=== PATIENT | female | born 1970 | race Two or more races ===

== ENCOUNTER 2021-05-25 12:27 | Outpatient (REF) | payer MEDICAID, SELFPAY ==
--- NOTE | ~2021-05-25 | MM_ITS ---
EXAMINATION: MM SCREENING DIGITAL BREAST TOMOSYNTHESIS, BILATERAL CLINICAL INFORMATION: Screening. Asymptomatic. The lifetime risk of breast cancer based on the Tyrer-Cuzick Model is 4%. COMPARISON: Mammography: 08/26/2018, 08/07/2017, 05/01/2016 (baseline). TECHNIQUE: Digital breast tomosynthesis is performed in both the craniocaudal and mediolateral oblique views along with computer-aided detection (CAD). Synthesized 2D images are generated from the tomosynthesis. FINDINGS: The breasts are almost entirely fatty (ACR BI-RADS breast composition Category a). There are no significant masses, abnormal calcifications, or other abnormalities. Background stromal and fibroglandular densities are stable. There is no developing density. The axilla and skin contours are unremarkable. MM/MM tomosynthesis screening BI IMPRESSION: No mammographic evidence of malignancy. ASSESSMENT: BI-RADS 1: Negative RECOMMENDATION: Routine annual mammography screening. This patient's information was entered into a reminder system with a target due date for their next mammogram.
== END 2021-05-25 12:28 | disposition home or self-care (01) ==
LOC: HO.MAMMO 12:27
PROVIDERS: PCP Internal Medicine; Visit Provider Internal Medicine
DX: Z12.31 Encounter for screening mammogram for malignant neoplasm of breast (principal)
CPT/HCPCS: 77063; 77067

== ENCOUNTER 2021-07-03 10:30 | Outpatient (REF) | payer MEDICAID, SELFPAY ==
--- NOTE | ~2021-07-03 | CT_ITS ---
CT HEAD WITHOUT CONTRAST CLINICAL INFORMATION: Benign intracranial hypertension. COMPARISON: None available. TECHNIQUE: Contiguous axial imaging was performed from the skull base to vertex without intravenous administration of contrast. This CT examination was performed using dose optimization techniques as appropriate, variously including the following: *Automated exposure control *Adjustment of mA and/or kV according to patient size (this includes techniques or standardized protocols for targeted exams where dose is matched to indication/reason for exam; i.e. extremities or head) *Use of iterative reconstruction technique FINDINGS: Empty sella. There is no intracranial hemorrhage, hydrocephalus, extra-axial surface collection, midline shift, or other herniation pattern. Gauthier to white matter differentiation is diffusely maintained without evidence of an evolved acute territorial infarct. The basilar cisterns are preserved. No significant soft tissue abnormality. No acute osseous abnormality. The paranasal sinuses and the mastoid air cells are well aerated. CT/CT head/brain wo con IMPRESSION: No acute intracranial abnormality. Empty sella.
== END 2021-07-03 10:31 | disposition home or self-care (01) ==
LOC: HO.CT 10:30
PROVIDERS: PCP Internal Medicine; Visit Provider Ophthalmology
DX: G93.2 Benign intracranial hypertension (principal)
CPT/HCPCS: 70450

== ENCOUNTER 2021-07-21 15:08 | Outpatient (REF) | payer MEDICAID, SELFPAY ==
--- NOTE | ~2021-07-21 | MR_ITS ---
MR BRAIN WITHOUT AND WITH IV CONTRAST CLINICAL INFORMATION: Papilledema. COMPARISON: Head CT 07/03/2021. TECHNIQUE: Multiplanar, multisequence MRI of the brain was obtained before and after the intravenous administration of 8.5 mL of Gadavist. FINDINGS: There is no pathologic intracranial enhancement. No parenchymal signal abnormality. There is no hydrocephalus, extra-axial surface collection, or herniation. The major flow voids at the skull base are preserved. There is no acute infarct on diffusion-weighted imaging. There is no intracranial hemorrhage on the gradient recalled echo acquisition. Partially empty sella. The cerebellar tonsils are normally positioned. The cerebellum and brainstem are normal. The craniocervical junction is normal. Osseous marrow signal intensity is homogenous. The visualized soft tissues are unremarkable. MR/MR head/brain wo/w con IMPRESSION: There is a partially empty sella which can be correlated for clinical signs of pseudotumor cerebri. Otherwise unremarkable MRI of the brain. No enhancing lesions.
[2021-07-21 15:21] LABS: Blood Urea Nitrogen 16 mg/dL (9-16); Estimated Glomerular Filt Rate > 60
== END 2021-07-21 15:09 | disposition home or self-care (01) ==
LOC: HO.MRI 15:08
PROVIDERS: Visit Provider Psychiatry & Neurology Neurology
DX: Z01.812 Encounter for preprocedural laboratory examination (principal); H47.10 Unspecified papilledema
CPT/HCPCS: 36415; 70553; 82565; 84520; A9585

== ENCOUNTER 2021-09-22 09:21 | Day surgery (SDC) | payer MEDICAID, SELFPAY ==
--- NOTE | ~2021-09-22 | FL_ITS ---
EXAMINATION: XR LUMBAR PUNCTURE CLINICAL INFORMATION: Papilledema. COMPARISON: None. TECHNIQUE: Following explaining fluoroscopy-guided lumbar puncture procedure, benefits and risk, a written consent was obtained. Patient was placed prone on fluoroscopy table and low back area was cleaned and draped in the usual sterile manner. 1% lidocaine was administered overlying the L4-L5 disc level. 6 inch 20-gauge needle was then advanced from the skin intrathecally at the L4-L5 disc level. After observing CSF return following removal of stylet, patient was quickly placed in left lateral decubitus view and opening CSF pressure was obtained. CSF fluid was then collected in 4 test tubes. Stylet was reintroduced and needle withdrawn. Complete hemostasis achieved at puncture site. Simple Band-Aid applied postprocedure. Patient tolerated procedure extremely well. FINDINGS: On fluoroscopy-guided lumbar puncture the opening CSF pressure is elevated measuring 33 cm of water. Approximately 11.5 cc of clear CSF fluid was collected in 4 test tubes. FLUOROSCOPY TIME: 0.9 minutes. DOSE AREA PRODUCT: 12.476 uGy-m2 (microgray-meter squared). FL/FL guided lumbar puncture LP IMPRESSION: Successful fluoroscopy-guided lumbar puncture performed at the L4-L5 disc level.
[2021-09-22 10:04] LABS: MANUAL DIFF FLAG NO
[2021-09-22 10:06] LABS: Basophils Percent Auto 0.4 % (0-2); Eosinophils Absolute Auto 0.1 X10*3/uL (0.0-0.4); Eosinophils Percent Auto 1.1 % (0-4); Hematocrit 42.4 % (37.0-47.0); Hemoglobin 13.6 g/dl (12.0-16.0); Imm Gran Abs Auto 0.04 X10*3/uL (0.00-0.03); Imm Gran Pct Auto 0.4 % (0.0-0.4); Lymphocytes Absolute Auto 3.5 X10*3/uL (1.2-4.9); Lymphocytes Percent Auto 31.7 % (20-40); Mean Corpuscular HGB Conc 32.1 g/dl (31.0-35.0); Mean Corpuscular Hemoglobin 27.8 pg (27.0-33.0); Mean Corpuscular Volume 86.5 fL (80.0-98.0); Mean Platelet Volume 12.3 fL (9.4-12.3); Monocytes Absolute Auto 0.6 X10*3/uL (0.1-1.2); Monocytes Percent Auto 5.3 % (2-11); Neutrophils Absolute Auto 6.7 x10*3/uL (2.0-8.3); Neutrophils Percent Auto 61.1 % (45-73); Platelet Count 267 X10*3/uL (160-400); Red Cell Distribution Width 14.2 % (11.0-16.0); White Blood Count 10.9 X10*3/uL (4.8-10.8)
[2021-09-22 10:10] VITALS: BP 152/76; PULSE 90; RESP 18; TEMP 36.7; O2SAT 96; BMI 34.5
[2021-09-22 10:12] LABS: Prothrombin Time 11.9 SEC (10.0-13.1)
[2021-09-22 10:15] LABS: Partial Thromboplastin Time 39.3 SEC (24.1-38.0)
[2021-09-22 12:19] VITALS: BP 136/75; PULSE 80; RESP 16; TEMP 36.5; O2SAT 96
[2021-09-22 12:47] LABS: CSF Appearance Hazy; CSF Tube # 1
[2021-09-22 12:49] VITALS: BP 114/60; PULSE 77; RESP 16; O2SAT 98
[2021-09-22 13:19] VITALS: BP 131/78; PULSE 76; RESP 16; O2SAT 98
[2021-09-22 13:26] LABS: Appearance CSF CLEAR; CSF Monos 20 %; CSF Tube # 4; CSF Volume 2.5 ML; Color CSF COLORLESS; Lymphocytes CSF 60 %; Neutrophils CSF 20 %; Red Blood Cell CSF 52 MM*3; White Blood Cell CSF 5 MM*3
[2021-09-22 13:35] LABS: Glucose CSF 67 mg/dL; Total Protein CSF 43.6 mg/dL (15-45)
[2021-09-22 14:09] VITALS: BP 141/82; PULSE 73; RESP 16; O2SAT 99
[2021-09-22 14:57] VITALS: BP 139/86; PULSE 79; RESP 16; TEMP 36.9; O2SAT 99
== END 2021-09-22 14:58 | disposition home or self-care (01) ==
PROVIDERS: Psychiatry & Neurology Neurology; Radiology Diagnostic Radiology; Visit Provider Radiology Diagnostic Radiology
PROC: 009U3ZZ Drainage of Spinal Canal, Percutaneous Approach (ICD-10-PCS; CPT 62270; principal; 2021-09-22 11:00)
DX: H47.10 Unspecified papilledema (principal); G43.909 Migraine, unspecified, not intractable, without status migrainosus; I10 Essential (primary) hypertension; E78.5 Hyperlipidemia, unspecified; E66.9 Obesity, unspecified; Z79.899 Other long term (current) drug therapy
CPT/HCPCS: 36415; 62328; 82945; 84157; 85025; 85610; 85730; 87015; 87070; 87205; 89051

== ENCOUNTER 2022-05-31 12:27 | Outpatient (REF) | payer MEDICAID, SELFPAY ==
--- NOTE | ~2022-05-31 | MM_ITS ---
EXAMINATION: MM SCREENING DIGITAL BREAST TOMOSYNTHESIS, BILATERAL CLINICAL INFORMATION: Screening. Asymptomatic. The lifetime risk of breast cancer based on the Tyrer-Cuzick Model is 4%. COMPARISON: Mammography: 05/25/2021, 08/26/2018, 08/07/2017 TECHNIQUE: Digital breast tomosynthesis is performed in both the craniocaudal and mediolateral oblique views along with computer-aided detection (CAD). Synthesized 2D images are generated from the tomosynthesis. FINDINGS: There are scattered areas of fibroglandular density (ACR BI-RADS breast composition Category b). Breast tissue composition borders on predominantly fatty. Background stromal markings are unremarkable. There are no significant masses, abnormal calcifications, or other abnormalities. Parenchymal pattern is similar to prior studies. There is no developing density or architectural abnormality. There is a small dermal lesion again seen overlying the outer left breast. The axilla are unremarkable. No significant changes. MM/MM tomosynthesis screening BI IMPRESSION: No mammographic evidence of malignancy. ASSESSMENT: BI-RADS 2: Benign RECOMMENDATION: Routine annual mammography screening. This patient's information was entered into a reminder system with a target due date for their next mammogram.
== END 2022-05-31 12:28 | disposition home or self-care (01) ==
LOC: HO.MAMMO 12:27
PROVIDERS: Visit Provider Internal Medicine
DX: Z12.31 Encounter for screening mammogram for malignant neoplasm of breast (principal)
CPT/HCPCS: 77063; 77067

== ENCOUNTER 2023-06-03 12:57 | Outpatient (REF) | payer MEDICAID, SELFPAY | END 2023-06-03 12:58 | disposition home or self-care (01) | LOC: HO.MAMMO 12:57 | PROVIDERS: PCP Student in an Organized Health Care Education/Training Program; Visit Provider Student in an Organized Health Care Education/Training Program | DX: Z12.31 Encounter for screening mammogram for malignant neoplasm of breast (principal) | CPT/HCPCS: 77063; 77067 ==

== ENCOUNTER → 2023-06-03 13:15 | Outpatient (BNV) | payer MEDICAID, SELFPAY | PROVIDERS: PCP Student in an Organized Health Care Education/Training Program; Visit Provider Radiology Diagnostic Radiology | DX: Z12.31 Encounter for screening mammogram for malignant neoplasm of breast (principal) | CPT/HCPCS: 77063; 77067 ==

== ENCOUNTER 2023-11-15 08:46 | Outpatient (REF) | payer MEDICAID, SELFPAY ==
[2023-11-15 11:20] LABS: Hematocrit 45.3 % (37.0-47.0); Hemoglobin 14.6 g/dl (12.0-16.0); Mean Corpuscular HGB Conc 32.2 g/dl (31.0-35.0); Mean Corpuscular Hemoglobin 28.1 pg (27.0-33.0); Mean Corpuscular Volume 87.3 fL (80.0-98.0); Mean Platelet Volume 13.4 fL (9.4-12.3); Platelet Count 238 X10*3/uL (160-400); Red Blood Count 5.19 X10*6/uL (4.20-5.50); Red Cell Distribution Width 14.3 % (11.0-16.0); White Blood Count 9.6 X10*3/uL (4.8-10.8)
[2023-11-15 11:30] LABS: Estimated Average Glucose 108 mg/dL; Hemoglobin A1c % 5.4 % (<6.0)
[2023-11-15 11:40] LABS: Alanine Aminotransferase 36 U/L (0-31); Albumin Level 4.2 g/dL (3.5-5.0); Alkaline Phosphatase 100 U/L (39-117); Anion Gap 14 (12-20); Aspartate Amino Transferase 31 U/L (5-31); Bilirubin Total 0.4 mg/dL (0.0-1.0); Blood Urea Nitrogen 12 mg/dL (9-16); Calcium 9.9 mg/dL (8.4-10.2); Carbon Dioxide 24 mmol/L (22-29); Chloride 106 mmol/L (96-108); Estimated Glomerular Filt Rate > 60; Glucose Random 97 mg/dL (60-115); Potassium 4.1 mmol/L (3.3-5.1); Sodium 140 mmol/L (135-145); Total Protein 8.5 g/dL (6.5-8.0)
[2023-11-15 11:50] LABS: Syphilis Screen Nonreactive (Nonreactive)
[2023-11-15 11:54] LABS: HBS Num1 0.35 mIU/mL (0-7.99); HBc Num1 0.19 S/CO (0.00-0.79); Hepatitis B Core Antibody Nonreactive (Nonreactive); ~HepC Num1 0.12 S/CO (0.00-0.79); ~Hepatitis B Surface Antibody NONREACTIVE (Nonreactive); ~Hepatitis C Antibody Nonreactive (Nonreactive)
[2023-11-15 11:59] LABS: TSH reflex Free T4 0.59 uIU/mL (0.32-4.0); Vitamin D 25-OH Total 36.4 ng/mL (>30)
[2023-11-15 12:07] LABS: Creatinine Urine 130.67 mg/dL; Microalbum/Creatinine Ratio Ur 14.5 ug/mg cr (<30)
[2023-11-15 13:17] LABS: CT PCR NOT DETECTED (Not Detect.); NG PCR NOT DETECTED (Not Detect.)
== END 2023-11-15 08:47 | disposition home or self-care (01) ==
LOC: HO.HHCL 08:46
PROVIDERS: Visit Provider Student in an Organized Health Care Education/Training Program
DX: Z00.00 Encounter for general adult medical examination without abnormal findings (principal)
CPT/HCPCS: 36415; 80053; 82043; 82306; 82570; 83036; 84443; 85027; 86704; 86706; 86780; 86803; 87491; 87591

== ENCOUNTER 2023-11-22 11:55 | Outpatient (REF) | payer MEDICAID, SELFPAY ==
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
== END 2023-11-22 11:56 | disposition home or self-care (01) ==
LOC: HO.HHCX 11:55
PROVIDERS: Visit Provider Emergency Medicine
DX: S97.121A Crushing injury of right lesser toe(s), initial encounter (principal)
CPT/HCPCS: 73660

== ENCOUNTER 2023-11-26 12:50 | Outpatient (AMB) | payer MEDICAID, SELFPAY ==
--- NOTE | 2023-11-26 12:51 | A.OFFVIS_ITS ---
Vital Signs 11/26/23 13:01 Height 5 ft 2 in Weight 196 lb BMI 35.8 BP 132/65 Blood Pressure Location Rt brachial Position Sitting Pulse 99 Intake Visit Reasons: Infected sebaceous cyst back Intake Note: Patient referred by pcp Dr. Jay for infected cyst on back. Present for 1yr but recently began oozing. Taking Doxycycline X7d. Patient c/o: 2nd concern cyst on Rt chest for 9m. Ear Nose Throat Physician Required: Yes Ear Nose Throat Physician Name: Iris Jones IDRIS Accompanied by: Spouse Tavo Allergies No Known Allergies Allergy (Verified 11/26/23 12:58) Medication List - Last Reconciled 11/26/23 by Robe Gilbert MD acetazolamide 250 mg PO DAILY amlodipine 10 mg PO DAILY chlorthalidone 1 tab PO DAILY cholecalciferol (vitamin D3) 125 mcg PO QAM hydrocodone-acetaminophen 5-325 mg 1 tab PO Q4-6H PRN lidocaine 5% patches topical losartan 25 mg PO DAILY rosuvastatin 20 mg PO QAM topiramate 25 mg PO DAILY HPI Comments Details: Patient presents accompanied by a family member. She has had a 2 week history of infected sebaceous cyst of the mid back. Because of progression of symptoms, she presents here for further evaluation. She was seen by her medical doctor who has prescribed antibiotics for her. She has never had this before. Chart was reviewed and patient evaluated [facility] Medical History Hypertension Social History (Updated 11/26/23 @ 13:09 by IDRIS Phillips) Alcohol intake: never Patient Tobacco Use Status: Never used Tobacco Physical Exam Vital Signs: Last Vital Signs Pulse 99 11/26/23 13:01 BP 132/65 11/26/23 13:01 BMI result Body Mass Index 35.8 Back/Spine/Pelvis Other: Roughly 4 x 3 cm mid back infected sebaceous cyst/abscess. Office Procedures I&D Drain Details: Risks, benefits alternatives of I&D of mid back infected sebaceous cyst/abscess were reviewed the patient and included but not limited to bleeding, recurrence, numbness, pain, scarring the patient wished to proceed. All questions answered. After appropriate positioning, patient underwent 1% lidocaine and Betadine prep and uneventfully transverse incision made over the infected sebaceous cyst/abscess. Copious amounts of purulent material retrieved. Wound was irrigated, secured hemostasis, packed, and dressing applied. Patient tolerated procedure well. 34864-Jbaqzrze of Skin Abscess, complex All charges added?: Procedure code (CPT) selection complete Assessment & Plan Assessment & Plan (1) Abscess: Code(s): L02.91 - Cutaneous abscess, unspecified Category: Surgical Plan: Patient was continue antibiotics prescribed by her medical doctor, she will be given a script for analgesics, local wound care, VNA services per Valentin from the office and patient will see me in a week's time or p.r.n.. Orders: Orders AMB Incision & Drainage Today L02.91 - Cutaneous abscess, unspecified Medications: New hydrocodone-acetaminophen 5-325 mg Partial Fill upon patient request. 1 tab PO Q4-6H PRN 30 tabs 0RF pain Coding Level of Care Code New Pt Level 5 (03124) Diagnoses Abscess L02.91 CPT Codes I&D Drain - Drain 2: 45591-Rkpyssyi of Skin Abscess, complex ([id number])
[2023-11-26 13:01] VITALS: BP 132/65; PULSE 99; BMI 35.8
== END 2023-11-26 13:31 | disposition home or self-care (01) ==
PROVIDERS: PCP Student in an Organized Health Care Education/Training Program; Visit Provider Surgery
DX: L02.91 Cutaneous abscess, unspecified (principal)
CPT/HCPCS: 10060; 99204

== ENCOUNTER → 2023-11-26 12:50 | Outpatient (BNVA) | payer MEDICAID, SELFPAY | PROVIDERS: PCP Student in an Organized Health Care Education/Training Program; Visit Provider Surgery | DX: L02.91 Cutaneous abscess, unspecified (principal) | CPT/HCPCS: 10060; 99202 ==

== ENCOUNTER → 2023-11-27 14:55 | Outpatient (BNVA) | payer MEDICAID, SELFPAY | PROVIDERS: PCP Student in an Organized Health Care Education/Training Program; Visit Provider Surgery ==

== ENCOUNTER → 2023-11-28 14:41 | Outpatient (BNVA) | payer MEDICAID, SELFPAY | PROVIDERS: PCP Student in an Organized Health Care Education/Training Program; Visit Provider Surgery | DX: Z48.01 Encounter for change or removal of surgical wound dressing (principal) | CPT/HCPCS: 99211 ==

== ENCOUNTER 2023-12-10 10:30 | Outpatient (AMB) | payer MEDICAID, SELFPAY ==
--- NOTE | 2023-12-10 10:33 | A.OFFVIS_ITS ---
Intake Visit Reasons: s/p I&D Infected sebaceous cyst back Intake Note: Patient here s/p abscess on back. Finished doxycycline course. Patient c/o: site healing well. Denies oozing, pain, itch. Truss Assembler Required: Yes Accompanied by: Self / Same As Patient Allergies No Known Allergies Allergy (Verified 12/10/23 10:36) HPI Comments Details: Patient was status post I&D of mid back infected sebaceous cyst. She is doing quite well. She has no discomfort anymore. There was no drainage. [facility] Medical History Hypertension Social History (Updated 11/26/23 @ 13:09 by IDRIS Phillips) Alcohol intake: never Patient Tobacco Use Status: Never used Tobacco Physical Exam Back/Spine/Pelvis Other: Back wound is completely healed. Sebaceous cyst is still present. This measures roughly 3 x 2 cm. Assessment & Plan Assessment & Plan (1) Status post incision and drainage: Code(s): Z98.890 - Other specified postprocedural states Category: Medical Plan Current plan and have the patient continue healing and arranged for elective excision in the office on a day which is convenient for her. She understands. All questions answered. Arrangements made for this. Coding Level of Care Code Global (89244) Diagnoses Status post incision and drainage Z98.890
== END 2023-12-10 11:01 | disposition home or self-care (01) ==
PROVIDERS: PCP Student in an Organized Health Care Education/Training Program; Visit Provider Surgery
DX: Z98.890 Other specified postprocedural states (principal)
CPT/HCPCS: 99024

== ENCOUNTER → 2023-12-10 10:30 | Outpatient (BNVA) | payer MEDICAID, SELFPAY | PROVIDERS: PCP Student in an Organized Health Care Education/Training Program; Visit Provider Surgery | DX: L72.3 Sebaceous cyst (principal); Z48.817 Encounter for surgical aftercare following surgery on the skin and subcutaneous tissue; Z98.890 Other specified postprocedural states | CPT/HCPCS: 99212 ==

== ENCOUNTER 2023-12-25 07:29 | Outpatient (AMB) | payer MEDICAID, SELFPAY ==
--- NOTE | 2023-12-25 07:40 | MHC.OFFVIS ---
Vital Signs 12/25/23 07:41 Height 5 ft 2 in Weight 198 lb BMI 36.2 BP 168/73 H Blood Pressure Location Rt brachial Position Sitting Pulse 92 Intake Visit Reasons: Excision I&D Infected sebaceous cyst back Intake Note: Patient here for cyst excision on back. Postal Supervisor Required: Yes Postal Supervisor Name: Iris STEINBERG Accompanied by: Spouse Allergies No Known Allergies Allergy (Verified 12/25/23 07:40) Medication List - Last Reconciled 12/25/23 by Robe Gilbert MD acetazolamide 250 mg PO DAILY amlodipine 10 mg PO DAILY chlorthalidone 1 tab PO DAILY cholecalciferol (vitamin D3) 125 mcg PO QAM lidocaine 5% patches topical losartan 25 mg PO DAILY rosuvastatin 20 mg PO QAM topiramate 25 mg PO DAILY HPI Comments Details: Patient presents for elective excision of a prior infected sebaceous cyst of the mid back. Risks, benefits, alternatives of procedure reviewed with the patient included but not limited to bleeding, infection, recurrence, numbness, pain, scarring, wound dehiscence, seroma formation and the patient wished to proceed. All questions answered. Consent signed [facility] Medical History Hypertension Social History (Updated 11/26/23 @ 13:09 by IDRIS Phillips) Alcohol intake: never Patient Tobacco Use Status: Never used Tobacco Physical Exam Vital Signs: Last Vital Signs Pulse 92 12/25/23 07:41 BP 168/73 H 12/25/23 07:41 BMI result Body Mass Index 36.2 Office Procedures Excision Details: After after appropriate positioning, patient underwent 1% lidocaine and Betadine prep, and a transverse by elliptical incision made around the mass in question which measured roughly 4 x 3 cm consistent with a sebaceous cyst. Specimen was excised and sent to pathology. Wound was irrigated, secured hemostasis, and closed using running subcuticular 3-0 Vicryl suture followed by Steri-Strips and sterile dressings. Patient tolerated procedure well. 49588-lbvqy/arms/legs 3.1-4cm Procedure code (CPT) selection complete Office Meds lidocaine 1 %-epinephrine 1:100,000 injection solution Performing Provider: Robe Gilbert MD [place] [facility] [place] [facility] Administered by: Robe Gilbert MD on 12/25/23 08:14 Dose Route Admin Location Dispensed Lot Number Expiration Date NDC Combat Rifle Crewmember 20 mL Infiltration 20 mL Assessment & Plan Assessment & Plan (1) Sebaceous cyst: Code(s): L72.3 - Sebaceous cyst Category: Surgical Plan: Patient was been given local instructions along with her family member, including ice periodically today tomorrow, may shower in 2 days removing only outside dressing, may shower in 2 days, and script for analgesics. All questions answered. Orders: Orders AMB Excision Today L72.3 - Sebaceous cyst Medications: New lidocaine-epinephrine 1 %-1:100,000 20 mL Infiltration ONCE 30 mL 0RF L72.3 - Sebaceous cyst Coding Level of Care Code Est Pt Level 5 (16396) Diagnoses Sebaceous cyst L72.3 CPT Codes Trunk/Arms/Legs - CPT: 96679-qpirw/arms/legs 3.1-4cm ([id number])
[2023-12-25 07:41] VITALS: BP 168/73; PULSE 92; BMI 36.2
== END 2023-12-25 08:21 | disposition home or self-care (01) ==
PROVIDERS: PCP Student in an Organized Health Care Education/Training Program; Visit Provider Surgery
DX: L72.0 Epidermal cyst (principal)
CPT/HCPCS: 11404

== ENCOUNTER 2023-12-25 07:29 | Outpatient (REF) | payer MEDICAID, SELFPAY | END 2023-12-25 07:30 | disposition home or self-care (01) | LOC: HO.LNP 07:29 | PROVIDERS: PCP Student in an Organized Health Care Education/Training Program; Visit Provider Surgery | DX: L72.0 Epidermal cyst (principal) | CPT/HCPCS: 11404; 88304 ==

== ENCOUNTER 2024-01-01 08:53 | Outpatient (AMB) | payer MEDICAID, SELFPAY ==
--- NOTE | 2024-01-01 08:54 | A.OFFVIS_ITS ---
Intake Visit Reasons: S/p cyst exc~ back Intake Note: Patient here s/p cyst excision on mid back on . Reports lesion healing well. Patient c/o: irritation with ban-daid adhesive. ~ Patient advised band-aid no longer needed. Lead Material Handler Required: No Accompanied by: Friend Allergies No Known Allergies Allergy (Verified 01/01/24 08:59) HPI Comments Details: Patient presents with a family member/friend for follow-up. She has no wound issues or complaints. Pathology is benign. [facility] Medical History Hypertension Social History (Updated 11/26/23 @ 13:09 by IDRIS Phillips) Alcohol intake: never Patient Tobacco Use Status: Never used Tobacco Physical Exam Back/Spine/Pelvis Other: Incision clean dry and intact healing well Assessment & Plan Assessment & Plan (1) Postop check: Code(s): Z09 - Encounter for follow-up examination after completed treatment for conditions other than malignant neoplasm Category: Surgical Plan Patient has been given local instructions including avoiding strenuous activities next few weeks time and will otherwise follow-up p.r.n.. All questions answered. Coding Level of Care Code Global (57364) Diagnoses Postop check Z09
== END 2024-01-01 09:08 | disposition home or self-care (01) ==
PROVIDERS: PCP Student in an Organized Health Care Education/Training Program; Visit Provider Surgery
DX: Z09 Encounter for follow-up examination after completed treatment for conditions other than malignant neoplasm (principal)
CPT/HCPCS: 99024

== ENCOUNTER → 2024-01-01 08:53 | Outpatient (BNVA) | payer MEDICAID, SELFPAY | PROVIDERS: PCP Student in an Organized Health Care Education/Training Program; Visit Provider Surgery | DX: Z09 Encounter for follow-up examination after completed treatment for conditions other than malignant neoplasm (principal); Z87.2 Personal history of diseases of the skin and subcutaneous tissue; Z98.890 Other specified postprocedural states | CPT/HCPCS: 99212 ==

== ENCOUNTER 2024-01-09 12:38 | Outpatient (AMB) | payer MEDICAID, SELFPAY ==
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
[2024-01-09 12:52] VITALS: BMI 36.2
== END 2024-01-09 13:17 | disposition home or self-care (01) ==
PROVIDERS: PCP Student in an Organized Health Care Education/Training Program; Visit Provider Physician Assistant
DX: M79.671 Pain in right foot (principal)
CPT/HCPCS: 99202

== ENCOUNTER → 2024-01-09 12:38 | Outpatient (BNVA) | payer MEDICAID, SELFPAY | PROVIDERS: PCP Student in an Organized Health Care Education/Training Program; Visit Provider Physician Assistant | DX: M79.671 Pain in right foot (principal); S99.921A Unspecified injury of right foot, initial encounter; X58.XXXA Exposure to other specified factors, initial encounter; Y93.9 Activity, unspecified; Y92.9 Unspecified place or not applicable; Y99.9 Unspecified external cause status | CPT/HCPCS: 99212 ==

== ENCOUNTER 2024-02-07 08:49 | Outpatient (REF) | payer MEDICAID, SELFPAY ==
[2024-02-07 11:32] LABS: Alanine Aminotransferase 20 U/L (0-31); Albumin Level 3.9 g/dL (3.5-5.0); Alkaline Phosphatase 95 U/L (39-117); Anion Gap 13 (12-20); Aspartate Amino Transferase 28 U/L (5-31); Bilirubin Total 0.3 mg/dL (0.0-1.0); Blood Urea Nitrogen 17 mg/dL (9-16); Calcium 9.4 mg/dL (8.4-10.2); Carbon Dioxide 25 mmol/L (22-29); Chloride 107 mmol/L (96-108); Cholesterol 228 mg/dL (<200); Estimated Glomerular Filt Rate > 60; Glucose Random 99 mg/dL (60-115); HDL Cholesterol 35 mg/dL (>40); LDL Cholesterol Calculated 162 mg/dL (<100); Potassium 3.8 mmol/L (3.3-5.1); Sodium 141 mmol/L (135-145); Total Protein 7.7 g/dL (6.5-8.0); Triglycerides 156 mg/dL (<150)
[2024-02-07 12:49] LABS: HBS Num1 0.57 mIU/mL (0-7.99); HBsAGNum1 0.29 S/CO (0.00-0.99); Hepatitis B Surface Antigen Negative (Negative); ~Hepatitis B Surface Antibody NONREACTIVE (Nonreactive)
[2024-02-07 13:22] LABS: HBc Num1 0.24 S/CO (0.00-0.79); HIV AB/AG Nonreactive (Nonreactive); HIV Num 1 0.06 S/CO (0.00-0.99); Hepatitis B Core Antibody Nonreactive (Nonreactive)
== END 2024-02-07 08:50 | disposition home or self-care (01) ==
LOC: HO.HHCL 08:49
PROVIDERS: Visit Provider Student in an Organized Health Care Education/Training Program
DX: Z00.00 Encounter for general adult medical examination without abnormal findings (principal); E78.5 Hyperlipidemia, unspecified
CPT/HCPCS: 36415; 80053; 80061; 86704; 86706; 87340; 87389

== ENCOUNTER 2024-02-25 15:08 | Outpatient (AMB) | payer MEDICAID, SELFPAY ==
[2024-02-25 15:12] VITALS: BP 148/78; PULSE 78; O2SAT 96; BMI 36.0
--- NOTE | 2024-02-25 15:12 | MHC.OFFVIS ---
Vital Signs 02/25/24 15:12 Height 5 ft 2 in Weight 197 lb 1.492 oz BMI 36.0 BP 148/78 H Blood Pressure Location Lt brachial Position Sitting Pulse 78 Pulse Source Pulse Oximeter Pulse Oximetry (%) 96 Oxygen Delivery Method Room Air Intake Visit Reasons: pre colonoscopy Intake Note: Jaylyn presents in office today for a scheduled colo scrn. Routine/Initial CC; Relevant GI Sx as reported per pt? Pt denies any specific GI sx. Pt was referred by PCP per age specification. ? Recent hx of relevant surgeries? No prior colo. Pt only had minor procedures in the last year (skin abscess) Pt mother recently from colon cancer complications. Artificial Breeding Technician Required: Yes Artificial Breeding Technician Services: Artificial Breeding Technician Present Artificial Breeding Technician Name: [id number] Juan A Information Interpreted: non-clinical & clinical Accompanied by: Self / Same As Patient Allergies No Known Allergies Allergy (Verified 02/25/24 15:13) Medication List - Last Reconciled 02/25/24 by FARRAH Agarwal acetazolamide 250 mg PO DAILY amlodipine 10 mg PO DAILY chlorthalidone 1 tab PO DAILY cholecalciferol (vitamin D3) 125 mcg PO QAM lidocaine 5% patches topical losartan 50 mg PO DAILY rosuvastatin 20 mg PO QAM topiramate 25 mg PO DAILY HPI HPI pre colonoscopy: Details: 53 year old? female hypertension, hypercholesteremia is here today for pre colonoscopy screening.? Patient was sent to us by her PCP.? This is her first colonoscopy screening.? Patient denies any gastrointestinal symptoms in the past or at present.? Patient's mother passed shortly after diagnosed with colorectal cancer Patient's dad diagnosed with prostate cancer and maternal aunt was diagnosed with esophageal cancer and breast cancer.? Denies any history of difficulty with sedation or anesthesia in the past.? Negative for history of sleep apnea.? Denies any history of cardiac, renal, pulmonary, or hepatic disease.?? No history of infectious? diseases like hepatitis A, B, C, HIV or tuberculosis.? Patient is not on any anticoagulation [facility] Medical History (Updated 02/25/24 @ 15:56 by FARRAH Agarwal) Family history of colorectal cancer Hypertension Surgical History (Reviewed 02/25/24 @ 15:12 by Ricky Moreno [facility]) History of back surgery Social History (Reviewed 02/25/24 @ 15:12 by Ricky Moreno [facility]) Alcohol intake: never Patient Tobacco Use Status: Never used Tobacco Current occupational status: unemployed Review of Systems Const Denies weight gain and Denies weight loss ENT Reports no additional complaints, Denies dysphagia and Denies odynophagia Card Reports no additional complaints Resp Reports no additional complaints GI Denies abdominal pain, Denies belching, Denies melena, Denies bloating, Denies change in bowel habits, Denies dysphagia, Denies excessive flatus, Denies dyspepsia, Denies heartburn, Denies diarrhea, Denies loose stools, Denies nausea, Denies odynophagia and Denies vomiting Musc Reports no additional complaints Neuro Reports no additional complaints Psych Reports no additional complaints Endo Reports no additional complaints Physical Exam Vital Signs: Last Vital Signs Pulse 78 02/25/24 15:12 BP 148/78 H 02/25/24 15:12 Pulse Ox 96 02/25/24 15:12 Oxygen Delivery Method Room Air 02/25/24 15:12 BMI result Body Mass Index 36.0 Const General: healthy appearing and no acute distress Nutritional Appearance: obese Orientation/consciousness: patient oriented x3 Resp Effort & Inspection: normal respiratory effort, able to speak in complete sentences, no tracheal deviation and symmetric chest movement Auscultation: clear to auscultation bilaterally Cardio Rate: regular rate GI Inspection: Yes normal to inspection, No distended and Yes obesity Palpation (GI): Soft to palpation, not firm, nontender and No hepatosplenomegaly present Auscultation: normal bowel sounds General: Yes no CVA tenderness Back/Spine/Pelvis Back: no CVA tenderness Skin General skin exam: elasticity normal, turgor normal and dry skin Neuro General: patient oriented x3 Psych Appearance: grossly normal Mental Status: mental status grossly normal Assessment & Plan Assessment & Plan (1) Family history of colorectal cancer: Code(s): Z80.0 - Family history of malignant neoplasm of digestive organs Category: Medical (2) Screen for colon cancer: Code(s): Z12.11 - Encounter for screening for malignant neoplasm of colon Plan Patient denies any GI, cardiac or respiratory symptoms.? Denies any issues with anesthesia in the past.? Denies any history of sleep apnea.? No history infectious diseases in the past or present.? Not on any anticoagulation therapy.? Family history of CRC. Patient denies melena, hematochezia, unintentional weight loss or ribbon like stools.? Discussed at length the pre-procedure,? prep, diet & medications as well as what to expect prior, during and after the procedure.?? Stressed the importance of good bowel prep.? Recommended the use of Vaseline or Calmoseptine OTC & baby wipes with bowel movements to promote comfort.? ?Patient verbalizes understanding and agrees to plan of care.? She was given the opportunity to ask questions and all questions answered.? We will see her after the procedure.? Medications: New bisacodyl (Dulcolax (bisacodyl)) take 4 tabs at noon the day before your colonoscopy 20 mg (4 x 5 mg) PO ONCE 4 tabs 0RF 1 day Z12.11 - Encounter for screening for malignant neoplasm of colon polyethylene glycol 3350 (Miralax) As directed by gastroenterology department at [facility] 238 grams PO ONCE 238 grams 0RF Z12.11 - Encounter for screening for malignant neoplasm of colon Coding Level of Care Code New Pt Level 3 (54449) Diagnoses Family history of colorectal cancer Z80.0 Screen for colon cancer Z12.11 Time Spent (min) 40 Comment 30 minutes spent with patient and additional 10 minutes spent reviewing her records
== END 2024-02-25 16:09 | disposition home or self-care (01) ==
PROVIDERS: PCP Student in an Organized Health Care Education/Training Program; Visit Provider Nurse Practitioner Family
DX: Z80.0 Family history of malignant neoplasm of digestive organs (principal); Z12.11 Encounter for screening for malignant neoplasm of colon
CPT/HCPCS: 99203

== ENCOUNTER → 2024-02-25 15:08 | Outpatient (BNVA) | payer MEDICAID, SELFPAY | PROVIDERS: PCP Student in an Organized Health Care Education/Training Program; Visit Provider Nurse Practitioner Family | DX: Z01.818 Encounter for other preprocedural examination (principal); Z80.0 Family history of malignant neoplasm of digestive organs | CPT/HCPCS: 99212 ==

== ENCOUNTER 2024-03-27 13:41 | Outpatient (REF) | payer MEDICAID, SELFPAY ==
[2024-03-27 17:06] LABS: Alanine Aminotransferase 48 U/L (0-31); Albumin Level 3.9 g/dL (3.5-5.0); Alkaline Phosphatase 87 U/L (39-117); Anion Gap 9 (12-20); Aspartate Amino Transferase 42 U/L (5-31); Bilirubin Total 0.5 mg/dL (0.0-1.0); Blood Urea Nitrogen 14 mg/dL (9-16); Calcium 8.4 mg/dL (8.4-10.2); Carbon Dioxide 26 mmol/L (22-29); Chloride 109 mmol/L (96-108); Cholesterol 153 mg/dL (<200); Estimated Glomerular Filt Rate > 60; Glucose Random 91 mg/dL (60-115); HDL Cholesterol 34 mg/dL (>40); LDL Cholesterol Calculated 92 mg/dL (<100); Potassium 4.3 mmol/L (3.3-5.1); Sodium 140 mmol/L (135-145); Total Protein 7.6 g/dL (6.5-8.0); Triglycerides 135 mg/dL (<150)
[2024-03-28 04:24] LABS: HBsAGNum1 0.33 S/CO (0.00-0.99); Hepatitis B Surface Antigen Negative (Negative)
== END 2024-03-27 13:42 | disposition home or self-care (01) ==
LOC: HO.HHCL 13:41
PROVIDERS: Visit Provider Student in an Organized Health Care Education/Training Program
DX: Z00.00 Encounter for general adult medical examination without abnormal findings (principal); E78.5 Hyperlipidemia, unspecified
CPT/HCPCS: 36415; 80053; 80061; 87340

== ENCOUNTER 2024-05-26 10:52 | Outpatient (REF) | payer MEDICAID, SELFPAY ==
--- NOTE | ~2024-05-26 | XR_ITS ---
EXAMINATION: XR HIP, RIGHT CLINICAL INFORMATION: acute right hip pain COMPARISON: None available. TECHNIQUE: Two views of the right hip. FINDINGS: Syndesmophyte formation in the superior right acetabulum. No acute cortical disruption or malalignment. There is preservation of the joint space. No lytic or blastic lesions. Osteophyte formation in the symphysis pubis. XR/XR hip RT min 2V IMPRESSION: Osteoarthrosis, mild without acute fracture or dislocation right hip. Electronically signed by: Silvano Escobar MD 05/26/2024 11:52 AM [facility]HELLE
--- OUTSIDE RECORDS SUMMARY | 2024-05-26 13:26 | XMS_ITS | Encounter Summary ---
Demographics Address [address] [place] [address] Work Phone Home Phone Mobile Phone Preferred Language es Marital Status Unknown Buddhism Affiliation Unknown Race Other Race Ethnic Group or Author Organization [employer] Address [address] 7[address] [place] [address] Care Team Providers Care Film Spooler Name Role Phone Gila Way MD Primary Care Pro vider Reason for Visit * Reason Onset Date Comments May recall 05/15/2024 Encounter Details Date Type Department Care Team ([facility] st Contact Info) Description 05/15/2024 Telephone [facility] [address] [place], [place] [phone] Gila Way MD [address] [place], [place] [phone] May recall Social History Tobacco Use Types Packs/Day Years Used Date Smoking Tobacco: Never Smokeless Tobacco: Never Alcohol Use Standard Drinks/Week Comments Never 0 (1 standard drink = 0.6 oz pur e alcohol) Depression Answer Date Recorded Patient Health Questionnaire-9 Score 8 10/02/2023 Patient Health Questionnaire-9 Score 8 10/02/2023 Last PHQ-9: Questionnaire Data Not on file 0 10/02/2023 Housing Stability Answer Date Recorded What is your housing situation today? I have nathaniel byrne 09/24/[address] you li ve. Do you have problems with any of the following? None of the above 09/24/2023 Food Insecurity Answer Date Recorded Within the past 12 months, y ou worried that your food would run out before you got money to buy more: Never True 10/02/2023 Within the past 12 months,th e food you bought just didn't last and you didn't have enough money to get more: Never True 12/2023 Transportation Answer Date Recorded In the past 12 months, has l ack of transportation kept you from medical appts, meetings, work or from getting things needed for daily living? No 09/24/2023 Utilities Answer Date Recorded In the past 12 months, has t he electric, gas, oil or water company threatened to shut off services in your home? No 09/24/2023 Depression Answer Date Recorded Patient Health Questionnaire-2 Score 4 10/02/2023 Internet Access Answer Date Recorded Internet Access Q1 Yes 11/22/2023 Internet Access Q2 Not on file 11/22/2023 Comments No Sex and Gender Information Value Date Recorded Sex Assigned at Female 01/22/2022 10:31 AM EDT Legal Sex Female 10:31 AM EDT Gender Identity Female 01/22/2022 10:31 AM EDT Sexual Orientation Straight 01/22/2022 10 :31 AM EDT documented as of this encounter Miscellaneous Notes * Telephone Encounter - Kam Thibodeaux - 05/15/2024 2:32 PM EST Tc from pt returning call , business writer advised pt it was in regards a recall appointment as business writer scheduled pt 07/27/2024 pt agreed. * Telephone Encounter - Myra Tanner MA - 05/15/2024 1:35 PM EST Telephone call to patient to schedule a recall appointment. No answer, Left voicemail to return call to clinic.. Recall letter sent. Visit type: Follow up Appointment notes: HTN weight Month due: May With: Jay Please schedule appointment above if patient returns call documented in this encounter Plan of Treatment Upcoming Encounters Date Type Department Care Team (Late st Contact Info) Description 06/30/2024 1:00 PM EDT Procedure Visit [facility] [address] [place] [address] Adela Doll CNM [address] [place] [address] 07/27/2024 1:00 PM EDT Office Visit [facility] [address] [place] [address] MD [address] [place] [address] documented as of this encounter Visit Diagnoses Not on filedocumented in this encounter Additional Health Concerns Assessment Noted Time PHQ-9 Depression Total Score: 8 10/02/19 24 2:02 PM EDT documented as of this encounter Care Teams Film Spooler Relationship Specialty Start Date End Date Gila Way MD [address] [place], [place] [phone] PCP - General Internal Medicine 12/05/22 documented as of this encounter
--- OUTSIDE RECORDS SUMMARY | 2024-05-26 13:26 | XMS_ITS | Encounter Summary ---
Author Organization [employer] Address [address] [place] [address] Care Team Providers Care Irrigation Pump Installer Name Role Phone Dylan Kimbrough MD Primary Care Provider Delfina NewP Primary Care Provider [phone] Maxwell Saleh Primary Care Provider Unavail able Gila Way MD Primary Care Pro vider Encounter Details Date Type Department Care Team (Latest Contact Info) Description 05/20/2018 Abstract [facility] CONVERSIONS Dental, Provider, DDS Social History Tobacco Use Types Packs/Day Years Used Date Smoking Tobacco: Never Assessed Comments Unknown Sex and Gender Information Value Date Recorded Sex Assigned at Female 01/22/2022 10:31 AM EDT Legal Sex Female 10:31 AM EDT Gender Identity Female 01/22/2022 10:31 AM EDT Sexual Orientation Straight 01/22/2022 10 :31 AM EDT documented as of this encounter Plan of Treatment Upcoming Encounters Date Type Department Care Team (Late st Contact Info) Description 06/30/2024 1:00 PM EDT Procedure Visit [facility] [address] [place] [address] [phone] Adela Doll CNM [address] [place], [place] [phone] 07/27/2024 1:00 PM EDT Office Visit [facility] [address] [place] [phone] MD [address] [place], [place] [phone] documented as of this encounter Visit Diagnoses Not on filedocumented in this encounter Care Teams Irrigation Pump Installer Relationship Specialty Start Date End Date Dylan Kimbrough MD PCP - General Family Medicine 04/08/20 02/18/22 Delfina Aguayo FNP PCP - General Family Medicine 02/19/22 09/27/22 Maxwell Saleh AGNP PCP - General Family Medicine 09/28/22 12/04/[address] MD [address] [place] [phone] PCP - General Internal Medicine 12/05/22 documented as of this encounter
--- OUTSIDE RECORDS SUMMARY | 2024-05-26 13:26 | XMS_ITS | Encounter Summary ---
Demographics Address [address] [place] [address] Work Phone Home Phone Mobile Phone Preferred Language es Marital Status Unknown Gnosticism Affiliation Unknown Race Other Race Ethnic Group or Author Organization [employer] Address [address] [facility] [address] 7t [place] [address] Care Team Providers Care Flap Maker Name Role Phone Gila Way MD Primary Care Pro vider Reason for Visit * Reason Comments right hip pain Encounter Details Date Type Department Care Team ([facility] st Contact Info) Description 05/26/2024 10:20 AM EST Office Visit [facility] [address] [place] [address] [phone] Laura Kelly MD [address] [place] [address] Posterior pain of right hip (Primary Dx); Elevated blood pressure reading with diagnosis of hypertension Social History Tobacco Use Types Packs/Day Years [...] your housing situation today? I have nathaniel chavez 09/24/[address] you li [...] AM EDT documented as of this encounter Last Filed Vital Signs Vital Sign Reading Time Taken Comments Blood Pressure 180/100 05/26/2024 10:38 AM EST Pulse 82 05/26/2024 10:22 AM EST Temperature 37.2 ??C (98.9 ??F) 05/26/2024 10:[address] Respiratory Rate 20 05/26/2024 10:22 AM EST Oxygen Saturation 91% 05/26/2024 10:22 AM EST Inhaled Oxygen Concentration - - Weight 88.7 kg (195 lb 9.6 oz) 05/26/2024 10:22 AM EST Height - - Body Mass Index 35.78 01/24/2024 2:19 PM EDT documented in this encounter Progress Notes * Daniela Woo - 05/26/2024 10:20 AM EST Subjective Patient ID: Jaylyn Beltran is a 54 y.o. female with past medical history of Obesity, hypertension, HLD, and Migraine/Idiopathic intracranial hypertension who presents to walk in clinic for righthip pain. Pt reports she has had right hip pain the past 3-4 days. She notes the first day she woke up with slight pain and the pain worsened over the next couple days. Pt reports walking made it worse. She reports she works in [employer] in [place]. Denies any falls or trauma. Pt points to right posteriorhip/buttock area. She notes pain radiates down her leg. BP elevated in clinic. Pt reports BP is usually controled at home. She suspects elevation due to pain. Did take her medication this morning. Review of Systems Objective Visit Vitals BP (!) 180/100 Pulse 82 Temp 98.9 ??F (37.2 ??C) (Temporal) Resp 20 Body mass index is 35.78 kg/m??. Physical Exam Constitutional: Appearance: Normal appearance. Cardiovascular: Rate and Rhythm: Normal rate. Pulmonary: Effort: Pulmonary effort is normal. Musculoskeletal: Right hip: Tenderness (with muscle spasm on posterior hip/buttock radiating into ight groin and down right leg) present. Neurological: General: No focal deficit present. Mental Status: She is alert. Psychiatric: Behavior: Behavior normal. Problem List Items Addressed This Visit Posterior pain of right hip - Primary Right hip pain with muscle spasm on posterior hip/buttock radiating into right groin and down rightleg. Pain exacerbated by walking. Suspect piriformis muscle strain. -Ordered right hip XR -Recommend ibuprofen and muscle relaxer prn. Physical therapy referral offered. -Acupuncture clinicoffered. -Lifting precaution sand stretching reviewed. Addendum IMPRESSION: Osteoarthrosis, mild without acute fracture or dislocation right hip. Relevant Medications lidocaine (Lidoderm) 5 % patch cyclobenzaprine (Flexeril) 10 MG tablet ibuprofen 800 MG tablet Other Relevant Orders XR Hip 2 or 3 Views Right (Completed) Elevated blood pressure reading with diagnosis of hypertension BP improved with duration of visit. Reported she takes two medications unsure what they are. Notes her BP have been stable at home and she suspects her BP is elevated due to pain. -encouraged monitoring and returning if pressures remain elevated. -No evidence of acute disease process. Suspect piriformis muscle strain. Symptoms mild. -Will treat with NSAID and ordered XR. -ER precautions discussed. -Seek medical attention for worsening symptoms. I, Daniela Woo, am serving as a scribe to document services personally performed by Dr. Biggs, based on the patient's response to questions by provider and providers statements to me. documented in this encounter Miscellaneous Notes * Assessment & Plan Note - Daniela Woo - 05/26/2024 10:45 AM ESTAssociated Problem(s): Elevated blood pressure reading with diagnosis of hypertension BP improved with duration of visit. Reported she takes two medications unsure what they are. Notes her BP have been stable at home and she suspects her BP is elevated due to pain. -encouraged monitoring and returning if pressures remain elevated. * Assessment & Plan Note - Daniela Woo - 05/26/2024 10:40 AM ESTAssociated Problem(s): Posterior pain of right hip Right hip pain with muscle spasm on posterior hip/buttock radiating into right groin and down rightleg. Pain exacerbated by walking. Suspect piriformis muscle strain. -Ordered right hip XR -Recommend ibuprofen and muscle relaxer prn. Physical therapy referral offered. -Acupuncture clinicoffered. -Lifting precaution sand stretching reviewed. Addendum IMPRESSION: Osteoarthrosis, mild without acute fracture or dislocation right hip. documented in this encounter Plan of Treatment Upcoming Encounters Date Type Department Care Team (Late st Contact Info) Description 06/30/2024 1:00 PM EDT Procedure Visit [facility] [address] [place] [phone] Adela Doll CNM [address] [place] [phone] 07/27/2024 1:00 PM EDT Office Visit [facility] [address] [place] [phone] MD [address] [place] [address] documented as of this encounter Procedures Procedure Name Priority Date/Time Associated Diagnosis Comments XR HIP 2 OR 3 VIEWS RIGHT Routine 05/26/2024 10:53 AM EST Posterior pain of right hip documented in this encounter Results * XR Hip 2 or 3 Views Right (05/26/2024 10:53 AM EST) Anatomical Region Laterality Modality Lower Extremities, Hip Right Radiograp hic Imaging 05/26/2024 10:5 3 AM EST Narrative 05/26/2024 11:55 AM EST ?[facility] ?[address] ?[place] [address] ?XRay Report ? Signed ? Patient: Jaylyn Hou ?MR#: [id number] ?? [id number] ? : 1970 ?Acct:[id number] ? Age/Sex: 54 / F ?ADM Date: 05/26/24 ? Loc: HO.HHCX ? Attending Dr: Laura Kelly MD ? Ordering Physician: Laura Kelly MD ?? Date of Service: 05/26/24 ?? Procedure(s): XR hip RT min 2V ?? Accession Number(s): [id number] ? cc: Laura Kelly MD ? EXAMINATION: ?? XR HIP, RIGHT ? CLINICAL INFORMATION: ?? acute right hip pain ? COMPARISON: ?? None available. ? TECHNIQUE: ?? Two views of the right hip. ? FINDINGS: ?? Syndesmophyte formation in the superior right acetabulum. No acute ?? cortical disruption or malalignment. There is preservation of the joint ?? space. ?? No lytic or blastic lesions. ?? Osteophyte formation in the symphysis pubis. ? XR/XR hip RT min 2V ?? IMPRESSION: ?? Osteoarthrosis, mild without acute fracture or dislocation right hip. ? Electronically signed by: ??Silvano Escobar MD ??05/26/2024 11:52 AM ?? EST RP ? Dictated By: ?Silvano Collins MD ? Signed By: ?<Electronically signed by Silvano Senior MD in OV> ? 05/26/24 1152 ? DD/ 1053 ? TD/TT: 05/26/24 1104 ? Shell Press Operator: ? Procedure Note Donotclaudiater, Image - 05/26/2024 [facility] [address] [place] [address] XRay Report Signed Patient: Jaylyn HouMR#: [id number] : 1970Acct:[id number] Age/Sex: 54 / FADM Date: 05/26/24 Loc: HO.HHCX Attending Dr: Laura Kelly MD Ordering Physician: Laura Kelly MD Date of Service: 05/26/24 Procedure(s): XR hip RT min 2V Accession Number(s): [id number] cc: Laura Kelly MD EXAMINATION: XR HIP, RIGHT CLINICAL INFORMATION: acute right hip pain COMPARISON: None available. TECHNIQUE: Two views of the right hip. FINDINGS: Syndesmophyte formation in the superior right acetabulum. No acute cortical disruption or malalignment. There is preservation of the joint space. No lytic or blastic lesions. Osteophyte formation in the symphysis pubis. XR/XR hip RT min 2V IMPRESSION: Osteoarthrosis, mild without acute fracture or dislocation right hip. Electronically signed by: Silvano Escobar MD 05/26/2024 11:52 AM EST Dictated By: Silvano Collins MD Signed By: <Electronically signed by Silvano Senior MDin OV> 05/26/24 1152 DD/ 1053 TD/TT: 05/26/24 1104 Shell Press Operator: Laura Kelly MD IMG XR PROCEDURES Final Re sult documented in this encounter Visit Diagnoses Diagnosis Posterior pain of right hip- Primary Elevated blood pressure reading with diagnosis of hypertension documented in this encounter Additional Health Concerns Assessment Noted Time PHQ-9 Depression Total Score: 8 10/02/19 24 2:02 PM EDT documented as of this encounter Care Teams Flap Maker Relationship Specialty Start Date End Date Gila Way MD [address] [place] [phone] PCP - General Internal Medicine 12/05/22 documented as of this encounter
--- OUTSIDE RECORDS SUMMARY | 2024-05-26 13:26 | XMS_ITS | Encounter Summary ---
Author Organization [employer] Address [address] [facility] [address] [place] [address] Care Team Providers Care Group Manager Name Role Phone Gila Way MD Primary Care Pro vider Reason for Referral * Consultation (Routine) - Closed Specialty Diagnoses / Procedures Referred By Contkyaw t Referred To Contact Physical Therapy Diagnoses Chronic low back pain without sciatica, unspecified back pain laterality Mya Kendrick MD [address] [place] [address] Phone: tel: fax: [facility] [place] [address] [facility] [address] Phone: tel: fax: Referral ID Status Reason Start Date Expiration Date V isits Requested Visits Authorized [id number] Closed Specialty Services Required 03/04/2024 03/04/2025 20 20 Encounter Details Date Type Department Care Team (Late st Contact Info) Description 03/03/2024 Orders Only [facility] [address] [place] [address] [phone] Mya Kendrick MD [address] [place], [place] [phone] Chronic low back pain without sciatica, unspecified back pain laterality (Primary Dx) Social History Tobacco Use Types Packs/Day Years [...] Description 06/30/2024 1:00 PM EDT Procedure Visit [facility] [address] [place] [phone] Adela Doll CNM [address] [place] [address] 07/27/2024 1:00 PM EDT Office Visit [facility] [address] [place] [address] MD [address] [place] [address] Scheduled Referrals Name Type Priority Associated Diagnoses Orde r Schedule Referral to Physical Therapy Outpatient Referral Routine Chronic low back pain without sciatica, unspecified back pain laterality Expected: 03/03/2024 (Approximate), Expires: 03/03/2025 documented as of this encounter Visit Diagnoses Diagnosis Chronic low back pain without sciatica, unspecified back pain laterality- Primary documented in this encounter Additional Health Concerns Assessment Noted Time PHQ-9 Depression Total Score: 8 10/02/19 24 2:02 PM EDT documented as of this encounter Care Teams Group Manager Relationship Specialty Start Date End Date Gila Way MD [address] [place] [address] PCP - General Internal Medicine 12/05/22 documented as of this encounter
--- OUTSIDE RECORDS SUMMARY | 2024-05-26 13:26 | XMS_ITS | Clinical Summary ---
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 30 each 02/28/2024 Active Active Problems No known active problems Encounters Date Type Department Care Team Description 02/28/2024 6:46 AM EST - 02/28/2024 8:59 AM EST Emergency [facility] Emergency [address] [place] [address] Dougie Dillard MD Acute right-sided thoracic back pain (Primary Dx) Discharge Disposition: Home or Self Care from Last 3 Months Medical History Medical History Date Comments Hypertension Social History Tobacco Use Types Packs/Day Years Used Date Smoking Tobacco: Never Smokeless Tobacco: Never Tobacco Cessation:Counseling Given: Not Answered Comments Unknown Sex and Gender Information Value Date Recorded Sex Assigned at Not on file Legal Sex Female 3:32 PM EST Gender Identity Not on file Sexual Orientation Not on file Obstetrics History Last Filed Vital Signs Vital Sign Reading Time Taken Comments Blood Pressure 150/66 02/28/2024 6:53 AM EST Pulse 84 02/28/2024 6:53 AM EST Temperature 36.5 ??C (97.7 ??F) 02/28/2024 3:45 AM ES T Respiratory Rate 20 02/28/2024 6:53 AM EST Oxygen Saturation 100% 02/28/2024 6:53 AM EST Inhaled Oxygen Concentration - - Weight 84.8 kg (187 lb) 02/27/2024 9:50 PM EST Height 157.5 cm (5' 2 ) 02/27/2024 9:50 PM EST Body Mass Index 34.2 02/27/2024 9:50 PM EST Plan of Treatment Health Maintenance Due Date Last Done Comments Breast Cancer Screening 1969 Hepatitis B Vaccines (1 of 3 - 19+ 3-dose series) 1988 Pneumococcal Vaccine: 50+ Years (1 of 2 - PCV) 1988 Pneumococcal Vaccine: Pediatrics (0 to 5 Years) and At-Risk Patients (6 to 64 Years) (1 of 2 - PCV) 1988 Cervical Cancer Screening: Pap Smear 1990 Colorectal Cancer Screening: Colonoscopy 02/21/2022 Social Influencers of Health Screening 02/21/2022 COVID-19 Vaccine (2023- season) 2023 03/27/2021, 08/30/2020 Depression Screening 10/01/2024 10/02/2023 Hypertension/CHF/CAD Annual BMP Blood Test 02/26/2025 02/27/2024, 02/07/2024 DTaP,Tdap,and Td Vaccines (2 - Td or Tdap) 04/30/2026 04/30/2016 Cholesterol Screening (Lipid Panel) 02/06/2029 02/07/2024 Zoster Vaccines Completed 06/28/2023, 05/01/2023 Hepatitis C Screening Completed 11/15/2023 Influenza Vaccine Completed 01/24/2024, , 12/17/2018, Additional history exists HIV Screening Completed 02/07/2024 HIB Vaccines Aged Out No longer eligi ble based on patient's age to complete this topic HPV Vaccines Aged Out No longer eligi ble based on patient's age to complete this topic Hepatitis A Vaccines Aged Out No long er eligible based on patient's age to complete this topic IPV Vaccines Aged Out No longer eligi ble based on patient's age to complete this topic MMR Vaccines Aged Out No longer eligi ble based on patient's age to complete this topic Meningococcal ACWY Vaccine Aged Out N o longer eligible based on patient's age to complete this topic Meningococcal B Vacine Aged Out No lo nger eligible based on patient's age to complete this topic RSV Immunization Patients Under 20 months Aged Out No longer eligible based on patient's age to complete this topic Varicella Vaccines Aged Out No longer eligible based on patient's age to complete this topic Procedures Procedure Name Priority Date/Time Associated Diagnosis Comments TROPONIN I HIGH SENSITIVITY STAT 02/28/2024 3:48 AM EST XR CHEST 2 VIEWS STAT 02/28/2024 12:4 7 AM EST ECG ANNOTATED 02/28/2024 CBC WITH AUTO DIFFERENTIAL STAT 02/27/2024 10:03 PM EST MAGNESIUM STAT 02/27/2024 10:03 PM EST LIPASE STAT 02/27/2024 10:03 PM EST COMPREHENSIVE METABOLIC PANEL STAT 02/27/2024 10:03 PM EST CBC AND DIFFERENTIAL STAT 02/27/2024 10:03 PM EST TROPONIN I HIGH SENSITIVITY STAT 02/27/2024 10:03 PM EST ECG 12-LEAD STAT 02/27/2024 9:40 PM EST from Last 3 Months Results * Troponin I high sensitivity (02/28/2024 3:48 AM EST) Only the most recent of2 resultswithin the time period is included. High Sensitivity Troponin I 4 <=54 ng/L LAB CHEMISTRY METHOD 02/28/2024 4:25 AM EST [facility] Blood Venous blood specimen / Unknown Venipuncture / Unknown 02/28/2024 3:48 AM EST 02/28/2024 3:58 AM EST Narrative [facility] - 02/28/2024 4:25 AM EST High levels of biotin in samples may falsely decrease hsTroponin values. ??Use caution when interpreting hsTroponin results in patients taking biotin who exhibit renal impairment (eGFR <60) or in patients taking more than 20 mg/day of biotin. us Dougie Dillard MD LAB BLOOD ORDERABLES Final [facility]u lt [facility] [address] [place] [address], [place] [phone] * XR Chest 2 Views (02/28/2024 12:47 AM EST) Anatomical Region Laterality Modality Body Radiographic Olga ging 02/28/2024 8:12 AM EST Impressions 02/28/2024 8:13 AM EST Hypoventilatory exam. ??Patchy bibasilar opacities favored to represent atelectasis. -------- FINAL REPORT -------- Dictated By: Roger Mcghee Dictated Date: 02/28/2024 08:12 ET Assigned Physician: Roger Mcghee Reviewed and Electronically Signed By: Roger Mcghee Signed Date: 02/28/2024 08:13 ET Workstation ID: [id number] Transcribed By: Self Edit Transcribed Date: 02/28/2024 08:12 ET Narrative 02/28/2024 8:13 AM EST PA and lateral views of the chest dated 02/28/2024. HISTORY: chest pain. COMPARISON: 02/27/2019. FINDINGS: Hypoventilatory inspiratory effort. ??Patchy left greater than right basilar opacities favored to represent atelectasis. ??No pleural effusion, pulmonary edema, or pneumothorax. ??Cardiomediastinal contours are normal. Procedure Note Roger Mcghee MD - 02/28/2024 PA and lateral views of the chest dated 02/28/2024. HISTORY: chest pain. COMPARISON: 02/27/2019. FINDINGS: Hypoventilatory inspiratory effort. Patchy left greater than rightbasilar opacities favored to represent atelectasis. No pleural effusion,pulmonary edema, or pneumothorax. Cardiomediastinal contours arenormal. IMPRESSION: Hypoventilatory exam. Patchy bibasilar opacities favored to representatelectasis. -------- FINAL REPORT -------- Dictated By: Roger Mcghee Dictated Date: 02/28/2024 08:12 ET Assigned Physician: Roger Mcghee Reviewed and Electronically Signed By: Roger Mcghee Signed Date: 02/28/2024 08:13 ET Workstation ID: [id number] Transcribed By: Self Edit Transcribed Date: 02/28/2024 08:12 ET us Dougie Dillard MD IMG XR PROCEDURES Final Result * ECG-Annotated (02/28/2024) us Provider Onbase ECG ORDERABLES Final Result * (ABNORMAL) CBC auto differential (02/27/2024 10:03 PM EST) WBC 12.1(H) 4.8 - 10.8 K/mcL LAB HEMETOLOGY METHOD 02/27/2024 10:16 PM [facility] RBC 5.00(H) 3.80 - 4.80 M/mcL LAB HEMETOLOGY METHOD 02/27/2024 10:16 PM [facility] Hemoglobin 14.2 11.5 - 16.0 g/dL LAB HEMETOLOGY METHOD 02/27/2024 10:16 PM [facility] Hematocrit 45.3 35.0 - 47.0 % LAB HEMETOLOGY METHOD 02/27/2024 10:16 PM [facility] MCV 90.2 79.0 - 98.0 FL LAB HEMETOLOGY METHOD 02/27/2024 10:16 PM [facility] MCH 28.3 27.0 - 32.0 pcg LAB HEMETOLOGY METHOD 02/27/2024 10:16 PM [facility] MCHC 31.3(L) 32.0 - 37.0 g/dL LAB HEMETOLOGY METHOD 02/27/2024 10:16 PM [facility] RDW 14.8 11.0 - 15.0 % LAB HEMETOLOGY METHOD 02/27/2024 10:16 PM [facility] Platelets 233 130 - 400 K/mcL LAB HEMETOLOGY METHOD 02/27/2024 10:16 PM [facility] MPV 12.8(H) 7.0 - 11.0 FL LAB HEMETOLOGY METHOD 02/27/2024 10:16 PM [facility] NRBC 0.0 <1.0 % LAB HEMETOLOGY METHOD 02/27/2024 10:16 PM [facility] NRBC Absolute 0.00 <0.10 K/mcL LAB HEMETOLOGY METHOD 02/27/2024 10:16 PM [facility] Neutrophils Relative 59.2 % LAB HEMETOLOGY METHOD 02/27/2024 10:16 PM [facility] Lymphocytes Relative 31.2 % LAB HEMETOLOGY METHOD 02/27/2024 10:16 PM [facility] Monocytes Relative 7.6 % LAB HEMETOLOGY METHOD 02/27/2024 10:16 PM [facility] Eosinophils Relative 1.2 % LAB HEMETOLOGY METHOD 02/27/2024 10:16 PM [facility] Basophils Relative 0.5 % LAB HEMETOLOGY METHOD 02/27/2024 10:16 PM [facility] Immature Granulocytes Relative 0.3 % LAB HEMETOLOGY METHOD 02/27/2024 10:16 PM [facility] Neutrophils Absolute 7.15(H) 1.50 - 7.00 K/mcL LAB HEMETOLOGY METHOD 02/27/2024 10:16 PM [facility] Lymphocytes Absolute 3.78 1.00 - 5.00 K/mcL LAB HEMETOLOGY METHOD 02/27/2024 10:16 PM [facility] Monocytes Absolute 0.92 0.20 - 1.00 K/mcL LAB HEMETOLOGY METHOD 02/27/2024 10:16 PM EST [facility] Eosinophils Absolute 0.15 0.00 - 0.50 K/[facility] LAB HEMETOLOGY METHOD 02/27/2024 10:16 PM EST [facility] Basophils Absolute 0.06 0.00 - 0.20 K/[facility] LAB HEMETOLOGY METHOD 02/27/2024 10:16 PM EST [facility] Immature Granulocytes Absolute 0.04(H) 0.00 - 0.03 K/[facility] LAB HEMETOLOGY METHOD 02/27/2024 10:16 PM EST [facility] Blood Venous blood specimen / Unknown Venipuncture / Unknown 02/27/2024 10:03 PM EST 02/27/2024 10:12 PM EST us Dougie Dillard MD LAB BLOOD ORDERABLES Final Resu lt Performing Organization Address City/[facility]/ZIP Co de Phone Number [facility] [address] [place] [address], [place] [phone] * Magnesium (02/27/2024 10:03 PM EST) Magnesium 2.0 1.9 - 2.6 mg/dL LAB CHEMISTRY METHOD 02/27/2024 10:37 PM EST [facility] Blood Venous blood specimen / Unknown Venipuncture / Unknown 02/27/2024 10:03 PM EST 02/27/2024 10:12 PM EST Dougie Dillard MD LAB BLOOD ORDERABLES Final Resu lt [facility] [address] [place] [address], [place] [phone] * Lipase (02/27/2024 10:03 PM EST) Lipase 26 13 - 75 unit/L LAB CHEMISTRY METHOD 02/27/2024 10:37 PM [facility] Blood Venous blood specimen / Unknown Venipuncture / Unknown 02/27/2024 10:03 PM EST 02/27/2024 10:12 PM EST us Dougie Dillard MD LAB BLOOD ORDERABLES Final Resu lt [facility] [address] [place] [address], * Comprehensive metabolic panel (02/27/2024 10:03 PM EST) Sodium 141 133 - 145 mmol/L LAB CHEMISTRY METHOD 02/27/2024 10:37 PM [facility] Potassium 4.3 3.5 - 5.5 mmol/L LAB CHEMISTRY METHOD 02/27/2024 10:37 PM [facility] Chloride 110 96 - 110 mmol/L LAB CHEMISTRY METHOD 02/27/2024 10:37 PM [facility] CO2 26 21 - 32 mmol/L LAB CHEMISTRY METHOD 02/27/2024 10:37 PM [facility] Anion Gap 5 3 - 11 LAB CHEMISTRY METHOD 02/27/2024 10:37 PM [facility] Glucose 87 70 - 100 mg/dL LAB CHEMISTRY METHOD 02/27/2024 10:37 PM [facility] BUN 20 5 - 25 mg/dL LAB CHEMISTRY METHOD 02/27/2024 10:37 PM [facility] Creatinine 0.87 0.50 - 1.10 mg/dL LAB CHEMISTRY METHOD 02/27/2024 10:37 PM [facility] eGFR 79 >=60 mL/min/1. 73m2 LAB CHEMISTRY METHOD 02/27/2024 10:37 PM [facility] Comment:Calculation based on the??Chronic Kidney Disease Epidemiology Collaboration (CKD-EPI) equation refit??without adjustment for race. BUN/Creatinine Ratio 23.0 LAB CHEMISTRY METHOD 02/27/2024 10:37 PM [facility] Calcium 9.1 8.5 - 10.5 mg/dL LAB CHEMISTRY METHOD 02/27/2024 10:37 PM [facility] AST (SGOT) 20 10 - 42 unit/L LAB CHEMISTRY METHOD 02/27/2024 10:37 PM [facility] ALT (SGPT) 29 10 - 60 unit/L LAB CHEMISTRY METHOD 02/27/2024 10:37 PM [facility] Alkaline Phosphatase 109 42 - 121 unit/L LAB CHEMISTRY METHOD 02/27/2024 10:37 PM [facility] Total Protein 7.7 6.0 - 8.0 g/dL LAB CHEMISTRY METHOD 02/27/2024 10:37 PM [facility] Albumin 3.6 3.2 - 5.0 g/dL LAB CHEMISTRY METHOD 02/27/2024 10:37 PM [facility] Total Bilirubin 0.3 0.0 - 1.4 mg/dL LAB CHEMISTRY METHOD 02/27/2024 10:37 PM [facility] Blood Venous blood specimen / Unknown Venipuncture / Unknown 02/27/2024 10:03 PM EST 02/27/2024 10:12 PM EST us Dougie Dillard MD LAB BLOOD ORDERABLES Final Resu lt [facility] [address] [place] [address], * ECG 12 lead (02/27/2024 9:40 PM EST) Ventricular Rate ECG 92 BPM GEMUSE Atrial Rate 92 BPM GEMUSE P-R Interval 154 ms GEMUSE QRS Duration 70 ms GEMUSE Q-T Interval 334 ms GEMUSE QTc 413 ms GEMUSE P Wave [place] 58 degrees GEMUSE R [place] 45 degrees GEMUSE T [place] 50 degrees GEMUSE ECG Interpretation Normal sinus rhythm Normal ECG When compared with ECG of 27-FEB-2019 18:19, No significant change was found Confirmed by HAYLEE FLORES ([id number]) on 02/28/2024 4:38:48 PM GEMUSE 02/27/2024 9:40 PM EST 02/28/2024 4:38 PM EST us Dougie Dillard MD ECG ORDERABLES Final Result GEMUSE from Last 3 Months Insurance MEDICAID - [place] Care Teams Cooker Helper Relationship Specialty Start Date End Date Physician, No Pcp PCP - General 02/28/24
--- OUTSIDE RECORDS SUMMARY | 2024-05-26 13:26 | XMS_ITS | Clinical Summary ---
Demographics Address [address] [place] [address] Work Phone Home Phone Mobile Phone Preferred Language es Marital Status Unknown Zoroastrianism Affiliation Unknown Race Other Race Ethnic Group or Author Organization [employer] Address [address] [facility] [address] [place] [address] Care Team Providers Care Accounting Representative Name Role Phone Gila Way MD Primary Care Pro vider Allergies No known active allergies Medications * This document contains information received from the source organization and may not represent a complete record from that organization. cholecalciferol (D3-5) 5,000 Units tabletIndications :Vitamin D deficiency Take 1 tablet (5,000 Units) by mouth in the morning. 30 tablet 2 Active amLODIPine (Norvasc) 10 MG tabletIndications :Primary hypertension Take 1 tablet by mouth every day 90 tablet Active Additional Information Patient not taking.Reported on 01/24/2024 acetaZOLAMIDE (Diamox) 250 MG tablet Take 250 mg by mouth Once per day. Active Blood Pressure kit 1 Device Once per day. 1 kit Active rosuvastatin (Crestor) 20 MG tabletIndications :Hyperlipidemia, unspecified hyperlipidemia type Take 1 tablet (20 mg) by mouth Once per day. 90 tablet Active losartan (Cozaar) 100 MG tablet Take 1 tablet (100 mg) by mouth Once per day. 90 tablet 024 2024 Active lidocaine (Lidoderm) 5 % patchIndications: Posterior pain of right hip Apply 1 patch topically Once per day. Remove & discard patch within 12 hours or as directed by . 30 patch 2 025 Active cyclobenzaprine (Flexeril) 10 MG tabletIndications :Posterior pain of right hip One tab po q12 hours prn pain of muscles, do not drive with medicaion 30 tablet 025 Active ibuprofen 800 MG tabletIndications :Posterior pain of right hip Take 1 tablet (800 mg) by mouth every 8 (eight) hours if needed for moderate pain or fever. 30 tablet 025 2024 Active lidocaine (Lidoderm) 5 % patch Apply 1 patch topically Once per day. Remove & discard patch within 12 hours or as directed by MD. 30 patch 2 024 2024 Discontinued(R eorder (will not trigger notification to Pharmacy)) Active Problems Problem Noted Date Diagnosed Date Posterior pain of right hip 05/26/2024 Assessment & Plan (05/26/2024 12:59 PM EST): Right hip pain with muscle spasm on posterior hip/buttock radiating into right groin and down right leg. Pain exacerbated by walking. Suspect piriformis muscle strain. -Ordered right hip XR -Recommend ibuprofen and muscle relaxer prn. Physical therapy referral offered. -Acupuncture clinic offered. -Lifting precaution sand stretching reviewed. Addendum IMPRESSION: Osteoarthrosis, mild without acute fracture or dislocation right hip. Elevated blood pressure read ing with diagnosis of hypertension 05/26/2024 Assessment & Plan (05/26/2024 10:45 AM EST): BP improved with duration of visit. Reported she takes two medications unsure what they are. Notes her BP have been stable at home and she suspects her BP is elevated due to pain. -encouraged monitoring and returning if pressures remain elevated. Obesity 10/02/2023 Health care maintenance 10/02/2023 HLD (hyperlipidemia) 10/02/2023 Headache 10/02/2023 Grief 10/02/2023 Assessment & Plan (10/07/2023 9:34 AM EDT): During IBH Consult Jaylyn presenting with depressed mood, loss of interests/pleasure , changes in sleep difficulty staying asleep , change in appetite or weight reduce appetite, fatigue/loss of energy negative emotions associated with the passing of her mom; for a period of 0-6 mo, for all symptoms in the context of . Jaylyn's mom four months ago. Patient reports she took care of her mom over the last two years. Pt has a positive support at home and also in the community. Her strong jehovah's witness belief is helping Jaylyn to deal with emotions associated with grief. During intervention, clinician provided supportive counseling through active listening and validation of emotions. Reviewed and assessed for risk, current stressors and triggers using open-ended questions. We discussed importance of taking time to listen and pay attention to overwhelming emotions. Pt's main goal is to slowly and gradually return to regular daily routine and mormon activities. PLAN: (check all that apply) Further services needed, but declined Behavioral Health Integration Plan Internal Follow up with [facility] Patient Self Plan Patient to utilize skills provided in intervention , Patient to reach out to [facility] team as needed, and Patient to reach out to [facility] as needed. Pt declined OP referral for external agency. She would like to follow-up with clinician during next medical appointment. 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 Encounters Date Type Department Care Team Description 05/26/2024 10:20 AM EST Office Visit [facility] [address] [place] [phone] Laura Kelly MD Posterior pain of right hip (Primary Dx); Elevated blood pressure reading with diagnosis of hypertension 05/15/2024 Telephone [facility] [address] [place] [phone] MD July recall 2024 Telephone [facility] [address] [place] [phone] Becky Cardona MA June recall 03/27/2024 1:30 PM EST Clinical Support [address] [phone] Cherelle Senior RN Essential hypertension 03/27/2024 Travel 03/04/2024 Telephone [facility] [address] [facility] [address] Mya Kendrick MD 03/03/2024 Orders Only [facility] [address] [place] [address] Mya Kendrick MD Chronic low back pain without sciatica, unspecified back pain laterality (Primary Dx) 02/27/2024 Telephone [facility] [address] [facility] [address] [facility] [place] [address] Cherelle Senior RN Medication changes; Results from Last 3 Months Immunizations Name Administration Dates Next Due Influenza Injectable Quadriv alant Preservative Free IIV4 MDCK 05/01/2023 Influenza injectable quadriv alent IIV4 with preservative 12/27/2017,12/24/2016 Influenza injectable quadrivalent preservative f ree 12/17/2018,04/30/2016 Influenza, seasonal, injectable, preservative fr ee 01/24/2024 Tdap 04/30/2016 Zoster, Recombinant 06/28/2023,05/01/2023 Family History Medical History Relation Name Comments Prostate cancer Father Breast cancer Father's Sister Thyroid cancer Father's Sister bladder cancer Mother metastasis to lung/colon colon ca dxed 72 y of age Mother Relation Name Status Comments Father Father's Sister Mother Social History Tobacco Use Types Packs/Day Years [...] Orientation Straight 01/22/2022 10 :31 AM EDT Last Filed Vital Signs Vital Sign Reading [...] 9.6 oz) 05/26/2024 10:22 AM EST Height 157.5 cm (5' 2 ) 01/24/2024 2:19 PM EDT Body Mass Index 35.78 01/24/2024 2:19 PM EDT Plan of Treatment Upcoming Encounters Date Type Department Care Team (Late st Contact Info) Description 06/30/2024 1:00 PM EDT Procedure Visit [facility] [address] [place] [address] [phone] Adela Doll CNM [address] [place] [address] 07/27/2024 1:00 PM EDT Office Visit [facility] [address] [place] [phone] MD [address] [place] [phone] Health Maintenance Due Date Last Done Comments CT Colonography 1969 Colonoscopy 1969 Colorectal Cancer Screening 1969 FIT DNA/Cologuard 1969 FIT 1970 FOBT 1969 Sigmoidoscopy 1969 Alcohol/Substance Use Screening 1981 Hepatitis A Vaccines (1 of 2 - Risk 2-dose series) 1988 Hepatitis B Vaccines (1 of 3 - 19+ 3-dose series) 1988 Pneumococcal Vaccine: 50+ Years (1 of 1 - PCV) 2019 COVID-19 Vaccine (3 - 2023- season) 2023 03/27/2021, 08/30/2020 Mammogram 06/02/2024 06/03/2023, 05/2021, 08/27/2018, Additional history exists Depression Screening 10/01/2024 10/02/2023, 10/02/19 24 SDOH Screening 10/01/2024 10/02/2023 Diabetes: Hemoglobin A1C 11/14/2024 024, 06/19/2021, 09/14/2020 Tobacco Screening 05/26/2025 05/26/2024 DTaP/Tdap/Td Vaccines (2 - Td or Tdap) 04/30/2026 04/30/2016 Cervical Cancer Screening 10/09/2026 HPV/Cotest 10/09/2026 10/09/2021, 07/25/2016 Pap Smear 10/09/2026 10/09/2021 Lipid Panel 03/27/2029 03/27/2024, 01/23, 10/10/2021, Additional history exists RSV Patients and Patients Aged 60 years or older (1 - 1-dose 75+ series) 2044 Zoster Vaccines Completed 06/28/2023, 05/01/2023 Hepatitis C [...] patient's age to complete this topic Meningococcal Vaccine Aged Out No milagros nena eligible based on patient's age to complete this topic RSV under 20 months Aged Out No longe r eligible based on patient's age to complete this topic Rotavirus Vaccines Aged Out No longer eligible based on patient's age to complete this topic Procedures Procedure Name Priority Date/Time Associated Diagnosis Comments XR HIP 2 OR 3 VIEWS RIGHT Routine 05/26/2024 10:53 AM EST Posterior pain of right hip COMPREHENSIVE METABOLIC PANEL Routine 03/27/2024 1:45 PM EST Hyperlipidemia, unspecified hyperlipidemia type HEPATITIS B SURFACE ANTIGEN, EIA Routine 03/27/2024 1:45 PM EST Health care maintenance LIPID PANEL, STANDARD Routine 03/27/2024 1:45 PM EST Hyperlipidemia, unspecified hyperlipidemia type HIV 1/2 ANTIGEN/ANTIBODY, FOURTH GENERATION W/RFL Routine 02/07/2024 8:50 AM EST Annual physical exam HEPATITIS C AB W/REFL TO HCV RNA, QN, PCR Routine 11/15/2023 8:49 AM EDT Annual physical exam HEMOGLOBIN A1C Routine 11/15/2023 8:49 AM EDT Annual physical exam BI MAMMOGRAM SCREENING TOMOSYNTHESIS BILATERAL Routine 06/03/2023 1:25 PM EDT HPV MRNA E6/E7 Routine 10/09/2021 2:38 PM EDT THINPREP PAP Routine 10/09/2021 2:38 PM EDT from Last 3 Months or Most Recently Relevant to Health Maintenance Results * XR Hip 2 or 3 Views Right (05/26/2024 10:53 AM EST) Anatomical Region Laterality Modality Lower Extremities, Hip Right Radiograp hic Imaging 05/26/2024 10:5 3 AM EST Narrative 05/26/2024 11:55 AM EST ?[facility] ?[address] ?[place] [address] ?XRay Report ? Signed ? Patient: Jaylyn Hou ?MR#: [id number] ?? [id number] ? : 1970 ?Acct:[id number] ? Age/Sex: 54 / F ?ADM Date: 05/26/24 ? Loc: HO.HHCX ? Attending Dr: Laura Kelly MD ? Ordering Physician: Laura Kelly MD ?? Date of Service: 05/26/24 ?? Procedure(s): XR hip RT min 2V ?? Accession Number(s): [id number] ? cc: Laura Klely MD ? EXAMINATION: ?? XR HIP, RIGHT [...] DD/ 1053 ? TD/TT: 05/26/24 1104 ? Manager Automotive: ? Procedure Note Shahriar Murguia - 05/26/2024 [facility] [address] [place] [address] XRay Report Signed Patient: Lopes BelrtanYvette#: [id number] : 1970Acct:[id number] Age/Sex: 54 / FADM Date: 05/26/24 Loc: HO.HHCX Attending Dr: Laura Kelly MD Ordering Physician: Laura Kelly MD Date of Service: 05/26/24 Procedure(s): XR hip RT min 2V Accession Number(s): [id number] cc: Laura Kelly MD EXAMINATION: XR HIP, [...] Silvano Escobar MD 05/26/2024 11:52 AM EST RP Dictated By: Silvano Collins MD Signed By: <Electronically signed by Silvano Senior MDin OV> 05/26/24 1152 DD/ 1053 TD/TT: 05/26/24 1104 Manager Automotive: us Laura Kelly MD IMG XR PROCEDURES Final Re sult * Hepatitis B surface antigen, EIA (03/27/2024 1:45 PM EST) Hepatitis B Surface Ag Negative Negative [facility] Blood Venous blood specimen / Unknown 03/27/2024 1:45 PM EST 03/27/2024 4:08 PM EST us Gila Montoya MD LAB BLOOD ORDERAB LES Final Result [facility] [address] [place] [address] [phone] * (ABNORMAL) Lipid Panel, Standard (03/27/2024 1:45 PM EST) Triglycerides 135 <150 mg/dL [facility] Comment:Desirable Triglyceri de: less than 150 mg/dLBorderline High Triglyceride 150-199 mg/dLHigh Triglyceride: 200-499 mg/dLVery High Triglyceride: greater than or equal to 5OO mg/dL Cholesterol 153 <200 mg/dL [facility] Comment:Desirable Cholestero l: less than 200 mg/dLBorderline High Cholesterol: 200-239 mg/dLHigh Cholesterol: greater than 239 mg/dL LDL Cholesterol Calculated 92 <100 mg/dL [facility] Comment:Desirable LDL: less than 100 mg/dLNear Optimal/Above Optimal LDL: 110- 129 mg/dLBorderline High LDL: 130-159 mg/dLHigh LDL: 160-189 mg/dLVery High LDL: greater than or equal to 190 mg/dL HDL Cholesterol 34(L) >40 mg/dL [facility] Comment:Desirable HDL: grea ter than 40 mg/dL Note: This HDL assay may give artificially low results in patients with liver disease. Blood Venous blood specimen / Unknown 03/27/2024 1:45 PM EST 03/27/2024 4:08 PM EST Gila Montoya MD LAB BLOOD ORDERAB LES Final Result [facility] [address] [place], [place] [phone] * (ABNORMAL) Comprehensive Metabolic Panel (03/27/2024 1:45 PM EST) Sodium 140 135 - 145 mmol/L [facility] Potassium 4.3 3.3 - 5.1 mmol/L [facility] Chloride 109(H) 96 - 108 mmol/L [facility] Carbon Dioxide 26 22 - 29 mmol/L [facility] Anion Gap 9(L) 12 - 20 [facility] Urea Nitrogen (BUN) 14 9 - 16 mg/dL [facility] Creatinine, Serum 0.81 0.5 - 1.4 mg/dL [facility] Estimated Glomerular Filt Rate >60 [facility] Comment:Chronic Kidney Disea se: Estimated GFR < 60 mL/min/1.24m1Ihacrq Kidney Disease: Estimated GFR < 15 mL/min/1.73m2 Glucose 91 60 - 115 mg/dL [facility] Calcium 8.4 8.4 - 10.2 mg/dL [facility] Bilirubin, Total 0.5 0.0 - 1.0 mg/dL [facility] Aspartate Amino Transferase 42(H) 5 - 31 U/L [facility] Alanine Aminotransferase 48(H) 0 - 31 U/L [facility] Total Protein 7.6 6.5 - 8.0 g/dL [facility] Albumin Level 3.9 3.5 - 5.0 g/dL [facility] Alkaline Phosphatase 87 39 - 117 U/L [facility] Blood Venous blood specimen / Unknown 03/27/2024 1:45 PM EST 03/27/2024 4:08 PM EST us Gila Montoya MD LAB BLOOD ORDERAB LES Final Result [facility] [address] [place] [phone] * HIV-1/2 Antigen and Antibodies, Fourth Generation, with Reflexes (02/07/2024 8:50 AM EST) HIV AB/AG Nonreactive Nonreactive [facility] Comment:HIV-1 p24 Ag and/or HIV-1/HIV-2 Ab not detected.A test result that is nonreactive does not exclude thepossibility of exposure to or infection with HIV-1 and/orHIV-2. Nonreactive results in this assay for individualswith prior exposure to HIV-1 and/or HIV-2 may be due toantigen and antibody levels that are below the limit ofdetection of this assay.The [employer] HIV Ag/Ab Combo assay result andsupplemental assay results should be interpreted inconjunction with the patient's clinical presentation,history and other laboratory results. If the results areinconsistent with clinical evidence, additional testing issuggested to confirm the result. Blood Venous blood specimen / Unknown 02/07/2024 8:50 AM EST 02/07/2024 11:03 AM EST us Gila Montoya MD LAB BLOOD ORDERAB LES Final Result Performing Organization Address City/[facility]/ZIP Co de Phone Number [facility] [address] [place] [phone] * Hepatitis C Antibody with Reflex to HCV, RNA, Quantitative, Real-Time PCR (11/15/2023 8:49 AM EDT) Hepatitis C Antibody Nonreactive Nonreactive [facility] Comment:Antibodies to HCV no t detected; does not exclude early acuteHCV infection. Blood Venous blood specimen / Unknown 11/15/2023 8:49 AM EDT 11/15/2023 11:05 AM EDT us Gila Montoya MD LAB BLOOD ORDERAB LES Final Result Performing Organization Address [facility]/[place] Co de Phone Number [facility] [address] [place] [phone] * Hemoglobin A1c (11/15/2023 8:49 AM EDT) Hemoglobin A1c 5.4 <6.0 % [facility] Comment:Hemoglobin A1C Refer ence Range Adults: 4.8 - 6.0 % Non diabetic: < 6.0 % Goal: < 7.0 %Additional Action Suggested: > 8.0 %Note: Hemoglobin A1c results are invalid for patients with abnormal amounts of HbF. Blood transfusions may impact the HbA1c concentration in the patient sample. Estimated Average Glucose 108 mg/dL [facility] Comment:eAG = Estimated ave rage glucose which is %A1C expressed asaverage glucose, using the formula of the [id number] Glucose study (ADAG), Diabetes Care, Vol.31,#8,Oct. 2007 Blood Venous blood specimen / Unknown 11/15/2023 8:49 AM EDT 11/15/2023 11:05 AM EDT us Gila Montoya MD LAB BLOOD ORDERAB LES Final Result [facility] [address] [facility] [place] [address] [phone] * BI Mammogram Screening Tomosynthesis Bilateral (06/03/2023 1:25 PM EDT) Anatomical Region Laterality Modality Breast Bilateral Mammography 06/03/2023 1:25 PM EDT Narrative 06/28/2023 8:45 AM EDT ? [facility] ? [address] ?[place] [address] ? Mammography Report ? Signed ? Patient: Jaylyn Hou ?MR#: [id number] ?? [id number] ? : 1970 ?Acct:[id number] ? Age/Sex: 53 / F ?ADM Date: 06/03/23 ? Loc: HO.MAMMO ? Attending Dr: Gila Montoya MD ? Ordering Physician: Gila Way MD ?Re ?? sults: 1Negative ? Date of Service: 06/03/23 ?Follow Up: 1 Year From Orig ?? inal Mammogram ? Procedure(s): MM tomosynthesis screening BI ?? Accession Number(s): [id number] ? cc: Gila Way MD ? EXAMINATION: ?? MM SCREENING DIGITAL BREAST TOMOSYNTHESIS, BILATERAL ? CLINICAL INFORMATION: ? Screening. Asymptomatic. ? COMPARISON: ?? Mammography: This study is compared with prior exams dating back to ?? 2019. ? TECHNIQUE: ?? Digital breast tomosynthesis is performed in both the craniocaudal and ?? mediolateral oblique views along with computer-aided detection (CAD). ?? Synthesized 2D images are generated from the tomosynthesis. ? FINDINGS: ?? The breasts are almost entirely fatty (ACR BI-RADS breast composition ?? Category a). ? There are no significant masses, abnormal calcifications, or other ?? abnormalities. ? MM/MM tomosynthesis screening BI ?? IMPRESSION: ?? No mammographic evidence of malignancy. ? ASSESSMENT: ? BI-RADS BI-RADS 1 - Negative ? RECOMMENDATION: ?? Routine annual mammography screening. ? 1 year F/U ? This examination should not preclude the clinical evaluation of a ?? suspicious palpable abnormality. ? This patient's information was entered into a reminder system with a ?? target due date for their next mammogram. ? Dictated By: ?Wilma Moreira MD ? Signed By: ?<Electronically signed by Wilma Moreira MD in OV> ? 06/28/23 0842 ? DD/ 1325 ? TD/TT: ? Manager Automotive: ? Procedure Note Lalitater, Image - 06/28/2023 [facility] [address] [place] [address] [place] [address] Mammography Report Signed Patient: Jaylyn Hou#: [id number] : 1970Acct:[id number] Age/Sex: 53 / FADM Date: 06/03/23 Loc: HO.MAMMO Attending Dr: Gila Montoya MD Ordering Physician: Gila Way sults: 1Negative Date of Service: 06/03/23Follow Up: 1 Year From Orig ina Mammogram Procedure(s): MM tomosynthesis screening BI Accession Number(s): [id number] cc: Gila Way MD EXAMINATION: MM SCREENING DIGITAL BREAST TOMOSYNTHESIS, BILATERAL CLINICAL INFORMATION: Screening. Asymptomatic. COMPARISON: Mammography: This study is compared with prior exams dating back to 2019. TECHNIQUE: Digital breast tomosynthesis is performed in both the craniocaudal and mediolateral oblique views along with computer-aided detection (CAD). Synthesized 2D images are generated from the tomosynthesis. FINDINGS: The breasts are almost entirely fatty (ACR BI-RADS breast composition Category a). There are no significant masses, abnormal calcifications, or other abnormalities. MM/MM tomosynthesis screening BI IMPRESSION: No mammographic evidence of malignancy. ASSESSMENT: BI-RADS BI-RADS 1 - Negative RECOMMENDATION: Routine annual mammography screening. 1 year F/U This examination should not preclude the clinical evaluation of a suspicious palpable abnormality. This patient's information was entered into a reminder system with a target due date for their next mammogram. Dictated By: Wilma Moreira MD Signed By: <Electronically signed by Wilma Moreira MD in OV> 06/28/23 0842 DD/ 1325 TD/TT: Manager Automotive: Gila Montoya MD IMG BI PROCEDURES Final Result * THINPREP PAP (10/09/2021 2:38 PM EDT) Clinical Information: None given [facility] COMMENT SEE COMMENT [facility] Comment: EXPLANATORY NOTE: ? The Pap is a screening test for cervical cancer. It is ?? not a diagnostic test and is subject to false negative ?? and false positive results. It is most reliable when a ?? satisfactory sample, regularly obtained, is submitted ?? with relevant clinical findings and history, and when ?? the Pap result is evaluated along with historic and ?? current clinical information. ?? Digital Designer : SEE COMMENT [facility] Comment: DCR, CT(ASCP) CT screening location: [address] ??[id number] Interpretation/R esult: Negative for intraepithelial lesion or malignancy. [facility] LMP: NONE [facility]IVEN [facility] Prev. BX: NONE [facility]IVEN [facility] Prev. PAP: NONE GIVEN [facility] SOURCE: None given [facility] Statement Of Adequacy: SEE COMMENT [facility] Comment: Satisfactory for evaluation. Endocervical/transformation zone component present. Age and/or menstrual status not provided 10/09/2021 2:38 PM EDT Dylan Kimbrough MD LAB PATHOLOGY ORDERABLES Fin al Result Performing Organization Address [facility] de Phone Number [facility] [address] * HPV mRNA E6/E7 (10/09/2021 2:38 PM EDT) HPV nRNA E6/E7 Not Detected Not Detected [facility] Comment: Methodology: Lacrosse Coach-Mediated Amplification This assay detects E6/E7 viral messenger RNA (mRNA) from 14 high-risk HPV types (16,18,31,33,35,39,45,51,52,56,58,59,66,68). ? Cervical sources are required for HPV testing. If a vaginal source from a patient who has had a total hysterectomy with removal of cervix was ?? submitted, please contact the testing laboratory for alternative testing options. ?? For additional information, please refer to [email or web address] [email or web address]/faq/GSM707o6 (This link if provided for information/ educational purposes only.) 10/09/2021 2:38 PM EDT Dylan Kimbrough MD LAB BLOOD ORDERABLES Final R esult Performing Organization Address [facility] de Phone Number [facility] [address] from Last 3 Months or Most Recently Relevant to Health Maintenance Insurance [facility] [facility] Care Teams Accounting Representative Relationship Specialty Start Date End Date Gila Way MD [address] [place] [phone] PCP - General Internal Medicine 12/05/22
--- OUTSIDE RECORDS SUMMARY | 2024-05-26 13:26 | XMS_ITS | Encounter Summary ---
Demographics Address [address] [facility] [address] [place] [address] Work Phone Home Phone Mobile Phone Preferred Language es Marital Status Unknown Restoration Affiliation Unknown Race Other Race Ethnic Group or Author Organization [employer] Address [address] [facility] 7t [place] [address] Care Team Providers Care Cultural Anthropology Professor Name Role Phone Gila Way MD Primary Care Pro vider Reason for Visit * Reason Onset Date Comments Emily recall 2024 Encounter Details Date Type Department Care Team ([facility] st Contact Info) Description 2024 Telephone [facility] [address] [place], [place] [phone] Becky Cardona MA June recall Social History Tobacco Use Types Packs/Day [...] encounter Miscellaneous Notes * Telephone Encounter - Becky Cardona MA - 2024 10:30 AM EST T/c to pt to book her for an annual pelvic exam 15min no answer lvm. documented in this encounter Plan of Treatment Upcoming Encounters Date Type Department Care Team (Late st Contact Info) Description 06/30/2024 1:00 PM EDT Procedure Visit [facility] MEDICINE [address] [place] [phone] Adela Doll CNM [address] [place] [phone] 07/27/2024 1:00 PM EDT Office Visit [facility] MEDICINE [address] [place] [phone] MD [address] [place] [phone] documented as of this encounter Visit Diagnoses Not on filedocumented in this encounter Additional Health Concerns Assessment Noted Time PHQ-9 Depression Total Score: 8 10/02/19 24 2:02 PM EDT documented as of this encounter Care Teams Cultural Anthropology Professor Relationship Specialty Start Date End Date Gila Way MD [address] [place] [phone] PCP - General Internal Medicine 12/05/22 documented as of this encounter
== END 2024-05-26 10:53 | disposition home or self-care (01) ==
LOC: HO.HHCX 10:52
PROVIDERS: Visit Provider Family Medicine
DX: M25.551 Pain in right hip (principal)
CPT/HCPCS: 73502

== ENCOUNTER → 2024-05-26 10:53 | Outpatient (BNV) | payer MEDICAID, SELFPAY | PROVIDERS: Visit Provider Radiology Diagnostic Radiology | DX: M25.551 Pain in right hip (principal) | CPT/HCPCS: 73502 ==

== ENCOUNTER 2024-06-08 12:49 | Outpatient (REF) | payer MEDICAID, SELFPAY ==
--- OUTSIDE RECORDS SUMMARY | 2024-06-08 14:53 | XMS_ITS | Clinical Summary ---
Author Organization [facility] Address [address] [place] [phone] Phone Care Team Providers Care Medical And Scientific Illustrator Name Role Phone Physician, No Pcp Primary Care Provider Unavaila ble Allergies No known active allergies Medications methocarbamoL (ROBAXIN) 750 mg tablet Take 1 tablet (750 mg total) by mouth 4 (four) times a day for 30 doses. 30 each 02/28/2024 Active Active Problems No known active problems Medical History Medical History Date Comments Hypertension [...] Influencers of Health Screening 02/21/2022 COVID-19 Vaccine ( - season) 2023 03/27/2021, 08/30/2020 Depression Screening 10/01/2024 [...] Procedure Name Priority Date/Time Associated Diagnosis Comments COMPREHENSIVE METABOLIC PANEL STAT 02/27/2024 10:03 PM EST from Last 3 Months or Most Recently Relevant to Health Maintenance Results * Comprehensive metabolic panel (02/27/2024 10:03 PM EST) Sodium 141 133 - 145 mmol/L LAB CHEMISTRY METHOD 02/27/2024 10:37 PM [facility] Potassium 4.3 3.5 - 5.5 mmol/L LAB CHEMISTRY METHOD 02/27/2024 10:37 PM [facility] Chloride 110 96 - 110 mmol/L LAB CHEMISTRY METHOD 02/27/2024 10:37 PM [facility] CO2 26 21 - 32 mmol/L LAB CHEMISTRY METHOD 02/27/2024 10:37 PM [facility] Anion Gap 5 3 - 11 LAB CHEMISTRY METHOD 02/27/2024 10:37 PM [facility] Glucose 87 70 - 100 mg/dL LAB CHEMISTRY METHOD 02/27/2024 10:37 PM [facility] BUN 20 5 - 25 mg/dL LAB CHEMISTRY METHOD 02/27/2024 10:37 PM [facility] Creatinine 0.87 0.50 - 1.10 mg/dL LAB CHEMISTRY METHOD 02/27/2024 10:37 PM [facility] eGFR 79 >=60 mL/min/1. 73m2 LAB CHEMISTRY METHOD 02/27/2024 10:37 PM [facility] Comment:Calculation based on the??Chronic Kidney Disease Epidemiology Collaboration (CKD-EPI) equation refit??without adjustment for race. BUN/Creatinine Ratio 23.0 LAB CHEMISTRY METHOD 02/27/2024 10:37 PM [facility] Calcium 9.1 8.5 - 10.5 mg/dL LAB CHEMISTRY METHOD 02/27/2024 10:37 PM [facility] AST (SGOT) 20 10 - 42 unit/L LAB CHEMISTRY METHOD 02/27/2024 10:37 PM [facility] ALT (SGPT) 29 10 - 60 unit/L LAB CHEMISTRY METHOD 02/27/2024 10:37 PM EST [facility] Alkaline Phosphatase 109 42 - 121 unit/L LAB CHEMISTRY METHOD 02/27/2024 10:37 PM EST [facility] Total Protein 7.7 6.0 - 8.0 g/dL LAB CHEMISTRY METHOD 02/27/2024 10:37 PM EST [facility] Albumin 3.6 3.2 - 5.0 g/dL LAB CHEMISTRY METHOD 02/27/2024 10:37 PM [facility] Total Bilirubin 0.3 0.0 - 1.4 mg/dL LAB CHEMISTRY METHOD 02/27/2024 10:37 PM [facility] Blood Venous blood specimen / Unknown Venipuncture / Unknown 02/27/2024 10:03 PM EST 02/27/2024 10:12 PM EST Dougie Dillard MD LAB BLOOD ORDERABLES Final Resu lt [facility] [address] [place] [address], from Last 3 Months or Most Recently Relevant to Health Maintenance Insurance MEDICAID - [place] Care Teams Medical And Scientific Illustrator Relationship Specialty Start Date End Date Physician, No Pcp PCP - General 02/28/24
--- OUTSIDE RECORDS SUMMARY | 2024-06-08 14:53 | XMS_ITS | Encounter Summary ---
Author Organization [employer] Address [address] [facility] 7t [place] [address] Care Team Providers Care Orthopedic Nurse Practitioner Name Role Phone Gila Way MD Primary Care Pro vider Reason for Referral * Consultation (Routine) - Closed Specialty Diagnoses / Procedures Referred By Contkyaw t Referred To Contact Physical Therapy Diagnoses Chronic low back pain without sciatica, unspecified back pain laterality Mya Kendrick MD [address] [place] [phone] Phone: tel: fax: AT [facility] [place] [address] [facility] [address] Phone: tel: fax: Referral ID Status Reason Start Date Expiration Date V isits Requested Visits Authorized [id number] Closed Specialty Services Required 03/04/2024 03/04/2025 20 20 Encounter Details Date Type Department Care Team (Late st Contact Info) Description 03/03/2024 Orders Only [facility] MEDICINE [address] [place] [address] [phone] Mya Kendrick MD [address] [place], [place] [phone] Chronic low back pain without sciatica, unspecified [...] Description 06/30/2024 1:00 PM EDT Procedure Visit [facility] [address] [place] [phone] Adela Doll CNM [address] [place] [address] 07/27/2024 1:00 PM EDT Office Visit [facility] MEDICINE [address] [place] [phone] MD [address] [place] [address] Scheduled Referrals Name Type Priority Associated Diagnoses [...] documented as of this encounter Care Teams Orthopedic Nurse Practitioner Relationship Specialty Start Date End Date Gila Way MD [address] [place] [address] PCP - General Internal Medicine 12/05/22 documented as of this encounter
--- OUTSIDE RECORDS SUMMARY | 2024-06-08 14:53 | XMS_ITS | Encounter Summary ---
Author Organization [employer] Address [address] [facility] 7t [place] [address] Care Team Providers Care Swaging Machine Operator Name Role Phone Dylan Kimbrough MD Primary Care Provider Delfina NewP Primary Care Provider [phone] Maxwell Saleh Primary Care Provider Unavail able Gila Way MD Primary Care Pro vider Encounter Details Date Type Department Care Team (Latest Contact Info) Description 05/20/2018 Abstract [facility] CONVERSIONS Dental, Provider, DDS Social History [...] Description 06/30/2024 1:00 PM EDT Procedure Visit [facility] MEDICINE [address] [place] [address] [phone] Adela Doll CNM [address] [place], [place] [phone] 07/27/2024 1:00 PM EDT Office Visit [facility] MEDICINE [address] [place] [phone] MD [address] [place], [place] [phone] documented as of this encounter Visit Diagnoses Not on filedocumented in this encounter Care Teams Swaging Machine Operator Relationship Specialty Start Date End Date Dylan Kimbrough MD PCP - General Family Medicine 04/08/20 02/18/22 Delfina Aguayo FNP PCP - General Family Medicine 02/19/22 09/27/22 Maxwell Saleh AGNP PCP - General Family Medicine 09/28/22 12/04/[address] MD [address] [place] [phone] PCP - General Internal Medicine 12/05/22 documented as of this encounter
--- OUTSIDE RECORDS SUMMARY | 2024-06-08 14:53 | XMS_ITS | Encounter Summary ---
Demographics Address [address] [facility] [address] [place] [address] Work Phone Home Phone Mobile Phone Preferred Language es Marital Status Unknown Yazidi Affiliation Unknown Race Other Race Ethnic Group or Author Organization [employer] Address [address] [facility] 7t [place] [address] Care Team Providers Care Insurance Adviser Name Role Phone Gila Way MD Primary Care Pro vider Reason for Visit * Reason Onset Date Comments Emily recall 2024 Encounter Details Date Type Department Care Team ([facility] st Contact Info) Description 2024 Telephone [facility] MEDICINE [address] [place], [place] [phone] Becky Cardona [place] June recall Social History [...] Description 06/30/2024 1:00 PM EDT Procedure Visit [facility] MEDICINE [address] [place] [phone] Adela Doll CNM [address] [place] [phone] 07/27/2024 1:00 PM EDT Office Visit [facility] MEDICINE [address] [place] [phone] MD [address] [place] [phone] documented as of this encounter Visit Diagnoses Not on filedocumented in this encounter Additional Health Concerns Assessment Noted Time PHQ-9 Depression Total Score: 8 10/02/19 24 2:02 PM EDT documented as of this encounter Care Teams Insurance Adviser Relationship Specialty Start Date End Date Gila Way MD [address] [place] [phone] PCP - General Internal Medicine 12/05/22 documented as of this encounter
--- OUTSIDE RECORDS SUMMARY | 2024-06-08 14:53 | XMS_ITS | Encounter Summary ---
Demographics Address [address] [facility] [address] [place] [address] Work Phone Home Phone Mobile Phone Preferred Language es Marital Status Unknown Sikh Affiliation Unknown Race Other Race Ethnic Group or Author Organization [employer] Address [address] [facility] 7t [place] [address] Care Team Providers Care Communications Manager Name Role Phone Gila Wya MD Primary Care Pro vider Encounter Details Date Type Department Care Team ([facility] st Contact Info) Description 06/05/2024 Population Health Risk Score [facility] (C[facility]) Department [address] [facility] [address] [place] [address] Provider, Population Health Generic Social History Tobacco Use Types Packs/Day Years [...] Description 06/30/2024 1:00 PM EDT Procedure Visit [facility] MEDICINE [address] [place] [phone] Adela Doll CNM [address] [place] [phone] 07/27/2024 1:00 PM EDT Office Visit [facility] MEDICINE [address] [place] [phone] MD [address] [place] [address] [phone] documented as of this encounter Visit Diagnoses Not on filedocumented in this encounter Additional Health Concerns Assessment Noted Time PHQ-9 Depression Total Score: 8 10/02/19 24 2:02 PM EDT documented as of this encounter Care Teams Communications Manager Relationship Specialty Start Date End Date Gila Way MD [address] [place] [phone] PCP - General Internal Medicine 12/05/22 documented as of this encounter
--- OUTSIDE RECORDS SUMMARY | 2024-06-08 14:53 | XMS_ITS | Encounter Summary ---
Demographics Address [address] [facility] [address] [place] [address] Work Phone Home Phone Mobile Phone Preferred Language es Marital Status Unknown Adventist Affiliation Unknown Race Other Race Ethnic Group or Author Organization [employer] Address [address] [facility] [address] 7[address] [place] [address] Care Team Providers Care Paleontology Teacher Name Role Phone Gila Way MD Primary Care Pro vider Encounter Details Date Type Department Care Team (Late st Contact Info) Description 05/26/2024 Telephone [facility] [address] [place], [place] [phone] Laura Kelly MD [address] [place], [place] [phone] Social History Tobacco Use Types Packs/Day Years [...] encounter Miscellaneous Notes * Telephone Encounter - Clarice Betancourt RN - 05/26/2024 1:39 PM EST TC placed to pt and the message below was discussed, pt had further questions at this time ----- Message ----- From: Laura Kelly MD Sent: 05/26/2024 12:59 PM EST To: [facility] Team Nurses Please let Jaylyn know x ray of the hip showed mild arthritis but not likely causing the pain, likely muscle. Xray reassuring. Continue plan. documented in this encounter Plan of Treatment Upcoming Encounters Date Type Department Care Team (Late st Contact Info) Description 06/30/2024 1:00 PM EDT Procedure Visit [facility] MEDICINE [address] [place] [phone] Adela Doll CNM [address] [place] [address] 07/27/2024 1:00 PM EDT Office Visit [facility] MEDICINE [address] [place] [phone] MD [address] [place] [address] documented as of this encounter Visit Diagnoses Not on filedocumented in this encounter Additional Health Concerns Assessment Noted Time PHQ-9 Depression Total Score: 8 10/02/19 24 2:02 PM EDT documented as of this encounter Care Teams Paleontology Teacher Relationship Specialty Start Date End Date Gila Way MD [address] [place] [address] PCP - General Internal Medicine 12/05/22 documented as of this encounter
--- OUTSIDE RECORDS SUMMARY | 2024-06-08 14:53 | XMS_ITS | Encounter Summary ---
Demographics Address [address] [facility] [address] [place] [address] Work Phone Home Phone Mobile Phone Preferred Language es Marital Status Unknown Congregational Affiliation Unknown Race Other Race Ethnic Group or Author Organization [employer] Address [address] [facility] [address] [place] [address] Care Team Providers Care Spa Consultant Name Role Phone Gila Way MD Primary Care Pro vider Encounter Details Date Type Department Care Team (Late st Contact Info) Description 05/26/2024 Telephone [facility] [address] [place], [place] [phone] Laura Kelly MD [address] [place], [place] [phone] Social History Tobacco Use Types Packs/Day Years [...] Encounter - Clarice Betancourt RN - 05/26/2024 2:03 PM EST TC placed to pt and the message below was discussed, pt verbalized understanding had no further questions at this time ----- Message ----- From: Laura Kelly MD Sent: 05/26/2024 12:59 PM EST To: [facility] Team Nurses Please let Jaylyn know x ray of the hip showed mild arthritis but not likely causing the pain, likely muscle. Xray reassuring. Continue plan. documented in this encounter Plan of Treatment Upcoming Encounters Date Type Department Care Team (Late st Contact Info) Description 06/30/2024 1:00 PM EDT Procedure Visit [facility] MEDICINE [address] [place] [phone] Adela Doll CNM [address] [place] [address] 07/27/2024 1:00 PM EDT Office Visit [facility] MEDICINE [address] [place] [phone] MD [address] [place] [address] documented as of this encounter Visit Diagnoses Not on filedocumented in this encounter Additional Health Concerns Assessment Noted Time PHQ-9 Depression Total Score: 8 10/02/19 24 2:02 PM EDT documented as of this encounter Care Teams Spa Consultant Relationship Specialty Start Date End Date Gila Way MD [address] [place] [address] PCP - General Internal Medicine 12/05/22 documented as of this encounter
--- OUTSIDE RECORDS SUMMARY | 2024-06-08 14:53 | XMS_ITS | Clinical Summary ---
Demographics Address [address] [facility] [address] [place] [address] Work Phone Home Phone Mobile Phone Preferred Language es Marital Status Unknown Nondenominational Affiliation Unknown Race Other Race Ethnic Group or Author Organization [employer] Address [address] [facility] [address] [place] [address] Care Team Providers Care Bond Clerk Name Role Phone Gila Way MD Primary [...] and also in the community. Her strong anabaptism belief is helping Jaylyn to deal with [...] gradually return to regular daily routine and anabaptism activities. PLAN: (check all that apply) Further services needed, but declined Behavioral Health Integration Plan Internal Follow up with [facility] Patient Self Plan Patient to utilize skills provided in intervention , Patient to reach out to [facility] team as needed, and Patient to reach out to [facility] as needed. Pt declined OP referral for [...] Encounters Date Type Department Care Team Description 06/05/2024 Population Health Risk Score [facility] () Department [address] [place] [phone] Provider, Population Health Generic 05/26/2024 10:20 AM EST Office Visit [facility] [address] [place] [phone] Laura Kelly MD Posterior pain of right hip (Primary Dx); Elevated blood pressure reading with diagnosis of hypertension 05/26/2024 Telephone [facility] [address] [place] [phone] Laura Kelly MD 05/26/2024 Telephone [facility] [address] [place] [phone] Laura Kelly MD 05/15/2024 Telephone [facility] [address] [facility] [place] [address] MD July recall 2024 Telephone [facility] [address] [facility] [place] [address] Becky Cardona MA June recall 03/27/2024 1:30 PM EST Clinical Support [facility] [address] [facility] [place] [address] Cherelle Senior RN Essential hypertension 03/27/2024 Travel from Last 3 Months Immunizations Name Administration [...] Description 06/30/2024 1:00 PM EDT Procedure Visit [facility] [address] [place] [address] Adela Doll CNM [address] [place] [address] 07/27/2024 1:00 PM EDT Office Visit [facility] [address] [place] [address] MD [address] [place] [phone] Health Maintenance Due Date Last Done Comments [...] AM EST Narrative 05/26/2024 11:55 AM EST ?[facility] ?[address] ?[place], [place] [address] ?XRay Report ? Signed ? Patient: Jaylyn Hou ?MR#: [id number] ?? [id number] ? : 1970 ?Acct:[id number] ? Age/Sex: 54 / F ?ADM Date: 05/26/24 ? Loc: HO.HHCX ? Attending Dr: Laura Kelly MD ? Ordering Physician: Lauar Kelly MD ?? Date of Service: 05/26/24 ?? Procedure(s): XR hip RT min 2V ?? Accession Number(s): [id number] ? cc: Laura Kelly MD ? EXAMINATION: [...] DD/ 1053 ? TD/TT: 05/26/24 1104 ? Gear Room Keeper: ? Procedure Note Shahriar Murguia - 05/26/2024 [facility] [address] [place] [address] XRay Report Signed Patient: Frederic Houkatie#: [id number] : 1970Acct:[id number] Age/Sex: 54 / FADM Date: 05/26/24 Loc: HO.HHCX Attending Dr: Laura Kelly MD Ordering Physician: Laura Kelly MD Date of Service: 05/26/24 Procedure(s): XR hip RT min 2V Accession Number(s): [id number] cc: Laura Kelly MD EXAMINATION: XR HIP, [...] 05/26/24 1152 DD/ 1053 TD/TT: 05/26/24 1104 Gear Room Keeper: us Luara Kelly MD IMG XR PROCEDURES Final Re sult * Hepatitis B surface antigen, EIA (03/27/2024 1:45 PM EST) Hepatitis B Surface Ag Negative Negative [facility] Blood Venous blood specimen / Unknown 03/27/2024 1:45 PM EST 03/27/2024 4:08 PM EST us Gila Montoya MD LAB BLOOD ORDERAB LES Final Result [facility] [address] [place] [phone] * (ABNORMAL) Lipid Panel, Standard (03/27/2024 1:45 PM EST) Triglycerides 135 <150 mg/dL [facility] Comment:Desirable Triglyceri de: less than 150 mg/dLBorderline High Triglyceride 150-199 mg/dLHigh Triglyceride: 200-499 mg/dLVery High Triglyceride: greater than or equal to 5OO mg/dL Cholesterol 153 <200 mg/dL [facility] Comment:Desirable Cholestero l: less than 200 mg/dLBorderline High Cholesterol: 200-239 mg/dLHigh Cholesterol: greater than 239 mg/dL LDL Cholesterol Calculated 92 <100 mg/dL [facility] Comment:Desirable LDL: less than 100 mg/dLNear Optimal/Above Optimal LDL: 110- 129 mg/dLBorderline High LDL: 130-159 mg/dLHigh LDL: 160-189 mg/dLVery High LDL: greater than or equal to 190 mg/dL HDL Cholesterol 34(L) >40 mg/dL [facility] Comment:Desirable HDL: great er than 40 mg/dL Note: This HDL assay may give artificially low results in patients with liver disease. Blood Venous blood specimen / Unknown 03/27/2024 1:45 PM EST 03/27/2024 4:08 PM EST us Gila Montoya MD LAB BLOOD ORDERAB LES Final Result [facility] [address] [place] [phone] * (ABNORMAL) Comprehensive Metabolic Panel (03/27/2024 1:45 PM EST) Sodium 140 135 - 145 mmol/L [facility] Potassium 4.3 3.3 - 5.1 mmol/L [facility] Chloride 109(H) 96 - 108 mmol/L [facility] Carbon Dioxide 26 22 - 29 mmol/L [facility] Anion Gap 9(L) 12 - 20 [facility] Urea Nitrogen (BUN) 14 9 - 16 mg/dL [facility] Creatinine, Serum 0.81 0.5 - 1.4 mg/dL [facility] Estimated Glomerular Filt Rate >60 [facility] Comment:Chronic Kidney Disea se: Estimated GFR < 60 mL/min/1.37p5Epaxnb Kidney Disease: Estimated GFR < 15 mL/min/1.73m2 Glucose 91 60 - 115 mg/dL [facility] Calcium 8.4 8.4 - 10.2 mg/dL [facility] Bilirubin, Total 0.5 0.0 - 1.0 mg/dL [facility] Aspartate Amino Transferase 42(H) 5 - 31 U/L [facility] Alanine Aminotransferase 48(H) 0 - 31 U/L [facility] Total Protein 7.6 6.5 - 8.0 g/dL [facility] Albumin Level 3.9 3.5 - 5.0 g/dL [facility] Alkaline Phosphatase 87 39 - 117 U/L [facility] Blood Venous blood specimen / Unknown 03/27/2024 1:45 PM EST 03/27/2024 4:08 PM EST us Gila Montoya MD LAB BLOOD ORDERAB LES Final Result [facility] [address] [place] [phone] * HIV-1/2 Antigen and Antibodies, Fourth Generation, with Reflexes (02/07/2024 8:50 AM EST) HIV AB/AG Nonreactive Nonreactive [facility] Comment:HIV-1 p24 Ag and/or HIV-1/HIV-2 Ab not detected.A test result that is nonreactive does not exclude thepossibility of exposure to or infection with HIV-1 and/orHIV-2. Nonreactive results in this assay for individualswith prior exposure to HIV-1 and/or HIV-2 may be due toantigen and antibody levels that are below the limit ofdetection of this assay.The PanlniFetch It HIV Ag/Ab Combo assay result andsupplemental assay results should be interpreted inconjunction with the patient's clinical presentation,history and other laboratory results. If the results areinconsistent with clinical evidence, additional testing issuggested to confirm the result. Blood Venous blood specimen / Unknown 02/07/2024 8:50 AM EST 02/07/2024 11:03 AM EST us Gila Montoya MD LAB BLOOD ORDERAB LES Final Result [facility] [address] [place] [phone] * Hepatitis C Antibody with Reflex to HCV, RNA, Quantitative, Real-Time PCR (11/15/2023 8:49 AM EDT) Hepatitis C Antibody Nonreactive Nonreactive [facility] Comment:Antibodies to HCV no t detected; does not exclude early acuteHCV infection. Blood Venous blood specimen / Unknown 11/15/2023 8:49 AM EDT 11/15/2023 11:05 AM EDT us Gila Montoya MD LAB BLOOD ORDERAB LES Final Result [facility] [address] [place] [phone] * Hemoglobin A1c (11/15/2023 8:49 AM EDT) Hemoglobin A1c 5.4 <6.0 % [facility] Comment:Hemoglobin A1C Refer ence Range Adults: 4.8 - 6.0 % Non diabetic: < 6.0 % Goal: < 7.0 %Additional Action Suggested: > 8.0 %Note: Hemoglobin A1c results are invalid for patients with abnormal amounts of HbF. Blood transfusions may impact the HbA1c concentration in the patient sample. Estimated Average Glucose 108 mg/dL [facility] Comment:eAG = Estimated ave rage glucose which is %A1C expressed asaverage glucose, using the formula of the L9D-CqlbtjsNhocuka Glucose study (ADAG), Diabetes Care, Vol.31,#8,Oct. 2007 Blood Venous blood specimen / Unknown 11/15/2023 8:49 AM EDT 11/15/2023 11:05 AM EDT us Gila Montoya MD LAB BLOOD ORDERAB LES Final Result Performing Organization Address [facility]/State/ZIP Co de Phone Number [facility] [address] [place] [address] [phone] * BI Mammogram Screening Tomosynthesis Bilateral (06/03/2023 1:25 PM EDT) Anatomical Region Laterality Modality Breast Bilateral Mammography 06/03/2023 1:25 PM EDT Narrative 06/28/2023 8:45 AM EDT ? [facility] ? [address] ?[place] [address] ? Mammography Report ? Signed ? Patient: Jaylyn Hou ?MR#: [id number] ?? [id number] ? : 1970 ?Acct:[id number] ? Age/Sex: 53 / F ?ADM Date: 06/03/23 ? Loc: HO.MAMMO ? Attending Dr: Gila Montoya MD ? Ordering Physician: Gila Way MD ?Re ?? sults: 1Negative ? Date of Service: 06/03/23 ?Follow Up: 1 Year From Orig ?? inal Mammogram ? Procedure(s): MM tomosynthesis screening BI ?? Accession Number(s): [id number] ? cc: Gila Way MD ? EXAMINATION: [...] 0842 ? DD/ 1325 ? TD/TT: ? Gear Room Keeper: ? Procedure Note Blade, Image - 06/28/2023 [facility] [address] [place] [address] [place] [address] Mammography Report Signed Patient: Jaylyn Hou#: [id number] : 1970Acct:[id number] Age/Sex: 53 / FADM Date: 06/03/23 Loc: HO.[place] Attending Dr: Gila Montoya MD Ordering Physician: Gila Way sults: 1Negative Date of Service: 06/03/23Follow Up: 1 Year From Orig ina Mammogram Procedure(s): MM tomosynthesis screening BI Accession Number(s): [id number] cc: Gila Way MD EXAMINATION: MM SCREENING [...] in OV> 06/28/23 0842 DD/ 1325 TD/TT: Gear Room Keeper: Gila Montoya MD IMG BI PROCEDURES Final Result * THINPREP PAP (10/09/2021 2:38 PM EDT) Clinical Information: None given [facility] COMMENT SEE COMMENT FOUNDAT[facility] ON [...] historic and ?? current clinical information. ?? Airport Location Manager : SEE COMMENT [facility] Comment: DCR, CT(ASCP) CT screening location: [address] ??[address] Interpretation/R esult: Negative for intraepithelial lesion or malignancy. [facility] LMP: NONE GIVEN [facility] Prev. BX: NONE [facility]IVEN [facility] Prev. PAP: NONE GIVEN [facility] ON LAB [facility] SOURCE: None given [facility] Statement Of Adequacy: SEE COMMENT [facility] Comment: Satisfactory for evaluation. Endocervical/transformation zone component present. Age and/or menstrual status not provided 10/09/2021 2:38 PM EDT us Dylan Kimbrough MD LAB PATHOLOGY ORDERABLES Fin al Result Performing Organization Address [facility] de Phone Number [facility] [address] * HPV mRNA E6/E7 (10/09/2021 2:38 PM EDT) HPV nRNA E6/E7 Not Detected Not Detected [facility] Comment: Methodology: Stationary Engineer Refrigeration-Mediated Amplification This assay detects E6/E7 viral messenger RNA (mRNA) from 14 high-risk HPV types (16,18,31,33,35,39,45,51,52,56,58,59,66,68). ? Cervical sources are required for HPV testing. If a vaginal source from a patient who has had a total hysterectomy with removal of cervix was ?? submitted, please contact the testing laboratory for alternative testing options. ?? For additional information, please refer to http://education.[employer]/faq/LYS767c6 (This link if provided for information/ educational purposes only.) 10/09/2021 2:38 PM EDT Dylan Kimbrough MD LAB BLOOD ORDERABLES Final R esult Performing Organization Address [facility] Co de Phone Number [facility] [address] from Last 3 Months or Most Recently Relevant to Health Maintenance Insurance [facility] Care Teams Bond Clerk Relationship Specialty Start Date End Date Gila Way MD [address] [place] [phone] PCP - General Internal Medicine 12/05/22
--- OUTSIDE RECORDS SUMMARY | 2024-06-08 14:53 | XMS_ITS | Encounter Summary ---
Demographics Address [address] [facility] [address] [place] [address] Work Phone Home Phone Mobile Phone Preferred Language es Marital Status Unknown Pentecostal Affiliation Unknown Race Other Race Ethnic Group or Author Organization [employer] Address [address] [facility] [address] [place] [address] Care Team Providers Care Leader Assembler Name Role Phone Gila Way MD Primary Care Pro vider Reason for Visit * Reason Onset Date Comments May recall 05/15/2024 Encounter Details Date Type Department Care Team ([facility] st Contact Info) Description 05/15/2024 Telephone [facility] [address] [place], [place] [phone] Gila Way MD [address] [place], [place] [phone] May recall Social History Tobacco Use Types [...] EST Tc from pt returning call , press writer advised pt it was in regards a recall appointment as press writer scheduled pt 07/27/2024 pt agreed. * [...] Description 06/30/2024 1:00 PM EDT Procedure Visit [facility] [address] [place] [address] Adela Doll CNM [address] [place] [address] 07/27/2024 1:00 PM EDT Office Visit [facility] [address] [place] [address] MD [address] [place] [address] documented as of this encounter Visit Diagnoses Not on filedocumented in this encounter Additional Health Concerns Assessment Noted Time PHQ-9 Depression Total Score: 8 10/02/19 24 2:02 PM EDT documented as of this encounter Care Teams Leader Assembler Relationship Specialty Start Date End Date Gila Way MD [address] [place], [place] [phone] PCP - General Internal Medicine 12/05/22 documented as of this encounter
--- OUTSIDE RECORDS SUMMARY | 2024-06-08 14:53 | XMS_ITS | Encounter Summary ---
Demographics Address [address] [facility] [address] [place] [address] Work Phone Home Phone Mobile Phone Preferred Language es Marital Status Unknown Anabaptism Affiliation Unknown Race Other Race Ethnic Group or Author Organization [employer] Address [address] [facility] 7t [place] [address] Care Team Providers Care Address Change Clerk Name Role Phone Gila Way MD Primary Care Pro vider Reason for Visit * Reason Comments right hip pain Encounter Details Date Type Department Care Team ([facility] st Contact Info) Description 05/26/2024 10:20 AM EST Office Visit [facility] [address] [place] [address] [phone] Laura Kelly MD [address] [place] [address] Posterior pain of right hip (Primary Dx); [...] it worse. She reports she works in [email or web address] in [place]. Denies any falls or trauma. Pt points [...] Description 06/30/2024 1:00 PM EDT Procedure Visit [facility] [address] [place] [phone] Adela Doll CNM [address] [place] [phone] 07/27/2024 1:00 PM EDT Office Visit [facility] [address] [place] [phone] MD [address] [place] [address] documented as of this encounter Procedures Procedure [...] AM EST Narrative 05/26/2024 11:55 AM EST ?[facility] ?[address] ?[place] [address] ?XRay Report ? Signed ? Patient: Jaylyn Hou ?MR#: [id number] ?? [id number] ? : 1970 ?Acct:[id number] ? Age/Sex: 54 / F ?ADM Date: 05/26/24 ? Loc: HO.HHCX ? Attending Dr: Laura Kelly MD ? Ordering Physician: Laura Kelly MD ?? Date of Service: 05/26/24 ?? Procedure(s): XR hip RT min 2V ?? Accession Number(s): [id number] ? cc: Laura Kelly MD ? EXAMINATION: [...] DD/ 1053 ? TD/TT: 05/26/24 1104 ? Bankruptcy Legal Assistant: ? Procedure Note Donotclaudiater, Image - 05/26/2024 [facility] [address] [place] [address] XRay Report Signed Patient: Jaylyn HouMR#: [id number] : 1970Acct:[id number] Age/Sex: 54 / FADM Date: 05/26/24 Loc: HO.HHCX Attending Dr: Laura Kelly MD Ordering Physician: Laura Kelly MD Date of Service: 05/26/24 Procedure(s): XR hip RT min 2V Accession Number(s): [id number] cc: Laura Kelly MD EXAMINATION: XR HIP, [...] 05/26/24 1152 DD/ 1053 TD/TT: 05/26/24 1104 Bankruptcy Legal Assistant: Laura Kelly MD IMG XR PROCEDURES Final Re sult documented in this encounter Visit Diagnoses Diagnosis Posterior pain of right hip- Primary Elevated blood pressure reading with diagnosis of hypertension documented in this encounter Additional Health Concerns Assessment Noted Time PHQ-9 Depression Total Score: 8 10/02/19 24 2:02 PM EDT documented as of this encounter Care Teams Address Change Clerk Relationship Specialty Start Date End Date Gila Way MD [address] [place] [phone] PCP - General Internal Medicine 12/05/22 documented as of this encounter
== END 2024-06-08 12:50 | disposition home or self-care (01) ==
LOC: HO.MAMMO 12:49
PROVIDERS: PCP Student in an Organized Health Care Education/Training Program; Visit Provider Student in an Organized Health Care Education/Training Program
DX: Z12.31 Encounter for screening mammogram for malignant neoplasm of breast (principal)
CPT/HCPCS: 77063; 77067

== ENCOUNTER → 2024-06-08 13:15 | Outpatient (BNV) | payer MEDICAID, SELFPAY | PROVIDERS: PCP Student in an Organized Health Care Education/Training Program; Visit Provider Internal Medicine | DX: Z12.31 Encounter for screening mammogram for malignant neoplasm of breast (principal) | CPT/HCPCS: 77063; 77067 ==

== ENCOUNTER 2024-06-30 16:22 | Outpatient (REF) | payer MEDICAID, SELFPAY ==
--- OUTSIDE RECORDS SUMMARY | 2024-06-30 19:02 | XMS_ITS | Clinical Summary ---
Demographics Address [address] [facility] [address] [place] [address] Work Phone Home Phone Mobile Phone Preferred Language es Marital Status Unknown Samaritan Affiliation Unknown Race Other Race Ethnic Group or Author Organization [employer] Address [address] [facility] [address] [place] [address] Care Team Providers Care Business Development Professional Name Role Phone Gila Way MD Primary Care Pro vider Allergies No known active allergies Medications * This document contains information received from the source organization and may not represent a complete record from that organization. cholecalciferol (D3-5) 5,000 Units tabletIndications: Vitamin D deficiency Take 1 tablet (5,000 Units) by mouth in the morning. 30 tablet 2 04/26/19 24 Active amLODIPine (Norvasc) 10 MG tabletIndications: Primary hypertension Take 1 tablet by mouth every day 90 tablet 04/29/19 24 Active Additional Information Patient not taking.Reported on 01/24/2024 acetaZOLAMIDE (Diamox) 250 MG tablet Take 250 mg by mouth Once per day. 08/08/19 24 Active Blood Pressure kit 1 Device Once per day. 1 kit 01/24/20 24 Active rosuvastatin (Crestor) 20 MG tabletIndications: Hyperlipidemia, unspecified hyperlipidemia type Take 1 tablet (20 mg) by mouth Once per day. 90 tablet 02/24/20 24 Active losartan (Cozaar) 100 MG tablet Take 1 tablet (100 mg) by mouth Once per day. 90 tablet 02/24/20 24 025 Active lidocaine (Lidoderm) 5 % patchIndications:P osterior pain of right hip Apply 1 patch topically Once per day. Remove & discard patch within 12 hours or as directed by . 30 patch 2 05/27/19 25 Active cyclobenzaprine (Flexeril) 10 MG tabletIndications: Posterior pain of right hip One tab po q12 hours prn pain of muscles, do not drive with medicaion 30 tablet 05/27/19 25 Active ibuprofen 800 MG tabletIndications: Posterior pain of right hip Take 1 tablet (800 mg) by mouth every 8 (eight) hours if needed for moderate pain or fever. 30 tablet 05/27/19 25 025 Active Problems Problem Noted Date Diagnosed Date [...] and also in the community. Her strong faith belief is helping Jaylyn to deal with [...] gradually return to regular daily routine and mosque activities. PLAN: (check all that apply) Further services needed, but declined Behavioral Health Integration Plan Internal Follow up with [facility] Patient Self Plan Patient to utilize skills provided in intervention , Patient to reach out to [facility] team as needed, and Patient to reach out to [facility] as needed. Pt declined OP referral for [...] Encounters Date Type Department Care Team Description 06/30/2024 1:00 PM EDT Procedure Visit [facility] [address] [place] [phone] Adela Doll CNM Menopausal and postmenopausal disorder (Primary Dx); Vulvar itching; Dermatitis 06/30/2024 Travel 06/08/[address] [facility] [address] [place] [phone] MD 06/05/2024 Population Health Risk Score [facility] Department [address] [phone] Provider, Population Health Generic 05/26/2024 10:20 AM EST Office Visit [facility] [address] [place] [address] Laura Kelly MD Posterior pain of right hip (Primary Dx); Elevated blood pressure reading with diagnosis of hypertension 05/26/[address] [facility] [address] [place] [address] Laura Kelly MD 05/26/[address] [facility] [address] [place] [address] Laura Kelly MD 05/15/[address] [facility] [address] [place] [address] MD July recall [address] [facility] [address] [place] [address] Becky Cardona MA June recall from Last 3 Months Immunizations Name Administration [...] Sign Reading Time Taken Comments Blood Pressure 160/81 06/30/2024 1:35 PM EDT Pulse 93 06/30/2024 1:06 PM EDT Temperature 36.4 ??C (97.6 ??F) 06/30/2024 1:06 PM ED T Respiratory Rate 16 06/30/2024 1:06 PM EDT Oxygen Saturation 98% 06/30/2024 1:06 PM EDT Inhaled Oxygen Concentration - - Weight 86.2 kg (190 lb) 06/30/2024 1:06 PM EDT Height 157.5 cm (5' 2 ) 06/30/2024 1:06 PM EDT Body Mass Index 34.75 06/30/2024 1:06 PM EDT Plan of Treatment Upcoming Encounters Date Type Department Care Team (Late st Contact Info) Description 07/27/2024 1:00 PM EDT Office Visit [facility] [address] [place] [phone] MD [address] [place], [place] [phone] Health Maintenance Due Date Last Done Comments CT Colonography 1969 Colonoscopy 1969 Colorectal Cancer Screening 1969 FIT DNA/Cologuard 1969 FIT 1969 FOBT 1969 Sigmoidoscopy 1969 Alcohol/Substance Use Screening 1981 Hepatitis B Vaccines (1 of 3 - 19+ 3-dose series) 1988 Pneumococcal Vaccine: 50+ Years (1 of 1 - PCV) 2019 COVID-19 Vaccine (3 - 2023- season) 2023 03/27/2021, 08/30/2020 Depression Screening 10/01/2024 10/02/2023, 10/02/19 24 SDOH Screening 10/01/2024 10/02/2023 Diabetes: Hemoglobin A1C 11/14/2024 024, 06/19/2021, 09/14/2020 Mammogram 06/08/2025 06/08/2024, 05/23, 05/25/2021, Additional history exists Tobacco Screening 06/30/2025 06/30/2024 DTaP/Tdap/Td Vaccines (2 - Td or Tdap) [...] Procedure Name Priority Date/Time Associated Diagnosis Comments BI MAMMOGRAM SCREENING TOMOSYNTHESIS BILATERAL Routine 06/08/2024 1:50 PM EDT XR HIP 2 OR 3 VIEWS RIGHT Routine 05/26/2024 10:53 AM EST Posterior pain of right hip LIPID PANEL, STANDARD Routine 03/27/2024 1:45 PM EST Hyperlipidemia, unspecified hyperlipidemia type HIV 1/2 ANTIGEN/ANTIBODY, FOURTH GENERATION W/RFL Routine 02/07/2024 8:50 AM EST Annual physical exam HEPATITIS C AB W/REFL TO HCV RNA, QN, PCR Routine 11/15/2023 8:49 AM EDT Annual physical exam HEMOGLOBIN A1C Routine 11/15/2023 8:49 AM EDT Annual physical exam HPV MRNA E6/E7 Routine 10/09/2021 2:38 PM EDT THINPREP PAP Routine 10/09/2021 2:38 PM EDT from Last 3 Months or Most Recently Relevant to Health Maintenance Results * BI Mammogram Screening Tomosynthesis Bilateral (06/08/2024 1:50 PM EDT) Anatomical Region Laterality Modality Breast Bilateral Mammography 06/08/2024 1:50 PM EDT Narrative 06/14/2024 8:03 PM EDT ? [facility] ? [address] ?[place] [address] ?[phone] ? Mammography Report ? Signed ? Patient: Lopes Beltran,Jaylyn ?MR#: [id number] ?? [id number] ? : 1970 ?Acct:[id number] ? Age/Sex: 54 / F ?ADM Date: 03/17/25 ? Loc: HO.MAMMO ? Attending Dr: Gila Montoya MD ? Ordering Physician: Gila Way MD ?Re ?? sults: 1Negative ? Date of Service: 06/08/24 ?Follow Up: 1 Year From Orig ?? inal Mammogram ? Procedure(s): MM tomosynthesis screening BI ?? Accession Number(s): [id number] ? cc: Gila Way MD ? EXAMINATION: ?? MM SCREENING DIGITAL BREAST TOMOSYNTHESIS, BILATERAL ? CLINICAL INFORMATION: ? Screening. Asymptomatic. ? COMPARISON: ?? Mammography: Comparison is made with available priors ? TECHNIQUE: ?? Digital breast mammography with tomosynthesis is performed in both the ?? craniocaudal and mediolateral oblique views along with computer-aided ?? detection (CAD). ? FINDINGS: ?? There are scattered areas of fibroglandular density (ACR BI-RADS breast ?? composition Category b). ? There are no significant masses, abnormal [...] due date for their next mammogram. ? Electronically signed by: ??Laura Cornell DO ??06/14/2024 08:00 PM EDT ?? RP ? Dictated By: ?Laura Cornell DO ? Signed By: ?<Electronically signed by Laura Cornell, DO in OV> ? 06/14/24 2000 ? DD/ 1350 ? TD/TT: 06/08/24 1400 ? Culinary Arts Teacher: ? Procedure Note Donhiltonritumichelleter, Image - 06/14/2024 [place] [facility] [address] [place] [address] Mammography Report Signed Patient: Jaylyn HouMR#: [id number] : 1970Acct:[id number] Age/Sex: 54 / FADM Date: 06/08/24 Loc: HO.MAMMO Attending Dr: Gila Montoya MD Ordering Physician: Gila Way sults: 1Negative Date of Service: 06/08/24Follow Up: 1 Year From Orig inal Mammogram Procedure(s): MM tomosynthesis screening BI Accession Number(s): [id number] cc: Gila Way MD EXAMINATION: MM SCREENING DIGITAL BREAST TOMOSYNTHESIS, BILATERAL CLINICAL INFORMATION: Screening. Asymptomatic. COMPARISON: Mammography: Comparison is made with available priors TECHNIQUE: Digital breast mammography with tomosynthesis is performed in both the craniocaudal and mediolateral oblique views along with computer-aided detection (CAD). FINDINGS: There are scattered areas of fibroglandular density (ACR BI-RADS breast composition Category b). There are no significant masses, abnormal calcifications, [...] target due date for their next mammogram. Electronically signed by: Laura Cornell DO 06/14/2024 08:00 PM EDT RP Dictated By: Laura Cornell DO Signed By: <Electronically signed by Laura Cornell DO in OV> 06/14/241999 DD/ 1350 TD/TT: 06/08/24 1400 Culinary Arts Teacher: Gila Montoya MD IMG BI PROCEDURES Edited Result - Final * XR Hip 2 or 3 Views Right (05/26/2024 10:53 AM EST) Anatomical Region Laterality Modality Lower Extremities, Hip Right Radiograp hic Imaging 05/26/2024 10:5 3 AM EST Narrative 05/26/2024 11:55 AM EST ?[facility] ?[address] ?[place] [address] ?XRay Report ? Signed ? Patient: Jaylyn Hou ?MR#: [id number] ?? [id number] ? : 1970 ?Acct:[id number] ? Age/Sex: 54 / F ?ADM Date: 05/26/24 ? Loc: HO.HHCX ? Attending Dr: Laura Kelly MD ? Ordering Physician: Laura Kelly MD ?? Date of Service: 05/26/24 ?? Procedure(s): XR hip RT min 2V ?? Accession Number(s): [id number] ? cc: Laura Kelly MD ? EXAMINATION: [...] DD/ 1053 ? TD/TT: 05/26/24 1104 ? Culinary Arts Teacher: ? Procedure Note Donotuseinterpreter, Image - 05/26/[address] [address] XRay Report Signed Patient: Jaylyn HouMR#: [id number] : 1970Acct:[id number] Age/Sex: 54 / FADM Date: 05/26/24 Loc: HO.HHCX Attending Dr: Laura Kelly MD Ordering Physician: Laura Kelly MD Date of Service: 05/26/24 Procedure(s): XR hip RT min 2V Accession Number(s): [id number] cc: Laura Kelly MD EXAMINATION: XR HIP, [...] 05/26/24 1152 DD/ 1053 TD/TT: 05/26/24 1104 Culinary Arts Teacher: Laura Kelly MD IMG XR PROCEDURES Final Re sult * (ABNORMAL) Lipid Panel, Standard (03/27/2024 1:45 PM EST) Triglycerides 135 <150 mg/dL [facility] Comment:Desirable Triglyceri de: less than 150 mg/dLBorderline High Triglyceride 150-199 mg/dLHigh Triglyceride: 200-499 mg/dLVery High Triglyceride: greater than or equal to 5OO mg/dL Cholesterol 153 <200 mg/dL [facility] Comment:Desirable Cholestero l: less than 200 mg/dLBorderline High Cholesterol: 200-239 mg/dLHigh Cholesterol: greater than 239 mg/dL LDL Cholesterol Calculated 92 <100 mg/dL [facility] Comment:Desirable LDL: less than 100 mg/dLNear Optimal/Above Optimal LDL: 110- 129 mg/dLBorderline High LDL: 130-159 mg/dLHigh LDL: 160-189 mg/dLVery High LDL: greater than or equal to 190 mg/dL HDL Cholesterol 34(L) >40 mg/dL [facility] Comment:Desirable HDL: great er than 40 mg/dL Note: This HDL assay may give artificially low results in patients with liver disease. Blood Venous blood specimen / Unknown 03/27/2024 1:45 PM EST 03/27/2024 4:08 PM EST us Gila Montoya MD LAB BLOOD ORDERAB LES Final Result [facility] [address] [place] [phone] * HIV-1/2 Antigen and Antibodies, Fourth Generation, with Reflexes (02/07/2024 8:50 AM EST) HIV AB/AG Nonreactive Nonreactive [facility] Comment:HIV-1 p24 Ag and/or HIV-1/HIV-2 Ab not detected.A test result that is nonreactive does not exclude thepossibility of exposure to or infection with HIV-1 and/orHIV-2. Nonreactive results in this assay for individualswith prior exposure to HIV-1 and/or HIV-2 may be due toantigen and antibody levels that are below the limit ofdetection of this assay.The [place] HIV Ag/Ab Combo assay result andsupplemental assay results should be interpreted inconjunction with the patient's clinical presentation,history and other laboratory results. If the results areinconsistent with clinical evidence, additional testing issuggested to confirm the result. Blood Venous blood specimen / Unknown 02/07/2024 8:50 AM EST 02/07/2024 11:03 AM EST us Gila Montoya MD LAB BLOOD ORDERAB LES Final Result Performing Organization Address [facility] Co de Phone Number [facility] [address] [place] [phone] * Hepatitis C Antibody with Reflex to HCV, RNA, Quantitative, Real-Time PCR (11/15/2023 8:49 AM EDT) Hepatitis C Antibody Nonreactive Nonreactive [facility] Comment:Antibodies to HCV no t detected; does not exclude early acuteHCV infection. Blood Venous blood specimen / Unknown 11/15/2023 8:49 AM EDT 11/15/2023 11:05 AM EDT us Gila Montoya MD LAB BLOOD ORDERAB LES Final Result Performing Organization Address [facility] Co de Phone Number [facility] [address] [place] [phone] * Hemoglobin A1c (11/15/2023 8:49 AM EDT) Hemoglobin A1c 5.4 <6.0 % [facility] Comment:Hemoglobin A1C Refer ence Range Adults: 4.8 - 6.0 % Non diabetic: < 6.0 % Goal: < 7.0 %Additional Action Suggested: > 8.0 %Note: Hemoglobin A1c results are invalid for patients with abnormal amounts of HbF. Blood transfusions may impact the HbA1c concentration in the patient sample. Estimated Average Glucose 108 mg/dL [facility] Comment:eAG = Estimated ave rage glucose which is %A1C expressed asaverage glucose, using the formula of the F7S-FoytgknHektbso Glucose study (ADAG), Diabetes Care, Vol.31,#8,Oct. 2007 Blood Venous blood specimen / Unknown 11/15/2023 8:49 AM EDT 11/15/2023 11:05 AM EDT us Gila Montoya MD LAB BLOOD ORDERAB LES Final Result Performing Organization Address [facility]/ZIP Co de Phone Number [facility] [address] [place] [phone] * THINPREP PAP (10/09/2021 2:38 PM EDT) Clinical Information: None given [facility] COMMENT SEE COMMENT [facility] [...] historic and ?? current clinical information. ?? Studio Sales Associate : SEE COMMENT [facility] Comment: DCR, CT(ASCP) CT screening location: [address] ??[address] Interpretation/R esult: Negative for intraepithelial lesion or malignancy. [facility] LMP: NONE GIVEN [facility] Prev. BX: NONE GIVEN [facility] Prev. PAP: NONE GIVEN [facility] SOURCE: None given [facility] Statement Of Adequacy: SEE COMMENT [facility] Comment: Satisfactory for evaluation. Endocervical/transformation zone component present. Age and/or menstrual status not provided 10/09/2021 2:38 PM EDT us Dylan Kimbrough MD LAB PATHOLOGY ORDERABLES Fin al Result [facility] [address] * HPV mRNA E6/E7 (10/09/2021 2:38 PM EDT) HPV nRNA E6/E7 Not Detected Not Detected [facility] Comment: Methodology: Therapeutic Consultant-Mediated Amplification This assay detects E6/E7 viral messenger RNA (mRNA) from 14 high-risk HPV types (16,18,31,33,35,39,45,51,52,56,58,59,66,68). ? Cervical sources are required for HPV testing. If a vaginal source from a patient who has had a total hysterectomy with removal of cervix was ?? submitted, please contact the testing laboratory for alternative testing options. ?? For additional information, please refer to http://education.UpRace/faq/IZX532o9 (This link if provided for information/ educational purposes only.) 10/09/2021 2:38 PM EDT us Dylan Kimbrough MD LAB BLOOD ORDERABLES Final R esult [facility] [address] from Last 3 Months or Most Recently Relevant to Health Maintenance Insurance [id number] Care Teams Business Development Professional Relationship Specialty Start Date End Date Gila Way MD [address] [place] [phone] PCP - General Internal Medicine 12/05/22
--- OUTSIDE RECORDS SUMMARY | 2024-06-30 19:02 | XMS_ITS | Encounter Summary ---
Demographics Address [address] [facility] [address] [place] [address] Work Phone Home Phone Mobile Phone Preferred Language es Marital Status Unknown Yarsani Affiliation Unknown Race Other Race Ethnic Group or Author Organization [employer] Address [address] [facility] [address] [place] [address] Care Team Providers Care Leaf Tier Name Role Phone Dylan Kimbrough MD Primary Care Provider Delfina New Primary Care Provider [phone] Maxwell Saleh Primary Care Provider Unavail able Gila Way MD Primary Care Pro vider Encounter Details Date Type Department Care Team (Latest Contact Info) Description 05/20/2018 Abstract [facility] CONVERSIONS Dental, Provider, DDS Social History Tobacco [...] Description 07/27/2024 1:00 PM EDT Office Visit [facility] [address] [place] [address] MD [address] [place], [place] [phone] documented as of this encounter Visit Diagnoses Not on filedocumented in this encounter Care Teams Leaf Tier Relationship Specialty Start Date End Date Dylan Kimbrough MD PCP - General Family Medicine 04/08/20 02/18/22 Delfina Aguayo FNP PCP - General Family Medicine 02/19/22 09/27/22 Maxwell Saleh AGNP PCP - General Family Medicine 09/28/22 12/04/[address] MD [address] [place] [phone] PCP - General Internal Medicine 12/05/22 documented as of this encounter
--- OUTSIDE RECORDS SUMMARY | 2024-06-30 19:02 | XMS_ITS | Encounter Summary ---
Author Organization [employer] Address [address] [facility] 7t [place] [address] Care Team Providers Care Clam Grader Name Role Phone Gila Way MD Primary Care Pro vider Reason for Referral * Consultation (Routine) - Authorized Specialty Diagnoses / Procedures Referred By Contac t Referred To Contact Family Medicine Diagnoses Dermatitis Adela Doll CNM [address] [place] [address] Phone: tel: fax: Referral ID Status Reason Start Date Expiration Date Visits Requested Visits Authorized [id number] Authorized Specialty Services Required 06/30/2024 06/30/2025 1 1 * Imaging (Routine) - Authorized Specialty Diagnoses / Procedures [facility] Referred To Contact Radiology Diagnoses Menopausal and postmenopausal disorder Procedures BD DEXA Axial Aedla Doll CNM [address] [place] [address] Phone: tel: fax: [facility] [address] [place] [address] Phone: tel: fax: Referral ID Status Reason Start Date Expiration Date V isits Requested Visits Authorized [id number] Authorized 06/30/2024 06/30/2025 1 1 Reason for Visit * Reason Comments Gynecologic Exam Encounter Details Date Type Department Care Team (Latest Contact Info) Description 06/30/2024 1:00 PM EDT Procedure Visit [facility] MEDICINE [address] [place], [place] [phone] Adela Doll CNM [address] [place] [address] Menopausal and postmenopausal disorder (Primary Dx); Vulvar itching; Dermatitis Social History Tobacco Use Types Packs/Day Years [...] Mass Index 34.75 06/30/2024 1:06 PM EDT documented in this encounter Progress Notes * Adela Doll, RAE - 06/30/2024 1:00 PM EDT Subjective Patient ID: Jaylyn Beltran is a 54 y.o. female who presents for HIDE TRIMMER visit Last visit with nm 2023. Pap NIL/HPV neg 07/2016 and 09/2021. AUB with neg Endometrial biopsy 2018. No bleeding since then. Diagnosed with premature ovarian failure at 34. No personal fracture, no parental hip fracture. Fpc AMAB partner, no safety concerns. Not sexually active, it sounds like in part due to chronic pain from arthritis. Mammogram BIRADS 1, cat a 05/2024. BMD ordered last visit, no results in chart. She doesn't think she had this done. Notes itchy rash on inner thighs, unresponsive to Lotrimin x 4 weeks. No other genital symptoms. BP very high today, taking medication as directed. Denies chest pain, SOB, arm pain, headache or visual changes. Review of Systems Eyes: Negative for visual disturbance. Respiratory: Negative for shortness of breath. Cardiovascular: Negative for chest pain. Genitourinary: Negative for dyspareunia, dysuria, frequency, genital sores, hematuria, menstrual problem, pelvic pain, urgency, vaginal bleeding, vaginal discharge and vaginal pain. No abnormal pap, no abnormal bleeding, no breast pain, no breast mass, no nipple discharge Skin: Positive for rash. Neurological: Negative for headaches. Objective BP (!) 176/105 (BP Location: Left arm, Patient Position: Sitting, BP Cuff Size: Large adult long) Pulse 93 Temp 97.6 ??F (36.4 ??C) (Temporal) Resp 16 Ht 5' 2 (1.575 m) Wt 190 lb (86.2 kg) SpO2 98% BMI 34.75 kg/m?? Physical Exam Constitutional: Appearance: Normal appearance. Chest: Breasts: Right: Normal. No swelling, bleeding, inverted nipple, mass, nipple discharge, skin change or tenderness. Left: Normal. No swelling, bleeding, inverted nipple, mass, nipple discharge, skin change or tenderness. Abdominal: General: A surgical scar is present. Genitourinary: General: Normal vulva. Labia: Right: No rash, tenderness, lesion or injury. Left: No rash, tenderness, lesion or injury. Vagina: Normal. No signs of injury and foreign body. No vaginal discharge, erythema, tenderness, bleeding or lesions. Cervix: No cervical motion tenderness, discharge, friability, lesion, erythema, cervical bleeding or eversion. Uterus: Normal. Not enlarged and not tender. Adnexa: Right adnexa normal and left adnexa normal. Right: No mass, tenderness or fullness. Left: No mass, tenderness or fullness. Comments: Ovaries non palpable bilaterally. Good tone with Kegels, no prolapse with Valsalva. Faint erythema and some hyperpigmentation on bilateral inner thighs. Atrophic changes vaginally. Lymphadenopathy: Upper Body: Right upper body: No supraclavicular or axillary adenopathy. Left upper body: No supraclavicular or axillary adenopathy. Neurological: Mental Status: She is alert. Psychiatric: Mood and Affect: Mood normal. Behavior: Behavior normal. Assessment/Plan Diagnoses and all orders for this visit: Menopausal and postmenopausal disorder - BD DEXA Axial; Future BMD re-ordered due to premature menopause/POI. Repeat BP 160/81. Check BP daily, bring logs to PCP appt. Seek care urgently if chest pain, SOB, severe headache or vision changes. Pap/HPV 09/2026. Vulvar itching - Bacterial Vaginosis Panel Will send bacterial vaginosis swab and contact with results. If negative, consider trial of vaginalestrogen for atrophy. Dermatitis - Referral to [facility] Derm Skin Adult; Future Treated for what seemed like tinea cruris with Lotrimin with no improvement. Will send to derm clinic. documented in this encounter Plan of Treatment Upcoming Encounters Date Type Department Care Team (Late st Contact Info) Description 07/27/2024 1:00 PM EDT Office Visit [facility] MEDICINE [address] [place] [phone] MD [address] [place] [phone] Scheduled Orders Name Type Priority Associated Diagnoses Orde r Schedule BD DEXA Axial Imaging Routine Menopausal and postmenopausal disorder Expected: 06/30/2024, Expires: 06/30/2025 Bacterial Vaginosis Panel Microbiology Routine Vulvar itching Ordered: 06/30/2024 Scheduled Referrals Name Type Priority Associated Diagnoses Orde r Schedule Referral to [facility] Derm Skin Adult Outpatient Referral Routine Dermatitis Expected: 06/30/2024 (Approximate), Expires: 06/30/2025 documented as of this encounter Visit Diagnoses Diagnosis Menopausal and postmenopausal disorder- Primary Unspecified menopausal and postmenopausal disorder Vulvar itching Dermatitis Contact dermatitis and other eczema, due to unspecified cause documented in this encounter Additional Health Concerns Assessment Noted Time PHQ-9 Depression Total Score: 8 10/02/19 24 2:02 PM EDT documented as of this encounter Care Teams Clam Grader Relationship Specialty Start Date End Date Gila Way MD [address] [place] [phone] PCP - General Internal Medicine 12/05/22 documented as of this encounter
--- OUTSIDE RECORDS SUMMARY | 2024-06-30 19:02 | XMS_ITS | Encounter Summary ---
Demographics Address [address] [facility] [address] [place] [address] Work Phone Home Phone Mobile Phone Preferred Language es Marital Status Unknown Pentecostal Affiliation Unknown Race Other Race Ethnic Group or Author Organization [employer] Address [address] [facility] 7t [place] [address] Care Team Providers Care Luggage Repairer Name Role Phone Gila Way MD Primary Care Pro vider Encounter Details Date Type Department Care Team (Latest Contact Info) Description 06/30/2024 Travel Social History Tobacco Use Types Packs/Day Years [...] Description 07/27/2024 1:00 PM EDT Office Visit [facility] MEDICINE [address] [place] [phone] MD [address] [place] [address] documented as of this encounter Visit Diagnoses Not on filedocumented in this encounter Additional Health Concerns Assessment Noted Time PHQ-9 Depression Total Score: 8 10/02/19 24 2:02 PM EDT documented as of this encounter Care Teams Luggage Repairer Relationship Specialty Start Date End Date Gila Way MD [address] [place] [phone] PCP - General Internal Medicine 12/05/22 documented as of this encounter
--- OUTSIDE RECORDS SUMMARY | 2024-06-30 19:02 | XMS_ITS | Clinical Summary ---
Author Organization [facility] Address [address] [place] [phone] Phone Care Team Providers Care Pediatric Licensed Practical Nurse Name Role Phone Physician, No Pcp Primary [...] age to complete this topic Meningococcal B Vaccine Aged Out No l onger eligible based on patient's age to complete [...] Comprehensive metabolic panel (02/27/2024 10:03 PM EST) [facility] Signature Sodium 141 133 - 145 mmol/L LAB CHEMISTRY METHOD 02/27/2024 10:37 PM [facility] Potassium 4.3 3.5 - 5.5 mmol/L LAB CHEMISTRY METHOD 02/27/2024 10:37 PM [facility] Chloride 110 96 - 110 mmol/L LAB CHEMISTRY METHOD 02/27/2024 10:37 PM [facility] CO2 26 21 - 32 mmol/L LAB CHEMISTRY METHOD 02/27/2024 10:37 PM [facility] Anion Gap 5 3 - 11 LAB CHEMISTRY METHOD 02/27/2024 10:37 PM [facility] Glucose 87 70 - 100 mg/dL LAB CHEMISTRY METHOD 02/27/2024 10:37 PM [facility] BUN 20 5 - 25 mg/dL LAB CHEMISTRY METHOD 02/27/2024 10:37 PM [facility] Creatinine 0.87 0.50 - 1.10 mg/dL LAB CHEMISTRY METHOD 02/27/2024 10:37 PM [facility] eGFR 79 >=60 mL/min/1. 73m2 LAB CHEMISTRY METHOD 02/27/2024 10:37 PM [facility] Comment:Calculation based on the??Chronic Kidney Disease Epidemiology Collaboration (CKD-EPI) equation refit??without adjustment for race. BUN/Creatinine Ratio 23.0 LAB CHEMISTRY METHOD 02/27/2024 10:37 PM [facility] Calcium 9.1 8.5 - 10.5 mg/dL LAB CHEMISTRY METHOD 02/27/2024 10:37 PM [facility] AST (SGOT) 20 10 - 42 unit/L LAB CHEMISTRY METHOD 02/27/2024 10:37 PM [facility] ALT (SGPT) 29 10 - 60 unit/L LAB CHEMISTRY METHOD 02/27/2024 10:[address] [facility] Alkaline Phosphatase 109 42 - 121 unit/L LAB CHEMISTRY METHOD 02/27/2024 10:[address] [facility] Total Protein 7.7 6.0 - 8.0 g/dL LAB CHEMISTRY METHOD 02/27/2024 10:[address] [facility] Albumin 3.6 3.2 - 5.0 g/dL LAB CHEMISTRY METHOD 02/27/2024 10:37 PM [facility] Total Bilirubin 0.3 0.0 - 1.4 mg/dL LAB CHEMISTRY METHOD 02/27/2024 10:37 PM [facility] Blood Venous blood specimen / Unknown Venipuncture / Unknown 02/27/2024 10:03 PM EST 02/27/2024 10:12 PM EST Dougie Dlilard MD LAB BLOOD ORDERABLES Final Resu lt [facility] [address] [place] [address], from Last 3 Months or Most Recently Relevant to Health Maintenance Insurance MEDICAID - [place] Care Teams Pediatric Licensed Practical Nurse Relationship Specialty Start Date End Date Physician, No Pcp PCP - General 02/28/24
--- OUTSIDE RECORDS SUMMARY | 2024-06-30 19:02 | XMS_ITS | Encounter Summary ---
Author Organization [employer] Address [address] [facility] 7t [place] [address] Care Team Providers Care Brake Tester Name Role Phone Gila Way MD Primary Care Pro vider Reason for Referral * Consultation (Routine) - Closed Specialty Diagnoses / Procedures Referred By Contkyaw t Referred To Contact Physical Therapy Diagnoses Chronic low back pain without sciatica, unspecified back pain laterality Mya Kendrick MD [address] [place] [address] Phone: tel: fax: [facility] - [place] [address] [facility] [address] Phone: tel: fax: Referral ID Status Reason Start Date Expiration Date V isits Requested Visits Authorized [id number] Closed Specialty Services Required 03/04/2024 03/04/2025 20 20 Encounter Details Date Type Department Care Team (Late st Contact Info) Description 03/03/2024 Orders Only [facility] [address] [place] [address] [phone] Mya Kendrick MD [address] [place], [place] [phone] Chronic low back pain without sciatica, unspecified [...] Description 07/27/2024 1:00 PM EDT Office Visit [facility] [address] [place] [phone] MD [address] [place] [address] Scheduled Referrals Name Type Priority Associated Diagnoses [...] documented as of this encounter Care Teams Brake Tester Relationship Specialty Start Date End Date Gila Way MD [address] [place] [address] PCP - General Internal Medicine 12/05/22 documented as of this encounter
[2024-07-01 08:48] LABS: Bacterial Vaginosis PCR NEGATIVE (Negative); Candida Group PCR NOT DETECTED (Not Detect); Candida glab krusei PCR NOT DETECTED (Not Detect); Trichomonas vaginalis PCR NOT DETECTED (Not Detect)
== END 2024-06-30 16:23 | disposition home or self-care (01) ==
LOC: HO.HHCLNP 16:22
PROVIDERS: Visit Provider Advanced Practice Midwife
DX: L29.2 Pruritus vulvae (principal)
CPT/HCPCS: 81515

== ENCOUNTER 2024-07-27 13:53 | Outpatient (REF) | payer MEDICAID, SELFPAY ==
--- NOTE | ~2024-07-27 | XR_ITS ---
EXAMINATION: XR LUMBOSACRAL SPINE CLINICAL INFORMATION: chronic lumbar back pain COMPARISON: None available. TECHNIQUE: Three views of the lumbosacral spine. FINDINGS: Facet joint hypertrophy at L4-5 and L5-S1. Endplate sclerosis and marginal osteophyte formation at L5-S1 and L3-4 and to a lesser extent L1-2 level. No acute cortical disruption. No gross malalignment. 6 mm calcification overlapping the right kidney shadow. Degenerative changes in the symphysis pubis. XR/XR lumbar spine 2-3V IMPRESSION: Multilevel thoracolumbar spondylosis. Probable nephrolithiasis, right kidney. Electronically signed by: Silvano Escobar MD 07/27/2024 02:38 PM EDT
--- OUTSIDE RECORDS SUMMARY | 2024-07-27 15:26 | XMS_ITS | Encounter Summary ---
Demographics Address [address] [facility] [address] [place] [address] Work Phone Home Phone Mobile Phone Preferred Language es Marital Status Unknown Shinto Affiliation Unknown Race Other Race Ethnic Group or Author Organization [employer] Address [address] [facility] 7 [place] [address] Care Team Providers Care Merchant Mill Utility Worker Name Role Phone Gila Way MD Primary Care Pro vider Reason for Visit * Reason Onset Date Comments notes 07/27/2024 Encounter Details Date Type Department Care Team (Late st Contact Info) Description 07/27/2024 Telephone [facility] MEDICINE [address] [place], [place] [phone] Gila Way MD [address] [place], [place] [phone] notes Social History Tobacco Use Types Packs/Day Years Used Date Smoking Tobacco: Never Smokeless Tobacco: Never Alcohol Use Standard Drinks/Week Comments Never 0 (1 standard drink = 0.6 oz pur e alcohol) Depression Answer Date Recorded Patient Health Questionnaire-9 Score 5 07/27/2024 Patient Health Questionnaire-9 Score 5 07/27/2024 Last PHQ-9: Questionnaire Data Not on file 0 07/27/2024 Housing Stability Answer Date Recorded What is [...] Answer Date Recorded Patient Health Questionnaire-2 Score 2 07/27/2024 Internet Access Answer Date Recorded Internet Access [...] encounter Miscellaneous Notes * Telephone Encounter - Myra Tanner MA - 07/27/2024 2:16 PM EDT Fax-Set O Type Operator requested notes from [facility] Neurology. Waiting on fax back. documented in this encounter Plan of Treatment Upcoming Encounters Date Type Department Care Team (Late st Contact Info) Description 08/11/2024 1:00 PM EDT Clinical Support [facility] DIABETES/NUTRITION [address] [place] [phone] Bhavya Saldana, ISMAEL [address] [place] [address] 10/26/2024 2:00 PM EDT Office Visit [facility] MEDICINE [address] [place] [phone] MD [address] [place], [place] [phone] documented as of this encounter Visit Diagnoses Not on filedocumented in this encounter Additional Health Concerns Assessment Noted Time PHQ-9 Depression Total Score: 5 07/28/19 25 1:09 PM EDT documented as of this encounter Care Teams Merchant Mill Utility Worker Relationship Specialty Start Date End Date Gila Way MD [address] [place] [phone] PCP - General Internal Medicine 12/05/22 documented as of this encounter
--- OUTSIDE RECORDS SUMMARY | 2024-07-27 15:26 | XMS_ITS | Encounter Summary ---
Demographics Address [address] [facility] [address] [place] [address] Work Phone Home Phone Mobile Phone Preferred Language es Marital Status Unknown Alevism Affiliation Unknown Race Other Race Ethnic Group or Author Organization [employer] Address [address] [facility] 7t [place] [address] Care Team Providers Care Dry Kiln Loader Name Role Phone Gila Way MD Primary Care Pro vider Encounter Details Date Type Department Care Team (Latest Contact Info) Description 07/27/2024 1:00 PM EDT Office Visit [facility] MEDICINE [address] [place], [place] [phone] Gila Way MD [address] [place] [address] Health care maintenance (Primary Dx); Dietary counseling; Exercise counseling; Hyperlipidemia, unspecified hyperlipidemia type; Posterior pain of right hip; Vitamin D deficiency; ANGELICA on CPAP Social History Tobacco Use Types Packs/Day Years Used Date Smoking Tobacco: Never Smokeless Tobacco: Never Tobacco Cessation:Counseling Given: Not Answered Alcohol Use Standard Drinks/Week Comments Never 0 [...] Sign Reading Time Taken Comments Blood Pressure 150/90 07/27/2024 12:56 PM EDT Pulse 82 07/27/2024 12:56 PM EDT Temperature 36.3 ??C (97.4 ??F) 07/27/2024 1 2:56 PM EDT Respiratory Rate 20 07/27/2024 12:5 6 PM EDT Oxygen Saturation 98% 07/27/2024 12: 56 PM EDT Inhaled Oxygen Concentration - - Weight 84.7 kg (186 lb 12.8 oz) 025 12:56 PM EDT Height 157.5 cm (5' 2 ) 07/27/2024 12:5 6 PM EDT Body Mass Index 34.17 07/27/2024 12:56 PM EDT documented in this encounter Progress Notes * Gila Montoya MD - 07/27/2024 1:00 PM EDT Subjective Patient ID: Jaylyn Beltran is a 54 y.o. female who presents for f up apt. HPI 54 y o F w PMX of Obesity,HTN,HLD,Migraine/Idiopathic intracranial hypertension .ANGELICA using CPAP Comes for f up apt No new complaints ,states feeling better ,w no current LEVI ,states not taking acetazolamide for last1 month ,pt is unsure if needs to continue to take it ,states at last apt neurologist told no need for f up and is not getting any more refills from them. States to be complaint with losartan 100 mg w no SE.States home BP always in 100/80s ,denies seeingelevate BP at home, not took this am BP med. -lost 15 pounds in last year w diet ,f w shipping and receiving material handler Denies CP,SOB,LEVI,no leg swelling -------- Assessment and Plan: Health care maintenance -Annual exam done 09/2023 -pap smear 09/2021 Neg/HPV Neg- to repeat in 5 y -MM 05/2024 : BIRADS 1 -colonoscopy: never -GI referred -seen in 02/2024 planned for colonoscopy but never go call for aptfor it-- gave today information to pt to call to GI for checking plan for colonoscopy -Vaccines s/p Flu vaccine 04/2023, Covid 19 x2- refuse COVID 19 booster, Tdap 2016, Shingrix vaccinex2. Flu vaccine 01/2024, hep B not immune -refuse vaccine Obesity BMI 34<---35<---36.10 -lost 15 pounds in last year w diet -Advised pt to improve diet and exercise,discussed healthy life style -f w shipping and receiving material handler-- lost apt --- Pt to reschedule apt today -GLP 1 -Denies fx hx of thyroid -confirmed today but states not interested for now to start GLP1 -want to hold on this for now ,will f up again at next apt HLD -03/2024 trig 135, total ch 153, LDL 92, HDL 34 ,AST 42,ALT 48 -controlled -continue crestor 20 mg daily -will repeat chem at annual exam in 2 mo to monitor Lfts HTN BP elevated today-states did not take BP med this am,No neuro nor Cvs symptoms 150/90 in [place] and hard to hear RA but 130/90 ? -valve assembler 06/2023 per pt to f in 1 y --advised to f up w valve assembler -CT Chest w/o contrast - 02/27/19 Mild cardiomegaly otherwise unremarkable CT scan of the chest. -EKG 09/2023 for baseline NSR , noted Q wave in lead III but not in other contiguous leads, HR 87x',Qtc 409 11/15/2023 microalb neg Stopped amlodipine for most likely causing LE edema -continue losartan 100 mg daily -per pt all normal BP readings at home, not took BP med today,advised to be compliant w meds and tobring home BP readings at next apt from two arms and to bring her BP machine to compare , noted today different BP readings bw arms but was hard to hear in RA so will reval in both arms at next apt manually ANGELICA -reports using CPAP consistently Migraine/Idiopathic intracranial hypertension -f w neurologist for LEVI -mow controlled -used to be on acetazolamide 250 mg daily --- -received info there are no records of this pt seen neurologist at [facility]-pt to try to bring records And pt will clarify w her neurologist about prescription,states not taking med for 1 month Chronic lower back pain Reports having chronic lower back pain on and off,denies alarming neuro symptoms associated ,reports hx of back trauma ,denies hx of back fractures. -right hip XR 05/2024 Osteophyte formation in the symphysis pubis. Osteoarthrosis, mild without acute fracture or dislocation right hip. -trial PT ---completed w some improvement Seems muscular from exam -takes naproxen OTC prn takes at least twice a week -advised to avoids NSAIDS as possible that can worsen her HTN -try tylenol prn and Lidoderm patches px -referred for lumbar XR in the past not done-gave printed order again today - will consider for PM vs spine ortho referral at next apt if symptoms persisit ,states completed PT w partial improvement before Review of Systems Constitutional: Negative. Respiratory: Negative. Cardiovascular: Negative. Gastrointestinal: Negative. Objective BP (!) 150/90 (BP Location: Left arm, Patient Position: Sitting, BP Cuff Size: Adult) Pulse 82 Temp 97.4 ??F (36.3 ??C) (Temporal) Resp 20 Ht 5' 2 (1.575 m) Wt 186 lb 12.8 oz (84.7 kg) SpO2 98% BMI 34.17 kg/m?? 150/90 in [place] and hard to hear RA but 130/90 ? Physical Exam Constitutional: General: She is not in acute distress. Appearance: Normal appearance. She is obese. Neurological: Mental Status: She is alert. Assessment/Plan Problem List Items Addressed This Visit Health care maintenance - Primary HLD (hyperlipidemia) Relevant Medications rosuvastatin (Crestor) 20 MG tablet Posterior pain of right hip Relevant Medications lidocaine (Lidoderm) 5 % patch ANGELICA on CPAP Other Visit Diagnoses Dietary counseling Exercise counseling Vitamin D deficiency Relevant Medications cholecalciferol (D3-5) 5,000 Units tablet documented in this encounter Plan of Treatment Upcoming Encounters Date Type Department Care Team (Late st Contact Info) Description 08/11/2024 1:00 PM EDT Clinical Support [facility] DIABETES/NUTRITION [address] [place] [address] [place] [address] 10/26/2024 2:00 PM EDT Office Visit [facility] MEDICINE [address] [place] [address] MD [address] [place] [address] documented as of this encounter Visit Diagnoses Diagnosis Health care maintenance- Primary Dietary counseling Dietary surveillance and counseling Exercise counseling Hyperlipidemia, unspecified hyperlipidemia type Posterior pain of right hip Vitamin D deficiency ANGELICA on CPAP documented in this encounter Additional Health Concerns Assessment Noted Time PHQ-9 Depression Total Score: 5 07/28/19 25 1:09 PM EDT documented as of this encounter Care Teams Dry Kiln Loader Relationship Specialty Start Date End Date Gila Way MD [address] [place], [place] [phone] PCP - General Internal Medicine 12/05/22 documented as of this encounter
--- OUTSIDE RECORDS SUMMARY | 2024-07-27 15:26 | XMS_ITS | Encounter Summary ---
Demographics Address [address] [facility] [address] [place] [address] Work Phone Home Phone Mobile Phone Preferred Language es Marital Status Unknown Anglican Affiliation Unknown Race Other Race Ethnic Group or Author Organization [employer] Address [address] [facility] 7 [place] [address] Care Team Providers Care Internet Retailer Name Role Phone Gila Way MD Primary Care Pro vider Reason for Visit * Reason Onset Date Comments Chart Prep 07/23/2024 Encounter Details Date Type Department Care Team ([facility] st Contact Info) Description 07/23/2024 Telephone [facility] MEDICINE [address] [place], [place] [phone] Gila Way MD [address] [place], [place] [phone] Chart Prep Social History Tobacco Use Types Packs/Day Years [...] encounter Miscellaneous Notes * Telephone Encounter - Ela Gagr MA - 07/23/2024 12:46 PM EDT Chart Prep Labs: done Images: not applicable Vaccines due: Covid Due, Hep B Due, and PCV20 Due Referrals: Dermatology Pending appointment on n/a Screenings: Colonoscopy Overdue care gaps: Sbirt and Disability documented in this encounter Plan of Treatment Upcoming Encounters Date Type Department Care Team (Late st Contact Info) Description 08/11/2024 1:00 PM EDT Clinical Support [facility] DIABETES/NUTRITION [address] [place] [phone] [place] [address] 10/26/2024 2:00 PM EDT Office Visit [facility] MEDICINE [address] [place] [phone] MD [address] [place] [address] documented as of this encounter Visit Diagnoses Not on filedocumented in this encounter Additional Health Concerns Assessment Noted Time PHQ-9 Depression Total Score: 8 10/02/19 24 2:02 PM EDT documented as of this encounter Care Teams Internet Retailer Relationship Specialty Start Date End Date Gila Way MD [address] [place] [phone] PCP - General Internal Medicine 12/05/22 documented as of this encounter
--- OUTSIDE RECORDS SUMMARY | 2024-07-27 15:26 | XMS_ITS | Encounter Summary ---
Demographics Address [address] [place] [address] Work Phone Home Phone Mobile Phone Preferred Language es Marital Status Unknown Mosque Affiliation Unknown Race Other Race Ethnic Group or Author Organization [employer] Address [address] [place] [address] Care Team Providers Care Field Secretary Name Role Phone Gila Way MD Primary Care Pro vider Encounter Details Date Type Department Care Team (Latest Contact Info) Description 07/27/2024 Travel Social History Tobacco Use Types Packs/Day [...] Description 08/11/2024 1:00 PM EDT Clinical Support [facility] DIABETES/NUTRITION [address] [place] [address] [place] [address] 10/26/2024 2:00 PM EDT Office Visit [facility] MEDICINE [address] [place] [address] MD [address] [place] [address] documented as of this encounter Visit Diagnoses Not on filedocumented in this encounter Additional Health Concerns Assessment Noted Time PHQ-9 Depression Total Score: 5 07/28/19 25 1:09 PM EDT documented as of this encounter Care Teams Field Secretary Relationship Specialty Start Date End Date Gila Way MD [address] [place] [address] PCP - General Internal Medicine 12/05/22 documented as of this encounter
--- OUTSIDE RECORDS SUMMARY | 2024-07-27 15:26 | XMS_ITS | Encounter Summary ---
Author Organization [employer] Address [address] [facility] [place] [address] Care Team Providers Care [employer] Name Role Phone Dylan Kimbrough MD Primary Care Provider Delfina NewP Primary Care Provider [phone] Maxwell Saleh Primary Care Provider Unavail able Gila Way MD Primary Care Pro vider Encounter Details Date Type Department Care Team (Latest Contact Info) Description 05/20/2018 Abstract [facility] CONVERSIONS Dental, Provider, DDS Social History [...] Description 08/11/2024 1:00 PM EDT Clinical Support [facility] DIABETES/NUTRITION [address] [place] [phone] [place], [place] [phone] 10/26/2024 2:00 PM EDT Office Visit [facility] MEDICINE [address] [place] [phone] MD [address] [place], [place] [phone] documented as of this encounter Visit Diagnoses Not on filedocumented in this encounter Care Teams [employer] Relationship Specialty Start Date End Date Dylan Kimbrough MD PCP - General Family Medicine 04/08/20 02/18/22 Delfina Aguayo FNP PCP - General Family Medicine 02/19/22 09/27/22 Maxwell Saleh AGNP PCP - General Family Medicine 09/28/22 12/04/[address] MD [address] [place] [id number] PCP - General Internal Medicine 12/05/22 documented as of this encounter
--- OUTSIDE RECORDS SUMMARY | 2024-07-27 15:26 | XMS_ITS | Clinical Summary ---
Author Organization [facility] Address [address] [place] [phone] Phone Care Team Providers Care Construction Management Instructor Name Role Phone Physician, No Pcp Primary [...] Comprehensive metabolic panel (02/27/2024 10:03 PM EST) [facility] Signature Sodium 141 133 - 145 mmol/L LAB CHEMISTRY METHOD 02/27/2024 10:37 PM [facility] Potassium 4.3 3.5 - 5.5 mmol/L LAB CHEMISTRY METHOD 02/27/2024 10:37 PM [facility] Chloride 110 96 - 110 mmol/L LAB CHEMISTRY METHOD 02/27/2024 10:37 PM [facility] CO2 26 21 - 32 mmol/L LAB CHEMISTRY METHOD 02/27/2024 10:37 PM [facility] Anion Gap 5 3 - 11 LAB CHEMISTRY METHOD 02/27/2024 10:37 PM [facility] Glucose 87 70 - 100 mg/dL LAB CHEMISTRY METHOD 02/27/2024 10:37 PM [facility] BUN 20 5 - 25 mg/dL LAB CHEMISTRY METHOD 02/27/2024 10:37 PM [facility] Creatinine 0.87 0.50 - 1.10 mg/dL LAB CHEMISTRY METHOD 02/27/2024 10:37 PM [facility] eGFR 79 >=60 mL/min/1. 73m2 LAB CHEMISTRY METHOD 02/27/2024 10:37 PM [facility] Comment:Calculation based on the??Chronic Kidney Disease Epidemiology Collaboration (CKD-EPI) equation refit??without adjustment for race. BUN/Creatinine Ratio 23.0 LAB CHEMISTRY METHOD 02/27/2024 10:37 PM [facility] Calcium 9.1 8.5 - 10.5 mg/dL LAB CHEMISTRY METHOD 02/27/2024 10:37 PM [facility] AST (SGOT) 20 10 - 42 unit/L LAB CHEMISTRY METHOD 02/27/2024 10:37 PM [facility] ALT (SGPT) 29 10 - 60 unit/L LAB CHEMISTRY METHOD 02/27/2024 10:37 PM EST [facility] Alkaline Phosphatase 109 42 - 121 unit/L LAB CHEMISTRY METHOD 02/27/2024 10:37 PM EST [facility] Total Protein 7.7 6.0 - 8.0 g/dL LAB CHEMISTRY METHOD 02/27/2024 10:37 PM EST [facility] Albumin 3.6 3.2 - 5.0 g/dL LAB CHEMISTRY METHOD 02/27/2024 10:37 PM [facility] Total Bilirubin 0.3 0.0 - 1.4 mg/dL LAB CHEMISTRY METHOD 02/27/2024 10:37 PM [facility] Blood Venous blood specimen / Unknown Venipuncture / Unknown 02/27/2024 10:03 PM EST 02/27/2024 10:12 PM EST Dougie Dillard MD LAB BLOOD ORDERABLES Final Resu lt [facility] [address] [place] [address], from Last 3 Months or Most Recently Relevant to Health Maintenance Insurance MEDICAID - [place] Care Teams Construction Management Instructor Relationship Specialty Start Date End Date Physician, No Pcp PCP - General 02/28/24
--- OUTSIDE RECORDS SUMMARY | 2024-07-27 15:26 | XMS_ITS | Clinical Summary ---
Demographics Address [address] [facility] [address] [place] [address] Work Phone Home Phone Mobile Phone Preferred Language es Marital Status Unknown Mormon Affiliation Unknown Race Other Race Ethnic Group or Author Organization [employer] Address [address] [facility] 7t [place] [address] Care Team Providers Care Credit Collections Specialist Name Role Phone Gila Way MD Primary Care Pro vider Allergies Active Allergy Reactions Criticality Noted Date Comments Amlodipine Other 07/27/2024 Lower extremity edema Medications * This document contains information received from the source organization and may not represent a complete record from that organization. acetaZOLAMIDE (Diamox) 250 MG tablet Take 250 mg by mouth Once per day. 08/08/19 24 Active Blood Pressure kit 1 Device Once per day. 1 kit 01/24/20 24 Active rosuvastatin (Crestor) 20 MG tabletIndications :Hyperlipidemia, unspecified hyperlipidemia type Take 1 tablet (20 mg) by mouth Once per day. 90 tablet 07/28/19 25 Active lidocaine (Lidoderm) 5 % patchIndications: Posterior pain of right hip Apply 1 patch topically Once per day. Remove & discard patch within 12 hours or as directed by . 30 patch 2 07/28/19 25 Active cholecalciferol (D3-5) 5,000 Units tabletIndications :Vitamin D deficiency Take 1 tablet (5,000 Units) by mouth Once per day. 30 tablet 2 07/28/19 25 Active losartan (Cozaar) 100 MG tablet Take 1 tablet (100 mg) by mouth Once per day. 90 tablet 07/28/19 25 2025 Active cholecalciferol (D3-5) 5,000 Units tabletIndications :Vitamin D deficiency Take 1 tablet (5,000 Units) by mouth in the morning. 30 tablet 2 04/26/19 24 2024 Discontinued(R eorder (will not trigger notification to Pharmacy)) amLODIPine (Norvasc) 10 MG tabletIndications :Primary hypertension Take 1 tablet by mouth every day 90 tablet 04/29/19 24 2024 Discontinued(O ther) rosuvastatin (Crestor) 20 MG tabletIndications :Hyperlipidemia, unspecified hyperlipidemia type Take 1 tablet (20 mg) by mouth Once per day. 90 tablet 02/24/20 24 2024 Discontinued(R eorder (will not trigger notification to Pharmacy)) losartan (Cozaar) 100 MG tablet Take 1 tablet (100 mg) by mouth Once per day. 90 tablet 02/24/20 24 2024 Discontinued(R eorder (will not trigger notification to Pharmacy)) lidocaine (Lidoderm) 5 % patchIndications: Posterior pain of right hip Apply 1 patch topically Once per day. Remove & discard patch within 12 hours or as directed by MD. 30 patch 2 05/27/19 25 2024 Discontinued(R eorder (will not trigger notification to Pharmacy)) cyclobenzaprine (Flexeril) 10 MG tabletIndications :Posterior pain of right hip One tab po q12 hours prn pain of muscles, do not drive with medicaion 30 tablet 05/27/192024 Discontinued(O ther) Active Problems Problem Noted Date Diagnosed Date Depression, unspecified 07/27/2024 ANGELICA on CPAP 07/27/2024 Posterior pain of right hip 05/26/2024 Assessment [...] without acute fracture or dislocation right hip. Obesity 10/02/2023 Health care maintenance 10/02/2023 HLD [...] and also in the community. Her strong anglican belief is helping Jaylyn to deal with [...] gradually return to regular daily routine and nondenominational activities. PLAN: (check all that apply) Further services needed, but declined Behavioral Health Integration Plan Internal Follow up with [facility] Patient Self Plan Patient to utilize skills provided in intervention , Patient to reach out to [facility] team as needed, and Patient to reach out to [facility] as needed. 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 Date Type Department Care Team Description 07/27/2024 1:00 PM EDT Office Visit [facility] [address] [place] [address] MD Health care maintenance (Primary Dx); Dietary counseling; Exercise counseling; Hyperlipidemia, unspecified hyperlipidemia type; Posterior pain of right hip; Vitamin D deficiency; ANGELICA on CPAP 07/27/2024 Telephone [facility] [address] [place] [phone] MD notes 07/27/2024 Travel 07/23/[address] MD Chart Prep 07/21/[address] MD Appointment Confirmation 07/01/[address] [address] Cherelle Senior, RN Results 06/30/2024 1:00 PM EDT Procedure Visit [address] [address] Adela Doll CNM Menopausal and postmenopausal disorder (Primary Dx); Vulvar itching; Dermatitis 06/30/2024 Travel 06/08/2024 Orders Only [address] MD 06/05/2024 Population Health Risk Score Community [facility] () Department [address] [place] [phone] Provider, Population Health Generic 05/26/2024 10:20 AM EST Office Visit [facility] [address] [place] [phone] Laura Kelly MD Posterior pain of right hip (Primary Dx); Elevated blood pressure reading with diagnosis of hypertension 05/26/2024 Telephone [facility] [address] [place] [address] Laura Kelly MD 05/26/2024 Telephone [facility] [address] [place] [address] Laura Kelly MD 05/15/[address] MD May recall [address] [place] [address] Becky Cardona [place] June recall from Last 3 Months Immunizations [...] Mass Index 34.17 07/27/2024 12:56 PM EDT Plan of Treatment Upcoming Encounters Date Type Department Care Team (Late st Contact Info) Description 08/11/2024 1:00 PM EDT Clinical Support [facility] [address] [place] [phone] Bhavya Saldana, ISMAEL [address] [place] [address] 10/26/2024 2:00 PM EDT Office Visit [facility] [address] [place] [address] MD [address] [place], [place] [phone] Health Maintenance Due Date Last Done Comments CT Colonography 1969 Colonoscopy 1969 Colorectal Cancer Screening 1969 FIT DNA/Cologuard 1969 FIT 1969 FOBT 1969 Sigmoidoscopy 1969 Hepatitis B Vaccines (1 of 3 - 19+ 3-dose series) 1988 Pneumococcal Vaccine: 50+ Years (1 of 1 - PCV) 2019 COVID-19 Vaccine (3 - 2023- season) 2023 03/27/2021, 08/30/2020 SDOH Screening 10/01/2024 10/02/2023 Diabetes: Hemoglobin A1C 11/14/2024 024, 06/19/2021, 09/14/2020 Mammogram 06/08/2025 06/08/2024, 05/23, 05/25/2021, Additional history exists Alcohol/Substance Use Screening 07/27/2025 07/27/2024 Depression Screening 07/27/2025 07/27/2024, 07/28/19 Tobacco Screening 07/27/2025 07/27/2024 DTaP/Tdap/Td Vaccines (2 - Td or Tdap) [...] Name Priority Date/Time Associated Diagnosis Comments XR LUMBAR SPINE 2-3 VIEWS Routine 07/27/2024 1:54 PM EDT Chronic low back pain without sciatica, unspecified back pain laterality BACTERIAL VAGINOSIS PANEL Routine 06/30/2024 1:23 PM EDT Vulvar itching BI MAMMOGRAM SCREENING TOMOSYNTHESIS BILATERAL Routine 06/08/2024 [...] Relevant to Health Maintenance Results * XR Lumbar Spine 2-3 Views (07/27/2024 1:54 PM EDT) Anatomical Region Laterality Modality Spine, L-spine Radiographic Olga ging 07/27/2024 1:54 PM EDT Narrative 07/27/2024 2:41 PM EDT ?[facility] [facility] ?[address] ?[place] [address] ?XRay Report ? Signed ? Patient: Lopes Beltran,Jaylyn ?MR#: [id number] ?? [id number] ? : 1970 ?Acct:[id number] ? Age/Sex: 54 / F ?ADM Date: 07/27/24 ? Loc: HO.HHCX ? Attending Dr: Gila Montoya MD ? Ordering Physician: Gila Way MD ?? Date of Service: 07/27/24 ?? Procedure(s): XR lumbar spine 2-3V ?? Accession Number(s): [id number] ? cc: Gila Way MD ? EXAMINATION: ?? XR LUMBOSACRAL SPINE ? CLINICAL INFORMATION: ?? chronic lumbar back pain ? COMPARISON: ?? None available. ? TECHNIQUE: ?? Three views of the lumbosacral spine. ? FINDINGS: ?? Facet joint hypertrophy at L4-5 and L5-S1. ?? Endplate sclerosis and marginal osteophyte formation at L5-S1 and L3-4 ?? and to a lesser extent L1-2 level. ?? No acute cortical disruption. No gross malalignment. ?? 6 mm calcification overlapping the right kidney shadow. ?? Degenerative changes in the symphysis pubis. ? XR/XR lumbar spine 2-3V ?? IMPRESSION: ?? Multilevel thoracolumbar spondylosis. ?? Probable nephrolithiasis, right kidney. ? Electronically signed by: ??Silvano Escobar MD ??07/27/2024 02:38 PM ?? EDT ? Dictated By: ?Silvano Collins MD ? Signed By: ?<Electronically signed by Silvano Senior MD in OV> ? 07/27/24 1438 ? DD/ 1354 ? TD/TT: 07/27/24 1400 ? Livestock Slaughterer: ? Procedure Note Shahriar Murguia - 07/27/[address] [address] XRay Report Signed Patient: Jaylyn HouMR#: [id number] : 1970Acct:[id number] Age/Sex: 54 / FADM Date: 07/27/24 Loc: HO.HHCX Attending Dr: Gila Montoya MD Ordering Physician: Gila Way MD Date of Service: 07/27/24 Procedure(s): XR lumbar spine 2-3V Accession Number(s): [id number] cc: Gila Way MD EXAMINATION: XR LUMBOSACRAL SPINE CLINICAL INFORMATION: chronic lumbar back pain COMPARISON: None available. TECHNIQUE: Three views of the lumbosacral spine. FINDINGS: Facet joint hypertrophy at L4-5 and L5-S1. Endplate sclerosis and marginal osteophyte formation at L5-S1 and L3-4 and to a lesser extent L1-2 level. No acute cortical disruption. No gross malalignment. 6 mm calcification overlapping the right kidney shadow. Degenerative changes in the symphysis pubis. XR/XR lumbar spine 2-3V IMPRESSION: Multilevel thoracolumbar spondylosis. Probable nephrolithiasis, right kidney. Electronically signed by: Silvano Escobar MD 07/27/2024 02:38 PM EDT Dictated By: Silvano Collins MD Signed By: <Electronically signed by Silvano Senior MDin OV> 07/27/24 1438 DD/ 1354 TD/TT: 07/27/24 1400 Livestock Slaughterer: us Gila Montoya MD IMG XR PROCEDURES Final Result * Bacterial Vaginosis Panel (06/30/2024 1:23 PM EDT) TRICHOMONAS VAGINALIS DETECTION BY PCR NOT DETECTED Not Detect [facility] BACTERIAL VAGINOSIS DETECTION BY PCR NEGATIVE Negative [facility] Comment:The BV organism targ ets of the Xpert Xpress MVP test can becommensal in women; Xpert Xpress MVP positive results forbacterial vaginosis should be considered in conjunction withother clinical and patient information to determine thedisease status. Organisms that are not detected by the XpertXpress MVP test have also been reported to be associatedwith BV and aerobic vaginitis.The Xpert Xpress MVP test performance has not been evaluatedin patients under the age of 14. NELL GROUP DETECTION BY PCR NOT DETECTED Not Detect [facility] Nell glab krusei PCR NOT DETECTED Not Detect [facility] Swab Vaginal structure / Unknown 06/30/2024 1:23 PM EDT 06/30/2024 4:23 PM EDT Adela Doll CNM LAB MICROBIOLOGY - GENERA L ORDERABLES Final Result [facility] [address] [place] [phone] * BI Mammogram Screening Tomosynthesis Bilateral (06/08/2024 1:50 PM EDT) Anatomical Region Laterality Modality Breast Bilateral Mammography 06/08/2024 1:50 PM EDT Narrative 06/14/2024 8:03 PM EDT ? [facility] [place] ? [address] ?[place] [address] ?[phone] ? Mammography Report ? Signed ? Patient: Jaylyn Hou ?MR#: [id number] ?? [id number] ? : 1970 ?Acct:[id number] ? Age/Sex: 54 / F ?ADM Date: 06/08/25 ? Loc: HO.MAMMO ? Attending Dr: Gila Montoya MD ? Ordering Physician: Gila Way MD ?Re ?? sults: 1Negative ? Date of Service: 06/08/25 ?Follow Up: 1 Year From Orig ?? inal Mammogram ? Procedure(s): MM tomosynthesis screening BI ?? Accession Number(s): [id number] ? cc: Gila Way MD ? EXAMINATION: [...] ??Laura Cornell DO ??06/14/2024 08:00 PM EDT ? Dictated By: ?Kraig,Laura DO ? Signed By: ?<Electronically signed by Laura Cornell, DO in OV> ? 06/14/24 2000 ? DD/ 1350 ? TD/TT: 06/08/24 1400 ? Livestock Slaughterer: ? Procedure Note Shahriar Murguia - 06/14/2024 [place] [facility] [address] [place], [place] [address] Mammography Report Signed Patient: Milagros HouLynsey#: [id number] : 1970Acct:[id number] Age/Sex: 54 / FADM Date: 06/08/24 Loc: HO.MAMMO Attending Dr: Gila Montoya MD Ordering Physician: Gila Way sults: 1Negative Date of Service: 06/08/24Follow Up: 1 Year From Orig ina Mammogram Procedure(s): MM tomosynthesis screening BI Accession Number(s): [id number] cc: Gila Way MD EXAMINATION: MM SCREENING [...] Laura Cornell DO 06/14/2024 08:00 PM EDT Dictated By: Laura Cornell DO Signed By: <Electronically signed by Laura Cornell DO in OV> 06/14/241999 DD/ 1350 TD/TT: 06/08/24 1400 Livestock Slaughterer: us Gila Montoya MD IMG BI PROCEDURES Edited Result - Final * XR Hip 2 or 3 Views Right (05/26/2024 10:53 AM EST) Anatomical Region Laterality Modality Lower Extremities, Hip Right Radiograp hic Imaging 05/26/2024 10:5 3 AM EST Narrative 05/26/2024 11:55 AM EST ?[facility] [facility] ?[address] ?[place] [address] ?XRay Report ? Signed ? Patient: Lopes Beltran,Jaylyn ?MR#: [id number] ?? [id number] ? : 1970 ?Acct:[id number] ? Age/Sex: 54 / F ?ADM Date: 05/26/24 ? Loc: HO.HHCX ? Attending Dr: Laura Kelly MD ? Ordering Physician: Laura Kelly MD ?? Date of Service: 05/26/24 ?? Procedure(s): XR hip RT min 2V ?? Accession Number(s): [id number] ? cc: Laura Kelly MD ? EXAMINATION: [...] DD/ 1053 ? TD/TT: 05/26/24 1104 ? Livestock Slaughterer: ? Procedure Note Blade, Image - 05/26/[address] [address] XRay Report Signed Patient: Jaylyn Hou#: [id number] : 1970Acct:[id number] Age/Sex: 54 / FADM Date: 05/26/24 Loc: HO.HHCX Attending Dr: Laura Kelly MD Ordering Physician: Laura Kelly MD Date of Service: 05/26/24 Procedure(s): XR hip RT min 2V Accession Number(s): [id number] cc: Laura Kelly MD EXAMINATION: XR HIP, [...] 05/26/24 1152 DD/ 1053 TD/TT: 05/26/24 1104 Livestock Slaughterer: us Laura Kelly MD IMG XR PROCEDURES Final Re sult * (ABNORMAL) Lipid Panel, Standard (03/27/2024 1:45 PM EST) Triglycerides 135 <150 mg/dL [facility] Comment:Desirable Triglyceri de: less than 150 mg/dLBorderline High Triglyceride 150-199 mg/dLHigh Triglyceride: 200-499 mg/dLVery High Triglyceride: greater than or equal to 5OO mg/dL Cholesterol 153 <200 mg/dL [facility] Comment:Desirable Cholestero l: less than 200 mg/dLBorderline High Cholesterol: 200-239 mg/dLHigh Cholesterol: greater than 239 mg/dL LDL Cholesterol Calculated 92 <100 mg/dL [facility] Comment:Desirable LDL: less than 100 mg/dLNear Optimal/Above Optimal LDL: 110- 129 mg/dLBorderline High LDL: 130-159 mg/dLHigh LDL: 160-189 mg/dLVery High LDL: greater than or equal to 190 mg/dL HDL Cholesterol 34(L) >40 mg/dL [facility] Comment:Desirable HDL: great er than 40 mg/dL Note: This HDL assay may give artificially low results in patients with liver disease. Blood Venous blood specimen / Unknown 03/27/2024 1:45 PM EST 03/27/2024 4:08 PM EST us Gila Montoya MD LAB BLOOD ORDERAB LES Final Result Performing Organization Address City/[facility] [place]/ZIP Co de Phone Number [facility] [address] [place] [phone] * HIV-1/2 Antigen and Antibodies, Fourth Generation, with Reflexes (02/07/2024 8:50 AM EST) Pathologist [facility] HIV AB/AG Nonreactive Nonreactive [facility] Comment:HIV-1 p24 Ag and/or HIV-1/HIV-2 Ab not detected.A test result that is nonreactive does not exclude thepossibility of exposure to or infection with HIV-1 and/orHIV-2. Nonreactive results in this assay for individualswith prior exposure to HIV-1 and/or HIV-2 may be due toantigen and antibody levels that are below the limit ofdetection of this assay.The [email or web address] HIV Ag/Ab Combo assay result andsupplemental assay results should be interpreted inconjunction with the patient's clinical presentation,history and other laboratory results. If the results areinconsistent with clinical evidence, additional testing issuggested to confirm the result. Blood Venous blood specimen / Unknown 02/07/2024 8:50 AM EST 02/07/2024 11:03 AM EST us Gila Montoya MD LAB BLOOD ORDERAB LES Final Result Performing Organization Address City/[facility] [place]/ZIP Co de Phone Number [facility] [address] [place] [phone] * Hepatitis C Antibody with Reflex to HCV, RNA, Quantitative, Real-Time PCR (11/15/2023 8:49 AM EDT) [facility] Hepatitis C Antibody Nonreactive Nonreactive [facility] Comment:Antibodies to HCV no t detected; does not exclude early acuteHCV infection. Blood Venous blood specimen / Unknown 11/15/2023 8:49 AM EDT 11/15/2023 11:05 AM EDT Gila Montoya MD LAB BLOOD ORDERAB LES Final Result Performing Organization Address [facility] [place]/ZIP Co de Phone Number [facility] [address] [place] [phone] [phone] * Hemoglobin A1c (11/15/2023 8:49 AM EDT) [facility] Hemoglobin A1c 5.4 <6.0 % [facility] Comment:Hemoglobin A1C Refer ence Range Adults: 4.8 - 6.0 % Non diabetic: < 6.0 % Goal: < 7.0 %Additional Action Suggested: > 8.0 %Note: Hemoglobin A1c results are invalid for patients with abnormal amounts of HbF. Blood transfusions may impact the HbA1c concentration in the patient sample. Estimated Average Glucose 108 mg/dL [facility] Comment:eAG = Estimated ave rage glucose which is %A1C expressed asaverage glucose, using the formula of the V0E-NrplmjrQsweepi Glucose study (ADAG), Diabetes Care, Vol.31,#8,Oct. 2007 Blood Venous blood specimen / Unknown 11/15/2023 8:49 AM EDT 11/15/2023 11:05 AM EDT Gila Montoya MD LAB BLOOD ORDERAB LES Final Result Performing Organization Address [facility] [place]/ZIP Co de Phone Number [facility] [address] [place] [phone] * THINPREP PAP (10/09/2021 2:38 PM EDT) [facility] Clinical Information: None given [facility] [...] historic and ?? current clinical information. ?? Sharepoint Analyst : SEE COMMENT [facility] Comment: DCR, CT(ASCP) CT screening location: [address] ??[phone] Interpretation/R esult: Negative for intraepithelial lesion or malignancy. [facility] LMP: NONE GIVEN [facility] Prev. BX: NONE GIVEN [facility] Prev. PAP: NONE GIVEN [facility] SOURCE: None given [facility] Statement Of Adequacy: SEE COMMENT [facility] Comment: Satisfactory for evaluation. Endocervical/transformation zone component present. Age and/or menstrual status not provided 10/09/2021 2:38 PM EDT Dylan Kimbrough MD LAB PATHOLOGY ORDERABLES Fin al Result [facility] [address] * HPV mRNA E6/E7 (10/09/2021 2:38 PM EDT) HPV nRNA E6/E7 Not Detected Not Detected [facility] Comment: Methodology: Golf Course Assistant-Mediated Amplification This assay detects E6/E7 viral messenger RNA (mRNA) from 14 high-risk HPV types (16,18,31,33,35,39,45,51,52,56,58,59,66,68). ? Cervical sources are required for HPV testing. If a vaginal source from a patient who has had a total hysterectomy with removal of cervix was ?? submitted, please contact the testing laboratory for alternative testing options. ?? For additional information, please refer to http://education.[employer]/faq/DLX381s3 (This link if provided for information/ educational purposes only.) 10/09/2021 2:38 PM EDT Dylan Kimbrough MD LAB BLOOD ORDERABLES Final R esult [facility] [address] from Last 3 Months or Most Recently Relevant to Health Maintenance Insurance [employer] CAREPLUS Care Teams Credit Collections Specialist Relationship Specialty Start Date End Date Gila Way MD [address] [place] [phone] PCP - General Internal Medicine 12/05/22
--- OUTSIDE RECORDS SUMMARY | 2024-07-27 15:26 | XMS_ITS | Encounter Summary ---
Author Organization [employer] Address [address] [facility] 7t [place] [address] Care Team Providers Care Flatwork Supervisor Name Role Phone Gila Way MD Primary Care Pro vider Reason for Referral * Consultation (Routine) - Closed Specialty Diagnoses / Procedures Referred By Contkyaw t Referred To Contact Physical Therapy Diagnoses Chronic low back pain without sciatica, unspecified back pain laterality Mya Kendrick MD [address] [place] [phone] Phone: tel: fax: AT [facility] - [place] [address] [facility] [address] Phone: tel: fax: Referral ID Status Reason Start Date Expiration Date V isits Requested Visits Authorized [id number] Closed Specialty Services Required 03/04/2024 03/04/2025 20 20 Encounter Details Date Type Department Care Team (Late st Contact Info) Description 03/03/[address] [facility] [address] [place] [phone] Mya Kendrick MD [address] [place], [place] [phone] Chronic low back pain without sciatica, unspecified [...] Description 08/11/2024 1:00 PM EDT Clinical Support [facility] [address] [place] [phone] [place] [address] 10/26/2024 2:00 PM EDT Office Visit [facility] [address] [place] [phone] MD [address] [place] [address] Scheduled Referrals Name Type Priority Associated Diagnoses [...] documented as of this encounter Care Teams Flatwork Supervisor Relationship Specialty Start Date End Date Gila Way MD [address] [place] [address] PCP - General Internal Medicine 12/05/22 documented as of this encounter
== END 2024-07-27 13:54 | disposition home or self-care (01) ==
LOC: HO.HHCX 13:53
PROVIDERS: Visit Provider Student in an Organized Health Care Education/Training Program
DX: M54.50 Low back pain, unspecified (principal); G89.29 Other chronic pain
CPT/HCPCS: 72100

== ENCOUNTER → 2024-07-27 13:54 | Outpatient (BNV) | payer MEDICAID, SELFPAY | PROVIDERS: Visit Provider Radiology Diagnostic Radiology | DX: M47.815 Spondylosis without myelopathy or radiculopathy, thoracolumbar region (principal) | CPT/HCPCS: 72100 ==

== ENCOUNTER 2024-08-13 11:15 | Outpatient (AMB) | payer MEDICAID, SELFPAY ==
--- NOTE | 2024-08-13 11:19 | A.OFFVIS_ITS ---
Vital Signs 08/13/24 11:24 Height 5 ft 2 in Weight 188 lb 2 oz BMI 34.4 BP 165/82 H Blood Pressure Location Lt brachial Position Sitting Pulse 82 Pulse Source Pulse Oximeter Pulse Oximetry (%) 97 Oxygen Delivery Method Room Air Intake Visit Reasons: Chronic low back pain Intake Note: Pain today 5/10 Regeneration Operator Required: Yes Regeneration Operator Language: [employer] Supervisor Services: Regeneration Operator Offered & Declined Regeneration Operator Name: - Tavo Accompanied by: Spouse Allergies No Known Allergies Allergy (Verified 08/13/24 11:23) HPI HPI Chronic low back pain: Location: HPI Comments Details: The patient is a 54-year-old female presenting with chronic lower back pain secondary to degenerative changes and thoracolumbar spondylosis, initiated approximately 5-6 years ago after a fall down the stairs. She has multilevel degenerative disease, confirmed by recent imaging, affecting her lumbar spine. Given the chronicity of her condition, she has a significant history of attempts at conservative management, including physical therapy, which she found unhelpful and discontinued about 4 months ago. She has been utilizing lidocaine patches and cyclobenzaprine with limited relief. Denies previous spine surgery or injections. Her pain remains localized to the lower back without radiating symptoms, though she reports associated right-sided knee and hip arthritis, as well as prior diagnoses of piriformis syndrome. Moreover, a 6 mm right kidney stone has been identified, which may contribute to her symptomatology. The patient's past medical history includes pre-diabetes, obesity, and obstructive sleep apnea, for which she adheres to CPAP therapy. Despite these issues, she remains engaged in her occupation, which involves substantial physical activity, exacerbating her pain condition. Steps toward weight management are also being taken to aid in her overall health and potential pain relief. - Onset and Timing: Pain began approximately five to six years ago post-fall. - Quality and Character: Persistent, stabbing, throbbing, pinching, cramping, tight, aching pain primarily in the right mid and ower back. Pain is worse during mid day, rated 10/10 without medication/patches. - Primary Location: Right mid to lower back. - Areas of Radiation: No radiation of pain to the legs. - Aggravating Factors: Physical activity, such as cleaning tasks, vacuuming, bending, extending backwards, standing upright. - Alleviating Factors: Lidocaine patches and cyclobenzaprine provide some relief . - Interference with Function: Pain affects her ability to perform physically demanding work tasks. - Affect: The patient's mood and psychological wellbeing are likely impacted by chronic pain, though not explicitly discussed. - Analgesia: Utilizes lidocaine patches and cyclobenzaprine with limited relief. Desires better pain control. - Adverse Effects: Not discussed explicitly. - Activities of Daily Living: Pain interferes with physically demanding work tasks such as cleaning. - Aberrant Drug Related Behaviors: None reported. Oswestry Low Back Disability Score=29 [facility] Medical History (Updated 08/17/24 @ 22:36 by MARLI Chaudhari) Chronic low back pain Family history of colorectal cancer Hypertension Surgical History (Updated 08/17/24 @ 22:23 by MARLI Chaudhari) Sebaceous cyst History of back surgery Social History Alcohol intake: never Patient Tobacco Use Status: Never used Tobacco Current occupational status: unemployed Review of Systems Const Details: - Musculoskeletal: Reports chronic lower back pain, worse on the right; right- sided knee and hip arthritis. Denies radiation of pain to legs. - Metabolic: Reports being pre-diabetic. - Sleep: Using CPAP therapy for sleep apnea. - Genitourinary: Aware of right kidney stone. - General: Reports obesity and undertakes weight management with a farm supervisor. All systems reviewed & are unremarkable except as noted in HPI and below Physical Exam Vital Signs: Last Vital Signs Pulse 82 08/13/24 11:24 BP 165/82 H 08/13/24 11:24 Pulse Ox 97 08/13/24 11:24 Oxygen Delivery Method Room Air 08/13/24 11:24 BMI result Body Mass Index 34.4 General: Appears afebrile. Alert and oriented. Mood and affect appropriate. Follows and participates in conversation appropriately. Respiratory effort is unlabored. No cough. Able to transition from sit to stand unassisted. Ambulates with bilaterally normal heel strike and toe off. General: Yes CVA tenderness (right) Back/Spine/Pelvis Other: Patient is able to walk and stand on heels and tip toes with no difficulties demonstrating good motor tone. No limping. Can flex forward to 70-75 degrees and extend to 5-10 degrees before experiencing lumbar pain, reports worse pain with lumbar extension and axial rotation, right>left. Demonstrates 5/5 strength of quadriceps bilaterally as well as flexion/dorsiflexion of bilateral feet against resistance. 2+ pedal pulses bilaterally. Straight leg rise with dorsiflexion negative bilaterally. +2 patellar and achilles reflexes bilaterally. Facet loading test positive bilaterally. Prakash sign, Don?s and Stinchfield tests are negative bilaterally. No groin pain with I/E hip rotations. Valsalva maneuver negative. Back: CVA tenderness (right) and back tenderness (mid right back) Cervical Spine: cervical ROM normal, cervical muscular tenderness and No Cervical spine tenderness Thoracic/Lumbar Spine: thoracic and lumbar spine normal to inspection, No Thoracic/lumbar spine scar(s), Lasegue's sign negative, straight leg raise negative bilaterally, pain with thoraco-lumbar ROM, paraspinal muscle tenderness on the right greater than left, thoraco-lumbar ROM limited, No thoracic spinal tenderness and No lumbar spinal tenderness Sacroiliac joints: on the right tender to palpation and on the left nontender Extrem General: Yes capillary refill normal, Yes no clubbing, cyanosis or edema and Yes no calf tenderness Results Reviewed Results Reviewed: XR LUMBOSACRAL SPINE 07/27/24 CLINICAL INFORMATION: chronic lumbar back pain COMPARISON: None available. TECHNIQUE: Three views of the lumbosacral spine. FINDINGS: Facet joint hypertrophy at L4-5 and L5-S1. Endplate sclerosis and marginal osteophyte formation at L5-S1 and L3-4 and to a lesser extent L1-2 level. No acute cortical disruption. No gross malalignment. 6 mm calcification overlapping the right kidney shadow. Degenerative changes in the symphysis pubis. IMPRESSION: Multilevel thoracolumbar spondylosis. Probable nephrolithiasis, right kidney. XR HIP, RIGHT 05/26/24 CLINICAL INFORMATION: acute right hip pain COMPARISON: None available. TECHNIQUE: Two views of the right hip. FINDINGS: Syndesmophyte formation in the superior right acetabulum. No acute cortical disruption or malalignment. There is preservation of the joint space. No lytic or blastic lesions. Osteophyte formation in the symphysis pubis. IMPRESSION: Osteoarthrosis, mild without acute fracture or dislocation right hip. Assessment & Plan Assessment & Plan (1) Lumbar spondylosis: Code(s): M47.816 - Spondylosis without myelopathy or radiculopathy, lumbar region Category: Medical (2) Chronic low back pain: Code(s): M54.50 - Low back pain, unspecified; G89.29 - Other chronic pain Category: Medical (3) Thoracic spondylosis: Code(s): M47.814 - Spondylosis without myelopathy or radiculopathy, thoracic region Category: Medical Plan Discussed interventional treatments for axial low back pain, including therapeutic injections, neuromodulation and ablation procedures. Patient may also experience renal colic, given right kidney stone on recent spine xray. Coordination with the patient's renal ultrasound on September 03 will further assess the contributing role of her right kidney stone in her symptomatology. To address axial low back pain, we will proceed with Diagnostic Right L1-L2-L3-L4 MBB with local and fluoroscopy. Expectations, risks and benefits were reviewed. Patient is aware she will be contacted to schedule this procedure. We are considering lumbar medial branch blocks as a diagnostic intervention for potential RFA or Sprint PNS procedures for a longer term pain management. All questions and concerns have been answered and patient agreed with the plan. Follow up after injections and sooner as needed. Patient was informed and verbally consented to the use of an ambient scribe for clinic note documentation during this visit. Medications: New camphor-methyl salicyl-menthol 3.1 %-10 %-6 % (large) (Salonpas) may leave on for up to 12 hrs 1 patch topical DAILY 30 days 6 ea 0RF pain G89.29 - Other chronic pain, M47.816 - Spondylosis without myelopathy or radiculopathy, lumbar region, M54.50 - Low back pain, unspecified Coding Level of Care Code New Pt Level 4 (14101) Diagnoses Lumbar spondylosis M47.816 Chronic low back pain M54.50; G89.29 Thoracic spondylosis M47.814
[2024-08-13 11:24] VITALS: BP 165/82; PULSE 82; O2SAT 97; BMI 34.4
--- OUTSIDE RECORDS SUMMARY | 2024-08-13 11:54 | XMS_ITS | Clinical Summary ---
Author Organization [facility] Address [address] [place] [phone] Phone Care Team Providers Care Billing Control Clerk Name Role Phone Physician, No Pcp Primary [...] Comprehensive metabolic panel (02/27/2024 10:03 PM EST) [facility] Signature Sodium 141 133 - 145 mmol/L LAB CHEMISTRY METHOD 02/27/2024 10:[address] [facility] Potassium 4.3 3.5 - 5.5 mmol/L LAB CHEMISTRY METHOD 02/27/2024 10:[address] [facility] Chloride 110 96 - 110 mmol/L LAB CHEMISTRY METHOD 02/27/2024 10:[address] [facility] CO2 26 21 - 32 mmol/L LAB CHEMISTRY METHOD 02/27/2024 10:[address] [facility] Anion Gap 5 3 - 11 LAB CHEMISTRY METHOD 02/27/2024 10:[address] [facility] Glucose 87 70 - 100 mg/dL LAB CHEMISTRY METHOD 02/27/2024 10:[address] [facility] BUN 20 5 - 25 mg/dL LAB CHEMISTRY METHOD 02/27/2024 10:[address] [facility] Creatinine 0.87 0.50 - 1.10 mg/dL LAB CHEMISTRY METHOD 02/27/2024 10:[address] [facility] eGFR 79 >=60 mL/min/1. 73m2 LAB CHEMISTRY METHOD 02/27/2024 10:[address] [facility] Comment:Calculation based on the??Chronic Kidney Disease Epidemiology Collaboration (CKD-EPI) equation refit??without adjustment for race. BUN/Creatinine Ratio 23.0 LAB CHEMISTRY METHOD 02/27/2024 10:[address] [facility] Calcium 9.1 8.5 - 10.5 mg/dL LAB CHEMISTRY METHOD 02/27/2024 10:[address] [facility] AST (SGOT) 20 10 - 42 unit/L LAB CHEMISTRY METHOD 02/27/2024 10:[address] [facility] ALT (SGPT) 29 10 - 60 unit/L LAB CHEMISTRY METHOD 02/27/2024 10:37 PM EST [facility] Alkaline Phosphatase 109 42 - 121 unit/L LAB CHEMISTRY METHOD 02/27/2024 10:37 PM EST [facility] Total Protein 7.7 6.0 - 8.0 g/dL LAB CHEMISTRY METHOD 02/27/2024 10:37 PM EST [facility] Albumin 3.6 3.2 - 5.0 g/dL LAB CHEMISTRY METHOD 02/27/2024 10:[address] [facility] Total Bilirubin 0.3 0.0 - 1.4 mg/dL LAB CHEMISTRY METHOD 02/27/2024 10:[address] [facility] Blood Venous blood specimen / Unknown Venipuncture / Unknown 02/27/2024 10:03 PM EST 02/27/2024 10:12 PM EST Dougie Dillard MD LAB BLOOD ORDERABLES Final Resu lt [facility] [address] [place] [address], from Last 3 Months or Most Recently Relevant to Health Maintenance Insurance MEDICAID - [place] Care Teams Billing Control Clerk Relationship Specialty Start Date End Date Physician, No Pcp PCP - General 02/28/24
--- OUTSIDE RECORDS SUMMARY | 2024-08-13 11:54 | XMS_ITS | Encounter Summary ---
Demographics Address [address] [facility] [address] [place] [address] Mobile Phone Home Phone Preferred Language es Marital Status Unknown Restorationist Affiliation Unknown Race Other Race Ethnic Group Unknown Author Organization [employer] Address [address] [facility] 7t [place] [address] Care Team Providers Care Set Up Inspector Name Role Phone Gila Way MD Primary Care Pro vider Encounter Details Date Type Department Care Team (Latest Contact Info) Description 08/11/2024 Travel Social History Tobacco Use Types Packs/Day [...] Care Team (Late st Contact Info) Description 09/11/2024 11:00 AM EDT Clinical Support [facility] DIABETES/NUTRITION [address] [place] [phone] [place] [address] 10/26/2024 2:00 PM EDT Office Visit [facility] MEDICINE [address] [place] [phone] MD [address] [place] [phone] documented as of this encounter Visit Diagnoses Not on filedocumented in this encounter Additional Health Concerns Assessment Noted Time PHQ-9 Depression Total Score: 5 07/28/19 25 1:09 PM EDT documented as of this encounter Care Teams Set Up Inspector Relationship Specialty Start Date End Date Gila Way MD [address] [place] [address] [phone] PCP - General Internal Medicine 12/05/22 documented as of this encounter
--- OUTSIDE RECORDS SUMMARY | 2024-08-13 11:54 | XMS_ITS | Encounter Summary ---
Demographics Address [address] [facility] [address] [place] [address] Mobile Phone Home Phone Preferred Language es Marital Status Unknown Caodaism Affiliation Unknown Race Other Race Ethnic Group Unknown Author Organization [employer] Address [address] [facility] [address] [place] [address] Care Team Providers Care Light Industrial Supervisor Name Role Phone Gila Way MD Primary Care Pro vider Encounter Details Date Type Department Care Team (Latest Contact Info) Description 08/11/2024 1:00 PM EDT Clinical Support [facility] DIABETES/NUTRITION [address] [place], [place] [phone] Bhavya Sal[address] [place], [place] [phone] Class 2 obesity due to excess calories without serious comorbidity with body mass index (BMI) of 36.0 to 36.9 in adult (Primary Dx); Hypertension, unspecified type; Hyperlipidemia, unspecified hyperlipidemia type Social History Tobacco Use Types Packs/Day Years [...] is your housing situation today? I have nathanielnelda byrne 09/24/[address] you [...] Sign Reading Time Taken Comments Blood Pressure - - Pulse - - Temperature - - Respiratory Rate - - Oxygen Saturation - - Inhaled Oxygen Concentration - - Weight 86.2 kg (190 lb) 08/11/2024 2:06 PM EDT Height 157.5 cm (5' 2 ) 08/11/2024 2:06 PM EDT Body Mass Index 34.75 08/11/2024 2:06 PM EDT documented in this encounter Progress Notes * Bhavya Saldana RD - 08/11/2024 1:00 PM EDT In Person Visit Medical Diagnosis: E66.09, Z68.36 Class 2 obesity due to excess calories without serious comorbidity with body mass index (BMI) of 36.0 to 36.9 in adult E78.5 Hyperlipidemia, unspecified hyperlipidemia type I10 Hypertension, unspecified type Anthropometrics: Ht:5' 2 (1.575 m), Wt:190 lb (86.2 kg), BMI: Body mass index is 34.75 kg/m??. Assessment: Patient (Pt) accepted nutrition education assessment appointment with ISMAEL. RD took Pt's weight. Weight revealed an increase since last time Pt's weight was taken on 07/27/2024. [employer] circular distributor, Crist[place] [phone] took 24 hour recall/ typical daily intake from Pt. Intake revealed Pt has been eating breakfast, lunch- light, and dinner. Pt has made many positive changes. RD suggested some tweaks. These tweaks are: Use sugar free maple syrup from [employer] instead of real maple syrup Use extra virgin olive oil instead of avocado oil for salads Eat fruit during the day and not at night as a snack- during the day as a snack Drink no juices; drink sugar free beverages, use sugar free drink mixes like Crystal Light Pt is meeting her: protein intake, vegetables, fruit, healthy fats, and fiber. A follow up appointment is scheduled in the third week of August 2024. Food Allergies: NKFA Exercise: not at all Suggested: walk the family dog at least 2x's daily Food Intolerance: None mentioned Food Preferences: Oatmeal, farina, corn meal hot, breads, crackers noodles/ pasta, rice, apples, pears, pineapple, watermelon, cherries, cranberries, blueberries, carrots, tomatoes, lettuces, peppers, onions, garlic, peas, ham, Velveta cheese, milk, evaporated milk, regular hot chocolate, Wolof foods- rice and pepper chicken, loaded pizza, spaghetti, mayonnaise, margarine, water, apple juice, using the air fryer Food Dislikes: beans Frequency of Eating Out/ Restaurant: 1-2 x weekly Who Cooks?: Patient How much caffeine?: denies use How much sugary beverages?: Juice, 1- 2 cups day Hot chocolate, regular: 1-2 cups a day Diet History: Breakfast: Water: 1-2+ cup Eg Sometimes also: Whole grain pancake: one 4 round (Made with almond flour, nato seeds, granola) Real maple syrup: 2 tablespoons Snack: None Water: 1 cups Lunch: Fresh salad: 2 cups Avocado oil: 1 tablespoon Water: 1+ cups Snack: None Water: 1 cup Dinner: Mix root vegetables: 1 cup Chicken, breast: 8 oz. Fresh salad: 2 cups Avocado oil: 1 tablespoon Snack: Fruit: 1 cup Or Pineapple juice: 1/2 cup Nutrition Diagnosis: NI-1.5 Excessive energy intake related to food and knowledge deficit as evidence by 24 hour recall/typical daily intake and BMI >35. NC-3.3 Obesity related to excessive energy intake with limited physical activity as evidence by BMI>35. Nutrition Intervention: Pt agreed to have/ eat extra olive oil, fruits during the day and not as a night snack, no granola,swap-out real maple syrup with ChocZero maple syrup- sugar free. All in all, Pt is doing well- nic few tweaks. Goals: Eat two carbohydrates for breakfast, lunch and dinner Eat one carbohydrate for mid morning and mid afternoon snacks Eat a fresh salad > one cup at both lunch and dinner Eat protein and fats as advised in meal plan Drink water as beverage of choice-> 6-8 glasses and/ or Crystal Light/ Sugar free Exercise at least 30 minutes per day Use extra virgin olive oil(EVOO) after cooking on foods-> don't cook with EVOO Monitoring and Evaluation: Indicator Criteria Adherence frequency of eating, portion controls, carbohydrate exchanges, protein intake Weight Loss BMI, exercise routine and frequency Glucose control A1C, blood sugars Lipid control Lipid panel Provider: Bhavya Saldana RD, LDN documented in this encounter Plan of Treatment Upcoming Encounters Date Type Department Care Team (Late st Contact Info) Description 09/11/2024 11:00 AM EDT Clinical Support [facility] DIABETES/NUTRITION [address] [place] [phone] [place] [phone] 10/26/2024 2:00 PM EDT Office Visit [facility] MEDICINE [address] [place] [phone] MD [address] [place] [phone] documented as of this encounter Visit Diagnoses Diagnosis Class 2 obesity due to excess calories without serious comorbidity with body mass index (BMI) of 36.0 to 36.9 in adult- Primary Hypertension, unspecified type Hyperlipidemia, unspecified hyperlipidemia type documented in this encounter Additional Health Concerns Assessment Noted Time PHQ-9 Depression Total Score: 5 07/28/19 25 1:09 PM EDT documented as of this encounter Care Teams Light Industrial Supervisor Relationship Specialty Start Date End Date Gila Way MD [address] [place] [phone] PCP - General Internal Medicine 12/05/22 documented as of this encounter
--- OUTSIDE RECORDS SUMMARY | 2024-08-13 11:54 | XMS_ITS | Encounter Summary ---
Author Organization [employer] Address [address] [facility] [address] [place] [address] Care Team Providers Care Oil Refiner Name Role Phone Dylan Kimbrough MD Primary Care Provider Delfina NewP Primary Care Provider [phone] Maxwell Saleh Primary Care Provider Unavail able Gila Way MD Primary Care Pro vider Encounter Details Date Type Department Care Team (Latest Contact Info) Description 05/20/2018 Abstract [facility] CONVERSIONS Dental, Provider, DDS Social History Tobacco [...] Upcoming Encounters Date Type Department Care Team ( st Contact Info) Description 09/11/2024 11:00 AM EDT Clinical Support [facility] DIABETES/NUTRITION [address] [place] [phone] Bhavya Saldana, ISMAEL [address] [place] [address] 10/26/2024 2:00 PM EDT Office Visit [facility] MEDICINE [address] [place] [address] MD [address] [place] [address] documented as of this encounter Visit Diagnoses Not on filedocumented in this encounter Care Teams Oil Refiner Relationship Specialty Start Date End Date Dylan Kimbrough MD PCP - General Family Medicine 04/08/20 02/18/22 Delfina Aguayo FNP PCP - General Family Medicine 02/19/22 09/27/22 Maxwell Saleh AGNP PCP - General Family Medicine 09/28/22 12/04/[address] MD [address] [place] [phone] PCP - General Internal Medicine 12/05/22 documented as of this encounter
--- OUTSIDE RECORDS SUMMARY | 2024-08-13 11:54 | XMS_ITS | Encounter Summary ---
Author Organization [employer] Address [address] [facility] [address], [place] [address] Care Team Providers Care Carpenter Assistant Name Role Phone Gila Way MD Primary Care Pro vider Reason for Referral * Consultation (Routine) - Closed Specialty Diagnoses / Procedures Referred By Cassia blanco Referred To Contact Physical Therapy Diagnoses Chronic low back pain without sciatica, unspecified back pain laterality Mya Kendrick MD [address] [place] [address] Phone: tel: fax: AT [facility] [place] [address] [facility] [address] Phone: tel: fax: Referral ID Status Reason Start Date Expiration Date V isits Requested Visits Authorized [id number] Closed Specialty Services Required 03/04/2024 03/04/2025 20 20 Encounter Details Date Type Department Care Team (Late st Contact Info) Description 03/03/2024 Orders Only [facility] [address] [place], [place] [phone] Mya Kendrick MD [address] [place], [place] [phone] Chronic low back pain without sciatica, unspecified [...] Description 09/11/2024 11:00 AM EDT Clinical Support [facility] DIABETES/NUTRITION [address] [place] [phone] [place] [address] 10/26/2024 2:00 PM EDT Office Visit [facility] [address] [place] [phone] MD [address] [place] [address] Scheduled Referrals Name Type Priority Associated Diagnoses [...] documented as of this encounter Care Teams Carpenter Assistant Relationship Specialty Start Date End Date Gila Way MD [address] [place] [phone] PCP - General Internal Medicine 12/05/22 documented as of this encounter
--- OUTSIDE RECORDS SUMMARY | 2024-08-13 11:54 | XMS_ITS | Clinical Summary ---
Demographics Address [address] [place] [address] Mobile Phone Home Phone Preferred Language es Marital Status Unknown Holiness Affiliation Unknown Race Other Race Ethnic Group Unknown Author Organization [employer] Address [address] [facility] [address] [place] [address] Care Team Providers Care Regulator Tester Name Role Phone Gila Way MD [...] as directed by MD. 30 patch 2 07/28/19 25 Active cholecalciferol [...] drive with medicaion 30 tablet 05/27/19 25 2024 Discontinued(O ther) Active Problems Problem Noted Date Diagnosed Date Depression, unspecified 07/27/2024 Assessment & Plan (07/28/2024 10:51 AM EDT): During IBH Consult Jaylyn presenting with depressed mood, hopelessness, irritable mood, loss of interests/pleasure , sense of isolation/loneliness , changes in sleep difficulty falling asleep, fatigue/loss of energy, difficulty concentrating, indecisiveness; for a period of 6-12 mo, for most or all symptoms in the context of . Jaylyn's mom about a year ago. Patient reports she took care of her mom over the last two years. Pt has a positive support at home and also in the community. Her strong mu-ism belief is helping Jaylyn to deal with emotions associated with grief. Explored her life purpose and how to find cynthia in activities she used to enjoy in the past. ANGELICA on CPAP 07/27/2024 Posterior pain of [...] and also in the community. Her strong mu-ism belief is helping Jaylyn to deal with [...] gradually return to regular daily routine and anabaptist activities. PLAN: (check all that apply) Further services needed, but declined Behavioral Health Integration Plan Internal Follow up with [facility] Patient Self Plan Patient to utilize skills provided in intervention , [facility], and Patient to reach out to [facility] as needed. Pt declined OP referral [...] organization. Date Type Department Care Team Description 08/11/2024 1:00 PM EDT Clinical Support [facility] [address] [place] [address] Class 2 obesity due to excess calories without serious comorbidity with body mass index (BMI) of 36.0 to 36.9 in adult (Primary Dx); Hypertension, unspecified type; Hyperlipidemia, unspecified hyperlipidemia type 08/11/2024 Travel 07/27/2024 1:00 PM EDT Office Visit [facility] [address] [place] [phone] MD Health care maintenance (Primary Dx); Dietary counseling; Exercise counseling; Hyperlipidemia, unspecified hyperlipidemia type; Posterior pain of right hip; Vitamin D deficiency; ANGELICA on CPAP; Nephrolithiasis; Chronic low back pain without sciatica, unspecified back pain laterality 07/27/2024 Telephone [facility] [address] [place] [address] MD notes 07/27/2024 Travel 07/23/2024 Telephone [facility] [address] [place] [address] MD Chart Prep 07/21/2024 Telephone [facility] [address] [place] [address] MD Appointment Confirmation 07/01/2024 Telephone [facility] [address] [place] [address] Cherelle Senior, RN Results 06/30/2024 1:00 PM EDT Procedure Visit [facility] [address] [place] [address] Adela Doll CNM Menopausal and postmenopausal disorder (Primary Dx); Vulvar itching; Dermatitis 06/30/2024 Travel 06/08/2024 Orders Only [facility] [address] [place] [address] MD 06/05/2024 Population Health Risk Score Community Care [facility] ([facility] Department [address] [place] [address] [phone] Provider, Population Health Generic 05/26/2024 10:20 AM EST Office Visit [facility] [address] [place] [address] Laura Kelly MD Posterior pain of right hip (Primary Dx); Elevated blood pressure reading with diagnosis of hypertension 05/26/2024 Telephone [facility] [address] [place] [address] Laura Kelly MD 05/26/2024 Telephone [facility] [address] [place] [phone] Laura Kelly MD from Last 3 Months Immunizations Immunization Administration Dates Next Due Influenza Injectable Quadriv [...] EDT Temperature 36.3 ??C (97.4 ??F) 07/27/2024 12:56 PM E DT Respiratory Rate 20 07/27/2024 12:56 PM EDT Oxygen Saturation 98% 07/27/2024 12:56 PM EDT Inhaled Oxygen Concentration - - Weight 86.2 kg (190 lb) 08/11/2024 2:06 PM EDT Height 157.5 cm (5' 2 ) 08/11/2024 2:06 PM EDT Body Mass Index 34.75 08/11/2024 2:06 PM EDT Plan of Treatment Upcoming Encounters Date Type Department Care Team (Late st Contact Info) Description 09/11/2024 11:00 AM EDT Clinical Support [facility] [address] [place], [place] [phone] Bhavya Saldana RD [address] [place], [place] [phone] 10/26/2024 2:00 PM EDT Office Visit [facility] [address] [place], [place] [phone] Gila Way MD [address] [place], [place] [phone] Health Maintenance Due Date Last Done Comments CT Colonography 1969 Colonoscopy 1969 Colorectal Cancer Screening 1969 FIT DNA/Cologuard 1969 FIT 1969 FOBT 1969 Sigmoidoscopy 1969 Hepatitis B Vaccines (1 of 3 - 19+ 3-dose series) 1988 Pneumococcal Vaccine: 50+ Years (1 of 1 - PCV) 2019 COVID-19 Vaccine ( - 2023- season) 2023 03/27/2021, 08/30/2020 SDOH Screening 10/01/2024 10/02/2023 Diabetes: Hemoglobin A1C 11/14/2024 024, 06/19/2021, 09/14/2020 Mammogram 06/08/2025 06/08/2024, 0303/2023, 05/25/2021, Additional history exists Alcohol/Substance Use Screening 07/27/2025 07/27/2024 Depression Screening 07/27/2025 07/27/2024, 07/28/19 25 Disability Screening 07/27/2025 07/27/2024 Tobacco Screening 07/27/2025 07/27/2024 DTaP/Tdap/Td Vaccines (2 [...] PM EDT Narrative 07/27/2024 2:41 PM EDT ?[facility] ?[address] ?[place] [address] ?XRay Report ? Signed ? Patient: Jaylyn Hou ?MR#: [id number] ?? [id number] ? : 1970 ?Acct:[id number] ? Age/Sex: 54 / F ?ADM Date: 07/27/24 ? Loc: HO.HHCX ? Attending Dr: Gila Montoya MD ? Ordering Physician: Gila Way MD ?? Date of Service: 07/27/24 ?? Procedure(s): XR lumbar spine 2-3V ?? Accession Number(s): [id number] ? cc: Gila Way MD ? EXAMINATION: [...] Escobar MD ??07/27/2024 02:38 PM ?? EDT RP ? Dictated By: ?Silvano Collins MD ? Signed By: ?<Electronically signed by Silvano Senior MD in OV> ? 07/27/24 1438 ? DD/ 1354 ? TD/TT: 07/27/24 1400 ? Manager Plumbing: ? Procedure Note Donsayter, Image - 07/27/[address] [address] XRay Report Signed Patient: Jaylyn HouMR#: [id number] : 1970Acct:[id number] Age/Sex: 54 / FADM Date: 07/27/24 Loc: HO.HHCX Attending Dr: Gila Montoya MD Ordering Physician: Gila aWy MD Date of Service: 07/27/24 Procedure(s): XR lumbar spine 2-3V Accession Number(s): [id number] cc: Gila Way MD EXAMINATION: XR LUMBOSACRAL [...] 07/27/24 1438 DD/ 1354 TD/TT: 07/27/24 1400 Manager Plumbing: us Gila Montoya MD IMG XR PROCEDURES Final Result * Bacterial Vaginosis Panel (06/30/2024 1:23 PM EDT) TRICHOMONAS VAGINALIS DETECTION BY PCR NOT DETECTED Not Detect [facility] BACTERIAL VAGINOSIS DETECTION BY PCR NEGATIVE Negative [facility] Comment:The BV organism targ ets of [...] DETECTION BY PCR NOT DETECTED Not Detect [facility] Nell glab krusei PCR NOT DETECTED Not Detect [facility] Swab Vaginal structure / Unknown 06/30/2024 1:23 PM EDT 06/30/2024 4:23 PM EDT us Adela [facility] MICROBIOLOGY - GENERA L ORDERABLES Final Result Performing Organization Address City/State/[facility] Co de Phone Number [facility] [address] [place] [phone] * BI Mammogram Screening Tomosynthesis Bilateral (06/08/2024 1:50 PM EDT) Anatomical Region Laterality Modality Breast Bilateral Mammography 06/08/2024 1:50 PM EDT Narrative 06/14/2024 8:03 PM EDT ? [facility] ? [address] ?[place] [address] ?[phone] ? Mammography Report ? Signed ? Patient: Lopes Beltran,Jaylyn ?MR#: [id number] ?? [id number] ? : 1970 ?Acct:[id number] ? Age/Sex: 54 / F ?ADM Date: 06/08/24 ? Loc: HO.MAMMO ? Attending Dr: Gila Montoya MD ? Ordering Physician: Gila Way MD ?Re ?? sults: 1Negative ? Date of Service: 06/08/24 ?Follow Up: 1 Year From Orig ?? inal Mammogram ? Procedure(s): MM tomosynthesis screening BI ?? Accession Number(s): [id number] ? cc: Gila Way MD ? EXAMINATION: [...] ??06/14/2024 08:00 PM EDT ? Dictated By: ?Laura Cornell DO ? Signed By: ?<Electronically signed by Laura Cornell, DO in OV> ? 06/14/241999 ? DD/ 1350 ? TD/TT: 06/08/24 1400 ? Manager Plumbing: ? Procedure Note Donsayter, Image - 06/14/2024 [facility] [address] [place] [address] Mammography Report Signed Patient: Jaylyn HouMR#: [id number] : 1970Acct:[id number] Age/Sex: 54 / FADM Date: 06/08/24 Loc: HO.MAMMO Attending Dr: Gila Montoya MD Ordering Physician: Gila Way sults: 1Negative Date of Service: 06/08/24Follow Up: 1 Year From Orig inal Mammogram Procedure(s): MM tomosynthesis screening BI Accession Number(s): [id number] cc: Gila Way MD EXAMINATION: MM SCREENING [...] OV> 06/14/241999 DD/ 1350 TD/TT: 06/08/24 1400 Manager Plumbing: us Gila Montoya MD IMG BI PROCEDURES Edited Result - Final * XR Hip 2 or 3 Views Right (05/26/2024 10:53 AM EST) Anatomical Region Laterality Modality Lower Extremities, Hip Right Radiograp hic Imaging 05/26/2024 10:5 3 AM EST Narrative 05/26/2024 11:55 AM EST ?[facility] ?[address] ?[place] [address] ?XRay Report ? Signed ? Patient: Jaylyn Hou ?MR#: [id number] ?? [id number] ? : 1970 ?Acct:[id number] ? Age/Sex: 54 / F ?ADM Date: 05/26/24 ? Loc: HO.HHCX ? Attending Dr: Laura Kelly MD ? Ordering Physician: Laura Kelly MD ?? Date of Service: 05/26/24 ?? Procedure(s): XR hip RT min 2V ?? Accession Number(s): [id number] ? cc: Laura Kelly MD ? EXAMINATION: [...] 1053 ? TD/TT: 05/26/24 1104 ? Manager Plumbing: ? Procedure Note Donotclaudiater, Image - 05/26/[address] [address] XRay Report Signed Patient: Jaylyn HouMR#: [id number] : 1970Acct:[id number] Age/Sex: 54 / FADM Date: 05/26/24 Loc: .HHCX Attending Dr: Laura Kelly MD Ordering Physician: Laura Kelly MD Date of Service: 05/26/24 Procedure(s): XR hip RT min 2V Accession Number(s): [id number] cc: Laura Kelly MD EXAMINATION: XR HIP, [...] 1152 DD/ 1053 TD/TT: 05/26/24 1104 Manager Plumbing: us Laura Kelly MD IMG XR PROCEDURES Final Re sult * (ABNORMAL) Lipid Panel, Standard (03/27/2024 1:45 PM EST) Triglycerides 135 <150 mg/dL [facility] Comment:Desirable Triglyceri de: less than 150 mg/dLBorderline High Triglyceride 150-199 mg/dLHigh Triglyceride: 200-499 mg/dLVery High Triglyceride: greater than or equal to 5OO mg/dL Cholesterol 153 <200 mg/dL [facility] Comment:Desirable Cholestero l: less than 200 mg/dLBorderline High Cholesterol: 200-239 mg/dLHigh Cholesterol: greater than 239 mg/dL LDL Cholesterol Calculated 92 <100 mg/dL [facility] Comment:Desirable LDL: less than 100 mg/dLNear Optimal/Above Optimal LDL: 110- 129 mg/dLBorderline High LDL: 130-159 mg/dLHigh LDL: 160-189 mg/dLVery High LDL: greater than or equal to 190 mg/dL HDL Cholesterol 34(L) >40 mg/dL [facility] Comment:Desirable HDL: great er than 40 mg/dL Note: This HDL assay may give artificially low results in patients with liver disease. Blood Venous blood specimen / Unknown 03/27/2024 1:45 PM EST 03/27/2024 4:08 PM EST us Gila Montoya MD LAB BLOOD ORDERAB LES Final Result [facility] [address] [place] [phone] * HIV-1/2 Antigen and Antibodies, Fourth Generation, with Reflexes (02/07/2024 8:50 AM EST) HIV AB/AG Nonreactive Nonreactive [facility] Comment:HIV-1 p24 Ag and/or HIV-1/HIV-2 Ab not detected.A test result that is nonreactive does not exclude thepossibility of exposure to or infection with HIV-1 and/orHIV-2. Nonreactive results in this assay for individualswith prior exposure to HIV-1 and/or HIV-2 may be due toantigen and antibody levels that are below the limit ofdetection of this assay.The [facility] HIV Ag/Ab Combo assay result andsupplemental assay results should be interpreted inconjunction with the patient's clinical presentation,history and other laboratory results. If the results areinconsistent with clinical evidence, additional testing issuggested to confirm the result. Blood Venous blood specimen / Unknown 02/07/2024 8:50 AM EST 02/07/2024 11:03 AM EST Gila Montoya MD LAB BLOOD ORDERAB LES Final Result Performing Organization Address [facility]/ZIP Co de Phone Number [facility] [address] [place] [phone] * Hepatitis C Antibody with Reflex to HCV, RNA, Quantitative, Real-Time PCR (11/15/2023 8:49 AM EDT) Hepatitis C Antibody Nonreactive Nonreactive [facility] Comment:Antibodies to HCV no t detected; does not exclude early acuteHCV infection. Blood Venous blood specimen / Unknown 11/15/2023 8:49 AM EDT 11/15/2023 11:05 AM EDT us Gila Montoya MD LAB BLOOD ORDERAB LES Final Result Performing Organization Address City/[facility] Co de Phone Number [facility] [address] [place] [phone] * Hemoglobin A1c (11/15/2023 8:49 AM EDT) Hemoglobin A1c 5.4 <6.0 % [facility] Comment:Hemoglobin A1C Refer ence Range Adults: 4.8 - 6.0 % Non diabetic: < 6.0 % Goal: < 7.0 %Additional Action Suggested: > 8.0 %Note: Hemoglobin A1c results are invalid for patients with abnormal amounts of HbF. Blood transfusions may impact the HbA1c concentration in the patient sample. Estimated Average Glucose 108 mg/dL [facility] Comment:eAG = Estimated ave rage glucose which is %A1C expressed asaverage glucose, using the formula of the D9H-NcwigtkBzovvsm Glucose study (ADAG), Diabetes Care, Vol.31,#8,Oct. 2007 Blood Venous blood specimen / Unknown 11/15/2023 8:49 AM EDT 11/15/2023 11:05 AM EDT us Gila Montoya MD LAB BLOOD ORDERAB LES Final Result Performing Organization Address [facility]/ZIP Co de Phone Number [facility] [address] [place] [phone] [phone] * THINPREP PAP (10/09/2021 2:38 PM [...] historic and ?? current clinical information. ?? E D Tech : SEE COMMENT [facility] Comment: DCR, CT(ASCP) CT screening location: [address] ??[address] Interpretation/R esult: Negative for intraepithelial lesion or malignancy. [facility] LMP: NONE GIVEN [facility] Prev. BX: NONE [facility]IVEN [facility] Prev. PAP: NONE [facility]IVEN [facility] SOURCE: None given [facility] Statement Of Adequacy: SEE COMMENT [facility] Comment: Satisfactory for evaluation. Endocervical/transformation zone component present. Age and/or menstrual status not provided 10/09/2021 2:38 PM EDT us Dylan Kimbrough MD LAB PATHOLOGY ORDERABLES Fin al Result Performing Organization Address City/[facility]/ZIP Co de Phone Number [facility] [address] * HPV mRNA E6/E7 (10/09/2021 2:38 PM EDT) HPV nRNA E6/E7 Not Detected Not Detected [facility] Comment: Methodology: Business And Financial Counsel-Mediated Amplification This assay detects E6/E7 viral messenger RNA (mRNA) from 14 high-risk HPV types (16,18,31,33,35,39,45,51,52,56,58,59,66,68). ? Cervical sources are required for HPV testing. If a vaginal source from a patient who has had a total hysterectomy with removal of cervix was ?? submitted, please contact the testing laboratory for alternative testing options. ?? For additional information, please refer to http://education.EatWith/faq/RCF704y0 (This link if provided for information/ educational purposes only.) 10/09/2021 2:38 PM EDT Dylan Kimbrough MD LAB BLOOD ORDERABLES Final R esult [facility] [address] from Last 3 Months or Most Recently Relevant to Health Maintenance Insurance [employer] [facility] Care Teams Regulator Tester Relationship Specialty Start Date End Date Gila Way MD [address] [place] [phone] PCP - General Internal Medicine 12/05/22
== END 2024-08-13 12:07 | disposition home or self-care (01) ==
LOC: HO.PMC 11:16
PROVIDERS: PCP Student in an Organized Health Care Education/Training Program; Referring Provider Student in an Organized Health Care Education/Training Program; Visit Provider Nurse Practitioner Family
DX: M47.816 Spondylosis without myelopathy or radiculopathy, lumbar region (principal); M54.50 Low back pain, unspecified; G89.29 Other chronic pain; M47.814 Spondylosis without myelopathy or radiculopathy, thoracic region
CPT/HCPCS: 99204

== ENCOUNTER → 2024-08-13 11:15 | Outpatient (BNVA) | payer MEDICAID, SELFPAY | PROVIDERS: PCP Student in an Organized Health Care Education/Training Program; Referring Provider Student in an Organized Health Care Education/Training Program; Visit Provider Nurse Practitioner Family | DX: M47.816 Spondylosis without myelopathy or radiculopathy, lumbar region (principal); M47.814 Spondylosis without myelopathy or radiculopathy, thoracic region; G89.29 Other chronic pain | CPT/HCPCS: 99212 ==

== ENCOUNTER 2024-08-18 13:15 | Outpatient (REF) | payer MEDICAID, SELFPAY ==
--- NOTE | ~2024-08-18 | MM_ITS ---
EXAMINATION: DXA BONE DENSITY AXIAL HISTORY: premature menopause TECHNIQUE: Hotlist Dual energy absorptiometry (DEXA) of the lumbar spine, total left hip, and femoral neck was performed. COMPARISON: There are no prior studies for comparison. FINDINGS: The bone mineral density of the lumbar spine is 1.432, corresponding to a T-score of 2.2, and a Z-score of 2.6. This is indicative of normal bone mineral density. The bone mineral density of the left total hip is 1.259, corresponding to a T-score of 2.0, and a Z-score of 2.3. This is indicative of normal bone mineral density. The bone mineral density of the left femoral neck is 1.146, corresponding to a T-score of 0.8, and a Z-score of 1.5. This is indicative of normal bone mineral density. MM/XR DEXA axial skeleton IMPRESSION: Based on bone mineral density, and according to World Health Organization (WHO) criteria, the diagnosis is consistent with normal bone mineral density. All bone density values are in grams per centimeter squared (g/cm2). Statistically, 68% of repeat scans fall within 1 SD (+/- 0.010 g/cm2 for AP spine L1-L4) and 1 SD (+/- 0.012 g/cm2 for femur total) FRAX is a trademark of the [employer]'s [place] for Metabolic Bone Disease, a World Health Organization (WHO) Collaborating Center. Electronically signed by: Stuart Lam MD 08/19/2024 09:07 AM EDT
--- OUTSIDE RECORDS SUMMARY | 2024-08-18 13:17 | XMS_ITS | Encounter Summary ---
Author Organization [employer] Address [address] [facility] [address] [place] [address] Care Team Providers Care Geophysical Prospector Name Role Phone Dylan Kimbrough MD Primary Care Provider Delfina NewP Primary Care Provider [phone] Maxwell Saleh Primary Care Provider Unavail able Gila Way MD Primary Care Pro vider Encounter Details Date Type Department Care Team (Latest Contact Info) Description 05/20/2018 Abstract [facility] Dental, Provider, DDS Social History [...] Description 09/11/2024 11:00 AM EDT Clinical Support [facility] [address] [place] [phone] Bhavya Saldana, ISMAEL [address] [place] [address] 10/26/2024 2:00 PM EDT Office Visit [facility] [address] [place] [address] MD [address] [place] [address] documented as of this encounter Visit Diagnoses Not on filedocumented in this encounter Care Teams Geophysical Prospector Relationship Specialty Start Date End Date Dylan Kimbrough MD PCP - General Family Medicine 04/08/20 02/18/22 Delfina Aguayo FNP PCP - General Family Medicine 02/19/22 09/27/22 Maxwell Saleh AGNP PCP - General Family Medicine 09/28/22 12/04/[address] MD [address] [place] [phone] PCP - General Internal Medicine 12/05/22 documented as of this encounter
== END 2024-08-18 13:16 | disposition home or self-care (01) ==
LOC: HO.MAMMO 13:15
PROVIDERS: PCP Student in an Organized Health Care Education/Training Program; Visit Provider Advanced Practice Midwife
DX: N95.9 Unspecified menopausal and perimenopausal disorder (principal)
CPT/HCPCS: 77080

== ENCOUNTER → 2024-08-18 13:30 | Outpatient (BNV) | payer MEDICAID, SELFPAY | PROVIDERS: PCP Student in an Organized Health Care Education/Training Program; Visit Provider Radiology Diagnostic Radiology | DX: E28.39 Other primary ovarian failure (principal) | CPT/HCPCS: 77080 ==

== ENCOUNTER 2024-09-03 12:49 | Outpatient (REF) | payer MEDICAID, SELFPAY ==
--- NOTE | ~2024-09-03 | US_ITS ---
CLINICAL HISTORY: CALCULUS OF KIDNEY US Renal Comparison: None Findings: Right kidney normal size and echotexture, 10 cm length. Lower polar right kidney not accurately evaluated. Focal scarring can not be excluded at this level. Left kidney normal size and echotexture, 10.1 cm length. A few bilateral simple renal cysts measuring up to 1.4 cm. Focal prominence of the lateral aspect of the midpole of the left kidney may be due to a normal variant versus due to an isoechoic renal mass lesion. Further evaluation with renal protocol CT or MRI recommended. Questionable (versus artifact) nonobstructive 11 mm right renal stone. Urinary bladder is unremarkable. Prevoid volume 472 mL. Postvoid volume 14.1 mL. Bilateral ureteral jets are visualized. IMPRESSION: Focal prominence of the lateral aspect of the midpole of the left kidney may be due to a normal variant versus due to an isoechoic renal mass lesion. Further evaluation with renal protocol CT or MRI recommended. No hydronephrosis. Questionable nonobstructive right renal stone. This document has been electronically signed by: Renetta Trevizo MD on 09/04/2024 08:51:48
--- OUTSIDE RECORDS SUMMARY | 2024-09-03 14:47 | XMS_ITS | Encounter Summary ---
Author Organization [employer] Address [address] [facility] [address] [place] [address] Care Team Providers Care Web Producer Name Role Phone Dylan Kimbrough MD Primary Care Provider Delfina NewP Primary Care Provider [phone]- [phone] Maxwell Saleh Primary Care Provider Unavail able Gila Way MD Primary Care Pro vider Encounter Details Date Type Department Care Team (Latest Contact Info) Description 05/20/2018 Abstract [facility] CON[facility] Dental, Provider, DDS Social History [...] Description 09/11/2024 11:00 AM EDT Clinical Support [facility] [address] [place] [phone] Bhavya Saldana, ISMAEL [address] [place] [address] 10/26/2024 2:00 PM EDT Office Visit [facility] [address] [place] [address] MD [address] [place] [address] documented as of this encounter Visit Diagnoses Not on filedocumented in this encounter Care Teams Web Producer Relationship Specialty Start Date End Date Dylan Kimbrough MD PCP - General Family Medicine 04/08/20 02/18/22 Delfina Aguayo FNP PCP - General Family Medicine 02/19/22 09/27/22 Maxwell Saleh AGNP PCP - General Family Medicine 09/28/22 12/04/[address] MD [address] [place] [phone] PCP - General Internal Medicine 12/05/22 documented as of this encounter
== END 2024-09-03 12:50 | disposition home or self-care (01) ==
LOC: HO.US 12:49
PROVIDERS: PCP Student in an Organized Health Care Education/Training Program; Visit Provider Student in an Organized Health Care Education/Training Program
DX: N20.0 Calculus of kidney (principal)
CPT/HCPCS: 76770

== ENCOUNTER → 2024-09-03 12:56 | Outpatient (BNV) | payer MEDICAID, SELFPAY | PROVIDERS: PCP Student in an Organized Health Care Education/Training Program; Visit Provider Radiology Diagnostic Radiology | DX: N28.1 Cyst of kidney, acquired (principal) | CPT/HCPCS: 76770 ==

== ENCOUNTER 2024-09-09 10:08 | Outpatient (REF) | payer MEDICAID, SELFPAY ==
--- OUTSIDE RECORDS SUMMARY | 2024-09-09 11:25 | XMS_ITS | Encounter Summary ---
Author Organization [employer] Address [address] [facility] [address] [place] [address] Care Team Providers Care Senior Maintenance Technician Name Role Phone Dylan Kimbrough MD Primary Care Provider Delfina NewP Primary Care Provider [phone]- [phone] Maxwell Saleh Primary Care Provider Unavail able Gila Way MD Primary Care Pro vider Encounter Details Date Type Department Care Team (Latest Contact Info) Description 05/20/2018 Abstract [facility] CONVERSIONS Dental, Provider, DDS Social History [...] Description 09/11/2024 11:00 AM EDT Clinical Support [facility] [address] [place] [phone] Bhavya Saldana, ISMAEL [address] [place] [address] 10/26/2024 2:00 PM EDT Office Visit [facility] [address] [place] [address] MD [address] [place] [address] documented as of this encounter Visit Diagnoses Not on filedocumented in this encounter Care Teams Senior Maintenance Technician Relationship Specialty Start Date End Date Dylan Kimbrough MD PCP - General Family Medicine 04/08/20 02/18/22 Delfina Aguayo FNP PCP - General Family Medicine 02/19/22 09/27/22 Maxwell Saleh AGNP PCP - General Family Medicine 09/28/22 12/04/[address] MD [address] [place] [phone] PCP - General Internal Medicine 12/05/22 documented as of this encounter
[2024-09-09 12:12] LABS: Alanine Aminotransferase 27 U/L (0-31); Albumin Level 4.1 g/dL (3.5-5.0); Alkaline Phosphatase 94 U/L (39-117); Anion Gap 11 (12-20); Aspartate Amino Transferase 25 U/L (5-31); Bilirubin Total 0.4 mg/dL (0.0-1.0); Blood Urea Nitrogen 20 mg/dL (9-16); Carbon Dioxide 28 mmol/L (22-29); Chloride 108 mmol/L (96-108); Estimated Glomerular Filt Rate > 60; Glucose Random 93 mg/dL (60-115); Potassium 4.2 mmol/L (3.3-5.1); Sodium 143 mmol/L (135-145); Total Protein 7.8 g/dL (6.5-8.0)
== END 2024-09-09 10:09 | disposition home or self-care (01) ==
LOC: HO.HHCL 10:08
PROVIDERS: PCP Student in an Organized Health Care Education/Training Program; Visit Provider Student in an Organized Health Care Education/Training Program
DX: I10 Essential (primary) hypertension (principal)
CPT/HCPCS: 36415; 80053

== ENCOUNTER 2024-10-15 13:05 | Outpatient (REF) | payer MEDICAID, SELFPAY ==
--- NOTE | ~2024-10-15 | CT_ITS ---
CLINICAL HISTORY: RENAL LESION CT abdomen with and without contrast Comparison: None provided Findings: The heart is within the upper limits of normal in size. The lung bases are clear. There is fatty infiltration in the anterior right hepatic lobe. Several nonobstructive right renal stones are seen measuring up to 9 mm. Several simple right renal cysts are seen measuring up to 1.7 cm. Additional subcentimeter right renal hypodensity is too small to characterize. Several 2 mm nonobstructive left renal stones are present. 1.8 cm simple left lower renal parapelvic cyst is noted. The gallbladder, pancreas, spleen, and bilateral adrenal glands appear within normal limits. The visualized bowel loops are normal in caliber. The appendix appears normal. There is no pneumoperitoneum or ascites. There is no adenopathy. Mild degenerative changes are seen in the spine. No acute osseous abnormality is identified. No aggressive lytic or blastic lesion is seen. IMPRESSION: 1. Several simple right renal cysts measuring up to 1.7 cm. Several nonobstructive right renal stones are present measuring up to 9 mm. 2. 1.8 cm simple left lower renal parapelvic cyst. Several nonobstructive 2 mm left renal stones are present. This document has been electronically signed by: Leona Beth on 10/16/2024 09:01:10
--- OUTSIDE RECORDS SUMMARY | 2024-10-15 13:15 | XMS_ITS | Encounter Summary ---
Author Organization [employer] Address [address] [facility] [address] [place] [address] Care Team Providers Care Farm Reporter Name Role Phone Dylan Kimbrough MD Primary Care Provider Delfina New Primary Care Provider [phone] Maxwell Saleh Primary Care Provider Unavail able Gila Way MD Primary Care Pro vider Encounter Details Date Type Department Care Team (Latest Contact Info) Description 05/20/2018 Abstract [facility] CONVERSIONS Dental, Provider, DDS Social History [...] Care Team ( st Contact Info) Description 10/26/2024 2:00 PM EDT Office Visit [facility] MEDICINE [address] [place] [address] MD [address] [place] [address] documented as of this encounter Visit Diagnoses Not on filedocumented in this encounter Care Teams Farm Reporter Relationship Specialty Start Date End Date Dylan Kimbrough MD PCP - General Family Medicine 04/08/20 02/18/22 Delfina Aguayo FNP PCP - General Family Medicine 02/19/22 09/27/22 Maxwell Saleh AGNP PCP - General Family Medicine 09/28/22 12/04/[address] MD [address] [place] [id number] PCP - General Internal Medicine 12/05/22 documented as of this encounter
--- OUTSIDE RECORDS SUMMARY | 2024-10-15 13:16 | XMS_ITS | Clinical Summary ---
Author Organization [facility] Address [address] [place] [phone] Phone Care Team Providers Care Transportation Operations Manager Name Role Phone Physician, No Pcp Primary [...] 84 02/28/2024 6:53 AM EST Temperature 36.5 C (97.7 F) 02/28/2024 3:45 AM EST Respiratory Rate 20 02/28/2024 6:53 AM EST [...] Years (1 of 2 - PCV) 1988 Cervical Cancer Screening: Pap Smear 1990 Colorectal Cancer Screening: Colonoscopy 02/21/2022 Social Influencers of Health Screening 02/21/2022 COVID-19 Vaccine (3 - 2023- season) 2023 03/27/2021, 08/30/2020 Depression Screening 03/25/2024 Influenza Vaccine (#1) 2024 , 05/01/2023, 12/17/2018, Additional history exists Hypertension/CHF/CAD Annual BMP Blood Test 02/26/2025 02/27/2024, 02/07/2024 DTaP,Tdap,and Td Vaccines (2 - Td or Tdap) 04/30/2026 04/30/2016 Cholesterol Screening (Lipid Panel) 02/06/2029 02/07/2024 Zoster Vaccines Completed 06/28/2023, 05/01/2023 Hepatitis C Screening Completed 11/15/2023 HIV Screening Completed 02/07/2024 HIB Vaccines Aged [...] mmol/L LAB CHEMISTRY METHOD 02/27/2024 10:37 PM [facility] Potassium 4.3 3.5 - 5.5 mmol/L LAB CHEMISTRY METHOD 02/27/2024 10:37 PM [facility] Chloride 110 96 - 110 mmol/L LAB CHEMISTRY METHOD 02/27/2024 10:37 PM [facility] CO2 26 21 - 32 mmol/L LAB CHEMISTRY METHOD 02/27/2024 10:37 PM [facility] Anion Gap 5 3 - 11 LAB CHEMISTRY METHOD 02/27/2024 10:37 PM [facility] Glucose 87 70 - 100 mg/dL LAB CHEMISTRY METHOD 02/27/2024 10:37 PM [facility] BUN 20 5 - 25 mg/dL LAB CHEMISTRY METHOD 02/27/2024 10:37 PM [facility] Creatinine 0.87 0.50 - 1.10 mg/dL LAB CHEMISTRY METHOD 02/27/2024 10:37 PM [facility] eGFR 79 >=60 mL/min/1. 73m2 LAB CHEMISTRY METHOD 02/27/2024 10:37 PM [facility] Comment:Calculation based on the Chronic Kidney Disease Epidemiology Collaboration (CKD-EPI) equation refit without adjustment for race. BUN/Creatinine Ratio 23.0 LAB CHEMISTRY METHOD 02/27/2024 10:37 PM [facility] Calcium 9.1 8.5 - 10.5 mg/dL LAB CHEMISTRY METHOD 02/27/2024 10:37 PM [facility] AST (SGOT) 20 10 - 42 unit/L LAB CHEMISTRY METHOD 02/27/2024 10:37 PM [facility] ALT (SGPT) 29 10 - 60 unit/L LAB CHEMISTRY METHOD 02/27/2024 10:37 PM [facility] Alkaline Phosphatase 109 42 - 121 unit/L LAB CHEMISTRY METHOD 02/27/2024 10:37 PM [facility] Total Protein 7.7 6.0 - 8.0 g/dL LAB CHEMISTRY METHOD 02/27/2024 10:37 PM EST [facility] Albumin 3.6 3.2 - 5.0 g/dL LAB CHEMISTRY METHOD 02/27/2024 10:37 PM EST [facility] Total Bilirubin 0.3 0.0 - 1.4 mg/dL LAB CHEMISTRY METHOD 02/27/2024 10:37 PM EST [facility] Blood Venous blood specimen / Unknown Venipuncture / Unknown 02/27/2024 10:03 PM EST 02/27/2024 10:12 PM EST Dougie Dillard MD LAB BLOOD ORDERABLES Final Resu lt [facility] [address] [place] [address], from Last 3 Months or Most Recently Relevant to Health Maintenance Insurance MEDICAID - [place] Care Teams Transportation Operations Manager Relationship Specialty Start Date End Date Physician, No Pcp PCP - General 02/28/24
[2024-10-15] MEDS: iohexoL 350 MG/ML 100 ML INFUS..BTL IV (14:15)
== END 2024-10-15 13:06 | disposition home or self-care (01) ==
LOC: HO.CT 13:05
PROVIDERS: PCP Student in an Organized Health Care Education/Training Program; Visit Provider Student in an Organized Health Care Education/Training Program
DX: N28.9 Disorder of kidney and ureter, unspecified (principal)
CPT/HCPCS: 74170; Q9967

== ENCOUNTER → 2024-10-15 13:08 | Outpatient (BNV) | payer MEDICAID, SELFPAY | PROVIDERS: PCP Student in an Organized Health Care Education/Training Program; Visit Provider Radiology Vascular & Interventional Radiology | DX: N20.0 Calculus of kidney (principal); N28.1 Cyst of kidney, acquired | CPT/HCPCS: 74170 ==

== ENCOUNTER 2024-12-08 06:26 | Outpatient (REF) | payer MEDICAID, SELFPAY ==
--- OUTSIDE RECORDS SUMMARY | 2024-12-08 06:28 | XMS_ITS | Clinical Summary ---
Author Organization [facility] Address [address] [place] [phone] Phone Care Team Providers Care Tool Lathe Operator Name Role Phone Physician, No Pcp Primary [...] of 3 - 19+ 3-dose series) 1988 Cervical Cancer Screening: Pap Smear 1990 Pneumococcal Vaccine: 50+ Years (1 of 1 - PCV) 2019 Colorectal Cancer Screening: Colonoscopy 02/21/2022 Social Influencers of Health Screening 02/21/2022 Depression Screening 03/25/2024 COVID-19 Vaccine (3 - season) 2024 03/27/2021, 08/30/2020 Influenza Vaccine (#1) 2024 , 05/01/2023, 12/17/2018, [...] mmol/L LAB CHEMISTRY METHOD 02/27/2024 10:37 PM [facility] Potassium 4.3 3.5 - 5.5 mmol/L LAB CHEMISTRY METHOD 02/27/2024 10:37 PM [facility] Chloride 110 96 - 110 mmol/L LAB CHEMISTRY METHOD 02/27/2024 10:37 PM [facility] CO2 26 21 - 32 mmol/L LAB CHEMISTRY METHOD 02/27/2024 10:37 PM [facility] Anion Gap 5 3 - 11 LAB CHEMISTRY METHOD 02/27/2024 10:37 PM [facility] Glucose 87 70 - 100 mg/dL LAB CHEMISTRY METHOD 02/27/2024 10:37 PM [facility] BUN 20 5 - 25 mg/dL LAB CHEMISTRY METHOD 02/27/2024 10:37 PM [facility] Creatinine 0.87 0.50 - 1.10 mg/dL LAB CHEMISTRY METHOD 02/27/2024 10:37 PM [facility] eGFR 79 >=60 mL/min/1. 73m2 LAB CHEMISTRY METHOD 02/27/2024 10:37 PM [facility] Comment:Calculation based on the Chronic Kidney Disease Epidemiology Collaboration (CKD-EPI) equation refit without adjustment for race. BUN/Creatinine Ratio 23.0 LAB CHEMISTRY METHOD 02/27/2024 10:37 PM [facility] Calcium 9.1 8.5 - 10.5 mg/dL LAB CHEMISTRY METHOD 02/27/2024 10:37 PM [facility] AST (SGOT) 20 10 - 42 unit/L LAB CHEMISTRY METHOD 02/27/2024 10:37 PM [facility] ALT (SGPT) 29 10 - 60 unit/L LAB CHEMISTRY METHOD 02/27/2024 10:37 PM [facility] Alkaline Phosphatase 109 42 - 121 unit/L LAB CHEMISTRY METHOD 02/27/2024 10:37 PM [facility] Total Protein 7.7 6.0 - 8.0 g/dL LAB CHEMISTRY METHOD 02/27/2024 10:37 PM EST [facility] Albumin 3.6 3.2 - 5.0 g/dL LAB CHEMISTRY METHOD 02/27/2024 10:37 PM EST [facility] Total Bilirubin 0.3 0.0 - 1.4 mg/dL LAB CHEMISTRY METHOD 02/27/2024 10:37 PM EST [facility] Blood Venous blood specimen / Unknown Venipuncture / Unknown 02/27/2024 10:03 PM EST 02/27/2024 10:12 PM EST Dougie Dillard MD LAB BLOOD ORDERABLES Final Resu lt [facility] [address] [place] [address], from Last 3 Months or Most Recently Relevant to Health Maintenance Insurance MEDICAID - [place] Care Teams Tool Lathe Operator Relationship Specialty Start Date End Date Physician, No Pcp PCP - General 02/28/24
--- OUTSIDE RECORDS SUMMARY | 2024-12-08 06:28 | XMS_ITS | Encounter Summary ---
Demographics Address [address] [facility] [address] [place] [address] Mobile Phone Home Phone Preferred Language es Marital Status Unknown Hoahaoism Affiliation Unknown Race Other Race Ethnic Group Unknown Author Organization [employer] Address [address] [facility] [address] [place] [address] Care Team Providers Care Metal Caster Name Role Phone Gila Way MD Primary Care Pro vider Reason for Visit * Reason Comments Med Refill Encounter Details Date Type Department Care Team (Late st Contact Info) Description 11/27/2024 Refill [facility] MEDICINE [address] [place], [place] [phone] Gila Way MD [address] [place] [address] Social History Tobacco Use Types Packs/Day Years Used Date Smoking Tobacco: Never Smokeless Tobacco: Never Alcohol Use Standard Drinks/Week Comments Never 0 (1 standard drink = 0.6 oz pur e alcohol) Depression Answer Date Recorded Patient Health Questionnaire-9 Score 0 10/26/2024 Patient Health Questionnaire-9 Score 0 10/26/2024 Last PHQ-9: Questionnaire Data Not on file 0 10/26/2024 Housing Stability Answer Date Recorded What is your housing situation today? I have nathaniel byrne 10/26/[address] you li ve. Do you have problems with any of the following? None of the above 10/26/2024 Food Insecurity Answer Date Recorded Within the past 12 months, y ou worried that your food would run out before you got money to buy more: Never True 10/26/2024 Within the past 12 months,th e food you bought just didn't last and you didn't have enough money to get more: Never True 06/2024 Transportation Answer Date Recorded In the past 12 months, has l ack of transportation kept you from medical appts, meetings, work or from getting things needed for daily living? No 10/26/2024 Utilities Answer Date Recorded In the past 12 months, has t he electric, gas, oil or water company threatened to shut off services in your home? No 10/26/2024 Depression Answer Date Recorded Patient Health Questionnaire-2 Score 0 10/26/2024 Internet Access Answer Date Recorded Internet Access Q1 Yes 10/26/2024 Internet Access Q2 Not on file 10/26/2024 Comments No Sex and Gender Information Value Date Recorded Sex Assigned at Female 01/22/2022 10:31 AM EDT Legal Sex Female 10:31 AM EDT Gender Identity Female 01/22/2022 10:31 AM EDT Sexual Orientation Straight 01/22/2022 10 :31 AM EDT documented as of this encounter Plan of Treatment Upcoming Encounters Date Type Department Care Team (Late st Contact Info) Description 12/25/2024 11:15 AM EDT Office Visit [facility] [address] [place] [address] [phone] MD [address] [place] [phone] documented as of this encounter Visit Diagnoses Not on filedocumented in this encounter Additional Health Concerns Assessment Noted Time PHQ-9 Depression Total Score: 0 10/27/19 25 2:24 PM EDT documented as of this encounter Care Teams Metal Caster Relationship Specialty Start Date End Date Gila Way MD [address] [place] [address] PCP - General Internal Medicine 12/05/22 documented as of this encounter
--- OUTSIDE RECORDS SUMMARY | 2024-12-08 06:28 | XMS_ITS | Encounter Summary ---
Demographics Address [address] [facility] [address] [place] [address] Mobile Phone Home Phone Preferred Language es Marital Status Unknown Baptist Affiliation Unknown Race Other Race Ethnic Group Unknown Author Organization [employer] Address [address] [facility] [address] [place] [address] Care Team Providers Care Marketing Compliance Manager Name Role Phone Dylan Kimbrough MD Primary Care Provider Delfina New Primary Care Provider Maxwell Navarrete Primary Care Provider Unavail able Gila Way MD Primary Care Pro vider Encounter Details Date Type Department Care Team (Latest Contact Info) Description 05/20/2018 Abstract [facility] CONVERSIONS Dental, Provider, DDS Social History [...] Care Team ( st Contact Info) Description 12/25/2024 11:15 AM EDT Office Visit [facility] MEDICINE [address] [place] [address] MD [address] [place] [address] documented as of this encounter Visit Diagnoses Not on filedocumented in this encounter Care Teams Marketing Compliance Manager Relationship Specialty Start Date End Date Dylan Kimbrough MD PCP - General Family Medicine 04/08/20 02/18/22 Delfina Aguayo FNP PCP - General Family Medicine 02/19/22 09/27/22 Maxwell Saleh AGNP PCP - General Family Medicine 09/28/22 12/04/[address] MD [address] [place] [id number] PCP - General Internal Medicine 12/05/22 documented as of this encounter
--- OUTSIDE RECORDS SUMMARY | 2024-12-08 06:28 | XMS_ITS | Encounter Summary ---
Author Organization [employer] Address [address] [facility] [address] [place] [address] Care Team Providers Care Tufting Machine Operator Single Needle Name Role Phone Gila Way MD Primary Care Pro vider Reason for Referral * Consultation (Routine) - Closed Specialty Diagnoses / Procedures Referred By Cassia blanco Referred To Contact Physical Therapy Diagnoses Chronic low back pain without sciatica, unspecified back pain laterality Mya Kendrick MD [address] [place] [address] Phone: tel: fax: AT [facility] - [place] [address] [facility] [address] Phone: tel: fax: Referral ID Status Reason Start Date Expiration Date V isits Requested Visits Authorized [id number] Closed Specialty Services Required 03/04/2024 03/04/2025 20 20 Encounter Details Date Type Department Care Team (Late st Contact Info) Description 03/03/2024 Orders Only [facility] MEDICINE [address] [place], [place] [phone] Mya Kendrick MD [address] [place], [place] [phone] Chronic low back pain without sciatica, unspecified [...] Description 12/25/2024 11:15 AM EDT Office Visit [facility] MEDICINE [address] [place] [phone] MD [address] [place] [address] Scheduled Referrals Name Type Priority Associated Diagnoses [...] documented as of this encounter Care Teams Tufting Machine Operator Single Needle Relationship Specialty Start Date End Date Gila Way MD [address] [place] [phone] PCP - General Internal Medicine 12/05/22 documented as of this encounter
--- OUTSIDE RECORDS SUMMARY | 2024-12-08 06:28 | XMS_ITS | Clinical Summary ---
Demographics Address [address] [place] [address] Mobile Phone Home Phone Preferred Language es Marital Status Unknown Anglican Affiliation Unknown Race Other Race Ethnic Group Unknown Author Organization [facility] Address [address] [place] [address] Care Team Providers Care Customer Program Specialist Name Role Phone Gila Way MD [...] 30 patch 2 07/28/19 25 Active cholecalciferol (Vitamin D-3) 125 MCG (5000 UT) tabletIndications :Vitamin D deficiency TAKE 1 TABLET BY MOUTH EVERY DAY 90 tablet 10/20/19 25 Active hydroCHLOROthiazi de 12.5 MG tablet Take 1 tablet (12.5 mg) by mouth Once per day. 90 tablet 10/27/19 25 2025 Active econazole nitrate 1 % creamIndications: Intertrigo Apply topically 2 times daily. 85 g 11/28/19 25 Active triamcinolone (Kenalog) 0.025 % creamIndications: Intertrigo Apply topically 2 times daily. 80 g 11/28/19 25 Active losartan (Cozaar) 100 MG tabletIndications :Essential hypertension Take 1 tablet (100 mg) by mouth Once per day. 90 tablet 11/28/19 25 2024 Active losartan (Cozaar) 100 MG tablet Take 1 tablet (100 mg) by mouth Once per day. 90 tablet 07/28/19 25 2024 Discontinued(R eorder (will not trigger notification to Pharmacy)) Tirzepatide-Weigh t Management (Zepbound) 2.5 MG/0.5ML solution auto-injectorIndi cations:Obesity Inject 0.5 mL (2.5 mg) under the skin 1 (one) time per week. Start 2.5 mg weekly x 4 weeks, then increased to 5 mg x 4 weeks, then increase to 7.5 mg weekly 2 mL 10/27/19 25 2024 clotrimazole (Lotrimin) 1 % cream Apply topically 2 times daily for 28 days. 30 g 10/27/19 25 2024 Active Problems Problem Noted Date Diagnosed Date Intertrigo 10/27/2024 Nephrolithiasis 10/27/2024 Renal cyst 10/27/2024 Depression, unspecified 07/27/2024 Assessment & Plan (07/28/2024 [...] and also in the community. Her strong pentecostalism belief is helping Jaylyn to deal with [...] and also in the community. Her strong pentecostalism belief is helping Jaylyn to deal with [...] gradually return to regular daily routine and hindu activities. PLAN: (check all that apply) Further services needed, but declined Behavioral Health Integration Plan Internal Follow up with [facility] Patient Self Plan Patient to utilize skills provided in intervention , Patient to reach out to [facility] team as needed, and Patient to reach out to [facility] as needed. Pt declined OP referral for external agency. She would like to follow-up with clinician during next medical appointment. 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 Encounters Date Type Department Care Team Description 11/27/2024 3:30 PM EDT Office Visit [facility] [address] [place] [address] Frandy Loomis MD Intertrigo (Primary Dx) 11/27/2024 Refill [facility] [address] [facility] [place] [address] MD 11/27/2024 Travel 11/27/2024 Refill [facility] [address] [facility] [place] [address] MD Essential hypertension 10/26/2024 2:00 PM EDT Office Visit [facility] [place] [address] MD Class 2 obesity due to excess calories without serious comorbidity with body mass index (BMI) of 36.0 to 36.9 in adult (Primary Dx); Annual physical exam; Essential hypertension; Health care maintenance; Idiopathic intracranial hypertension; ANGELICA on CPAP; Intertrigo; Nephrolithiasis; Renal cyst 10/26/2024 Travel 10/23/2024 Telephone [facility] [place] [address] MD chartprep 10/18/2024 Refill [facility] [place], [place] [phone] Gila Way MD Vitamin D deficiency 10/16/2024 Telephone [facility] [place], [place] [phone] Buffy Vivas, RN Results 10/16/2024 Orders Only [facility] [place] [phone] Gila Way MD Nephrolithiasis (Primary Dx) 10/16/2024 Patient Outreach [facility] [address] [place], [place] [phone] Gila Way MD Pre-visit Planning (Pre-visit planning - LVM ) from Last 3 Months Immunizations Immunization Administration Dates Next Due Influenza Injectable Quadriv alant Preservative Free IIV4 MDCK 05/01/2023 Influenza injectable quadriv alent IIV4 with preservative 12/27/2017,12/24/2016 Influenza injectable quadrivalent preservative f ree 12/17/2018,04/30/2016 Influenza, seasonal, injectable, preservative fr ee 01/24/2024 Tdap 04/30/2016 Zoster, Recombinant 06/28/2023,05/01/2023 Family History Medical History Relation Name Comments Prostate cancer Father Breast cancer Father's Sister Throat cancer Father's Sister bladder cancer Mother metastasis [...] Sign Reading Time Taken Comments Blood Pressure 140/86 11/27/2024 3:22 PM EDT Pulse 96 11/27/2024 3:22 PM EDT Temperature 35.9 C (96.6 F) 11/27/2024 3:22 PM EDT Respiratory Rate 20 11/27/2024 3:22 PM EDT Oxygen Saturation 96% 11/27/2024 3:22 PM EDT Inhaled Oxygen Concentration - - Weight 84.7 kg (186 lb 12.8 oz) 11/27/2024 3:22 PM EDT Height 157.5 cm (5' 2 ) 10/26/2024 2:20 PM EDT Body Mass Index 34.17 10/26/2024 2:20 PM EDT Plan of Treatment Upcoming Encounters Date Type Department Care Team (Late st Contact Info) Description 12/25/2024 11:15 AM EDT Office Visit [facility] [address] [place] [phone] MD [address] [place], [place] [phone] Health Maintenance Due Date Last Done Comments CT Colonography 1970 Colonoscopy 1969 Colorectal Cancer Screening 1970 FIT DNA/Cologuard 1969 FIT 1970 FOBT 1970 Sigmoidoscopy 1969 Hepatitis B Vaccines (1 of 3 - 19+ 3-dose series) 1988 Pneumococcal Vaccine: 50+ Years (1 of 1 - PCV) 2019 Diabetes: Hemoglobin A1C 11/14/2024 024, 06/19/2021, 09/14/2020 COVID-19 Vaccine (3 - season) 2024 03/27/2021, 08/30/2020 Influenza Vaccine (#1) 2024 , 05/01/2023, 12/17/2018, Additional history exists Mammogram 06/08/2025 06/08/2024, 05/23, 05/25/2021, Additional history exists Alcohol/Substance Use Screening 07/27/2025 07/27/2024 Disability Screening 07/27/2025 07/27/2024 Depression Screening 10/26/2025 10/26/2024, 10/27/19 SDOH Screening 10/26/2025 10/26/2024 Tobacco Screening 10/26/2025 10/26/2024 DTaP/Tdap/Td Vaccines (2 - Td or Tdap) [...] Procedure Name Priority Date/Time Associated Diagnosis Comments CT ABDOMEN W AND WO CONTRAST Routine 10/16/2024 9:01 AM EDT Renal lesion COMPREHENSIVE METABOLIC PANEL Routine 09/09/2024 10:17 AM EDT Essential hypertension BI MAMMOGRAM SCREENING TOMOSYNTHESIS BILATERAL Routine 06/08/2024 1:50 PM EDT LIPID PANEL, STANDARD Routine 03/27/2024 1:45 PM [...] Recently Relevant to Health Maintenance Results * CT Abdomen w/ and w/o Contrast (10/16/2024 9:01 AM EDT) Anatomical Region Laterality Modality Body, Abdomen Computed Tomogra phy 10/16/2024 9:01 AM EDT Narrative 10/16/2024 9:02 AM EDT [address] [address] [address] Scan Report Signed Patient: Jaylyn Hou MR#: [id number] : 1970 Acct:[id number] Age/Sex: 54 / F ADM Date: 10/15/24 Loc: HO.CT Attending Dr: Gila Montoya MD Ordering Physician: Gila Way MD Date of Service: 10/15/24 Procedure(s): CT abdomen wo/w IV con Accession Number(s): [id number] cc: Gila Way MD Report Number: [id number]: Total DLP = 759.00 mGy-cm CLINICAL HISTORY: RENAL LESION CT abdomen with and without contrast Comparison: None provided Findings: The heart is within the upper limits of normal in size. The lung bases are clear. There is fatty infiltration in the anterior right hepatic lobe. Several nonobstructive right renal stones are seen measuring up to 9 mm. Several simple right renal cysts are seen measuring up to 1.7 cm. Additional subcentimeter right renal hypodensity is too small to characterize. Several 2 mm nonobstructive left renal stones are present. 1.8 cm simple left lower renal parapelvic cyst is noted. The gallbladder, pancreas, spleen, and bilateral adrenal glands appear within normal limits. The visualized bowel loops are normal in caliber. The appendix appears normal. There is no pneumoperitoneum or ascites. There is no adenopathy. Mild degenerative changes are seen in the spine. No acute osseous abnormality is identified. No aggressive lytic or blastic lesion is seen. IMPRESSION: 1. Several simple right renal cysts measuring up to 1.7 cm. Several nonobstructive right renal stones are present measuring up to 9 mm. 2. 1.8 cm simple left lower renal parapelvic cyst. Several nonobstructive 2 mm left renal stones are present. This document has been electronically signed by: Leona Beth on 10/16/2024 09:01:10 Dictated By: Leona Beth MD Signed By: <Electronically signed by Leona Beth MD in OV> 10/16/24901 DD/ 0 TD/TT: 10/16/24900 Fashion Styling Intern: Procedure Note Donotuseinterpreter, Image - 10/16/[address] [address] [address] Scan Report Signed Patient: Yvette Hou#: [id number] : 1970Acct:[id number] Age/Sex: 54 / FADM Date: 10/15/24 Loc: HO.CT Attending Dr: Gila Montoya MD Ordering Physician: Gila Way MD Date of Service: 10/15/24 Procedure(s): CT abdomen wo/w IV con Accession Number(s): [id number] cc: Gila Way MD Report Number: [id number]: Total DLP = 759.00 mGy-cm CLINICAL HISTORY: RENAL LESION CT abdomen with and without contrast Comparison: None provided Findings: The heart is within the upper limits of normal in size. The lung bases are clear. There is fatty infiltration in the anterior right hepatic lobe. Several nonobstructive right renal stones are seen measuring up to 9 mm. Several simple right renal cysts are seen measuring up to 1.7 cm. Additional subcentimeter right renal hypodensity is too small to characterize. Several 2 mm nonobstructive left renal stones are present. 1.8 cm simple left lower renal parapelvic cyst is noted. The gallbladder, pancreas, spleen, and bilateral adrenal glands appear within normal limits. The visualized bowel loops are normal in caliber. The appendix appears normal. There is no pneumoperitoneum or ascites. There is no adenopathy. Mild degenerative changes are seen in the spine. No acute osseous abnormality is identified. No aggressive lytic or blastic lesion is seen. IMPRESSION: 1. Several simple right renal cysts measuring up to 1.7 cm. Several nonobstructive right renal stones are present measuring up to 9 mm. 2. 1.8 cm simple left lower renal parapelvic cyst. Several nonobstructive 2 mm left renal stones are present. This document has been electronically signed by: Leona Beth on 10/16/2024 09:01:10 Dictated By: Leona Beth MD Signed By: <Electronically signed by Leona Beth MD in OV> 10/16/24 09 DD/ 09 TD/TT: 10/16/24 09 Fashion Styling Intern: us Gila Montoya MD IMG CT PROCEDURES Edited Result - Final * (ABNORMAL) Comprehensive Metabolic Panel (09/09/2024 10:17 AM EDT) Sodium 143 135 - 145 mmol/L [facility] Potassium 4.2 3.3 - 5.1 mmol/L [facility] Chloride 108 96 - 108 mmol/L [facility] Carbon Dioxide 28 22 - 29 mmol/L [facility] Anion Gap 11(L) 12 - 20 [facility] Urea Nitrogen (BUN) 20(H) 9 - 16 mg/dL [facility] Creatinine, Serum 0.84 0.5 - 1.4 mg/dL [facility] Estimated Glomerular Filt Rate >60 [facility] Comment:Chronic Kidney Disea se: Estimated GFR < 60 mL/min/1.82d2Lnlexs Kidney Disease: Estimated GFR < 15 mL/min/1.73m2 Glucose 93 60 - 115 mg/dL [facility] Calcium 9.0 8.4 - 10.2 mg/dL [facility] Bilirubin, Total 0.4 0.0 - 1.0 mg/dL [facility] Aspartate Amino Transferase 25 5 - 31 U/L [facility] Alanine Aminotransferase 27 0 - 31 U/L [facility] Total Protein 7.8 6.5 - 8.0 g/dL [facility] Albumin Level 4.1 3.5 - 5.0 g/dL [facility] Alkaline Phosphatase 94 39 - 117 U/L [facility] Blood Venous blood specimen / Unknown 09/09/2024 10:17 AM EDT 09/09/2024 11:30 AM EDT us Gila Montoya MD LAB BLOOD ORDERAB LES Final Result [facility] [address] [place] [address] [phone] * BI Mammogram Screening Tomosynthesis Bilateral (06/08/2024 1:50 PM EDT) Anatomical Region Laterality Modality Breast Bilateral Mammography 06/08/2024 1:50 PM EDT Narrative 06/14/2024 8:03 PM EDT [facility] [address] [place] [address] Mammography Report Signed Patient: Jaylyn Hou MR#: [id number] : 1970 Acct:[id number] Age/Sex: 54 / F ADM Date: 06/08/24 Loc: HO.MAMMO Attending Dr: Gila Montoya MD Ordering Physician: Gila Way MD Re sults: 1Negative Date of Service: 06/08/24 Follow Up: 1 Year From Orig inal Mammogram Procedure(s): MM tomosynthesis screening BI Accession Number(s): [id number] cc: Gila Way MD EXAMINATION: MM SCREENING [...] OV> 06/14/241999 DD/ 1350 TD/TT: 06/08/24 1400 Fashion Styling Intern: Procedure Note Donotuseinterpreter, Image - 06/14/2024 [facility] [address] [place] [address] Dr. [place], [place] [address] Mammography Report Signed Patient: Jaylyn HouMR#: [id number] : 1970Acct:[id number] Age/Sex: 54 / FADM Date: 06/08/24 Loc: HO.MAMMO Attending Dr: Gila Montoya MD Ordering Physician: Gila Way sults: 1Negative Date of Service: 06/08/24Follow Up: 1 Year From Orig ina Mammogram Procedure(s): MM tomosynthesis screening BI Accession Number(s): [id number] cc: Gila Way MD EXAMINATION: MM SCREENING [...] OV> 06/14/241999 DD/ 1350 TD/TT: 06/08/24 1400 Fashion Styling Intern: us Gila Montoya MD IMG BI PROCEDURES Edited Result - Final * (ABNORMAL) Lipid Panel, Standard (03/27/2024 1:45 PM EST) Triglycerides 135 <150 mg/dL [facility] Comment:Desirable Triglyceri de: less than 150 mg/dLBorderline High Triglyceride 150-199 mg/dLHigh Triglyceride: 200-499 mg/dLVery High Triglyceride: greater than or equal to 5OO mg/dL Cholesterol 153 <200 mg/dL [facility] Comment:Desirable Cholestero l: less than 200 mg/dLBorderline High Cholesterol: 200-239 mg/dLHigh Cholesterol: greater than 239 mg/dL LDL Cholesterol Calculated 92 <100 mg/dL [facility] Comment:Desirable LDL: less than 100 mg/dLNear Optimal/Above Optimal LDL: 110- 129 mg/dLBorderline High LDL: 130-159 mg/dLHigh LDL: 160-189 mg/dLVery High LDL: greater than or equal to 190 mg/dL HDL Cholesterol 34(L) >40 mg/dL [facility] Comment:Desirable HDL: great er than 40 mg/dL Note: This HDL assay may give artificially low results in patients with liver disease. Blood Venous blood specimen / Unknown 03/27/2024 1:45 PM EST 03/27/2024 4:08 PM EST Gila Montoya MD LAB BLOOD ORDERAB LES Final Result [facility] [address] [place] [phone] * HIV-1/2 Antigen and Antibodies, Fourth Generation, with Reflexes (02/07/2024 8:50 AM EST) HIV AB/AG Nonreactive Nonreactive [facility] Comment:HIV-1 p24 Ag and/or HIV-1/HIV-2 Ab not detected.A test result that is nonreactive does not exclude thepossibility of exposure to or infection with HIV-1 and/orHIV-2. Nonreactive results in this assay for individualswith prior exposure to HIV-1 and/or HIV-2 may be due toantigen and antibody levels that are below the limit ofdetection of this assay.The Bizen HIV Ag/Ab Combo assay result andsupplemental assay results should be interpreted inconjunction with the patient's clinical presentation,history and other laboratory results. If the results areinconsistent with clinical evidence, additional testing issuggested to confirm the result. Blood Venous blood specimen / Unknown 02/07/2024 8:50 AM EST 02/07/2024 11:03 AM EST Gila Montoya MD LAB BLOOD ORDERAB LES Final Result Performing Organization Address [facility] Co de Phone Number [facility] [address] [place] [phone] * Hepatitis C Antibody with Reflex to HCV, RNA, Quantitative, Real-Time PCR (11/15/2023 8:49 AM EDT) Hepatitis C Antibody Nonreactive Nonreactive [facility] Comment:Antibodies to HCV no t detected; does not exclude early acuteHCV infection. Blood Venous blood specimen / Unknown 11/15/2023 8:49 AM EDT 11/15/2023 11:05 AM EDT Gila Montoya MD LAB BLOOD ORDERAB LES Final Result Performing Organization Address City/[facility] Co de Phone Number [facility] [address] [place] [phone] * Hemoglobin A1c (11/15/2023 8:49 AM EDT) Hemoglobin A1c 5.4 <6.0 % [facility] Comment:Hemoglobin A1C Refer ence Range Adults: 4.8 - 6.0 % Non diabetic: < 6.0 % Goal: < 7.0 %Additional Action Suggested: > 8.0 %Note: Hemoglobin A1c results are invalid for patients with abnormal amounts of HbF. Blood transfusions may impact the HbA1c concentration in the patient sample. Estimated Average Glucose 108 mg/dL [facility] Comment:eAG = Estimated ave rage glucose which is %A1C expressed asaverage glucose, using the formula of the [id number] Glucose study (ADAG), Diabetes Care, Vol.31,#8,Oct. 2007 Blood Venous blood specimen / Unknown 11/15/2023 8:49 AM EDT 11/15/2023 11:05 AM EDT us Gila Montoya MD LAB BLOOD ORDERAB LES Final Result Performing Organization Address City/[facility]/ZIP Co de Phone Number [facility] [address] [place] [phone] * THINPREP PAP (10/09/2021 2:38 PM EDT) Clinical Information: None given [facility] COMMENT SEE COMMENT [facility] Comment: EXPLANATORY NOTE: The Pap is a screening test for cervical cancer. It is not a diagnostic test and is subject to false negative and false positive results. It is most reliable when a satisfactory sample, regularly obtained, is submitted with relevant clinical findings and history, and when the Pap result is evaluated along with historic and current clinical information. Services Rep : SEE COMMENT [facility] Comment: DCR, CT(ASCP) CT screening location: [place] [address] Interpretation/R esult: Negative for intraepithelial lesion or malignancy. [facility] LMP: NONE [facility]IVEN [facility] Prev. BX: NONE [facility] Prev. PAP: NONE [facility]IV[facility] SOURCE: None given [facility] Statement Of Adequacy: SEE COMMENT [facility] Comment: Satisfactory for evaluation. Endocervical/transformation zone component present. Age and/or menstrual status not provided 10/09/2021 2:38 PM EDT us Dylan Kimbrough MD LAB PATHOLOGY ORDERABLES Fin al Result Performing Organization Address City/[facility]/ZIP Co de Phone Number [facility] [address] * HPV mRNA E6/E7 (10/09/2021 2:38 PM EDT) HPV nRNA E6/E7 Not Detected Not Detected [facility] Comment: Methodology: Semiconductor Processing Technician-Mediated Amplification This assay detects E6/E7 viral messenger RNA (mRNA) from 14 high-risk HPV types (16,18,31,33,35,39,45,51,52,56,58,59,66,68). Cervical sources are required for HPV testing. If a vaginal source from a patient who has had a total hysterectomy with removal of cervix was submitted, please contact the testing laboratory for alternative testing options. For additional information, please refer to http://education.Numerex/faq/FMW609r5 (This link if provided for information/ educational purposes only.) 10/09/2021 2:38 PM EDT Dylan Kimbrough MD LAB BLOOD ORDERABLES Final R esult [facility] [address] from Last 3 Months or Most Recently Relevant to Health Maintenance Insurance [address] [place], [place] [address] Care Teams Customer Program Specialist Relationship Specialty Start Date End Date Gila Way MD [address] [place] [phone] PCP - General Internal Medicine 12/05/22
== END 2024-12-08 06:27 | disposition home or self-care (01) ==
LOC: CF 06:26
PROVIDERS: Visit Provider Anesthesiology
DX: M47.816 Spondylosis without myelopathy or radiculopathy, lumbar region (principal); M47.814 Spondylosis without myelopathy or radiculopathy, thoracic region; G89.29 Other chronic pain
CPT/HCPCS: 99211; J2003; J2795; Q9967

== ENCOUNTER 2024-12-08 10:20 | Outpatient (AMB) | payer MEDICAID, SELFPAY ==
--- NOTE | 2024-12-08 10:27 | MHC.OFFVIS ---
Vital Signs 12/08/24 10:28 Weight 187 lb BP 176/86 H Blood Pressure Location Lt brachial Position Sitting Respiration 18 Pulse 72 Pulse Source Pulse Oximeter Pulse Oximetry (%) 98 Oxygen Delivery Method Room Air Intake Visit Reasons: RIGHT DIAGNOSTIC L1, L2, L3, L4 MBB Inspector Final Assembly Conveyor Line Required: Yes Inspector Final Assembly Conveyor Line Name: hospital interp Allergies No Known Allergies Allergy (Verified 08/13/24 11:23) PFSH Medical History (Updated 08/17/24 @ 22:36 by MARLI Chaudhari) Chronic low back pain Family history of colorectal cancer Hypertension Surgical History (Updated 08/17/24 @ 22:23 by MARLI Chaudhari) Sebaceous cyst History of back surgery Social History Alcohol intake: never Patient Tobacco Use Status: Never used Tobacco Current occupational status: unemployed Physical Exam Vital Signs: Last Vital Signs Pulse 72 12/08/24 10:28 Resp 18 12/08/24 10:28 BP 176/86 H 12/08/24 10:28 Pulse Ox 98 12/08/24 10:28 Oxygen Delivery Method Room Air 12/08/24 10:28 Assessment & Plan Assessment & Plan (1) Lumbar spondylosis: Code(s): M47.816 - Spondylosis without myelopathy or radiculopathy, lumbar region Category: Medical (2) Chronic low back pain: Code(s): M54.50 - Low back pain, unspecified; G89.29 - Other chronic pain Category: Medical (3) Thoracic spondylosis: Code(s): M47.814 - Spondylosis without myelopathy or radiculopathy, thoracic region Category: Medical Plan Jaylyn is very pleasant 54 years old Syriac-speaking female who presented today [place] [facility] [place] to perform diagnostic medial branch block L1, L2, L3, L4 on the right side. She the past received in the emergency room a procedure which nature she does not remember. Most likely after her explanations using park interpreter of [facility] [place] I figured out that her procedure was a spinal tap. She tolerated this procedure very poorly. She became very nervous when I explained to her risks and benefits of the procedure. She has started to cry. All our efforts to come her down were unsuccessful. I offered the patient to change the procedure for procedure in the operating room done under moderate sedation. Patient agreed for this plan. We will schedule her in the operating room. Orders: Orders [place] guidance in treatment room Today M47.816 - Spondylosis without myelopathy or radiculopathy, lumbar region Coding Level of Care Code Est Pt Level 1 (13170) Diagnoses Lumbar spondylosis M47.816 Chronic low back pain M54.50; G89.29 Thoracic spondylosis M47.814
[2024-12-08 10:28] VITALS: BP 176/86; PULSE 72; RESP 18; O2SAT 98
== END 2024-12-08 10:44 | disposition home or self-care (01) ==
LOC: HO.PMCPRC 10:20
PROVIDERS: PCP Student in an Organized Health Care Education/Training Program; Visit Provider Anesthesiology
DX: M47.816 Spondylosis without myelopathy or radiculopathy, lumbar region (principal); M54.50 Low back pain, unspecified; G89.29 Other chronic pain; M47.814 Spondylosis without myelopathy or radiculopathy, thoracic region

== ENCOUNTER 2024-12-17 13:31 | Outpatient (AMB) | payer MEDICAID, SELFPAY ==
--- NOTE | 2024-12-17 13:33 | A.OFFVIS_ITS ---
Intake Visit Reasons: kidney stones Intake Note: Patient is present for KIDNEY STONES Urology Medication:NONE Antibiotic Allergy:NONE Blood Thinner:NONE TODAY'S PVR:124ML'S Mill Tender Warm Up Required: No Mill Tender Warm Up Name: TYRONE GOLDBERG Allergies No Known Allergies Allergy (Verified 12/17/24 14:36) Medication List - Last Reconciled 12/17/24 by MARLI Lira- acetazolamide 250 mg PO DAILY amlodipine 10 mg PO DAILY bisacodyl (Dulcolax (bisacodyl)) 20 mg (4 x 5 mg) PO ONCE 1 day camphor-methyl salicyl-menthol 3.1-10-6 % 1 patch topical BID-TID PRN 7 days chlorthalidone 1 tab PO DAILY cholecalciferol (vitamin D3) 125 mcg PO QAM lidocaine 5% 1 patch topical DAILY 30 days losartan 50 mg PO DAILY polyethylene glycol 3350 (Miralax) 238 grams PO ONCE rosuvastatin 20 mg PO QAM topiramate 25 mg PO DAILY HPI Comments Details: Jaylyn is a 54-year-old Tuvaluan-speaking female patient of Dr. Pierre Montoya. She has a past medical history of low-back pain, hyperlipidemia and hypertension. She presents to the office today as a new patient for nephrolithiasis as well as renal cysts. In discussion with the patient today she reports having had a recent CT with her PCP for ongoing back pain she has been experiencing at which time she was noted to have nephrolithiasis as well as renal cysts and recommendations were made for urology referral for further assessment evaluation. These results were reviewed and communicated with the patient today. 10/16 several simple right renal cysts measuring up to 1.7 cm. Several nonobstructing right renal stones are present measuring up to 9 mm. 1.8 cm simple left lower renal peripelvic cysts. Several nonobstructive 2 mm left renal stones are present. She does report ongoing episodes of right-sided flank pain. We did discuss potential causes of nephrolithiasis as well as further treatment options to include ureteroscopy verses as well verses surveillance monitoring. Risks and benefits of these interventions were discussed. She denies any previous history of nephrolithiasis and or surgical intervention for nephrolithiasis. When asked she denies any bothersome urinary issues. She denies urinary urgency, urinary frequency, incontinence, nocturia, hematuria, dysuria, foul smelling urine, changes to urinary stream, fever, and or chills. She is happy with her current voiding parameters. All questions were answered. She otherwise offers no other issues or concerns at this time. [facility] Medical History Chronic low back pain Family history of colorectal cancer Hypertension Surgical History (Updated 08/17/24 @ 22:23 by MARLI Chaudhari) Sebaceous cyst History of back surgery Social History Alcohol intake: never Patient Tobacco Use Status: Never used Tobacco Current occupational status: unemployed Office Procedures Post Void Residual Post Residual Void Post Void Residual (PVR): 124 [id number] Void Residual by ultrasound Results AMB Urinalysis, Automated UA Leukoctes 125 Rito/uL Last Edit by Yvonne Chen [facility] on 12/17/24 13:52 UA Nitrite Negative Last Edit by Yvonne Chen [facility] on 12/17/24 13:52 UA Urobilinogen 0.2 mg/dL Last Edit by Yvonne Chen [facility] on 12/17/24 13:5 2 UA Protein 15 mg/dL Last Edit by Yvonne Chen [facility] on 12/17/24 13:52 UA pH 6.0 Last Edit by Yvonne Chen [facility] on 12/17/24 13:52 UA Blood 0 Morgan/uL Last Edit by Yvonne Chen [facility] on 12/17/24 13:52 UA Specific [place] 1.015 Last Edit by Yvonne Chen [facility] on 12/17/24 13: 52 UA Ketone Negative Last Edit by Yvonne Chen [facility] on 12/17/24 13:52 UA Bilirubin 0 mg/dL Last Edit by Yvonne Chen [facility] on 12/17/24 13:52 UA Glucose 0 mg/dL Last Edit by Yvonne Chen [facility] on 12/17/24 13:52 Results Reviewed Results Reviewed: Laboratory Last Values Urine pH (Auto) 6.0 12/17/24 13:51 Specific [place] (Auto) 1.015 12/17/24 13:51 Urine Protein (Auto) 15 mg/dL 12/17/24 13:51 Glucose (UA)(Auto) 0 mg/dL 12/17/24 13:51 Urine Ketones (Auto) Negative 12/17/24 13:51 Urine Blood (Auto) 0 Morgan/uL 12/17/24 13:51 Urine Nitrite (Auto) Negative 12/17/24 13:51 Urine Bilirubin (Auto) 0 mg/dL 12/17/24 13:51 Urine Urobilinogen (Auto) 0.2 mg/dL 12/17/24 13:51 Leukocyte Esterase (Auto) 125 Rito/uL 12/17/24 13:51 Date of Service: 10/15/24 Procedure(s): CT abdomen wo/w IV con Findings: The heart is within the upper limits of normal in size. The lung bases are clear. There is fatty infiltration in the anterior right hepatic lobe. Several nonobstructive right renal stones are seen measuring up to 9 mm. Several simple right renal cysts are seen measuring up to 1.7 cm. Additional subcentimeter right renal hypodensity is too small to characterize. Several 2 mm nonobstructive left renal stones are present. 1.8 cm simple left lower renal parapelvic cyst is noted. The gallbladder, pancreas, spleen, and bilateral adrenal glands appear within normal limits. The visualized bowel loops are normal in caliber. The appendix appears normal. There is no pneumoperitoneum or ascites. There is no adenopathy. Mild degenerative changes are seen in the spine. No acute osseous abnormality is identified. No aggressive lytic or blastic lesion is seen. IMPRESSION: 1. Several simple right renal cysts measuring up to 1.7 cm. Several nonobstructive right renal stones are present measuring up to 9 mm. 2. 1.8 cm simple left lower renal parapelvic cyst. Several nonobstructive 2 mm left renal stones are present. Assessment & Plan Assessment & Plan (1) Nephrolithiasis: Code(s): N20.0 - Calculus of kidney Category: Medical (2) Renal cyst: Code(s): N28.1 - Cyst of kidney, acquired Category: Medical (3) Flank pain: Code(s): R10.9 - Unspecified abdominal pain Category: Medical Plan In office urinalysis results reviewed with the patient today; as noted above. Recent CT results reviewed with the patient today; as noted above. We did discuss at length potential causes of nephrolithiasis as well as further interventions and risks and benefits of these interventions She currently denies any bothersome urinary issues or concerns. She reports be happy with current voiding parameters. We discussed ureteroscopy verses ESWL versus surveillance monitoring; this was discussed at length All questions were answered Information regarding ureteroscopy and or ESWL were provided. Will obtain KUB Follow-up in 1-3 months with imaging to be completed prior; or sooner with any issues, concerns, and or questions. Orders: Orders AMB Urinalysis Automated Today Z13.9 - Encounter for screening, unspecified XR KUB Today N20.0 - Calculus of kidney Patient Instructions: The patient had an opportunity to ask questions regarding the treatment plan. All questions were answered. Physical exam, labs, and imaging were discussed and reviewed in detail. As well as risks, benefits, and discussion of treatment choices. No major barriers to understanding were identified. The patient expressed understanding and agreement with the above treatment plan. The patient was made aware they should contact our office by phone for worsening of their current condition, the appearance of new symptoms, or with any q uestions or concerns. Compliance is encouraged with any medications and follow up testing that is ordered. It is a privilege to be allowed the opportunity to participate in? your urological care.? Again, if you have any questions or concerns If you have any questions or concerns please do not hesitate to contact me. The office is [phone]. This note is constructed using voice recognition software. While every effort has been made to ensure accuracy resident associate errors may have been included. Yours sincerely, FARRAH Lira Coding Level of Care Code New Pt Level 4 (19045) Diagnoses Nephrolithiasis N20.0 Renal cyst N28.1 Flank pain R10.9 CPT Codes Post Residual Void - PVR CPT Code: 77125-Dqjy Void Residual by ultrasound ([id number]) Time Spent (min) 40
--- OUTSIDE RECORDS SUMMARY | 2024-12-17 18:04 | XMS_ITS | Encounter Summary ---
Demographics Address [address] [facility] [address] [place] [address] Mobile Phone Home Phone Preferred Language es Marital Status Unknown Episcopal Affiliation Unknown Race Other Race Ethnic Group Unknown Author Organization [employer] Address [address] [place] [address] Care Team Providers Care Automatic Blocker Name Role Phone Dylan Kimbrough MD Primary Care Provider Delfina New Primary Care Provider Maxwell Navarrete Primary Care Provider Unavail able Gila Way MD Primary Care Pro vider Encounter Details Date Type Department Care Team (Latest Contact Info) Description 05/20/2018 Abstract [facility] CONVERSIONS Dental, Provider, DDS Social History [...] Description 12/25/2024 11:15 AM EDT Office Visit [facility] [address] [place] [address] MD [address] [place] [address] documented as of this encounter Visit Diagnoses Not on filedocumented in this encounter Care Teams Automatic Blocker Relationship Specialty Start Date End Date Dylan Kimbrough MD PCP - General Family Medicine 04/08/20 02/18/22 Delfina Aguayo FNP PCP - General Family Medicine 02/19/22 09/27/22 Maxwell Saleh AGNP PCP - General Family Medicine 09/28/22 12/04/[address] MD [address] [place] [id number] PCP - General Internal Medicine 12/05/22 documented as of this encounter
--- OUTSIDE RECORDS SUMMARY | 2024-12-17 18:04 | XMS_ITS | Clinical Summary ---
Demographics Address [address] [facility] [address] [place] [address] Mobile Phone Home Phone Preferred Language es Marital Status Unknown Samaritan Affiliation Unknown Race Other Race Ethnic Group Unknown Author Organization [employer] Address [address] [facility] [address] [place] [address] Care Team Providers Care Rehab Services Aide Name Role Phone Gila Way MD Primary [...] and also in the community. Her strong rastafari belief is helping Jaylyn to deal with [...] and also in the community. Her strong rastafari belief is helping Jaylyn to deal with [...] gradually return to regular daily routine and restoration activities. PLAN: (check all that apply) Further services needed, but declined Behavioral Health Integration Plan Internal Follow up with [facility] Patient Self Plan Patient to utilize skills provided in intervention , Patient to reach out to [facility] team as needed, and Patient to [...] Description 11/27/2024 3:30 PM EDT Office Visit [facility] [address] [place] [address] Frandy Loomis MD Intertrigo (Primary Dx) 11/27/[address] [facility] [address] [facility] [place] [address] MD 11/27/2024 Travel 11/27/[address] [facility] [address] [facility] [place] [address] MD Essential hypertension 10/26/2024 2:00 PM EDT Office Visit [facility] [place] [address] MD Class 2 obesity due to excess calories without serious comorbidity with body mass index (BMI) of 36.0 to 36.9 in adult (Primary Dx); Annual physical exam; Essential hypertension; Health care maintenance; Idiopathic intracranial hypertension; ANGELICA on CPAP; Intertrigo; Nephrolithiasis; Renal cyst 10/26/2024 Travel 10/23/[address] [facility] [place] [address] MD chartprep 10/18/[address] [facility] [place], [place] [phone] Gila Way MD Vitamin D deficiency 10/16/[address] [facility] [place], [place] [phone] Buffy Vivas, RN Results 10/16/2024 Orders Only [facility] [place] [phone] Gila Way MD Nephrolithiasis (Primary Dx) 10/16/2024 Patient Outreach [facility] [address] [place], [place] [phone] Gial Way MD Pre-visit Planning (Pre-visit planning - [...] Description 12/25/2024 11:15 AM EDT Office Visit [facility] [address] [place] [phone] MD [address] [place], [place] [phone] Health Maintenance Due Date Last Done Comments [...] Routine 10/16/2024 9:01 AM EDT Renal lesion BI MAMMOGRAM SCREENING TOMOSYNTHESIS BILATERAL Routine 06/08/2024 [...] AM EDT Narrative 10/16/2024 9:02 AM EDT [place] [address] CT Scan Report Signed Patient: Jaylyn Hou MR#: [id number] : 1970 Acct:[id number] Age/Sex: 54 / F ADM Date: 10/15/24 Loc: HO.CT Attending Dr: Gila Montoya MD Ordering Physician: Gila Way MD Date of Service: 10/15/24 Procedure(s): CT abdomen wo/w IV con Accession Number(s): [id number] cc: Gila Way MD Report Number: [id number]: Total DLP = 759.00 mGy-cm CLINICAL HISTORY: [...] by Leona Beth MD in OV> 10/16/24 0902 DD/ 0901 TD/TT: 10/16/24 0901 Chief Investment Officer: Procedure Note Donotuseinterpreter, Image - 10/16/[address] [address] [address] Scan Report Signed Patient: Jaylyn HouMR#: [id number] : 1970Acct:[id number] Age/Sex: 54 / FADM Date: 10/15/24 Loc: HO.CT Attending Dr: Gila Montoya MD Ordering Physician: Gila Way MD Date of Service: 10/15/24 Procedure(s): CT abdomen wo/w IV con Accession Number(s): [id number] cc: Gila Way MD Report Number: [id number]: Total DLP = 759.00 mGy-cm CLINICAL HISTORY: [...] by Leona Beth MD in OV> 10/16/24 0902 DD/ 0901 TD/TT: 10/16/24 09 Chief Investment Officer: us Gila Montoya MD IMG CT PROCEDURES Edited Result - Final * BI Mammogram Screening Tomosynthesis Bilateral (06/08/2024 1:50 PM EDT) Anatomical Region Laterality Modality Breast Bilateral Mammography 06/08/2024 1:50 PM EDT Narrative 06/14/2024 8:03 PM EDT [facility] [address] [place], [place] [address] Mammography Report Signed Patient: Jaylyn Hou MR#: [id number] : 1970 Acct:[id number] Age/Sex: 54 / F ADM Date: 06/08/24 Loc: HO.MAMMO Attending Dr: Gila Montoya MD Ordering Physician: Gila Way MD Re sults: 1Negative Date of Service: 06/08/24 Follow Up: 1 Year From Orig inal Mammogram Procedure(s): MM tomosynthesis screening BI Accession Number(s): [id number] cc: Gila Way MD EXAMINATION: MM SCREENING [...] OV> 06/14/241999 DD/ 1350 TD/TT: 06/08/24 1400 Chief Investment Officer: Procedure Note Donotuseinterpreter, Image - 06/14/2024 [facility] [address] [place] [address] [place] [address] Mammography Report Signed Patient: Jaylyn HouMR#: [id number] : 1970Acct:[id number] Age/Sex: 54 / FADM Date: 06/08/24 Loc: HO.MAMMO Attending Dr: Gila Montoya MD Ordering Physician: Gila Way sults: 1Negative Date of Service: 06/08/24Follow Up: 1 Year From Orig inal Mammogram Procedure(s): MM tomosynthesis screening BI Accession Number(s): [id number] cc: Gila Way MD EXAMINATION: MM SCREENING [...] OV> 06/14/241999 DD/ 1350 TD/TT: 06/08/24 1400 Chief Investment Officer: us Gila Montoya MD IMG BI PROCEDURES Edited Result - Final * (ABNORMAL) Lipid Panel, Standard (03/27/2024 1:45 PM EST) Triglycerides 135 <150 mg/dL [facility] Comment:Desirable Triglyceri de: less than 150 mg/dLBorderline High Triglyceride 150-199 mg/dLHigh Triglyceride: 200-499 mg/dLVery High Triglyceride: greater than or equal to 5OO mg/dL Cholesterol 153 <200 mg/dL [facility] Comment:Desirable Cholestero l: less than 200 mg/dLBorderline High Cholesterol: 200-239 mg/dLHigh Cholesterol: greater than 239 mg/dL LDL Cholesterol Calculated 92 <100 mg/dL [facility] Comment:Desirable LDL: less than 100 mg/dLNear Optimal/Above Optimal LDL: 110- 129 mg/dLBorderline High LDL: 130-159 mg/dLHigh LDL: 160-189 mg/dLVery High LDL: greater than or equal to 190 mg/dL HDL Cholesterol 34(L) >40 mg/dL [facility] Comment:Desirable HDL: grea ter than 40 mg/dL Note: This HDL assay may give artificially low results in patients with liver disease. Blood Venous blood specimen / Unknown 03/27/2024 1:45 PM EST 03/27/2024 4:08 PM EST Gila Montoya MD LAB BLOOD ORDERAB LES Final Result [facility] [address] [place] [phone] * HIV-1/2 Antigen and Antibodies, Fourth Generation, with Reflexes (02/07/2024 8:50 AM EST) HIV AB/AG Nonreactive Nonreactive [facility] Comment:HIV-1 p24 Ag and/or HIV-1/HIV-2 Ab not detected.A test result that is nonreactive does not exclude thepossibility of exposure to or infection with HIV-1 and/orHIV-2. Nonreactive results in this assay for individualswith prior exposure to HIV-1 and/or HIV-2 may be due toantigen and antibody levels that are below the limit ofdetection of this assay.The Run3D HIV Ag/Ab Combo assay result andsupplemental assay results should be interpreted inconjunction with the patient's clinical presentation,history and other laboratory results. If the results areinconsistent with clinical evidence, additional testing issuggested to confirm the result. Blood Venous blood specimen / Unknown 02/07/2024 8:50 AM EST 02/07/2024 11:03 AM EST Gila Montoya MD LAB BLOOD ORDERAB LES Final Result Performing Organization Address [facility] Co de Phone Number [facility] [address] [place] [address] [phone] * Hepatitis C Antibody with Reflex to HCV, RNA, Quantitative, Real-Time PCR (11/15/2023 8:49 AM EDT) Hepatitis C Antibody Nonreactive Nonreactive [facility] Comment:Antibodies to HCV no t detected; does not exclude early acuteHCV infection. Blood Venous blood specimen / Unknown 11/15/2023 8:49 AM EDT 11/15/2023 11:05 AM EDT Gila Montoya MD LAB BLOOD ORDERAB LES Final Result Performing Organization Address [facility] Co de Phone Number [facility] [address] [place] [address] [phone] * Hemoglobin A1c (11/15/2023 8:49 AM EDT) Hemoglobin A1c 5.4 <6.0 % [facility] Comment:Hemoglobin A1C Refer ence Range Adults: 4.8 - 6.0 % Non diabetic: < 6.0 % Goal: < 7.0 %Additional Action Suggested: > 8.0 %Note: Hemoglobin A1c results are invalid for patients with abnormal amounts of HbF. Blood transfusions may impact the HbA1c concentration in the patient sample. Estimated Average Glucose 108 mg/dL [facility] Comment:eAG = Estimated ave rage glucose which is %A1C expressed asaverage glucose, using the formula of the K9O-BjdykhtGhrdeor Glucose study (ADAG), Diabetes Care, Vol.31,#8,Oct. 2007 Blood Venous blood specimen / Unknown 11/15/2023 8:49 AM EDT 11/15/2023 11:05 AM EDT us Gila Montoya MD LAB BLOOD ORDERAB LES Final Result Performing Organization Address [facility] Co de Phone Number [facility] [address] [place] [address] [phone] * THINPREP PAP (10/09/2021 2:38 PM [...] along with historic and current clinical information. Riding Teacher : SEE COMMENT [facility] Comment: DCR, CT(ASCP) CT screening location: [place] [address] Interpretation/R esult: Negative for intraepithelial lesion or malignancy. [facility] LMP: NONE GIVEN [facility] Prev. BX: NONE [facility]IVEN [facility] Prev. PAP: NONE [facility]IVEN [facility] SOURCE: None given [facility] Statement Of Adequacy: SEE COMMENT [facility] Comment: Satisfactory for evaluation. Endocervical/transformation zone component present. Age and/or menstrual status not provided 10/09/2021 2:38 PM EDT us Dylan Kimbrough MD LAB PATHOLOGY ORDERABLES Fin al Result [facility] [address] * HPV mRNA E6/E7 (10/09/2021 2:38 PM EDT) HPV nRNA E6/E7 Not Detected Not Detected [facility] Comment: Methodology: Baker Helper-Mediated Amplification This assay detects E6/E7 viral messenger RNA (mRNA) from 14 high-risk HPV types (16,18,31,33,35,39,45,51,52,56,58,59,66,68). Cervical sources are required for HPV testing. If a vaginal source from a patient who has had a total hysterectomy with removal of cervix was submitted, please contact the testing laboratory for alternative testing options. For additional information, please refer to http://education.eTukTuk/faq/OCH915r3 (This link if provided for information/ educational purposes only.) 10/09/2021 2:38 PM EDT us Dylan Kimbrough MD LAB BLOOD ORDERABLES Final R esult [facility] [address] from Last 3 Months or Most Recently Relevant to Health Maintenance Insurance [address] [place], [place] [address] C[employer] Care Teams Rehab Services Aide Relationship Specialty Start Date End Date Gila Way MD [address] [place] [phone] PCP - General Internal Medicine 12/05/22
--- OUTSIDE RECORDS SUMMARY | 2024-12-17 18:04 | XMS_ITS | Encounter Summary ---
Demographics Address [address] [facility] [address] [place] [address] Mobile Phone Home Phone Preferred Language es Marital Status Unknown Buddhism Affiliation Unknown Race Other Race Ethnic Group Unknown Author Organization [employer] Address [address] [facility] [address] [place] [address] Care Team Providers Care Client Service Executive Name Role Phone Gila Way MD Primary Care Pro vider Reason for Visit * Reason Comments Med Refill Encounter Details Date Type Department Care Team (Late st Contact Info) Description 11/27/2024 Refill [facility] [address] [place], [place] [phone] Gila Way MD [address] [place] [address] Social History Tobacco Use Types Packs/Day Years [...] Description 12/25/2024 11:15 AM EDT Office Visit [facility] [address] [place] [address] MD [address] [place] [phone] documented as of this encounter Visit Diagnoses Not on filedocumented in this encounter Additional Health Concerns Assessment Noted Time PHQ-9 Depression Total Score: 0 10/27/19 25 2:24 PM EDT documented as of this encounter Care Teams Client Service Executive Relationship Specialty Start Date End Date Gila Way MD [address] [place] [address] PCP - General Internal Medicine 12/05/22 documented as of this encounter
--- OUTSIDE RECORDS SUMMARY | 2024-12-17 18:04 | XMS_ITS | Encounter Summary ---
Author Organization [employer] Address 75 [facility] [address] [place] [address] Care Team Providers Care Apparatus Operator Name Role Phone Gila Way MD Primary Care Pro vider Reason for Referral * Consultation (Routine) - Closed Specialty Diagnoses / Procedures Referred By Cassia blanco Referred To Contact Physical Therapy Diagnoses Chronic low back pain without sciatica, unspecified back pain laterality Mya Kendrick MD 230 [place] [address] Phone: tel: fax: AT [facility] - [place] [address] [facility] [address] Phone: tel: fax: Referral ID Status Reason Start Date Expiration Date V isits Requested Visits Authorized [id number] Closed Specialty Services Required 03/04/2024 03/04/2025 20 20 Encounter Details Date Type Department Care Team (Late st Contact Info) Description 03/03/2024 Orders Only [facility] MEDICINE [address] [place], [place] [phone] Mya Kendrick MD [address] [place], [place] [phone] Chronic low back pain without sciatica, unspecified [...] Description 12/25/2024 11:15 AM EDT Office Visit [facility] MEDICINE [address] [place] [phone] MD 230 [place] [address] Scheduled Referrals Name Type Priority Associated Diagnoses [...] documented as of this encounter Care Teams Apparatus Operator Relationship Specialty Start Date End Date Gila Way MD [address] [place] [phone] PCP - General Internal Medicine 12/05/22 documented as of this encounter
== END 2024-12-17 14:54 | disposition home or self-care (01) ==
LOC: HO.HUSH 13:32
PROVIDERS: PCP Student in an Organized Health Care Education/Training Program; Visit Provider Nurse Practitioner Family
DX: N20.0 Calculus of kidney (principal); N28.1 Cyst of kidney, acquired; R10.9 Unspecified abdominal pain; Z13.9 Encounter for screening, unspecified
CPT/HCPCS: 99204

== ENCOUNTER → 2024-12-17 13:31 | Outpatient (BNVA) | payer MEDICAID, SELFPAY | PROVIDERS: PCP Student in an Organized Health Care Education/Training Program; Visit Provider Nurse Practitioner Family | DX: N20.0 Calculus of kidney (principal); N28.1 Cyst of kidney, acquired; R10.9 Unspecified abdominal pain | CPT/HCPCS: 51798; 81003; 99212 ==

== ENCOUNTER 2024-12-21 08:49 | Outpatient (REF) | payer MEDICAID, SELFPAY ==
--- OUTSIDE RECORDS SUMMARY | 2024-12-21 09:15 | XMS_ITS | Encounter Summary ---
Demographics Address [address] [facility] [address] [place] [address] Mobile Phone Home Phone Preferred Language es Marital Status Unknown Hinduism Affiliation Unknown Race Other Race Ethnic Group Unknown Author Organization [employer] Address 75 [facility] [address] [place] [address] Care Team Providers Care Medical Office Coordinator Name Role Phone Dylan Kimbrough MD Primary Care Provider Delfina New Primary Care Provider Maxwell Navarrete Primary Care Provider Unavail able Gila Way MD Primary Care Pro vider Encounter Details Date Type Department Care Team (Latest Contact Info) Description 05/20/2018 Abstract [facility] CONVERSIONS Dental, Provider, DDS Social [...] 11:15 AM EDT Office Visit [facility] MEDICINE [address] [place] [address] MD [address] [place] [address] documented as of this encounter Visit Diagnoses Not on filedocumented in this encounter Care Teams Medical Office Coordinator Relationship Specialty Start Date End Date Dylan Kimbrough MD PCP - General Family Medicine 04/08/20 02/18/22 Delfina Aguayo FNP PCP - General Family Medicine 02/19/22 09/27/22 Maxwell Saleh AGNP PCP - General Family Medicine 09/28/22 12/04/[address] MD [address] [place] [phone] PCP - General Internal Medicine 12/05/22 documented as of this encounter
--- OUTSIDE RECORDS SUMMARY | 2024-12-21 09:15 | XMS_ITS | Encounter Summary ---
Demographics Address [address] [facility] [address] [place] [address] Mobile Phone Home Phone Preferred Language es Marital Status Unknown [place] Affiliation Unknown Race Other Race Ethnic Group Unknown Author Organization [employer] Address 75 [facility] [address] [address] Care Team Providers Care Oracle Programmer Name Role Phone Gila Way MD Primary Care Pro vider Reason for Visit * Reason Comments Med Refill Encounter Details Date Type Department Care Team (Late st Contact Info) Description 11/27/2024 Refill [facility] MEDICINE [address] [place], [place] [phone] Gila Way MD 230 [place] [address] Social History Tobacco Use Types Packs/Day Years [...] 11:15 AM EDT Office Visit [facility] MEDICINE [address] [place] [address] [phone] MD [address] [place] [phone] documented as of this encounter Visit Diagnoses Not on filedocumented in this encounter Additional Health Concerns Assessment Noted Time PHQ-9 Depression Total Score: 0 10/27/19 25 2:24 PM EDT documented as of this encounter Care Teams Oracle Programmer Relationship Specialty Start Date End Date Gila Way MD 230 [place] [address] PCP - General Internal Medicine 12/05/22 documented as of this encounter
--- OUTSIDE RECORDS SUMMARY | 2024-12-21 09:16 | XMS_ITS | Clinical Summary ---
Author Organization [facility] Address [address] [place] [phone] Phone Care Team Providers Care Hand Stonecutter Name Role Phone Physician, No Pcp Primary [...] Last Done Comments Breast Cancer Screening 1970 Colorectal Cancer Screening: Colonoscopy 1970 Hepatitis B Vaccines (1 of 3 - 19+ 3-dose series) 1988 Cervical Cancer Screening: Pap Smear 1990 Pneumococcal Vaccine: 50+ Years (1 of 1 - PCV) 2019 Social Influencers of Health Screening 02/21/2022 Depression Screening 03/25/2024 COVID-19 Vaccine (3 - 2024- season) 2024 03/27/2021, 08/30/2020 Influenza Vaccine (#1) 2024 , 05/01/2023, 12/17/2018, Additional history exists Hypertension/CHF/CAD Annual BMP Blood Test 02/26/2025 02/27/2024, 02/07/2024 DTaP,Tdap,and Td Vaccines (2 - Td or Tdap) 04/30/2026 04/30/2016 Cholesterol Screening (Lipid Panel) 02/06/2029 02/07/2024 RSV Immunization Adult Patients (1 - 1-dose 75+ series) 2044 Zoster [...] Comprehensive metabolic panel (02/27/2024 10:03 PM EST) [facility] Signature Sodium 141 133 - 145 mmol/L LAB CHEMISTRY METHOD 02/27/2024 10:37 PM [facility] Potassium 4.3 3.5 - 5.5 mmol/L LAB CHEMISTRY METHOD 02/27/2024 10:37 PM [facility] Chloride 110 96 - 110 mmol/L LAB CHEMISTRY METHOD 02/27/2024 10:37 PM [facility] CO2 26 21 - 32 mmol/L LAB CHEMISTRY METHOD 02/27/2024 10:37 PM [facility] Anion Gap 5 3 - 11 LAB CHEMISTRY METHOD 02/27/2024 10:37 PM [facility] Glucose 87 70 - 100 mg/dL LAB CHEMISTRY METHOD 02/27/2024 10:37 PM [facility] BUN 20 5 - 25 mg/dL LAB CHEMISTRY METHOD 02/27/2024 10:37 PM [facility] Creatinine 0.87 0.50 - 1.10 mg/dL LAB CHEMISTRY METHOD 02/27/2024 10:37 PM [facility] eGFR 79 >=60 mL/min/1. 73m2 LAB CHEMISTRY METHOD 02/27/2024 10:37 PM [facility] Comment:Calculation based on the Chronic Kidney Disease Epidemiology Collaboration (CKD-EPI) equation refit without adjustment for race. BUN/Creatinine Ratio 23.0 LAB CHEMISTRY METHOD 02/27/2024 10:37 PM [facility] Calcium 9.1 8.5 - 10.5 mg/dL LAB CHEMISTRY METHOD 02/27/2024 10:37 PM [facility] AST (SGOT) 20 10 - 42 unit/L LAB CHEMISTRY METHOD 02/27/2024 10:37 PM [facility] ALT (SGPT) 29 10 - 60 unit/L LAB CHEMISTRY METHOD 02/27/2024 10:37 PM [facility] Alkaline Phosphatase 109 42 - 121 unit/L LAB CHEMISTRY METHOD 02/27/2024 10:37 PM EST [facility] Total Protein 7.7 6.0 - 8.0 g/dL LAB CHEMISTRY METHOD 02/27/2024 10:37 PM EST [facility] Albumin 3.6 3.2 - 5.0 g/dL LAB CHEMISTRY METHOD 02/27/2024 10:37 PM EST [facility] Total Bilirubin 0.3 0.0 - 1.4 mg/dL LAB CHEMISTRY METHOD 02/27/2024 10:37 PM EST [facility] Blood Venous blood specimen / Unknown Venipuncture / Unknown 02/27/2024 10:03 PM EST 02/27/2024 10:12 PM EST Dougie Dillard MD LAB BLOOD ORDERABLES Final Resu lt [facility] [address] [place] [address], from Last 3 Months or Most Recently Relevant to Health Maintenance Insurance MEDICAID - [place] Care Teams Hand Stonecutter Relationship Specialty Start Date End Date Physician, No Pcp PCP - General 02/28/24
--- OUTSIDE RECORDS SUMMARY | 2024-12-21 09:16 | XMS_ITS | Encounter Summary ---
Author Organization [employer] Address [address] [facility] [address] [place] [address] Care Team Providers Care Wallpaper Consultant Name Role Phone Gila Way MD Primary Care Pro vider Reason for Referral * Consultation (Routine) - Closed Specialty Diagnoses / Procedures Referred By Cassia blanco Referred To Contact Physical Therapy Diagnoses Chronic low back pain without sciatica, unspecified back pain laterality Mya Kendrick MD [address] [place] [address] Phone: tel: fax: AT Physical [facility] [place] [address] [facility] [address] Phone: tel: fax: Referral ID Status Reason Start Date Expiration Date V isits Requested Visits Authorized [id number] Closed Specialty Services Required 03/04/2024 03/04/2025 20 20 Encounter Details Date Type Department Care Team (Late st Contact Info) Description 03/03/2024 Orders Only [facility] [address] [place], [place] [phone] Mya Kendrick MD [address] [place], [place] [phone] Chronic low back pain without sciatica, unspecified [...] Description 12/25/2024 11:15 AM EDT Office Visit [facility] [address] [place] [phone] MD [address] [place] [address] Scheduled Referrals Name Type Priority Associated Diagnoses [...] documented as of this encounter Care Teams Wallpaper Consultant Relationship Specialty Start Date End Date Gila Way MD [address] [place] [phone] PCP - General Internal Medicine 12/05/22 documented as of this encounter
--- OUTSIDE RECORDS SUMMARY | 2024-12-21 09:17 | XMS_ITS | Clinical Summary ---
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 Her strong episcopal belief is helping Jaylyn to deal with [...] and also in the community. Her strong episcopal belief is helping Jaylyn to deal with [...] gradually return to regular daily routine and religion activities. PLAN: (check all that apply) Further services needed, but declined Behavioral Health Integration Plan Internal Follow up with [facility] Patient Self Plan Patient to utilize skills provided in intervention , Patient to reach out to [facility] team as needed, and Patient to reach [...] Description 11/27/2024 3:30 PM EDT Office Visit [facility] [address] [place] [address] Frandy Loomis MD Intertrigo (Primary Dx) 11/27/2024 Refill [facility] [address] [facility] [place] [address] MD 11/27/2024 Travel 11/27/2024 Refill [facility] [address] [facility] [place] [address] MD Essential hypertension 10/26/2024 2:00 PM EDT Office Visit [facility] [place] [address] MD Class 2 obesity due to excess calories without serious comorbidity with body mass index (BMI) of 36.0 to 36.9 in adult (Primary Dx); Annual physical exam; Essential hypertension; Health care maintenance; Idiopathic intracranial hypertension; ANGELICA on CPAP; Intertrigo; Nephrolithiasis; Renal cyst 10/26/2024 Travel 10/23/2024 Telephone [facility] [place] [address] MD chartprep 10/18/2024 Refill [facility] [place], [place] [phone] Gila Way MD Vitamin D deficiency 10/16/2024 Telephone [facility] [place], [place] [phone] Buffy Vivas, RN Results 10/16/2024 Orders Only [facility] [place] [phone] Gila Way MD Nephrolithiasis (Primary Dx) 10/16/2024 Patient Outreach [facility] [address] [place], [place] [phone] Gila Way MD Pre-visit Planning (Pre-visit planning [...] Description 12/25/2024 11:15 AM EDT Office Visit [facility] [address] [place] [phone] MD [address] [place], [place] [phone] Health Maintenance Due Date Last Done Comments [...] AM EDT Narrative 10/16/2024 9:02 AM EDT [place] [address] [address] Scan Report Signed Patient: Jaylyn Hou MR#: [id number] : 1970 Acct:[id number] Age/Sex: 54 / F ADM Date: 10/15/24 Loc: HO.CT Attending Dr: Gila Montoya MD Ordering Physician: Gila Way MD Date of Service: 10/15/24 Procedure(s): CT abdomen wo/w IV con Accession Number(s): [id number] cc: Gila Way MD Report Number: [id number]: Total DLP = 759.00 mGy-cm CLINICAL HISTORY: [...] document has been electronically signed by: Leona Beht on 10/16/2024 09:01:10 Dictated By: Leona Beth MD Signed By: <Electronically signed by Leona Beth MD in OV> 10/16/24 0902 DD/ 0901 TD/TT: 10/16/24 0901 Shirt Closer: Procedure Note Donotuseinterpreter, Image - 10/16/[address] [address] [address] Scan Report Signed Patient: Jaylyn HouMR#: [id number] : 1970Acct:[id number] Age/Sex: 54 / FADM Date: 10/15/24 Loc: HO.CT Attending Dr: Gila Montoya MD Ordering Physician: Gila Way MD Date of Service: 10/15/24 Procedure(s): CT abdomen wo/w IV con Accession Number(s): [id number] cc: Gila Way MD Report Number: [id number]: Total DLP = 759.00 mGy-cm CLINICAL HISTORY: [...] 10/16/24 0902 DD/ 0901 TD/TT: 10/16/24 09 Shirt Closer: us Gila Montoya MD IMG CT PROCEDURES Edited Result - Final * BI Mammogram Screening Tomosynthesis Bilateral (06/08/2024 1:50 PM EDT) Anatomical Region Laterality Modality Breast Bilateral Mammography 06/08/2024 1:50 PM EDT Narrative 06/14/2024 8:03 PM EDT [facility] [address] [place], [place] [address] Mammography Report Signed Patient: Jaylyn Hou MR#: [id number] : 1970 Acct:[id number] Age/Sex: 54 / F ADM Date: 06/08/24 Loc: HO.MAMMO Attending Dr: Gila Montoya MD Ordering Physician: Gila Way MD Re sults: 1Negative Date of Service: 06/08/24 Follow Up: 1 Year From Orig inal Mammogram Procedure(s): MM tomosynthesis screening BI Accession Number(s): [id number] cc: Gila Way MD EXAMINATION: MM SCREENING [...] DO Signed By: <Electronically signed by Laura Cornlel DO in OV> 06/14/241999 DD/ 1350 TD/TT: 06/08/24 1400 Shirt Closer: Procedure Note Donotuseinterpreter, Image - 06/14/2024 [facility] [address] [place] [address] [place] [address] Mammography Report Signed Patient: Jaylyn HouMR#: [id number] : 1970Acct:[id number] Age/Sex: 54 / FADM Date: 06/08/24 Loc: HO.MAMMO Attending Dr: Gila Montoya MD Ordering Physician: Gila Way sults: 1Negative Date of Service: 06/08/24Follow Up: 1 Year From Orig inal Mammogram Procedure(s): MM tomosynthesis screening BI Accession Number(s): [id number] cc: Gila Way MD EXAMINATION: MM SCREENING [...] OV> 06/14/241999 DD/ 1350 TD/TT: 06/08/24 1400 Shirt Closer: us Gila Montoya MD IMG BI PROCEDURES Edited Result - Final * (ABNORMAL) Lipid Panel, Standard (03/27/2024 1:45 PM EST) Triglycerides 135 <150 mg/dL [facility] Comment:Desirable Triglyceri de: less than 150 mg/dLBorderline High Triglyceride 150-199 mg/dLHigh Triglyceride: 200-499 mg/dLVery High Triglyceride: greater than or equal to 5OO mg/dL Cholesterol 153 <200 mg/dL [facility] Comment:Desirable Cholestero l: less than 200 mg/dLBorderline High Cholesterol: 200-239 mg/dLHigh Cholesterol: greater than 239 mg/dL LDL Cholesterol Calculated 92 <100 mg/dL [facility] Comment:Desirable LDL: less than 100 mg/dLNear Optimal/Above Optimal LDL: 110- 129 mg/dLBorderline High LDL: 130-159 mg/dLHigh LDL: 160-189 mg/dLVery High LDL: greater than or equal to 190 mg/dL HDL Cholesterol 34(L) >40 mg/dL [facility] Comment:Desirable HDL: great er than 40 mg/dL Note: This HDL assay may give artificially low results in patients with liver disease. Blood Venous blood specimen / Unknown 03/27/2024 1:45 PM EST 03/27/2024 4:08 PM EST Gila Montoya MD LAB BLOOD ORDERAB LES Final Result [facility] [address] [place] [phone] * HIV-1/2 Antigen and Antibodies, Fourth Generation, with Reflexes (02/07/2024 8:50 AM EST) HIV AB/AG Nonreactive Nonreactive [facility] Comment:HIV-1 p24 Ag and/or HIV-1/HIV-2 Ab not detected.A test result that is nonreactive does not exclude thepossibility of exposure to or infection with HIV-1 and/orHIV-2. Nonreactive results in this assay for individualswith prior exposure to HIV-1 and/or HIV-2 may be due toantigen and antibody levels that are below the limit ofdetection of this assay.The MeroArte HIV Ag/Ab Combo assay result andsupplemental assay [...] Final Result Performing Organization Address [facility] Co de Phone Number [facility] [address] [place] [phone] * Hepatitis C Antibody with Reflex to HCV, RNA, Quantitative, Real-Time PCR (11/15/2023 8:49 AM EDT) Hepatitis C Antibody Nonreactive Nonreactive [facility] Comment:Antibodies to HCV no t detected; does not exclude early acuteHCV infection. Blood Venous blood specimen / Unknown 11/15/2023 8:49 AM EDT 11/15/2023 11:05 AM EDT Gila Montoya MD LAB BLOOD ORDERAB LES Final Result Performing Organization Address [facility] Co de Phone Number [facility] [address] [place] [phone] * Hemoglobin A1c (11/15/2023 8:49 AM EDT) Hemoglobin A1c 5.4 <6.0 % [facility] Comment:Hemoglobin A1C Refer ence Range Adults: 4.8 - 6.0 % Non diabetic: < 6.0 % Goal: < 7.0 %Additional Action Suggested: > 8.0 %Note: Hemoglobin A1c results are invalid for patients with abnormal amounts of HbF. Blood transfusions may impact the HbA1c concentration in the patient sample. Estimated Average Glucose 108 mg/dL [facility] Comment:eAG = Estimated ave rage glucose which is %A1C expressed asaverage glucose, using the formula of the T7F-QpfjugrZjibmmb Glucose study (ADAG), Diabetes Care, Vol.31,#8,Oct. 2007 Blood Venous blood specimen / Unknown 11/15/2023 8:49 AM EDT 11/15/2023 11:05 AM EDT us Gila Montoya MD LAB BLOOD ORDERAB LES Final Result Performing Organization Address City/[facility]/ZIP Co de Phone Number [facility] [address] [place] [phone] * THINPREP PAP (10/09/2021 2:38 PM [...] along with historic and current clinical information. 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 [facility] LMP: NONE GIVEN [facility] Prev. BX: NONE [facility]IVEN [facility] Prev. PAP: NONE [facility]IVEN [facility] SOURCE: None given [facility] Statement Of Adequacy: SEE COMMENT [facility] Comment: Satisfactory for evaluation. Endocervical/transformation zone component present. Age and/or menstrual status not provided 10/09/2021 2:38 PM EDT us Dylan Kimbrough MD LAB PATHOLOGY ORDERABLES Fin al Result [facility] [address] * HPV mRNA E6/E7 (10/09/2021 2:38 PM EDT) HPV nRNA E6/E7 Not Detected Not Detected [facility] Comment: Methodology: Erp Technical Lead-Mediated Amplification This assay detects E6/E7 viral messenger RNA (mRNA) from 14 high-risk HPV types (16,18,31,33,35,39,45,51,52,56,58,59,66,68). Cervical sources are required for HPV testing. If a vaginal source from a patient who has had a total hysterectomy with removal of cervix was submitted, please contact the testing laboratory for alternative testing options. For additional information, please refer to http://education.[employer]/faq/QNO957y9 (This link if provided for information/ educational purposes only.) 10/09/2021 2:38 PM EDT us Dylan Kimbrough MD LAB BLOOD ORDERABLES Final R esult [facility] Critical access hospital [address] from Last 3 Months or Most Recently Relevant to Health Maintenance Insurance [address] [place], [place] [address] Care Teams Kettle Cleaner Relationship Specialty Start Date End Date Gila Way MD [address] [place] [phone] PCP - General Internal Medicine 12/05/22
[2024-12-21 11:46] LABS: Hematocrit 49.5 % (37.0-47.0); Hemoglobin 16.3 g/dl (12.0-16.0); Mean Corpuscular HGB Conc 32.9 g/dl (31.0-35.0); NRBC Abs Auto 0.000 X10*3/uL (0.0-0.012); NRBC Pct Auto 0.0 /100WBC (0.0-0.2); Total Hemoglobin (HGBA1C) 4118.9606 umol/L
[2024-12-21 11:47] LABS: Mean Corpuscular Hemoglobin 28.3 pg (27.0-33.0); Mean Corpuscular Volume 86.1 fL (80.0-98.0); Platelet Count 223 X10*3/uL (160-400); Red Blood Count 5.75 X10*6/uL (4.20-5.50); White Blood Count 11.3 X10*3/uL (4.8-10.8)
[2024-12-21 11:50] LABS: PLT ABN DIST 1
[2024-12-21 11:56] LABS: Alanine Aminotransferase 33 U/L (0-31); Albumin Level 4.5 g/dL (3.5-5.0); Alkaline Phosphatase 102 U/L (39-117); Anion Gap 15 (12-20); Aspartate Amino Transferase 24 U/L (5-31); Blood Urea Nitrogen 21 mg/dL (9-16); Calcium 9.6 mg/dL (8.4-10.2); Carbon Dioxide 26 mmol/L (22-29); Chloride 103 mmol/L (96-108); Cholesterol 263 mg/dL (<200); Estimated Glomerular Filt Rate > 60; HDL Cholesterol 35 mg/dL (>40); Potassium 4.2 mmol/L (3.3-5.1); Sodium 140 mmol/L (135-145); Total Protein 8.4 g/dL (6.5-8.0); Triglycerides 232 mg/dL (<150)
[2024-12-21 12:07] LABS: HBsAGNum1 0.34 S/CO (0.00-0.99); HIV Num 1 0.05 S/CO (0.00-0.99); Hepatitis B Surface Antigen Negative (Negative); Syphilis Screen Nonreactive (Nonreactive); ~HepC Num1 0.11 S/CO (0.00-0.79); ~Hepatitis C Antibody Nonreactive (Nonreactive)
[2024-12-21 12:27] LABS: Microalbum/Creatinine Ratio Ur 9.9 ug/mg cr (<30)
[2024-12-21 12:35] LABS: Free T4 (Free Thyroxine) 1.00 ng/dL (0.71-1.85)
[2024-12-21 12:53] LABS: CT PCR Urine NOT DETECTED (Not Detect.); NG PCR Urine NOT DETECTED (Not Detect.)
== END 2024-12-21 08:50 | disposition home or self-care (01) ==
LOC: HO.HHCL 08:49
PROVIDERS: PCP Student in an Organized Health Care Education/Training Program; Visit Provider Student in an Organized Health Care Education/Training Program
DX: Z00.00 Encounter for general adult medical examination without abnormal findings (principal); Z20.2 Contact with and (suspected) exposure to infections with a predominantly sexual mode of transmission; Z11.59 Encounter for screening for other viral diseases
CPT/HCPCS: 80053; 80061; 82043; 82306; 82570; 83036; 84439; 84443; 85027; 86780; 86803; 87340; 87389; 87491; 87591

== ENCOUNTER 2025-01-01 06:31 | Day surgery (SDC) | payer MEDICAID, SELFPAY ==
--- OUTSIDE RECORDS SUMMARY | 2024-12-18 13:25 | XMS_ITS | Encounter Summary ---
Demographics Address [address] [facility] [address] [place] [address] Mobile Phone Home Phone Preferred Language es Marital Status Unknown Orthodox Affiliation Unknown Race Other Race Ethnic Group Unknown Author Organization [employer] Address 75 [facility] [address] [place] [address] Care Team Providers Care Account Resolution Expert Name Role Phone Gila Way MD Primary Care Pro vider Reason for Visit * Reason Comments Med Refill Encounter Details Date Type Department Care Team (Late st Contact Info) Description 11/27/2024 Refill [facility] MEDICINE 230 [place], [place] [phone] Gila Way MD 230 [place] [address] Social History Tobacco Use Types Packs/Day Years [...] Description 12/25/2024 11:15 AM EDT Office Visit [facility] MED[facility]INE [address] [place] [phone] MD [address] [place] [phone] documented as of this encounter Visit Diagnoses Not on filedocumented in this encounter Additional Health Concerns Assessment Noted Time PHQ-9 Depression Total Score: 0 10/27/19 25 2:24 PM EDT documented as of this encounter Care Teams Account Resolution Expert Relationship Specialty Start Date End Date Gila Way MD 230 [place] [address] PCP - General Internal Medicine 12/05/22 documented as of this encounter
--- OUTSIDE RECORDS SUMMARY | 2024-12-18 13:26 | XMS_ITS | Encounter Summary ---
Author Organization [employer] Address 75 [facility] [address] [place] [address] Care Team Providers Care Maintenance Department Technician Name Role Phone Gila Way MD Primary Care Pro vider Reason for Referral * Consultation (Routine) - Closed Specialty Diagnoses / Procedures Referred By Cassia blanco Referred To Contact Physical Therapy Diagnoses Chronic low back pain without sciatica, unspecified back pain laterality Mya Kendrick MD 230 [place] [address] Phone: tel: fax: AT Physical Therapy - [place] 124 [facility] [place] [facility] [address] Phone: tel: fax: Referral ID Status Reason Start Date Expiration Date V isits Requested Visits Authorized [id number] Closed Specialty Services Required 03/04/2024 03/04/2025 20 20 Encounter Details Date Type Department Care Team (Late st Contact Info) Description 03/03/2024 Orders Only [facility] MEDICINE 230 [place], [place] [phone] Mya Kendrick MD 230 [place], [place] [phone] Chronic low back pain without sciatica, unspecified [...] Description 12/25/2024 11:15 AM EDT Office Visit [facility] MEDICINE [address] [place] [phone] MD 230 [place] [address] Scheduled Referrals Name Type Priority Associated Diagnoses [...] documented as of this encounter Care Teams Maintenance Department Technician Relationship Specialty Start Date End Date Gila Way MD [address] [place] [phone] PCP - General Internal Medicine 12/05/22 documented as of this encounter
--- OUTSIDE RECORDS SUMMARY | 2024-12-18 13:26 | XMS_ITS | Encounter Summary ---
Demographics Address 68 [facility] [address] [place] [address] Mobile Phone Home Phone Preferred Language es Marital Status Unknown Synagogue Affiliation Unknown Race Other Race Ethnic Group Unknown Author Organization [employer] Address 75 [facility] [address] [address] Care Team Providers Care Diversity Manager Name Role Phone Dylan Kimbrough MD Primary Care Provider Delfina New Primary Care Provider Maxwell Navarrete Primary Care Provider Unavail able Gila Way MD Primary Care Pro vider Encounter Details Date Type Department Care Team (Latest Contact Info) Description 05/20/2018 Abstract [facility] CONVERSIONS Dental, Provider, DDS Social [...] Description 12/25/2024 11:15 AM EDT Office Visit [facility] MEDICINE [address] [place] [address] MD 230 [place] [address] documented as of this encounter Visit Diagnoses Not on filedocumented in this encounter Care Teams Diversity Manager Relationship Specialty Start Date End Date Dylan Kimbrough MD PCP - General Family Medicine 04/08/20 02/18/22 Delfina Aguayo FNP PCP - General Family Medicine 02/19/22 09/27/22 Maxwell Saleh AGNP PCP - General Family Medicine 09/28/22 12/04/[address] MD [address] [place] [phone] PCP - General Internal Medicine 12/05/22 documented as of this encounter
--- OUTSIDE RECORDS SUMMARY | 2024-12-18 13:26 | XMS_ITS | Clinical Summary ---
Demographics Address [address] [facility] [address] [place] [address] Mobile Phone Home Phone Preferred Language es Marital Status Unknown Rastafari Affiliation Unknown Race Other Race Ethnic Group Unknown Author Organization [employer] Address 75 [facility] 7t [place] [address] Care Team Providers Care Sap Project Manager Name Role Phone Gila Way MD [...] and also in the community. Her strong oriental orthodox belief is helping Jaylyn to deal with [...] and also in the community. Her strong oriental orthodox belief is helping Jaylyn to deal with [...] gradually return to regular daily routine and rastafarian activities. PLAN: (check all that apply) Further services needed, but declined Behavioral Health Integration Plan Internal Follow up with [facility] Patient Self Plan Patient to utilize skills provided in intervention , Patient to reach out to [facility] team as needed, and Patient [...] Description 11/27/2024 3:30 PM EDT Office Visit [facility] MEDICINE [address] [place] [address] Frandy Loomis MD Intertrigo (Primary Dx) 11/27/2024 Refill [facility] [place] [address] MD 11/27/2024 Travel 11/27/2024 Refill [facility] 230 [facility] [place] [address] MD Essential hypertension 10/26/2024 2:00 PM EDT Office Visit [facility] [place] [facility] [place] [address] MD Class 2 obesity due to excess calories without serious comorbidity with body mass index (BMI) of 36.0 to 36.9 in adult (Primary Dx); Annual physical exam; Essential hypertension; Health care maintenance; Idiopathic intracranial hypertension; ANGELICA on CPAP; Intertrigo; Nephrolithiasis; Renal cyst 10/26/2024 Travel 10/23/2024 Telephone [facility] [place] [facility] [place] [address] MD chartprep 10/18/2024 Refill [facility] [place] [facility] [place], [place] [phone] Gila Way MD Vitamin D deficiency 10/16/2024 Telephone [facility] [place] [facility] [place], [place] [phone] Buffy Vivas, RN Results 10/16/2024 Orders Only [facility] [place] [facility] [place] [phone] Gila Way MD Nephrolithiasis (Primary Dx) 10/16/2024 Patient Outreach [facility] 230 [place], [place] [phone] Gila Way MD Pre-visit Planning (Pre-visit planning [...] Description 12/25/2024 11:15 AM EDT Office Visit [facility] MED[facility]INE [address] [place] [phone] MD 230 [place], [place] [phone] Health Maintenance Due Date Last Done Comments [...] AM EDT Narrative 10/16/2024 9:02 AM EDT [place] [address] [address] Scan Report Signed Patient: Jaylyn Hou MR#: [id number] : 1970 Acct:[id number] Age/Sex: 54 / F ADM Date: 10/15/24 Loc: HO.CT Attending Dr: Gila Montoya MD Ordering Physician: Gila Way MD Date of Service: 10/15/24 Procedure(s): CT abdomen wo/w IV con Accession Number(s): [id number] cc: Gila Way MD Report Number: [id number]: Total DLP = 759.00 mGy-cm CLINICAL HISTORY: [...] 10/16/24 0902 DD/ 0901 TD/TT: 10/16/24 0901 [employer] Supervisor: Procedure Note Donotuseinterpreter, Image - 10/16/[address] [address] [address] Scan Report Signed Patient: Jaylyn HouMR#: [id number] : 1970Acct:[id number] Age/Sex: 54 / FADM Date: 10/15/24 Loc: HO.CT Attending Dr: Gila Montoya MD Ordering Physician: Gila Way MD Date of Service: 10/15/24 Procedure(s): CT abdomen wo/w IV con Accession Number(s): [id number] cc: Gila Way MD Report Number: [id number]: Total DLP = 759.00 mGy-cm CLINICAL HISTORY: [...] 10/16/24 0902 DD/ 0901 TD/TT: 10/16/24 09 [employer] Supervisor: us Gila Montoya MD IMG CT PROCEDURES Edited Result - Final * BI Mammogram Screening Tomosynthesis Bilateral (06/08/2024 1:50 PM EDT) Anatomical Region Laterality Modality Breast Bilateral Mammography 06/08/2024 1:50 PM EDT Narrative 06/14/2024 8:03 PM EDT [facility] [address] [place], [place] [address] Mammography Report Signed Patient: Jaylyn Hou MR#: [id number] : 1970 Acct:[id number] Age/Sex: 54 / F ADM Date: 06/08/24 Loc: HO.MAMMO Attending Dr: Gila Montoya MD Ordering Physician: Gila Way MD Re sults: 1Negative Date of Service: 06/08/24 Follow Up: 1 Year From Orig inal Mammogram Procedure(s): MM tomosynthesis screening BI Accession Number(s): [id number] cc: Gila Way MD EXAMINATION: MM SCREENING [...] OV> 06/14/241999 DD/ 1350 TD/TT: 06/08/24 1400 [employer] Supervisor: Procedure Note Donotuseinterpreter, Image - 06/14/2024 [facility] [address] [place] [address] [place] [address] Mammography Report Signed Patient: Jaylyn HouMR#: [id number] : 1970Acct:[id number] Age/Sex: 54 / FADM Date: 06/08/24 Loc: HO.MAMMO Attending Dr: Gila Montoya MD Ordering Physician: Gila Way sults: 1Negative Date of Service: 06/08/24Follow Up: 1 Year From Orig inal Mammogram Procedure(s): MM tomosynthesis screening BI Accession Number(s): [id number] cc: Gila Way MD EXAMINATION: MM SCREENING [...] OV> 06/14/241999 DD/ 1350 TD/TT: 06/08/24 1400 Continuous [employer] Supervisor: us Gila Montoya MD IMG BI PROCEDURES Edited Result - Final * (ABNORMAL) Lipid Panel, Standard (03/27/2024 1:45 PM EST) Triglycerides 135 <150 mg/dL [facility] Comment:Desirable Triglyceri de: less than 150 mg/dLBorderline High Triglyceride 150-199 mg/dLHigh Triglyceride: 200-499 mg/dLVery High Triglyceride: greater than or equal to 5OO mg/dL Cholesterol 153 <200 mg/dL [facility] Comment:Desirable Cholestero l: less than 200 mg/dLBorderline High Cholesterol: 200-239 mg/dLHigh Cholesterol: greater than 239 mg/dL LDL Cholesterol Calculated 92 <100 mg/dL [facility] Comment:Desirable LDL: less than 100 mg/dLNear Optimal/Above Optimal LDL: 110- 129 mg/dLBorderline High LDL: 130-159 mg/dLHigh LDL: 160-189 mg/dLVery High LDL: greater than or equal to 190 mg/dL HDL Cholesterol 34(L) >40 mg/dL [facility] Comment:Desirable HDL: grea ter than 40 mg/dL Note: This HDL assay may give artificially low results in patients with liver disease. Blood Venous blood specimen / Unknown 03/27/2024 1:45 PM EST 03/27/2024 4:08 PM EST Gila Montoya MD LAB BLOOD ORDERAB LES Final Result [facility] [address] [place] [phone] * HIV-1/2 Antigen and Antibodies, Fourth Generation, with Reflexes (02/07/2024 8:50 AM EST) HIV AB/AG Nonreactive Nonreactive [facility] Comment:HIV-1 p24 Ag and/or HIV-1/HIV-2 Ab not detected.A test result that is nonreactive does not exclude thepossibility of exposure to or infection with HIV-1 and/orHIV-2. Nonreactive results in this assay for individualswith prior exposure to HIV-1 and/or HIV-2 may be due toantigen and antibody levels that are below the limit ofdetection of this assay.The [employer] HIV Ag/Ab Combo assay result andsupplemental assay results should be interpreted inconjunction with the patient's clinical presentation,history and other laboratory results. If the results areinconsistent with clinical evidence, additional testing issuggested to confirm the result. Blood Venous blood specimen / Unknown 02/07/2024 8:50 AM EST 02/07/2024 11:03 AM EST Gila Montoya MD LAB BLOOD ORDERAB LES Final Result Performing Organization Address [facility] Co de Phone Number [facility] [address] [place] [address] [phone] * Hepatitis C Antibody with Reflex to HCV, RNA, Quantitative, Real-Time PCR (11/15/2023 8:49 AM EDT) Hepatitis C Antibody Nonreactive Nonreactive [facility] Comment:Antibodies to HCV no t detected; does not exclude early acuteHCV infection. Blood Venous blood specimen / Unknown 11/15/2023 8:49 AM EDT 11/15/2023 11:05 AM EDT Gila Montoya MD LAB BLOOD ORDERAB LES Final Result Performing Organization Address [facility] Co de Phone Number [facility] [address] [place] [address] [phone] * Hemoglobin A1c (11/15/2023 8:49 AM EDT) Hemoglobin A1c 5.4 <6.0 % [facility] Comment:Hemoglobin A1C Refer ence Range Adults: 4.8 - 6.0 % Non diabetic: < 6.0 % Goal: < 7.0 %Additional Action Suggested: > 8.0 %Note: Hemoglobin A1c results are invalid for patients with abnormal amounts of HbF. Blood transfusions may impact the HbA1c concentration in the patient sample. Estimated Average Glucose 108 mg/dL [facility] Comment:eAG = Estimated ave rage glucose which is %A1C expressed asaverage glucose, using the formula of the M4S-KyzvlsjNiurnjg Glucose study (ADAG), Diabetes Care, Vol.31,#8,Oct. 2007 Blood Venous blood specimen / Unknown 11/15/2023 8:49 AM EDT 11/15/2023 11:05 AM EDT us Gila Montoya MD LAB BLOOD ORDERAB LES Final Result Performing Organization Address [facility] Co de Phone Number [facility] [address] [place] [address] [phone] * THINPREP PAP (10/09/2021 2:38 PM [...] along with historic and current clinical information. Race Steward : SEE COMMENT [facility] Comment: DCR, CT(ASCP) CT screening location: [place] [address] Interpretation/R esult: Negative for intraepithelial lesion or malignancy. [facility] LMP: NONE GIVEN [facility] Prev. BX: NONE GIVEN [facility] Prev. PAP: NONE GIVEN [facility] SOURCE: None given [facility] Statement Of Adequacy: SEE COMMENT [facility] Comment: Satisfactory for evaluation. Endocervical/transformation zone component present. Age and/or menstrual status not provided 10/09/2021 2:38 PM EDT us Dylan Kimbrough MD LAB PATHOLOGY ORDERABLES Fin al Result [facility] [address] * HPV mRNA E6/E7 (10/09/2021 2:38 PM EDT) HPV nRNA E6/E7 Not Detected Not Detected [facility] Comment: Methodology: Control Cabinet Assembler-Mediated Amplification This assay detects E6/E7 viral messenger RNA (mRNA) from 14 high-risk HPV types (16,18,31,33,35,39,45,51,52,56,58,59,66,68). Cervical sources are required for HPV testing. If a vaginal source from a patient who has had a total hysterectomy with removal of cervix was submitted, please contact the testing laboratory for alternative testing options. For additional information, please refer to http://education.[employer]pectance/faq/LEJ638k6 (This link if provided for information/ educational purposes only.) 10/09/2021 2:38 PM EDT us Dylan Kimbrough MD LAB BLOOD ORDERABLES Final R esult [facility] Critical access hospital [place] from Last 3 Months or Most Recently Relevant to Health Maintenance Insurance [address] [place], [place] [address] C[employer] Care Teams Sap Project Manager Relationship Specialty Start Date End Date Gila Way MD [address] [place] [phone] PCP - General Internal Medicine 12/05/22
--- OUTSIDE RECORDS SUMMARY | 2024-12-18 13:26 | XMS_ITS | Clinical Summary ---
Author Organization [facility] Address [address] [place] [phone] Phone Care Team Providers Care Nutrition Partner Name Role Phone Physician, No Pcp Primary [...] [facility] Comment:Calculation based on the [...] 02/27/2024 10:37 PM [facility] Alkaline Phosphatase 109 42 - 121 unit/L LAB CHEMISTRY METHOD 02/27/2024 10:37 PM [facility] Total Protein 7.7 6.0 - 8.0 g/dL LAB CHEMISTRY METHOD 02/27/2024 10:37 PM EST [facility] Albumin 3.6 3.2 - 5.0 g/dL LAB CHEMISTRY METHOD 02/27/2024 10:37 PM EST [facility] Total Bilirubin 0.3 0.0 - 1.4 mg/dL LAB CHEMISTRY METHOD 02/27/2024 10:37 PM EST [facility] Blood Venous blood specimen / Unknown Venipuncture / Unknown 02/27/2024 10:03 PM EST 02/27/2024 10:12 PM EST Dougie Dillard MD LAB BLOOD ORDERABLES Final Resu lt [facility] [address] [place] [address], from Last 3 Months or Most Recently Relevant to Health Maintenance Insurance MEDICAID - [place] Care Teams Nutrition Partner Relationship Specialty Start Date End Date Physician, No Pcp PCP - General 02/28/24
[2024-12-30 13:50] VITALS: BMI 34.2
--- NOTE | 2024-12-31 09:19 | HO.ANESPROP2 ---
Documented by User: Gricelda Rinaldi NP 12/31/24 09:20 HPI - Anesthesia Eval Consult details Narrative: 54yo F for Right Diagnostic L1,L2,L3,L4 Medial Branch Block PMFSH Active Problems Active Problems: All Active Problems Flank pain (Acute) Renal cyst (Acute) Nephrolithiasis (Acute) Thoracic spondylosis (Acute) Lumbar spondylosis (Acute) Right foot pain (Acute) Postop check (Acute) Sebaceous cyst (Acute) Status post incision and drainage (Acute) Abscess (Acute) Chronic low back pain (Acute) Family history of colorectal cancer (Acute) Past Medical History Medical History Migraines Nephrolithiasis Thoracic spondylosis Chronic low back pain Family history of colorectal cancer Hypertension Surgical History Surgical History Hx of excision of mass History of back surgery Social History Social History Are you a primary healthcare administration internship to a significant other at home: No Do you presently have visiting nurse or other home services: No Alcohol intake: never Patient Tobacco Use Status: Never used Tobacco Use of substances other than those prescribed or required for medical reasons: No Have you been hit, kicked, punched, or otherwise hurt by someone within the past year? If so, by whom?: No Are you DNR?: No Advance Directives: No Advance Directives Information Provided: Yes Patient : No : No Poor oral hygiene: No Current occupational status: unemployed Meds Allergies Allergy/AdvReac Type Severity Reaction Status Date / Time No Known Allergies Allergy Verified 01/01/25 07:06 Home Medications ?Medication ?Instructions ?Recorded ?Confirmed ?Last Taken ?Type acetazolamide 250 mg tablet 250 mg PO DAILY 11/26/23 12/30/24 Unknown History cholecalciferol (vitamin D3) 125 125 mcg PO QAM 11/26/23 12/30/24 Unknown History mcg (5,000 unit) tablet rosuvastatin 20 mg tablet 20 mg PO QAM 11/26/23 12/30/24 Unknown History losartan 25 mg tablet 50 mg PO DAILY 02/25/24 12/30/24 Unknown History Exam Height,Weight and Vital Signs: Height 5 ft 2 in Weight 84.822 kg Pertinent Lab Results Pertinent Lab Results: Laboratory Tests 12/21/24 08:53 WBC 11.3 H Hgb 16.3 H Hct 49.5 H Plt Count 223 Sodium 140 Potassium 4.2 Chloride 103 Carbon Dioxide 26 BUN 21 H Creatinine 0.91 Assessment and Plan Assessment Anesthesia Assessment: Chart Reviewed Documented by User: Jocelynn Brian MD 01/01/25 07:51 PMFSH Past Medical History Medical History Migraines Nephrolithiasis Thoracic spondylosis Chronic low back pain Family history of colorectal cancer Hypertension Family History Family history of problems with anesthesia: No Surgical History Surgical History Hx of excision of mass History of back surgery History of Problems with Anesthesia: No Social History Social History Are you a primary healthcare administration internship to a significant other at home: No Do you presently have visiting nurse or other home services: No Alcohol intake: never Patient Tobacco Use Status: Never used Tobacco Use of substances other than those prescribed or required for medical reasons: No Have you been hit, kicked, punched, or otherwise hurt by someone within the past year? If so, by whom?: No Are you DNR?: No Advance Directives: No Advance Directives Information Provided: Yes Patient : No : No Poor oral hygiene: No Current occupational status: unemployed Meds Allergies Allergy/AdvReac Type Severity Reaction Status Date / Time No Known Allergies Allergy Verified 01/01/25 07:06 Home Medications ?Medication ?Instructions ?Recorded ?Confirmed ?Last Taken ?Type acetazolamide 250 mg tablet 250 mg PO DAILY 11/26/23 12/30/24 Unknown History cholecalciferol (vitamin D3) 125 125 mcg PO QAM 11/26/23 12/30/24 Unknown History mcg (5,000 unit) tablet rosuvastatin 20 mg tablet 20 mg PO QAM 11/26/23 12/30/24 Unknown History losartan 25 mg tablet 50 mg PO DAILY 02/25/24 12/30/24 Unknown History Exam Airway Mallampati Class: II TM Dist: >3cm Neck ROM: Full Heart: rrr Lungs: cta Assessment and Plan Assessment Anesthesia Assessment: Anesthesia Plan Discussed Final Anesthetic Review Family History of Problems with Anesthesia: No History of Problems with Anesthesia: No NPO: Yes ASA Class: III Final Preanesthetic Review: No Changes in Pt Med Stat, Meds/Allgs Chart Reviewed, Consent Obtained/Reviewed and Anes Risks/Benef Reviewed Patient Risk: Intermediate Procedure Risk: Low Anesthetic Plan Anesthetic Plan: MAC: Disposition: Standard PACU
--- NOTE | ~2025-01-01 | FL_ITS ---
EXAMINATION: FL GUIDANCE ONLY HISTORY: l1 l2 l3 l4 MBB, right COMPARISON: None available. TECHNIQUE: Fluoroscopy time: 34.3 seconds. Cumulative Dose: 16.442 mGy. DAP: 5. 03/28/1994 Gycm2 Images: 8. FINDINGS: Fluoroscopic spot films of the lumbar spine demonstrate needles and contrast material in the regions of the right L1-2, L2-3, L3-4, and L4-5 facet joints. FL/FL guidance in OR IMPRESSION: Fluoroscopy during procedure. Please see procedure report for additional information. Electronically signed by: Stuart Lam MD 01/01/2025 08:39 AM EDT
[2025-01-01 07:14] VITALS: BP 154/82; PULSE 90; RESP 14; TEMP 36.4; O2SAT 96; BMI 34.7
[2025-01-01] MEDS: Lactated Ringers 1,000 ML 100 ML IVCONT (07:31)
--- NOTE | 2025-01-01 07:56 | MHC.SHP ---
Pre-Procedural Eval Section A - 24 Hr Update-Section A only Date of Service: 01/01/25 The patient is an INPATIENT: No Changes since office visit: Yes Patient answered all questions The patient has been examined within 24 hours of the surgical procedure. The History & Physical has been completed within 30 days and I have reviewed it.: No Section B - Complete if H&P > 30 days Chief Complaint: Spondylosis w/o myelopathy or radiculopathy,pain Details of Present Illness: As above Relevant Family History (Specify if Yes): No Relevant Social History: None Present Medications: see Short Stay Collaborative assessment Medical History: Significant History (Morbid obesity) History of Previous Operations: No relevant previous surgery Allergies: Allergies Allergy/AdvReac Type Severity Reaction Status Date / Time No Known Allergies Allergy Verified 01/01/25 07:06 Review of Systems Sugical H&P ROS: Negative: Cardiovascular, Respiratory, Neurological, Psychiatric, Hem-Onc, Allergic/Immunologic, Gastrointestinal, Genitourinary, Integumentary, Endocrine and Eyes/Ears/Nose/Throat and Yes, Specify: Constitution (Morbid obesity) and Musculoskeletal (Spondylosis lumbar) Exam Surgical H&P Exam: Normal: HEENT, Normal: Heart, Normal: Lungs, Normal: Extremities, Normal: Skin and Normal: Neurological and Significant Findings: Abdomen (Enlarged due to fat) Plan Diagnosis/Plan: Unchanged I have reviewed the history and physical and performed a pertinent physical examination on my patient. No changes have occurred unless specified. I will perform diagnostic L1, L2, L3, L4 medial branch blocks on the right. Time Spent With Patient Time: Total time managing care of this patient today ____ minutes.
[2025-01-01 08:27] VITALS: BP 125/67; PULSE 93; RESP 15; TEMP 37.5; O2SAT 94
--- NOTE | 2025-01-01 08:36 | P.OP_ITS ---
Operative Note Operative Note Date of Service: 01/01/25 Narrative: Diagnostic medial branch block L1, L2, L3, L4 on the right. Batteries is very pleasant 54 years old female who is suffering from spondylosis of the lumbar spine. She came today for diagnostic medial branch block L1, L2, L3, L4 on the right. She was brought to the operating room after informed consent was thoroughly explained to the patient using [facility] american sign language interpreter. ASA monitors were applied. Patient was moderately sedated. Her lower back was prepped with ChloraPrep and draped with sterile self adhesive utility towels. C-arm was brought over the operating field and sq picture of L1, L2, L3, and L4 vertebra were sequentially demonstrated on the screen. Tilting C-arm ipsilateral right the point of interest were detected as confluence of the silhouette of the superior articular process of above mentioned vertebra with ipsilateral transfers process of the same vertebra. The projection of the point of interest to the skin was injected with small amount of mixture of lidocaine 2% and ropivacaine 0.5% 1-1. After that 22 gauge 5 in spinal needle was driven sequentially to the points of interest in tunnel vision fashion. When needle gently contacted the bone injection of the contrast was performed delineating no intravascular and no intrathecal spread of the contrast. After that small amount of ropivacaine 0.5% no more than 1 cc was injected at each needle location. Upon completion of the injection the needle was removed. Band-Aids were applied. Patient tolerated the procedure well. She was transferred to PACU where she recovered uneventfully.
[2025-01-01 08:42] VITALS: BP 139/87; PULSE 87; RESP 16; TEMP 37.1; O2SAT 95
== END 2025-01-01 09:42 | disposition home or self-care (01) ==
PROVIDERS: PCP Student in an Organized Health Care Education/Training Program; Visit Provider Anesthesiology
PROC: (CPT 64493; principal; 2025-01-01 08:40)
DX: M47.816 Spondylosis without myelopathy or radiculopathy, lumbar region (principal); G89.29 Other chronic pain; M54.50 Low back pain, unspecified; I10 Essential (primary) hypertension; Z79.899 Other long term (current) drug therapy; Z80.0 Family history of malignant neoplasm of digestive organs; Z98.890 Other specified postprocedural states; Z56.0 Unemployment, unspecified
CPT/HCPCS: 64493; 64494; J2003; J2250; J2704; J2795; J3010; Q9967

== ENCOUNTER → 2025-01-01 06:31 | Outpatient (BNV) | payer MEDICAID, SELFPAY | PROVIDERS: PCP Student in an Organized Health Care Education/Training Program; Visit Provider Anesthesiology | DX: M47.816 Spondylosis without myelopathy or radiculopathy, lumbar region (principal) | CPT/HCPCS: 64493; 64494; 64495 ==

== ENCOUNTER 2025-01-05 12:46 | Outpatient (AMB) | payer MEDICAID, SELFPAY ==
--- NOTE | 2025-01-05 13:15 | MHC.OFFVIS ---
Vital Signs 01/05/25 13:20 Height 5 ft 2 in Weight 187 lb 4 oz BMI 34.2 BP 141/83 H Blood Pressure Location Rt brachial Position Sitting Pulse 88 Pulse Source Pulse Oximeter Pulse Oximetry (%) 98 Oxygen Delivery Method Room Air Intake Visit Reasons: (R) Dx L1-L2-L3-L4 MBB 01/01/25 Intake Note: Pain today 1/10 Fisheries Director Required: Yes Fisheries Director Language: Senior Instructional Designer Services: Fisheries Director Present Fisheries Director Name: Norberto #[id number] Information Interpreted: non-clinical & clinical Accompanied by: Self / Same As Patient Allergies No Known Allergies Allergy (Verified 01/05/25 13:21) HPI Comments Details: The patient is a 54-year-old female presenting with chronic back pain. The pain was initially severe, significantly impacting her quality of life, but has recently decreased to a minimal level of 1/10 following diagnostic right sided lumbar medial branch block injections. The injections were intended to provide temporary relief and to assess eligibility for further procedures such as Sprint PNS trial or radiofrequency ablation. The patient also has a history of kidney stones, confirmed by a CT scan in September, showing stones on both sides, with a 9 mm stone on the right side. She has an upcoming appointment with [facility] in January to address the kidney stones, which may be contributing to her right-sided back pain. At this point, she reports very minimal right sided back pain and prefers to hold off on any further treatments. Past Procedures: 12/08/24: Right diagnostic L1-L2-L3-L4 MBB injections- 90% ongoing pain relief PRIOR: The patient is a 54-year-old female presenting with chronic lower back pain secondary to degenerative changes and thoracolumbar spondylosis, initiated approximately 5-6 years ago after a fall down the stairs. She has multilevel degenerative disease, confirmed by recent imaging, affecting her lumbar spine. Given the chronicity of her condition, she has a significant history of attempts at conservative management, including physical therapy, which she found unhelpful and discontinued about 4 months ago. She has been utilizing lidocaine patches and cyclobenzaprine with limited relief. Denies previous spine surgery or injections. Her pain remains localized to the lower back without radiating symptoms, though she reports associated right-sided knee and hip arthritis, as well as prior diagnoses of piriformis syndrome. Moreover, a 6 mm right kidney stone has been identified, which may contribute to her symptomatology. The patient's past medical history includes pre-diabetes, obesity, and obstructive sleep apnea, for which she adheres to CPAP therapy. Despite these issues, she remains engaged in her occupation, which involves substantial physical activity, exacerbating her pain condition. Steps toward weight management are also being taken to aid in her overall health and potential pain relief. - Onset and Timing: Pain began approximately five to six years ago post-fall. - Quality and Character: Persistent, stabbing, throbbing, pinching, cramping, tight, aching pain primarily in the right mid and ower back. Pain is worse during mid day, rated 10/10 without medication/patches. - Primary Location: Right mid to lower back. - Areas of Radiation: No radiation of pain to the legs. - Aggravating Factors: Physical activity, such as cleaning tasks, vacuuming, bending, extending backwards, standing upright. - Alleviating Factors: Lidocaine patches and cyclobenzaprine provide some relief. - Interference with Function: Pain affects her ability to perform physically demanding work tasks. - Affect: The patient's mood and psychological wellbeing are likely impacted by chronic pain, though not explicitly discussed. - Analgesia: Utilizes lidocaine patches and cyclobenzaprine with limited relief. Desires better pain control. - Adverse Effects: Not discussed explicitly. - Activities of Daily Living: Pain interferes with physically demanding work tasks such as cleaning. - Aberrant Drug Related Behaviors: None reported. Oswestry Low Back Disability Score=29 COUNT INCLUDES THE [facility] Medical History Migraines Nephrolithiasis Thoracic spondylosis Chronic low back pain Family history of colorectal cancer Hypertension Surgical History Hx of excision of mass History of back surgery Social History Are you a primary childcare center administrator to a significant other at home: No Do you presently have visiting nurse or other home services: No Alcohol intake: never Patient Tobacco Use Status: Never used Tobacco Current occupational status: unemployed Review of Systems Const All systems reviewed & are unremarkable except as noted in HPI and below Physical Exam General: Appears afebrile. Alert and oriented. Mood and affect appropriate. Follows and participates in conversation appropriately. Respiratory effort is unlabored. No cough. Able to transition from sit to stand unassisted. Ambulates with bilaterally normal heel strike and toe off. General: Yes CVA tenderness (right) Back/Spine/Pelvis Back: CVA tenderness (right) and back tenderness (mid right back) Cervical Spine: cervical ROM normal, cervical muscular tenderness and No Cervical spine tenderness Thoracic/Lumbar Spine: thoracic and lumbar spine normal to inspection, No Thoracic/lumbar spine scar(s), Lasegue's sign negative, straight leg raise negative bilaterally, pain with thoraco-lumbar ROM (positive facet loading on the right, minimal on the left), paraspinal muscle tenderness on the right greater than left, thoraco-lumbar ROM limited, No thoracic spinal tenderness and No lumbar spinal tenderness Sacroiliac joints: on the right tender to palpation and on the left nontender Extrem General: Yes capillary refill normal, Yes no clubbing, cyanosis or edema and Yes no calf tenderness Results Reviewed Results Reviewed: XR LUMBOSACRAL SPINE 07/27/24 CLINICAL INFORMATION: chronic lumbar back pain COMPARISON: None available. TECHNIQUE: Three views of the lumbosacral spine. FINDINGS: Facet joint hypertrophy at L4-5 and L5-S1. Endplate sclerosis and marginal osteophyte formation at L5-S1 and L3-4 and to a lesser extent L1-2 level. No acute cortical disruption. No gross malalignment. 6 mm calcification overlapping the right kidney shadow. Degenerative changes in the symphysis pubis. IMPRESSION: Multilevel thoracolumbar spondylosis. Probable nephrolithiasis, right kidney. XR HIP, RIGHT 05/26/24 CLINICAL INFORMATION: acute right hip pain COMPARISON: None available. TECHNIQUE: Two views of the right hip. FINDINGS: Syndesmophyte formation in the superior right acetabulum. No acute cortical disruption or malalignment. There is preservation of the joint space. No lytic or blastic lesions. Osteophyte formation in the symphysis pubis. IMPRESSION: Osteoarthrosis, mild without acute fracture or dislocation right hip. CT abdomen with and without contrast 10/16/24 Comparison: None provided Findings: The heart is within the upper limits of normal in size. The lung bases are clear. There is fatty infiltration in the anterior right hepatic lobe. Several nonobstructive right renal stones are seen measuring up to 9 mm. Several simple right renal cysts are seen measuring up to 1.7 cm. Additional subcentimeter right renal hypodensity is too small to characterize. Several 2 mm nonobstructive left renal stones are present. 1.8 cm simple left lower renal parapelvic cyst is noted. The gallbladder, pancreas, spleen, and bilateral adrenal glands appear within normal limits. The visualized bowel loops are normal in caliber. The appendix appears normal. There is no pneumoperitoneum or ascites. There is no adenopathy. Mild degenerative changes are seen in the spine. No acute osseous abnormality is identified. No aggressive lytic or blastic lesion is seen. IMPRESSION: 1. Several simple right renal cysts measuring up to 1.7 cm. Several nonobstructive right renal stones are present measuring up to 9 mm. 2. 1.8 cm simple left lower renal parapelvic cyst. Several nonobstructive 2 mm left renal stones are present. Assessment & Plan Assessment & Plan (1) Chronic low back pain: Code(s): M54.50 - Low back pain, unspecified; G89.29 - Other chronic pain Category: Medical (2) Thoracic spondylosis: Code(s): M47.814 - Spondylosis without myelopathy or radiculopathy, thoracic region Category: Medical (3) Lumbar spondylosis: Code(s): M47.816 - Spondylosis without myelopathy or radiculopathy, lumbar region Category: Medical (4) Nephrolithiasis: Code(s): N20.0 - Calculus of kidney Category: Medical Plan The plan includes monitoring the patient's pain levels and considering further interventions if the pain returns. Options discussed include nerve ablation or nerve stimulation, both of which could provide long-term relief. The patient is advised to follow up with Urology regarding the kidney stones, as their resolution may alleviate the back pain. All questions and concerns have been answered and patient agreed with the treatment plan. Follow up as needed. Patient was informed and verbally consented to the use of an ambient scribe for clinic note documentation during this visit. Coding Level of Care Code Est Pt Level 3 (87705) Complex EM visit Add On G2211 Diagnoses Chronic low back pain M54.50; G89.29 Thoracic spondylosis M47.814 Lumbar spondylosis M47.816 Nephrolithiasis N20.0
[2025-01-05 13:20] VITALS: BP 141/83; PULSE 88; O2SAT 98; BMI 34.2
--- OUTSIDE RECORDS SUMMARY | 2025-01-05 15:28 | XMS_ITS | Encounter Summary ---
Demographics Address [address] [place] [address] Mobile Phone Home Phone Preferred Language es Marital Status Unknown Caodaism Affiliation Unknown Race Other Race Ethnic Group Unknown Author Organization [employer] Address [address] [place] [address] Care Team Providers Care Lead Nuclear Medicine Technologist Name Role Phone Gila Way MD Primary Care Pro vider Reason for Visit * Reason Comments Med Refill Encounter Details Date Type Department Care Team (Late st Contact Info) Description 11/27/2024 Refill [facility] [address] [place], [place] [phone] Gila [address] MD [address] [place] [address] Social History Tobacco Use Types Packs/Day Years [...] Care Team (Late st Contact Info) Description 03/11/2025 10:15 AM EST Office Visit [facility] [address] [place] [id number] MD [address] [place] [phone] documented as of this encounter Visit Diagnoses Not on filedocumented in this encounter Additional Health Concerns Assessment Noted Time PHQ-9 Depression Total Score: 0 10/27/19 25 2:24 PM EDT documented as of this encounter Care Teams Lead Nuclear Medicine Technologist Relationship Specialty Start Date End Date Gila Way MD [address] [place] [phone] PCP - General Internal Medicine 12/05/22 documented as of this encounter
--- OUTSIDE RECORDS SUMMARY | 2025-01-05 15:28 | XMS_ITS | Clinical Summary ---
Demographics Address [address] [facility] [address] [place] [address] Mobile Phone Home Phone Preferred Language es Marital Status Unknown Islam Affiliation Unknown Race Other Race Ethnic Group Unknown Author Organization [employer] Address [address] [facility] [address] [place] [address] Care Team Providers Care Propulsion Systems Engineer Name Role Phone Gila Way MD Primary [...] per day. 1 kit 01/24/20 24 Active econazole nitrate 1 % creamIndications: Intertrigo Apply topically 2 times daily. 85 g 11/28/19 25 Active triamcinolone (Kenalog) 0.025 % creamIndications: Intertrigo Apply topically 2 times daily. 80 g 11/28/19 25 Active losartan-hydroCHL OROthiazide (Hyzaar) 100-25 MG tablet Take 1 tablet by mouth Once per day. 90 tablet 12/26/19 25 2025 Active rosuvastatin (Crestor) 20 MG tabletIndications :Hyperlipidemia, unspecified hyperlipidemia type Take 1 tablet (20 mg) by mouth Once per day. 90 tablet 12/26/19 25 Active cholecalciferol (Vitamin D-3) 125 MCG (5000 UT) tabletIndications :Vitamin D deficiency Take 1 tablet (125 mcg) by mouth Once per day. 90 tablet 12/26/19 25 Active lidocaine (Lidoderm) 5 % patchIndications: Posterior pain of right hip Apply 1 patch topically Once per day. Remove & discard patch within 12 hours or as directed by . 30 patch 2 10/03/20 25 Active rosuvastatin (Crestor) 20 MG tabletIndications :Hyperlipidemia, [...] by MD. 30 patch 2 07/28/19 25 2024 Discontinued(R eorder (will not trigger notification to Pharmacy)) cholecalciferol (Vitamin D-3) 125 MCG (5000 UT) tabletIndications :Vitamin D deficiency TAKE 1 TABLET BY MOUTH EVERY DAY 90 tablet 10/20/19 25 2024 Discontinued(R eorder (will not trigger notification to Pharmacy)) hydroCHLOROthiazi de 12.5 MG tablet Take 1 tablet (12.5 mg) by mouth Once per day. 90 tablet 10/27/19 25 2024 Discontinued(O ther) losartan (Cozaar) 100 MG tabletIndications :Essential hypertension Take 1 tablet (100 mg) by mouth Once per day. 90 tablet 11/28/19 25 2024 Discontinued(O ther) Active Problems Problem [...] and also in the community. Her strong congregation belief is helping Jaylyn to deal with [...] and also in the community. Her strong congregation belief is helping Jaylyn to deal with [...] gradually return to regular daily routine and synagogue activities. PLAN: (check all that apply) Further services needed, but declined Behavioral Health Integration Plan Internal Follow up with [facility] Patient Self Plan Patient to utilize skills provided in intervention , [facility], and Patient to reach out to [facility] as needed. Pt declined OP referral for external agency. She would like to follow-up with clinician during next medical appointment. 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 Encounters Date Type Department Care Team Description 12/25/2024 11:15 AM EDT Office Visit [facility] [place] [address] MD Dyslipidemia (Primary Dx); Hyperlipidemia, unspecified hyperlipidemia type; Vitamin D deficiency; Posterior pain of right hip; Essential hypertension; Health care maintenance; Chronic low back pain without sciatica, unspecified back pain laterality 12/25/2024 Telephone [facility] [place] [address] MD Prior Authorization 12/25/2024 Travel 12/24/2024 Telephone [facility] [place] [address] MD chart prep 12/21/2024 Results Follow-Up [facility] [place] [address] MD Chlamydia/Trichomonas/N eisseria gonorrhoeae, PCR, Urine, Albumin, Random Urine W/Creatinine, CBC, Additional followed-up results: 9 12/21/2024 Orders Only [facility] [address] MD 11/27/2024 3:30 PM EDT Office Visit [facility] [place] [address] Frandy Loomis MD Intertrigo (Primary Dx) 11/27/2024 Refill [facility] [place] [address] MD 11/27/2024 Travel 11/27/2024 Refill [facility] [place] [facility] [place] [address] MD Essential hypertension 10/26/2024 2:00 PM EDT Office Visit [facility] [address] [place] [address] MD Class 2 obesity due to excess calories without serious comorbidity with body mass index (BMI) of 36.0 to 36.9 in adult (Primary Dx); Annual physical exam; Essential hypertension; Health care maintenance; Idiopathic intracranial hypertension; ANGELICA on CPAP; Intertrigo; Nephrolithiasis; Renal cyst 10/26/2024 Travel 10/23/2024 Telephone [facility] [address] [place] [address] MD chartprep 10/18/2024 Refill [facility] [address] [place] [address] MD Vitamin D deficiency 10/16/2024 Telephone [facility] [address] [place], [place] [phone] Buffy Vivas, RN Results 10/16/2024 Orders Only [facility] [address] [place] [address] MD Nephrolithiasis (Primary Dx) 10/16/2024 Patient Outreach [facility] [address] [place] [address] MD Pre-visit Planning (Pre-visit planning [...] Sign Reading Time Taken Comments Blood Pressure 138/88 12/25/2024 10:52 AM EDT Pulse 90 12/25/2024 10:52 AM EDT Temperature 36 C (96.8 F) 12/25/2024 10:52 AM EDT Respiratory Rate 18 12/25/2024 10:52 AM EDT Oxygen Saturation 98% 12/25/2024 10:52 AM EDT Inhaled Oxygen Concentration - - Weight 85.7 kg (189 lb) 12/25/2024 10:52 AM EDT Height 157.5 cm (5' 2 ) 12/25/2024 10:52 AM EDT Body Mass Index 34.57 12/25/2024 10:52 AM EDT Plan of Treatment Upcoming Encounters Date Type Department Care Team (Late st Contact Info) Description 03/11/2025 10:15 AM EST Office Visit [facility] [address] [place], [place] [phone] Gila Way MD [address] [place], [place] [phone] Health Maintenance Due Date Last Done Comments CT Colonography 1969 Colonoscopy 1969 Colorectal Cancer Screening 1970 FIT DNA/Cologuard 1969 FIT 1970 FOBT 1970 Sigmoidoscopy 1969 Hepatitis B Vaccines (1 of 3 - 19+ 3-dose series) 1988 Pneumococcal Vaccine: 50+ Years (1 of 1 - PCV) 2019 COVID-19 Vaccine (3 - season) 2024 03/27/2021, 08/30/2020 Influenza Vaccine (#1) 2024 , 05/01/2023, 12/17/2018, Additional history exists Mammogram 06/08/2025 06/08/2024, 0303/2023, 05/25/2021, Additional history exists Alcohol/Substance Use Screening 07/27/2025 07/27/2024 Disability Screening 07/27/2025 07/27/2024 Depression Screening 10/26/2025 10/26/2024, 10/27/19 25 SDOH Screening 10/26/2025 10/26/2024 Diabetes: Hemoglobin A1C 12/21/2025 025, 11/15/2023, 06/19/2021, Additional history exists Tobacco Screening 12/25/2025 12/25/2024 DTaP/Tdap/Td Vaccines (2 - Td or Tdap) 04/30/2026 04/30/2016 Cervical Cancer Screening 10/09/2026 HPV/Cotest 10/09/2026 10/09/2021, 07/25/2016 Pap Smear 10/09/2026 10/09/2021 Lipid Panel 12/21/2029 12/21/2024, 01/0 05/2024, 02/07/2024, Additional history exists RSV Patients and Patients Aged 60 years or older (1 - 1-dose 75+ series) 2044 Zoster Vaccines Completed 06/28/2023, 05/01/2023 HIV Screening Completed 12/21/2024, 02/07/2024 Hepatitis C Screening Completed 12/21/2024, 024 HIB Vaccines Aged Out No longer eligi [...] Procedure Name Priority Date/Time Associated Diagnosis Comments FL GUIDANCE IN OR Routine 01/01/2025 7:2 0 AM EDT T4, FREE Routine 12/21/2024 8:53 AM EDT VITAMIN D,25-OH,TOTAL,IA Routine 12/21/2024 8:53 AM EDT Annual physical exam TSH W/REFLEX TO FT4 Routine 12/21/2024 8 :53 AM EDT Annual physical exam SYPHILIS SCREEN Routine 12/21/2024 8:53 AM EDT Annual physical exam LIPID PANEL, STANDARD Routine 12/21/2024 8:53 AM EDT Annual physical exam HIV 1/2 ANTIGEN/ANTIBODY, FOURTH GENERATION W/RFL Routine 12/21/2024 8:53 AM EDT Annual physical exam HEPATITIS C AB W/REFL TO HCV RNA, QN, PCR Routine 12/21/2024 8:53 AM EDT Annual physical exam HEPATITIS B SURFACE ANTIGEN, EIA Routine 12/21/2024 8:53 AM EDT Annual physical exam HEMOGLOBIN A1C Routine 12/21/2024 8:53 AM EDT Annual physical exam COMPREHENSIVE METABOLIC PANEL Routine 12/21/2024 8:53 AM EDT Annual physical exam CBC Routine 12/21/2024 8:53 AM EDT Annual physical exam ALBUMIN, RANDOM URINE W/CREATININE Routine 12/21/2024 8:53 AM EDT Annual physical exam CHLAMYDIA/TRICHOMONAS/ NEISSERIA GONORRHOEAE, PCR, URINE Routine 12/21/2024 8:53 AM EDT Annual physical exam CT ABDOMEN W AND WO CONTRAST Routine 10/16/2024 9:01 AM EDT Renal lesion BI MAMMOGRAM SCREENING TOMOSYNTHESIS BILATERAL Routine 06/08/2024 1:50 PM EDT HPV MRNA E6/E7 Routine 10/09/2021 2:38 PM EDT THINPREP PAP Routine 10/09/2021 2:38 PM EDT from Last 3 Months or Most Recently Relevant to Health Maintenance Results * FL Guidance in OR (01/01/2025 7:20 AM EDT) Anatomical Region Laterality Modality X-Ray Angiograph y 01/01/2025 7:20 AM EDT Narrative 01/01/2025 8:42 AM EDT [address] [address] Fluoroscopy Report Signed Patient: Jaylyn Hou MR#: [id number] : 1970 Acct:[id number] Age/Sex: 54 / F ADM Date: 01/01/25 Loc: HO.SSS Attending Dr: Galo Perez MD Ordering Physician: Galo Perez MD Date of Service: 01/01/25 Procedure(s): FL guidance in OR Accession Number(s): [id number] cc: Galo Perez MD; Gila Way MD Reason for Exam: l1 l2 l3 l4 MBB, right EXAMINATION: FL GUIDANCE ONLY HISTORY: l1 l2 l3 l4 MBB, right COMPARISON: None available. TECHNIQUE: Fluoroscopy time: 34.3 seconds. Cumulative Dose: 16.442 mGy. DAP: 5. 03/28/1994 Gycm2 Images: 8. FINDINGS: Fluoroscopic spot films of the lumbar spine demonstrate needles and contrast material in the regions of the right L1-2, L2-3, L3-4, and L4-5 facet joints. FL/FL guidance in OR IMPRESSION: Fluoroscopy during procedure. Please see procedure report for additional information. Electronically signed by: Stuart Lam MD 01/01/2025 08:39 AM EDT Dictated By: Stuart Lam MD Signed By: <Electronically signed by Stuart Lam MD in OV> 01/01/25 0839 DD/ 9 TD/TT: 01/01/2536 Report Analyst: Procedure Note Donotuseinterpreter, Image - 01/01/[address] [address] Fluoroscopy Report Signed Patient: Jaylyn HouMR#: [id number] : 1970Acct:[id number] Age/Sex: 54 / FADM Date: 01/01/25 Loc: HO.SSS Attending Dr: Galo Perez MD Ordering Physician: Galo Perez MD Date of Service: 01/01/25 Procedure(s): FL guidance in OR Accession Number(s): [id number] cc: Galo Perez MD; Gila Way MD Reason for Exam: l1 l2 l3 l4 MBB, right EXAMINATION: FL GUIDANCE ONLY HISTORY: l1 l2 l3 l4 MBB, right COMPARISON: None available. TECHNIQUE: Fluoroscopy time: 34.3 seconds. Cumulative Dose: 16.442 mGy. DAP: 5. 03/28/1994 Gycm2 Images: 8. FINDINGS: Fluoroscopic spot films of the lumbar spine demonstrate needles and contrast material in the regions of the right L1-2, L2-3, L3-4, and L4-5 facet joints. FL/FL guidance in OR IMPRESSION: Fluoroscopy during procedure. Please see procedure report for additional information. Electronically signed by: Stuart Lam MD 01/01/2025 08:39 AM EDT RP Dictated By: Stuart Lam MD Signed By: <Electronically signed by Stuart Lam MD in OV> 01/01/25 0839 DD/ 0720 TD/TT: 01/01/25 0836 Report Analyst: [facility] External Provider IMG IR PROCEDURES Final Result * Chlamydia/Trichomonas/Neisseria gonorrhoeae, PCR, Urine (12/21/2024 8:53 AM EDT) CT PCR, Urine NOT DETECTED Not Detect. [facility] Comment:A not detected test result does not exclude the possibilityof infection because test results can be affected byimproper specimen collection, concurrent antibiotic therapy,or the number of organisms in the specimen which may bebelow the sensitivity of the test. As with many diagnostictests, results from the Xpert CT/NG assay should beinterpreted in conjunction with other laboratory andclinical data available to the clinician.The Xpert CT/NG assay should not be used for the evaluationof suspected sexual abuse or for other medico-legalindications. Additional testing is recommended in anycircumstance when false positive or false negative resultscould lead to adverse medical, social or psychologicalconsequences. NG PCR, Urine NOT DETECTED Not Detect. [facility] Comment:A not detected test result does not exclude the possibilityof infection because test results can be affected byimproper specimen collection, concurrent antibiotic therapy,or the number of organisms in the specimen which may bebelow the sensitivity of the test. As with many diagnostictests, results from the Xpert CT/NG assay should beinterpreted in conjunction with other laboratory andclinical data available to the clinician.The Xpert CT/NG assay should not be used for the evaluationof suspected sexual abuse or for other medico-legalindications. Additional testing is recommended in anycircumstance when false positive or false negative resultscould lead to adverse medical, social or psychologicalconsequences. Urine (Urine, Random) 12/21/2024 8:53 AM EDT 12/21/2024 11:02 AM EDT Gila Montoya MD LAB URINE ORDERAB LES Final Result Performing Organization Address [facility]/ZIP Co de Phone Number [facility] [address] [place] [phone] * Syphilis Screen (12/21/2024 8:53 AM EDT) Syphilis Screen Nonreactive Nonreactive [facility] Blood 12/21/2024 8:53 AM EDT 12/21/2024 11:25 AM EDT Gila Montoya MD LAB BLOOD ORDERAB LES Final Result Performing Organization Address [facility] Co de Phone Number [facility] [address] [place] [phone] * Vitamin D, 25-Hydroxy, Total, Immunoassay (12/21/2024 8:53 AM EDT) Vitamin D 25-OH Total 34.9 >30 ng/mL [facility] Comment: Health Based Reference Values*< 20 ng/mL [id number] ng/mL Insufficient> 30 ng/mL Sufficient*Ying FAIR. N Engl J Med. 2007;357:266-280There is no well-established upper level of normal vitamin Dlevels. Some laboratories use 50 ng/mL as an upper limit ofnormal. However, toxicity is patient-dependent and may occurat any level. Careful correlation with the patient'spresentation is necessary and, if there is concern forvitamin D toxicity, treatment should be consideredirrespective of the serum level.Care must be taken in interpreting Vitamin D results fromdifferent laboratories and methodologies. Published datademonstrated that results from patients undergoinghemodialysis may show a negative bias when tested withvarious automated 25-OH vitamin D assays when compared toLC-MS/MS.When testing samples from patients whose predominant form ofVitamin D is Vitamin D2, such as patients receiving VitaminD2 supplementation, results that are subtherapeutic shouldbe confirmed with another method such as LC-MS/MS. Blood Venous blood specimen / Unknown 12/21/2024 8:53 AM EDT 12/21/2024 11:25 AM EDT us Gila Montoya MD LAB BLOOD ORDERAB LES Final Result Performing Organization Address City/[facility]/ZIP Co de Phone Number [facility] [address] [place] [phone] * (ABNORMAL) TSH with Reflex to Free T4 (12/21/2024 8:53 AM EDT) TSH reflex Free T4 4.41(H) 0.32 - 4.0 uIU/mL [facility] Blood 12/21/2024 8:53 AM EDT 12/21/2024 11:25 AM EDT us Gila Montoya MD LAB BLOOD ORDERAB LES Final Result Performing Organization Address [facility]/ZIP Co de Phone Number [facility] [address] [place] [phone] * Albumin, Random Urine W/Creatinine (12/21/2024 8:53 AM EDT) Creatinine, Urine 140.77 mg/dL [facility] Microalbumin Urine 14.0 mg/L [facility] Microalbum Creatinine Ratio Ur 9.9 <30 ug/mg cr [facility] Comment:Albumin/Creatinine R atio Reference Ranges: Normal: < 30 ug/mg creatinine Microalbuminuria: 30 - 300 ug/mg creatinineClinical Albuminuria: > 300 ug/mg creatinine Urine (Urine, Random) 12/21/2024 8:53 AM EDT 12/21/2024 11:02 AM EDT us Gila Montoya MD LAB URINE ORDERAB LES Final Result Performing Organization Address [facility]/ZIP Co de Phone Number [facility] [address] [place] [phone] * Hepatitis C Antibody with Reflex to HCV, RNA, Quantitative, Real-Time PCR (12/21/2024 8:53 AM EDT) Pathologist [facility] Hepatitis C Antibody Nonreactive Nonreactive [facility] Comment:Antibodies to HCV no t detected; does not exclude early acuteHCV infection. Blood Venous blood specimen / Unknown 12/21/2024 8:53 AM EDT 12/21/2024 11:25 AM EDT us Gila Montoya MD LAB BLOOD ORDERAB LES Final Result [facility] [address] [place] [phone] * Hepatitis B surface antigen, EIA (12/21/2024 8:53 AM EDT) Pathologist [facility] Hepatitis B Surface Ag Negative Negative [facility] Blood Venous blood specimen / Unknown 12/21/2024 8:53 AM EDT 12/21/2024 11:25 AM EDT Gila Montoya MD LAB BLOOD ORDERAB LES Final Result Performing Organization Address [facility]/ZIP Co de Phone Number [facility] [address] [place] [phone] * HIV-1/2 Antigen and Antibodies, Fourth Generation, with Reflexes (12/21/2024 8:53 AM EDT) Pathologist [facility] HIV AB/AG Nonreactive Nonreactive [facility] Comment:HIV-1 p24 Ag and/or HIV-1/HIV-2 Ab not detected.A test result that is nonreactive does not exclude thepossibility of exposure to or infection with HIV-1 and/orHIV-2. Nonreactive results in this assay for individualswith prior exposure to HIV-1 and/or HIV-2 may be due toantigen and antibody levels that are below the limit ofdetection of this assay.The [employer] HIV Ag/Ab Combo assay result andsupplemental assay results should be interpreted inconjunction with the patient's clinical presentation,history and other laboratory results. If the results areinconsistent with clinical evidence, additional testing issuggested to confirm the result. Blood Venous blood specimen / Unknown 12/21/2024 8:53 AM EDT 12/21/2024 11:25 AM EDT us Gila Montoya MD LAB BLOOD ORDERAB LES Final Result Performing Organization Address [facility]/ZIP Co de Phone Number [facility] [address] [place] [phone] * (ABNORMAL) CBC (12/21/2024 8:53 AM EDT) White Blood Count 11.3(H) 4.8 - 10.8 X10*3/uL [facility] Red Blood Count 5.75(H) 4.20 - 5.50 X10*6/uL [facility] Hemoglobin 16.3(H) 12.0 - 16.0 g/dl [facility] Hematocrit 49.5(H) 37.0 - 47.0 % [facility] Mean Corpuscular Volume 86.1 80.0 - 98.0 fL [facility] Mean Corpuscular Hemoglobin 28.3 27.0 - 33.0 pg [facility] Mean Corpuscular HGB Conc 32.9 31.0 - 35.0 g/dl [facility] Red Cell Distribution Width 14.2 11.0 - 16.0 % [facility] Platelet Count 223 160 - 400 X10*3/uL [facility] Mean Platelet Volume 13.5(H) 9.4 - 12.3 fL [facility] NRBC Pct Auto 0.0 0.0 - 0.2 /100WBC [facility] NRBC Abs Auto 0.000 0.0 - 0.012 X10*3/uL [facility] Blood Venous blood specimen / Unknown 12/21/2024 8:53 AM EDT 12/21/2024 11:25 AM EDT us Gila Montoya MD LAB BLOOD ORDERAB LES Final Result Performing Organization Address City/[facility]/ZIP Co de Phone Number [facility] [address] [place] [phone] * T4, Free (12/21/2024 8:53 AM EDT) Free T4 (Free Thyroxine) 1.00 0.71 - 1.85 ng/dL [facility] 12/21/2024 8:53 AM EDT 12/21/2024 11:25 AM EDT us Gila Montoya MD LAB BLOOD ORDERAB LES Final Result Performing Organization Address City/[facility]/ZIP Co de Phone Number [facility] [address] [place] [phone] * Hemoglobin A1c (12/21/2024 8:53 AM EDT) Hemoglobin A1c 5.6 <6.0 % [facility] Comment:Hemoglobin A1C Refer ence Range Adults: 4.8 - 6.0 % Non diabetic: < 6.0 % Goal: < 7.0 %Additional Action Suggested: > 8.0 %Note: Hemoglobin A1c results are invalid for patients with abnormal amounts of HbF. Blood transfusions may impact the HbA1c concentration in the patient sample. Estimated Average Glucose 114 mg/dL [facility] Comment:eAG = Estimated ave rage glucose which is %A1C expressed asaverage glucose, using the formula of the I8R-QidzcioXpmabkh Glucose study (ADAG), Diabetes Care, Vol.31,#8,Oct. 2007 Blood Venous blood specimen / Unknown 12/21/2024 8:53 AM EDT 12/21/2024 11:25 AM EDT us Gila Monotya MD LAB BLOOD ORDERAB LES Final Result [facility] [address] [place] [phone] [phone] * (ABNORMAL) Lipid Panel, Standard (12/21/2024 8:53 AM EDT) Triglycerides 232(H) <150 mg/dL [facility] Comment:Desirable Triglyceri de: less than 150 mg/dLBorderline High Triglyceride 150-199 mg/dLHigh Triglyceride: 200-499 mg/dLVery High Triglyceride: greater than or equal to 5OO mg/dL Cholesterol 263(H) <200 mg/dL [facility] Comment:Desirable Cholestero l: less than 200 mg/dLBorderline High Cholesterol: 200-239 mg/dLHigh Cholesterol: greater than 239 mg/dL LDL Cholesterol Calculated 182(H) <100 mg/dL [facility] Comment:Desirable LDL: less than 100 mg/dLNear Optimal/Above Optimal LDL: 110- 129 mg/dLBorderline High LDL: 130-159 mg/dLHigh LDL: 160-189 mg/dLVery High LDL: greater than or equal to 190 mg/dL HDL Cholesterol 35(L) >40 mg/dL [facility] Comment:Desirable HDL: great er than 40 mg/dL Note: This HDL assay may give artificially low results in patients with liver disease. Blood Venous blood specimen / Unknown 12/21/2024 8:53 AM EDT 12/21/2024 11:25 AM EDT Gila Montoya MD LAB BLOOD ORDERAB LES Final Result [facility] [address] [place] [phone] * (ABNORMAL) Comprehensive Metabolic Panel (12/21/2024 8:53 AM EDT) Sodium 140 135 - 145 mmol/L [facility] Potassium 4.2 3.3 - 5.1 mmol/L [facility] Chloride 103 96 - 108 mmol/L [facility] Carbon Dioxide 26 22 - 29 mmol/L [facility] Anion Gap 15 12 - 20 [facility] Urea Nitrogen (BUN) 21(H) 9 - 16 mg/dL [facility] Creatinine, Serum 0.91 0.5 - 1.4 mg/dL [facility] Estimated Glomerular Filt Rate >60 [facility] Comment:Chronic Kidney Disea se: Estimated GFR < 60 mL/min/[id number] Kidney Disease: Estimated GFR < 15 mL/min/1.73m2 Glucose 113 60 - 115 mg/dL [facility] Calcium 9.6 8.4 - 10.2 mg/dL [facility] Bilirubin, Total 0.5 0.0 - 1.0 mg/dL [facility] Aspartate Amino Transferase 24 5 - 31 U/L [facility] Alanine Aminotransferase 33(H) 0 - 31 U/L [facility] Total Protein 8.4(H) 6.5 - 8.0 g/dL [facility] Albumin Level 4.5 3.5 - 5.0 g/dL [facility] Alkaline Phosphatase 102 39 - 117 U/L [facility] Blood Venous blood specimen / Unknown 12/21/2024 8:53 AM EDT 12/21/2024 11:25 AM EDT us Gila Montoya MD LAB BLOOD ORDERAB LES Final Result [facility] [address] [place] [phone] * CT Abdomen w/ and w/o Contrast (10/16/2024 9:01 AM EDT) Anatomical Region Laterality Modality Body, Abdomen Computed Tomogra phy 10/16/2024 9:01 AM EDT Narrative 10/16/2024 9:02 AM EDT [address] [address] CT Scan Report Signed Patient: Jaylyn Hou MR#: [id number] : 1970 Acct:[id number] Age/Sex: 54 / F ADM Date: 10/15/24 Loc: HO.CT Attending Dr: Gila Montoya MD Ordering Physician: Gila Way MD Date of Service: 10/15/24 Procedure(s): CT abdomen wo/w IV con Accession Number(s): [id number] cc: Gila Way MD Report Number: [id number]: Total DLP = 759.00 mGy-cm CLINICAL HISTORY: [...] in OV> 10/16/24901 DD/ 0 TD/TT: 10/16/24900 Report Analyst: Procedure Note Donotuseinterpreter, Image - 10/16/[address] [place] [address] Scan Report Signed Patient: Jaylyn HouMR#: [id number] : 1970Acct:[id number] Age/Sex: 54 / FADM Date: 10/15/24 Loc: HO.CT Attending Dr: Gila Montoya MD Ordering Physician: Gila Way MD Date of Service: 10/15/24 Procedure(s): CT abdomen wo/w IV con Accession Number(s): [id number] cc: Gila Way MD Report Number: [id number]: Total DLP = 759.00 mGy-cm CLINICAL HISTORY: [...] in OV> 10/16/24901 DD/ 0 TD/TT: 10/16/24900 Report Analyst: Gila Montoya MD IMG CT PROCEDURES Edited Result - Final * BI Mammogram Screening Tomosynthesis Bilateral (06/08/2024 1:50 PM EDT) Anatomical Region Laterality Modality Breast Bilateral Mammography 06/08/2024 1:50 PM EDT Narrative 06/14/2024 8:03 PM EDT [facility] [address] [place] [address] Mammography Report Signed Patient: Jaylyn Hou MR#: [id number] : 1970 Acct:[id number] Age/Sex: 54 / F ADM Date: 06/08/24 Loc: HO.MAMMO Attending Dr: Gila Montoya MD Ordering Physician: Gila Way MD Re sults: 1Negative Date of Service: 06/08/24 Follow Up: 1 Year From [facility] ina Mammogram Procedure(s): MM tomosynthesis screening BI Accession Number(s): [id number] cc: Gila Way MD EXAMINATION: MM SCREENING [...] OV> 06/14/241999 DD/ 1350 TD/TT: 06/08/24 1400 Report Analyst: Procedure Note Donotuseinterpreter, Image - 06/14/2024 [facility] [address] [place] [address] Mammography Report Signed Patient: Jaylyn Hou#: [id number] : 1970Acct:[id number] Age/Sex: 54 / FADM Date: 06/08/24 Loc: .MAMMO Attending Dr: Gila Montoya MD Ordering Physician: Gila Way sults: 1Negative Date of Service: 06/08/24Follow Up: 1 Year From [facility] ina Mammogram Procedure(s): MM tomosynthesis screening BI Accession Number(s): [id number] cc: Gila Way MD EXAMINATION: MM SCREENING [...] OV> 06/14/241999 DD/ 1350 TD/TT: 06/08/24 1400 Report Analyst: Gila Montoya MD [facility] BI PROCEDURES Edited Result - Final * THINPREP PAP (10/09/2021 2:38 PM EDT) Clinical Information: None given [facility] COMMENT SEE COMMENT [facility] ON [...] along with historic and current clinical information. Home Connect Lpn : SEE COMMENT [employer] [facility] Comment: DCR, CT(ASCP) CT screening location: [address] [address] Interpretation/R esult: Negative for intraepithelial lesion or malignancy. [facility] LMP: NONE GIVEN [facility] Prev. BX: NONE GIVEN [facility] Prev. PAP: NONE [facility]IVEN [facility] SOURCE: None given [facility] Statement Of Adequacy: SEE COMMENT [employer] [facility] Comment: Satisfactory for evaluation. Endocervical/transformation zone component present. Age and/or menstrual status not provided 10/09/2021 2:38 PM EDT Dylan Kimbrough MD LAB PATHOLOGY ORDERABLES Fin al Result Performing Organization Address [facility] de Phone Number [facility] [address] * HPV mRNA E6/E7 (10/09/2021 2:38 PM EDT) HPV nRNA E6/E7 Not Detected Not Detected [facility] Comment: Methodology: Oil Heat Technician-Mediated Amplification This assay detects E6/E7 viral messenger RNA (mRNA) from 14 high-risk HPV types (16,18,31,33,35,39,45,51,52,56,58,59,66,68). Cervical sources are required for HPV testing. If a vaginal source from a patient who has had a total hysterectomy with removal of cervix was submitted, please contact the testing laboratory for alternative testing options. For additional information, please refer to http://education.[employer]/faq/WXS800d9 (This link if provided for information/ educational purposes only.) 10/09/2021 2:38 PM EDT Dylan Kimbrough MD LAB BLOOD ORDERABLES Final R esult Performing Organization Address [facility] de Phone Number [facility] [address] from Last 3 Months or Most Recently Relevant to Health Maintenance Insurance [facility] C3 Care Teams Propulsion Systems Engineer Relationship Specialty Start Date End Date Gila Way MD [address] [place] [id number] PCP - General Internal Medicine 12/05/22
--- OUTSIDE RECORDS SUMMARY | 2025-01-05 15:28 | XMS_ITS | Encounter Summary ---
Author Organization [employer] Address [address] [facility] [address] [place] [address] Care Team Providers Care Milker Machine Name Role Phone Gila Way MD Primary Care Pro vider Reason for Referral * Consultation (Routine) - Closed Specialty Diagnoses / Procedures Referred By Cassia blanco Referred To Contact Physical Therapy Diagnoses Chronic low back pain without sciatica, unspecified back pain laterality Mya Kendrick MD [address] [place] [address] Phone: tel: fax: AT Physical [facility] - [place] [address] [facility] [address] Phone: tel: fax: Referral ID Status Reason Start Date Expiration Date V isits Requested Visits Authorized [id number] Closed Specialty Services Required 03/04/2024 03/04/2025 20 20 Encounter Details Date Type Department Care Team (Late st Contact Info) Description 03/03/2024 Orders Only [facility] [address] [place], [place] [phone] Mya Kendrick MD [address] [place], [place] [phone] Chronic low back pain without sciatica, unspecified [...] Description 03/11/2025 10:15 AM EST Office Visit [facility] [address] [place] [phone] MD [address] [place] [address] Scheduled Referrals Name Type Priority Associated Diagnoses [...] documented as of this encounter Care Teams Milker Machine Relationship Specialty Start Date End Date Gila Way MD [address] [place] [phone] PCP - General Internal Medicine 12/05/22 documented as of this encounter
--- OUTSIDE RECORDS SUMMARY | 2025-01-05 15:28 | XMS_ITS | Encounter Summary ---
Demographics Address [address] [facility] [address] [place] [address] Mobile Phone Home Phone Preferred Language es Marital Status Unknown Tenriism Affiliation Unknown Race Other Race Ethnic Group Unknown Author Organization [employer] Address [address] [facility] [address] [place] [address] Care Team Providers Care Direct Marketing Executive Name Role Phone Dylan Kimbrough MD Primary Care Provider Delfina New Primary Care Provider Maxwell Navarrete Primary Care Provider Unavail able Gila Way MD Primary Care Pro vider Encounter Details Date Type Department Care Team (Latest Contact Info) Description 05/20/2018 Abstract [facility] CONVERSIONS Dental, Provider, DDS Social [...] Description 03/11/2025 10:15 AM EST Office Visit [facility] [address] [place] [address] MD [address] [place] [address] documented as of this encounter Visit Diagnoses Not on filedocumented in this encounter Care Teams Direct Marketing Executive Relationship Specialty Start Date End Date Dylan Kimbrough MD PCP - General Family Medicine 04/08/20 02/18/22 Delfina Aguayo FNP PCP - General Family Medicine 02/19/22 09/27/22 Maxwell Saleh AGNP PCP - General Family Medicine 09/28/22 12/04/[address] MD [address] [place] [phone] PCP - General Internal Medicine 12/05/22 documented as of this encounter
--- OUTSIDE RECORDS SUMMARY | 2025-01-05 15:28 | XMS_ITS | Clinical Summary ---
Author Organization [facility] Address [address] [place] [phone] Phone Care Team Providers Care Manager Sales Name Role Phone Physician, No Pcp Primary [...] Comprehensive metabolic panel (02/27/2024 10:03 PM EST) [facility] Signature Sodium 141 133 - 145 mmol/L LAB CHEMISTRY METHOD 02/27/2024 10:37 PM [facility] Potassium 4.3 3.5 - 5.5 mmol/L LAB CHEMISTRY METHOD 02/27/2024 10:37 PM [facility] Chloride 110 96 - 110 mmol/L LAB CHEMISTRY METHOD 02/27/2024 10:37 PM [facility] CO2 26 21 - 32 mmol/L LAB CHEMISTRY METHOD 02/27/2024 10:37 PM [facility] Anion Gap 5 3 - 11 LAB CHEMISTRY METHOD 02/27/2024 10:37 PM [facility] Glucose 87 70 - 100 mg/dL LAB CHEMISTRY METHOD 02/27/2024 10:37 PM [facility] BUN 20 5 - 25 mg/dL LAB CHEMISTRY METHOD 02/27/2024 10:37 PM [facility] Creatinine 0.87 0.50 - 1.10 mg/dL LAB CHEMISTRY METHOD 02/27/2024 10:37 PM [facility] eGFR 79 >=60 mL/min/1. 73m2 LAB CHEMISTRY METHOD 02/27/2024 10:37 PM [facility] Comment:Calculation based on the Chronic Kidney Disease Epidemiology Collaboration (CKD-EPI) equation refit without adjustment for race. BUN/Creatinine Ratio 23.0 LAB CHEMISTRY METHOD 02/27/2024 10:37 PM [facility] Calcium 9.1 8.5 - 10.5 mg/dL LAB CHEMISTRY METHOD 02/27/2024 10:37 PM [facility] AST (SGOT) 20 10 - 42 unit/L LAB CHEMISTRY METHOD 02/27/2024 10:37 PM [facility] ALT (SGPT) 29 10 - 60 unit/L LAB CHEMISTRY METHOD 02/27/2024 10:37 PM [facility] Alkaline Phosphatase 109 42 - 121 unit/L LAB CHEMISTRY METHOD 02/27/2024 10:37 PM EST [facility] Total Protein 7.7 6.0 - 8.0 g/dL LAB CHEMISTRY METHOD 02/27/2024 10:37 PM EST [facility] Albumin 3.6 3.2 - 5.0 g/dL LAB CHEMISTRY METHOD 02/27/2024 10:37 PM EST [facility] Total Bilirubin 0.3 0.0 - 1.4 mg/dL LAB CHEMISTRY METHOD 02/27/2024 10:37 PM EST [facility] Blood Venous blood specimen / Unknown Venipuncture / Unknown 02/27/2024 10:03 PM EST 02/27/2024 10:12 PM EST Dougie Dillard MD LAB BLOOD ORDERABLES Final Resu lt [facility] [address] [place] [address], from Last 3 Months or Most Recently Relevant to Health Maintenance Insurance MEDICAID - [place] Care Teams Manager Sales Relationship Specialty Start Date End Date Physician, No Pcp PCP - General 02/28/24
--- OUTSIDE RECORDS SUMMARY | 2025-01-05 15:28 | XMS_ITS | Encounter Summary ---
Demographics Address [address] [facility] [address] [place] [address] Mobile Phone Home Phone Preferred Language es Marital Status Unknown Hinduism Affiliation Unknown Race Other Race Ethnic Group Unknown Author Organization [employer] Address [address] [facility] [address] [place] [address] Care Team Providers Care Psychotherapist Social Worker Name Role Phone Gila Way MD Primary Care Pro vider Encounter Details Date Type Department Care Team ([facility] st Contact Info) Description 12/21/2024 Results Follow-Up [facility] [address] [place], [place] [phone] Gila Way MD [address] [place] [address] Chlamydia/Trichomona s/Neisseria gonorrhoeae, PCR, Urine, Albumin, Random Urine W/Creatinine, CBC, Additional followed-up results: 9 Social History Tobacco Use Types Packs/Day Years [...] your housing situation today? I have nathaniel sing 10/26/[address] you li [...] enough money to get more: Never True 08/ 06/2024 Transportation Answer Date Recorded In the [...] as of this encounter Miscellaneous Notes * Result Encounter Note - Gila Montoya MD - 12/21/2024 1:24 PM EDT Please call patient to advise to come to already scheduled apt with me to go over abnormal labs Thanks documented in this encounter Plan of Treatment Upcoming Encounters Date Type Department Care Team (Late st Contact Info) Description 03/11/2025 10:15 AM EST Office Visit [facility] [address] [place] [phone] MD [address] [place] [phone] documented as of this encounter Visit Diagnoses Not on filedocumented in this encounter Additional Health Concerns Assessment Noted Time PHQ-9 Depression Total Score: 0 10/27/19 25 2:24 PM EDT documented as of this encounter Care Teams Psychotherapist Social Worker Relationship Specialty Start Date End Date Gila Way MD [address] [place] [phone] PCP - General Internal Medicine 12/05/22 documented as of this encounter
== END 2025-01-05 13:44 | disposition home or self-care (01) ==
LOC: HO.PMC 12:47
PROVIDERS: PCP Student in an Organized Health Care Education/Training Program; Visit Provider Nurse Practitioner Family
DX: M54.50 Low back pain, unspecified (principal); G89.29 Other chronic pain; M47.814 Spondylosis without myelopathy or radiculopathy, thoracic region; M47.816 Spondylosis without myelopathy or radiculopathy, lumbar region; N20.0 Calculus of kidney
CPT/HCPCS: 99213

== ENCOUNTER → 2025-01-05 12:46 | Outpatient (BNVA) | payer MEDICAID, SELFPAY | PROVIDERS: PCP Student in an Organized Health Care Education/Training Program; Visit Provider Nurse Practitioner Family | DX: M47.816 Spondylosis without myelopathy or radiculopathy, lumbar region (principal); M47.814 Spondylosis without myelopathy or radiculopathy, thoracic region; M54.50 Low back pain, unspecified; N20.0 Calculus of kidney | CPT/HCPCS: 99212 ==

== ENCOUNTER 2025-02-01 10:29 | Outpatient (AMB) | payer MEDICAID, SELFPAY ==
--- NOTE | 2025-02-01 10:35 | A.OFFVIS_ITS ---
Intake Visit Reasons: 6 month [facility] Armature Rewinder Required: Yes Armature Rewinder Name: #[id number] Accompanied by: Family/Other Allergies No Known Allergies Allergy (Verified 02/01/25 10:38) Medication List - Last Reconciled 02/01/25 by Willa Stewart CNP acetazolamide 250 mg PO DAILY camphor-methyl salicyl-menthol 3.1-10-6 % 1 patch topical BID-TID PRN 7 days cholecalciferol (vitamin D3) 125 mcg PO QAM lidocaine 5% 1 patch topical DAILY 30 days losartan 50 mg PO DAILY rosuvastatin 20 mg PO QAM HPI Comments Details: 54-year-old woman with obesity, empty sella on MRI, papilledema, and CSF OP of 33cm in 2021. Headaches were okay.?She was taking?acetazolamide daily until about a month ago when she ran out of medication. No?medication side effects. Occasionally, she had some pressure-type headaches to the back of her head which did not increase without medication. Vision was okay. Sleep was not so good. She previously had CPAP, but was not using it for period of time when she was sick and insurance stopped paying for it. She was snoring and sometimes stopped breathing in her sleep. She felt sleep was better with CPAP. [facility] Medical History (Updated 02/01/25 @ 11:21 by Willa Stewart CNP) Migraines Nephrolithiasis Thoracic spondylosis Chronic low back pain Family history of colorectal cancer Hypertension Surgical History Hx of excision of mass History of back surgery Social History Are you a primary manager care management to a significant other at home: No Do you presently have visiting nurse or other home services: No Alcohol intake: never Patient Tobacco Use Status: Never used Tobacco Current occupational status: unemployed Review of Systems Const Denies chills, Denies daytime sleepiness, Reports difficulty sleeping, Denies fatigue, Denies fever(s), Denies frequent falls, Reports headache(s), Denies increased appetite, Denies poor appetite, Reports snoring, Denies weakness, Denies weight gain and Denies weight loss Eyes Denies loss of vision ENT Denies vertigo, Denies dizziness and Reports headache(s) Card Denies chest pain at rest, Denies chest pain with activity, Denies syncope, Denies leg edema and Denies palpitations Resp Reports snoring GI Denies constipation, Denies heartburn, Denies diarrhea and Denies nausea Denies urinary frequency, Denies urinary incontinence and Denies urinary urgency Musc Denies abnormal gait, Denies numbness and Denies tingling Skin/Breast Denies dry skin and Denies rash Neuro Denies abnormal gait, Denies vertigo, Denies dizziness, Denies syncope, Denies frequent falls, Reports headache(s), Denies lack of coordination, Denies loss of vision, Denies memory loss, Denies numbness, Denies restless legs, Denies seizu re-like activity, Denies tingling, Denies paresthesias, Denies tremor(s) and Denies weakness Psych Denies anxiety, Denies depression, Denies auditory hallucinations, Denies memory loss, Denies visual hallucinations and Denies suicidal ideation Endo Denies fatigue and Denies palpitations Physical Exam Const Other: General Appearance:? normal, in no acute distress. Skin:? no rashes, no significant birthmarks. Heart:? S1, S2 normal, no murmurs. Lungs:? clear anteriorly and posteriorly. Extremities:? no edema. Psych:? alert, oriented, cognitive function intact, cooperative with exam. Neuro Other: Mental Status:?Normal attention, orientation, memory and affect.? Cranial Nerves:?Pupils are equal, round and reactive to light. External occular muscles are intact. Visual smith are full. Face is symmetrical. Facial sensations are normal. Tongue is midline. Palate elevates symmetrically. Shoulder shrugging is normal. Hearing to bedside conversation is normal. Fundoscopy: Mild to mod papilledema. Sensory Exam:?....? Coordination:?No ataxia,?no titubation.? Gait Exam: Within normal limits. Cerebellar Signs:?Gqrdae-wk-ihrd is okay. Extrapyramidal System:?No tremor, rigidity with normal facial expressions.? Pronator Drift:?Not present.? Involuntary Movements:?No tremors seen.? Speech:?Normal.? Results Reviewed Results Reviewed: LP at [facility] in 2021: OP 33mm, WBCs 5, RBCs 52, Glu 67, Pro 43 MRI brain WWO at [facility] in Jun 2021: empty sella Assessment & Plan Assessment & Plan (1) Migraines: Code(s): G43.909 - Migraine, unspecified, not intractable, without status migrainosus Category: Medical Qualifiers: Intractability: not intractable Migraine type: unspecified Status migrainosus presence: without status migrainosus Qualified Code(s): G43.909 - Migraine, unspecified, not intractable, without status migrainosus Plan: Continue acetazolamide 250mg 1 tablet daily. Medication refilled. She was advised to continue this medication, contact office for refills if needed in the future. (2) Idiopathic intracranial hypertension: Code(s): G93.2 - Benign intracranial hypertension Category: Medical (3) ANGELICA (obstructive sleep apnea): Code(s): G47.33 - Obstructive sleep apnea (adult) (pediatric) Category: Medical Plan: Home sleep study ordered. Plan Meds tried: topiramate, acetazolamide Orders: Orders RT home sleep study Today G47.33 - Obstructive sleep apnea (adult) (pediatric) Medications: Changed From acetazolamide 250 mg PO DAILY To acetazolamide 250 mg PO DAILY 90 tabs 1RF 90 days Coding Level of Care Code Est Pt Level 4 (05684) Diagnoses Migraine without status migrainosus, not intractable, unspecified migraine type G43.909 Intractability: not intractable Migraine type: unspecified Status migrainosus presence: without status migrainosus Idiopathic intracranial hypertension G93.2 ANGELICA (obstructive sleep apnea) G47.33
--- OUTSIDE RECORDS SUMMARY | 2025-02-01 12:18 | XMS_ITS | Clinical Summary ---
Demographics Address [address] [facility] [address] [place] [address] Mobile Phone Home Phone Preferred Language es Marital Status Unknown Rastafarian Affiliation Unknown Race Other Race Ethnic Group Unknown Author Organization [employer] Address [address] [facility] 7[address] [place] [address] Care Team Providers Care Circuit Manager Name Role Phone Gila Way MD [...] Once per day. 90 tablet 12/26/19 25 026 Active rosuvastatin (Crestor) 20 MG tabletIndications :Hyperlipidemia, [...] as directed by . 30 patch 2 12/26/19 25 Active Tirzepatide-Weigh t Management (Zepbound) 5 MG/0.5ML solution auto-injectorIndi cations:Class 2 obesity due to excess calories without serious comorbidity with body mass index (BMI) of 36.0 to 36.9 in adult Inject 0.5 mL (5 mg) under the skin every 7 (seven) days. 2 mL 01/27/20 25 Active Tirzepatide-Weigh t Management (Zepbound) 2.5 MG/0.5ML solution auto-injectorIndi cations:Obesity Inject 0.5 mL (2.5 mg) under the skin 1 (one) time per week. Start 2.5 mg weekly x 4 weeks, then increased to 5 mg x 4 weeks, then increase to 7.5 mg weekly 2 mL 10/27/19 25 025 Discontinued Active Problems Problem Noted Date Diagnosed Date [...] and also in the community. Her strong orthodoxy belief is helping Jaylyn to deal with [...] and also in the community. Her strong orthodoxy belief is helping Jaylyn to deal with [...] gradually return to regular daily routine and episcopal activities. PLAN: (check all that apply) Further services needed, but declined Behavioral Health Integration Plan Internal Follow up with [facility] Patient Self Plan Patient to utilize skills provided in intervention , Patient to reach out to [facility] team as needed, and Patient to reach out to [facility] as needed. Pt declined OP referral for [...] Encounters Date Type Department Care Team Description 01/26/2025 Refill [facility] [address] [place] [address] MD Class 2 obesity due to excess calories without serious comorbidity with body mass index (BMI) of 36.0 to 36.9 in adult 12/25/2024 11:15 AM EDT Office Visit [facility] [place] [place] [address] MD Dyslipidemia (Primary Dx); Hyperlipidemia, unspecified hyperlipidemia type; Vitamin D deficiency; Posterior pain of right hip; Essential hypertension; Health care maintenance; Chronic low back pain without sciatica, unspecified back pain laterality 12/25/2024 Telephone [facility] [place] [address] MD Prior Authorization 12/25/2024 Travel 12/24/2024 Telephone [facility] [place] [facility] [place] [address] MD chart prep 12/21/2024 Results Follow-Up [facility] [place] [facility] [place] [address] MD Chlamydia/Trichomonas/ Neisseria gonorrhoeae, PCR, Urine, Albumin, Random Urine W/Creatinine, CBC, Additional followed-up results: 9 12/21/2024 Orders Only [facility] [place] [address] MD 11/27/2024 3:30 PM EDT Office Visit [facility] [place] [facility] [place] [address] Frandy Loomis MD Intertrigo (Primary Dx) 11/27/2024 Refill [facility] [place] [address] MD 11/27/2024 Travel 11/27/2024 Refill [facility] [place] [facility] [place] [address] MD Essential hypertension from Last 3 Months Immunizations Immunization Administration [...] Description 03/11/2025 10:15 AM EST Office Visit [facility] [address] [place] [phone] MD [address] [place] [address] Health Maintenance Due Date Last Done Comments CT Colonography 1970 Colonoscopy 1969 Colorectal Cancer Screening 1970 FIT DNA/Cologuard 1969 FIT 1970 FOBT 1970 Sigmoidoscopy 1969 Hepatitis B Vaccines (1 of 3 - 19+ 3-dose series) 1988 Pneumococcal Vaccine: 50+ Years (1 of 1 - PCV) 2019 COVID-19 Vaccine ( - 2024- season) 2024 03/27/2021, 08/30/2020 Influenza [...] 12/21/2024 8:53 AM EDT Annual physical exam BI MAMMOGRAM SCREENING TOMOSYNTHESIS BILATERAL Routine 06/08/2024 1:50 PM EDT HPV MRNA E6/E7 Routine 10/09/2021 2:38 PM EDT THINPREP PAP Routine 10/09/2021 2:38 PM EDT from Last 3 Months or Most Recently Relevant to Health Maintenance Results * FL Guidance in OR (01/01/2025 7:20 AM EDT) Anatomical Region Laterality Modality X-Ray Angiograph y 01/01/2025 7:20 AM EDT Narrative 01/01/2025 8:42 AM EDT [place] [address] Fluoroscopy Report Signed Patient: Jaylyn Hou MR#: [id number] : 1970 Acct:[id number] Age/Sex: 54 / F ADM Date: 01/01/25 Loc: .[facility] Attending Dr: Galo Perez MD Ordering Physician: Galo Perez MD Date of Service: 01/01/25 Procedure(s): FL guidance in OR Accession Number(s): [id number] cc: Galo Perez MD; Gila Way MD [...] OV> 01/01/25 0839 DD/ 9 TD/TT: 01/01/2536 [employer] Developer: Procedure Note Donotuseinterpreter, Image - 01/01/[address] [address] Fluoroscopy Report Signed Patient: Jaylyn HouMR#: [id number] : 1970Acct:[id number] Age/Sex: 54 / FADM Date: 01/01/25 Loc: HO.[facility] Attending Dr: Galo Perez MD Ordering Physician: Galo Perez MD Date of Service: 01/01/25 Procedure(s): FL guidance in OR Accession Number(s): [id number] cc: Galo Perez MD; Gila Way MD [...] OV> 01/01/25 0839 DD/ 9 TD/TT: 01/01/2536 [employer] Developer: [facility] External Provider IMG IR PROCEDURES Final Result * Chlamydia/Trichomonas/Neisseria gonorrhoeae, PCR, Urine (12/21/2024 8:53 AM EDT) CT PCR, Urine NOT DETECTED Not Detect. [facility] Comment:A not detected test result [...] NG PCR, Urine NOT DETECTED Not Detect. [facility] Comment:A not detected test result [...] LES Final Result Performing Organization Address [facility] Co de Phone Number [facility] [address] [place] [phone] * Syphilis Screen (12/21/2024 8:53 AM EDT) Syphilis Screen Nonreactive Nonreactive [facility] Blood 12/21/2024 8:53 AM EDT 12/21/2024 11:25 AM EDT Gila Montoya MD LAB BLOOD ORDERAB LES Final Result Performing Organization Address [facility] Co de Phone Number [facility] [address] [place] [address] [phone] * Vitamin D, 25-Hydroxy, Total, Immunoassay (12/21/2024 8:53 AM EDT) Vitamin D 25-OH Total 34.9 >30 ng/mL [facility] Comment: Health Based Reference Values*< 20 ng/mL Zmcreadze08-43 ng/mL Insufficient> 30 ng/mL Sufficient*Ying FAIR. N [...] MD LAB BLOOD ORDERAB LES Final Result [facility] [address] [place] [phone] * (ABNORMAL) TSH with Reflex to Free T4 (12/21/2024 8:53 AM EDT) TSH reflex Free T4 4.41(H) 0.32 - 4.0 uIU/mL [facility] Blood 12/21/2024 8:53 AM EDT 12/21/2024 11:25 AM EDT us Gila Montoya MD LAB BLOOD ORDERAB LES Final Result Performing Organization Address [facility]/ZIP Co de Phone Number [facility] [address] [place] [phone] * Albumin, Random Urine W/Creatinine (12/21/2024 8:53 AM EDT) Creatinine, Urine 140.77 mg/dL [facility] Microalbumin Urine 14.0 mg/L [facility] Microalbum Creatinine Ratio Ur 9.9 <30 ug/mg cr [facility] Comment:Albumin/Creatinine R atio Reference Ranges: Normal: < 30 ug/mg creatinine Microalbuminuria: 30 - 300 ug/mg creatinineClinical Albuminuria: > 300 ug/mg creatinine Urine (Urine, Random) 12/21/2024 8:53 AM EDT 12/21/2024 11:02 AM EDT us Gila Montoya MD LAB URINE ORDERAB LES Final Result Performing Organization Address [facility] de Phone Number [facility] [address] [place] [phone] * Hepatitis C Antibody with Reflex to HCV, RNA, Quantitative, Real-Time PCR (12/21/2024 8:53 AM EDT) Hepatitis C Antibody Nonreactive Nonreactive [facility] Comment:Antibodies to HCV no t detected; does not exclude early acuteHCV infection. Blood Venous blood specimen / Unknown 12/21/2024 8:53 AM EDT 12/21/2024 11:25 AM EDT us Gila Montoya MD LAB BLOOD ORDERAB LES Final Result Performing Organization Address [facility]/ZIP Co de Phone Number [facility] [address] [place] [phone] * Hepatitis B surface antigen, EIA (12/21/2024 8:53 AM EDT) [facility] Hepatitis B Surface Ag Negative Negative [facility] Blood Venous blood specimen / Unknown 12/21/2024 8:53 AM EDT 12/21/2024 11:25 AM EDT Gila Montoya MD LAB BLOOD ORDERAB LES Final Result Performing Organization Address City/[facility]/ZIP Co de Phone Number [facility] [address] [place] [phone] * HIV-1/2 Antigen and Antibodies, Fourth Generation, with Reflexes (12/21/2024 8:53 AM EDT) [facility] HIV AB/AG Nonreactive Nonreactive [facility] Comment:HIV-1 p24 Ag and/or HIV-1/HIV-2 Ab not detected.A test result that is nonreactive does not exclude thepossibility of exposure to or infection with HIV-1 and/orHIV-2. Nonreactive results in this assay for individualswith prior exposure to HIV-1 and/or HIV-2 may be due toantigen and antibody levels that are below the limit ofdetection of this assay.The [employer] HIV Ag/Ab Combo assay result andsupplemental assay results should be interpreted inconjunction with the patient's clinical presentation,history and other laboratory results. If the results areinconsistent with clinical evidence, additional testing issuggested to confirm the result. Blood Venous blood specimen / Unknown 12/21/2024 8:53 AM EDT 12/21/2024 11:25 AM EDT us Gila Montoya MD LAB BLOOD ORDERAB LES Final Result Performing Organization Address City/[facility]/ZIP Co de Phone Number [facility] [address] [place] [phone] * (ABNORMAL) CBC (12/21/2024 8:53 AM EDT) White Blood Count 11.3(H) 4.8 - 10.8 X10*3/uL [facility] Red Blood Count 5.75(H) 4.20 - 5.50 X10*6/uL [facility] Hemoglobin 16.3(H) 12.0 - 16.0 g/dl [facility] Hematocrit 49.5(H) 37.0 - 47.0 % [facility] Mean Corpuscular Volume 86.1 80.0 - 98.0 fL [facility] Mean Corpuscular Hemoglobin 28.3 27.0 - 33.0 pg [facility] Mean Corpuscular HGB Conc 32.9 31.0 - 35.0 g/dl [facility] Red Cell Distribution Width 14.2 11.0 - 16.0 % [facility] Platelet Count 223 160 - 400 X10*3/uL [facility] Mean Platelet Volume 13.5(H) 9.4 - 12.3 fL [facility] NRBC Pct Auto 0.0 0.0 - 0.2 /100WBC [facility] NRBC Abs Auto 0.000 0.0 - 0.012 X10*3/uL [facility] Blood Venous blood specimen / Unknown 12/21/2024 8:53 AM EDT 12/21/2024 11:25 AM EDT us Gila Montoya MD LAB BLOOD ORDERAB LES Final Result [facility] [address] [place] [phone] * T4, Free (12/21/2024 8:53 AM EDT) Pathologist [facility] Free T4 (Free Thyroxine) 1.00 0.71 - 1.85 ng/dL [facility] 12/21/2024 8:53 AM EDT 12/21/2024 11:25 AM EDT Gila Montoya MD LAB BLOOD ORDERAB LES Final Result Performing Organization Address City/[facility]/ZIP Co de Phone Number [facility] [address] [place] [phone] * Hemoglobin A1c (12/21/2024 8:53 AM EDT) Hemoglobin A1c 5.6 <6.0 % [facility] Comment:Hemoglobin A1C Refer ence Range Adults: 4.8 - 6.0 % Non diabetic: < 6.0 % Goal: < 7.0 %Additional Action Suggested: > 8.0 %Note: Hemoglobin A1c results are invalid for patients with abnormal amounts of HbF. Blood transfusions may impact the HbA1c concentration in the patient sample. Estimated Average Glucose 114 mg/dL [facility] Comment:eAG = Estimated ave rage glucose which is %A1C expressed asaverage glucose, using the formula of the F7S-ZyvxummVicsqgl Glucose study (ADAG), Diabetes Care, Vol.31,#8,Oct. 2007 Blood Venous blood specimen / Unknown 12/21/2024 8:53 AM EDT 12/21/2024 11:25 AM EDT us Gila Montoya MD LAB BLOOD ORDERAB LES Final Result Performing Organization Address City/[facility]/ZIP Co de Phone Number [facility] [address] [place] [phone] * (ABNORMAL) Lipid Panel, Standard (12/21/2024 8:53 AM EDT) Triglycerides 232(H) <150 mg/dL [facility] Comment:Desirable Triglyceri de: less than 150 mg/dLBorderline High Triglyceride 150-199 mg/dLHigh Triglyceride: 200-499 mg/dLVery High Triglyceride: greater than or equal to 5OO mg/dL Cholesterol 263(H) <200 mg/dL [facility] Comment:Desirable Cholestero l: less than 200 mg/dLBorderline High Cholesterol: 200-239 mg/dLHigh Cholesterol: greater than 239 mg/dL LDL Cholesterol Calculated 182(H) <100 mg/dL [facility] Comment:Desirable LDL: less than 100 mg/dLNear Optimal/Above Optimal LDL: 110- 129 mg/dLBorderline High LDL: 130-159 mg/dLHigh LDL: 160-189 mg/dLVery High LDL: greater than or equal to 190 mg/dL HDL Cholesterol 35(L) >40 mg/dL [facility] Comment:Desirable HDL: great er than 40 mg/dL Note: This HDL assay may give artificially low results in patients with liver disease. Blood Venous blood specimen / Unknown 12/21/2024 8:53 AM EDT 12/21/2024 11:25 AM EDT Gila Montoya MD LAB BLOOD ORDERAB LES Final Result [facility] [address] [place] [phone] * (ABNORMAL) Comprehensive Metabolic Panel (12/21/2024 8:53 AM EDT) Sodium 140 135 - 145 mmol/L [facility] Potassium 4.2 3.3 - 5.1 mmol/L [facility] Chloride 103 96 - 108 mmol/L [facility] Carbon Dioxide 26 22 - 29 mmol/L [facility] Anion Gap 15 12 - 20 [facility] Urea Nitrogen (BUN) 21(H) 9 - 16 mg/dL [facility] Creatinine, Serum 0.91 0.5 - 1.4 mg/dL [facility] Estimated Glomerular Filt Rate >60 [facility] Comment:Chronic Kidney Disea se: Estimated GFR < 60 mL/min/1.45b3Avqnfc Kidney Disease: Estimated GFR < 15 mL/min/1.73m2 Glucose 113 60 - 115 mg/dL [facility] Calcium 9.6 8.4 - 10.2 mg/dL [facility] Bilirubin, Total 0.5 0.0 - 1.0 mg/dL [facility] Aspartate Amino Transferase 24 5 - 31 U/L [facility] Alanine Aminotransferase 33(H) 0 - 31 U/L [facility] Total Protein 8.4(H) 6.5 - 8.0 g/dL [facility] Albumin Level 4.5 3.5 - 5.0 g/dL [facility] Alkaline Phosphatase 102 39 - 117 U/L [facility] Blood Venous blood specimen / Unknown 12/21/2024 8:53 AM EDT 12/21/2024 11:25 AM EDT us Gila Montoya MD LAB BLOOD ORDERAB LES Final Result [facility] [address] [place] [phone] * BI Mammogram Screening Tomosynthesis Bilateral (06/08/2024 1:50 PM EDT) Anatomical Region Laterality Modality Breast Bilateral Mammography 06/08/2024 1:50 PM EDT Narrative 06/14/2024 8:03 PM EDT [facility] [address] [place] [address] Mammography Report Signed Patient: Jaylyn Hou MR#: [id number] : 1970 Acct:[id number] Age/Sex: 54 / F ADM Date: 06/08/24 Loc: HO.MAMMO Attending Dr: Gila Montoya MD Ordering Physician: Gila Way MD Re sults: 1Negative Date of Service: 06/08/24 Follow Up: 1 Year From Orig ina Mammogram Procedure(s): MM tomosynthesis screening BI Accession Number(s): [id number] cc: Gila Way MD EXAMINATION: MM SCREENING [...] OV> 06/14/241999 DD/ 1350 TD/TT: 06/08/24 1400 [employer] Developer: Procedure Note Donotuseinterpreter, Image - 06/14/2024 [facility] [address] [place] [address] Mammography Report Signed Patient: Jaylyn HouMR#: [id number] : 1970Acct:[id number] Age/Sex: 54 / FADM Date: 06/08/24 Loc: HO.MAMMO Attending Dr: Gila Montoya MD Ordering Physician: Gila Way sults: 1Negative Date of Service: 06/08/24Follow Up: 1 Year From Orig ina Mammogram Procedure(s): MM tomosynthesis screening BI Accession Number(s): [id number] cc: Gila Way MD EXAMINATION: MM SCREENING [...] OV> 06/14/241999 DD/ 1350 TD/TT: 06/08/24 1400 Apigee Developer: us Gila Montoya MD IMG BI PROCEDURES [...] along with historic and current clinical information. Industrial Engineering Technician : SEE COMMENT [facility] Comment: DCR, CT(ASCP) CT screening location: [place] [address] Interpretation/R esult: Negative for intraepithelial lesion or malignancy. [facility] LMP: NONE [facility]IV[facility] Prev. BX: NONE [facility]IV[facility] Prev. PAP: NONE [facility]IV[facility] SOURCE: None given [facility] Statement Of Adequacy: SEE COMMENT [facility] Comment: Satisfactory for evaluation. Endocervical/transformation zone component present. Age and/or menstrual status not provided 10/09/2021 2:38 PM EDT us Dylan Kimbrough MD LAB PATHOLOGY ORDERABLES Fin al Result [facility] [address] * HPV mRNA E6/E7 (10/09/2021 2:38 PM EDT) HPV nRNA E6/E7 Not Detected Not Detected [facility] Comment: Methodology: Gambling Dealer-Mediated Amplification This assay detects E6/E7 viral messenger RNA (mRNA) from 14 high-risk HPV types (16,18,31,33,35,39,45,51,52,56,58,59,66,68). Cervical sources are required for HPV testing. If a vaginal source from a patient who has had a total hysterectomy with removal of cervix was submitted, please contact the testing laboratory for alternative testing options. For additional information, please refer to http://education.[employer]/faq/SSH906o3 (This link if provided for information/ educational purposes only.) 10/09/2021 2:38 PM EDT Dylan Kimbrough MD LAB BLOOD ORDERABLES Final R esult [facility] [address] from Last 3 Months or Most Recently Relevant to Health Maintenance [place] [address] [place] [address] C3 Care Teams Circuit Manager Relationship Specialty Start Date End Date Gila Way MD [address] [place] [phone] PCP - General Internal Medicine 12/05/22
--- OUTSIDE RECORDS SUMMARY | 2025-02-01 12:18 | XMS_ITS | Encounter Summary ---
Author Organization [employer] Address [address] [facility] [address] [place] [address] Care Team Providers Care Vice President For Philanthropy Name Role Phone Gila Way MD Primary Care Pro vider Reason for Referral * Consultation (Routine) - Closed Specialty Diagnoses / Procedures Referred By Cassia blanco Referred To Contact Physical Therapy Diagnoses Chronic low back pain without sciatica, unspecified back pain laterality Mya Kendrick MD [address] [place] [address] Phone: tel: fax: AT [facility] - [place] [address] [facility] [address] Phone: tel: fax: Referral ID Status Reason Start Date Expiration Date V isits Requested Visits Authorized [id number] Closed Specialty Services Required 03/04/2024 03/04/2025 20 20 Encounter Details Date Type Department Care Team (Late st Contact Info) Description 03/03/2024 Orders Only [facility] [address] [place], [place] [phone] Mya Kendrick MD [address] [place], [place] [phone] Chronic low back pain without sciatica, unspecified [...] Description 03/11/2025 10:15 AM EST Office Visit [facility] [address] [place] [phone] MD [address] [place] [address] Scheduled Referrals Name Type Priority Associated Diagnoses [...] documented as of this encounter Care Teams Vice President For Philanthropy Relationship Specialty Start Date End Date Gila Way MD [address] [place] [phone] PCP - General Internal Medicine 12/05/22 documented as of this encounter
--- OUTSIDE RECORDS SUMMARY | 2025-02-01 12:18 | XMS_ITS | Encounter Summary ---
Demographics Address [address] [facility] [address] [place] [address] Mobile Phone Home Phone Preferred Language es Marital Status Unknown Confucianist Affiliation Unknown Race Other Race Ethnic Group Unknown Author Organization [employer] Address [address] [facility] [address] [place] [address] Care Team Providers Care Director College Name Role Phone Gila Way MD Primary Care Pro vider Reason for Visit * Reason Comments Med Refill Encounter Details Date Type Department Care Team (Late st Contact Info) Description 11/27/2024 Refill [facility] [address] [place], [place] [phone] Gila Way MD [address] [place] [address] Social History Tobacco Use Types Packs/Day Years [...] Description 03/11/2025 10:15 AM EST Office Visit [facility] [address] [place] [phone] MD [address] [place] [phone] documented as of this encounter Visit Diagnoses Not on filedocumented in this encounter Additional Health Concerns Assessment Noted Time PHQ-9 Depression Total Score: 0 10/27/19 25 2:24 PM EDT documented as of this encounter Care Teams Director College Relationship Specialty Start Date End Date Gila Way MD [address] [place] [phone] PCP - General Internal Medicine 12/05/22 documented as of this encounter
--- OUTSIDE RECORDS SUMMARY | 2025-02-01 12:18 | XMS_ITS | Clinical Summary ---
Author Organization [facility] Address [address] [place] [phone] Phone Care Team Providers Care Seasoner Hand Name Role Phone Physician, No Pcp Primary [...] Comprehensive metabolic panel (02/27/2024 10:03 PM EST) [facility] Signature Sodium 141 133 - 145 mmol/L LAB CHEMISTRY METHOD 02/27/2024 10:37 PM [facility] Potassium 4.3 3.5 - 5.5 mmol/L LAB CHEMISTRY METHOD 02/27/2024 10:37 PM [facility] Chloride 110 96 - 110 mmol/L LAB CHEMISTRY METHOD 02/27/2024 10:37 PM [facility] CO2 26 21 - 32 mmol/L LAB CHEMISTRY METHOD 02/27/2024 10:37 PM [facility] Anion Gap 5 3 - 11 LAB CHEMISTRY METHOD 02/27/2024 10:37 PM [facility] Glucose 87 70 - 100 mg/dL LAB CHEMISTRY METHOD 02/27/2024 10:37 PM [facility] BUN 20 5 - 25 mg/dL LAB CHEMISTRY METHOD 02/27/2024 10:37 PM [facility] Creatinine 0.87 0.50 - 1.10 mg/dL LAB CHEMISTRY METHOD 02/27/2024 10:37 PM [facility] eGFR 79 >=60 mL/min/1. 73m2 LAB CHEMISTRY METHOD 02/27/2024 10:37 PM [facility] Comment:Calculation based on the Chronic Kidney Disease Epidemiology Collaboration (CKD-EPI) equation refit without adjustment for race. BUN/Creatinine Ratio 23.0 LAB CHEMISTRY METHOD 02/27/2024 10:37 PM [facility] Calcium 9.1 8.5 - 10.5 mg/dL LAB CHEMISTRY METHOD 02/27/2024 10:37 PM [facility] AST (SGOT) 20 10 - 42 unit/L LAB CHEMISTRY METHOD 02/27/2024 10:37 PM [facility] ALT (SGPT) 29 10 - 60 unit/L LAB CHEMISTRY METHOD 02/27/2024 10:37 PM [facility] Alkaline Phosphatase 109 42 - 121 unit/L LAB CHEMISTRY METHOD 02/27/2024 10:37 PM EST [facility] Total Protein 7.7 6.0 - 8.0 g/dL LAB CHEMISTRY METHOD 02/27/2024 10:37 PM EST [facility] Albumin 3.6 3.2 - 5.0 g/dL LAB CHEMISTRY METHOD 02/27/2024 10:37 PM EST [facility] Total Bilirubin 0.3 0.0 - 1.4 mg/dL LAB CHEMISTRY METHOD 02/27/2024 10:37 PM EST [facility] Blood Venous blood specimen / Unknown Venipuncture / Unknown 02/27/2024 10:03 PM EST 02/27/2024 10:12 PM EST Dougie Dillard MD LAB BLOOD ORDERABLES Final Resu lt [facility] [address] [place] [address], from Last 3 Months or Most Recently Relevant to Health Maintenance Insurance MEDICAID - [place] Care Teams Seasoner Hand Relationship Specialty Start Date End Date Physician, No Pcp PCP - General 02/28/24
--- OUTSIDE RECORDS SUMMARY | 2025-02-01 12:18 | XMS_ITS | Encounter Summary ---
Demographics Address [address] [facility] [address] [place] [address] Mobile Phone Home Phone Preferred Language es Marital Status Unknown Rastafari Affiliation Unknown Race Other Race Ethnic Group Unknown Author Organization [employer] Address [address] [facility] [address] [place] [address] Care Team Providers Care Cable Coverer Name Role Phone Dylan Kimbrough MD Primary Care Provider Delfina New Primary Care Provider Maxwell Navarrete Primary Care Provider Unavail able Gila Way MD Primary Care Pro vider Encounter Details Date Type Department Care Team (Latest Contact Info) Description 05/20/2018 Abstract [facility] CONVERSIONS Dental, Provider, DDS Social History [...] Description 03/11/2025 10:15 AM EST Office Visit [facility] MEDICINE [address] [place] [address] MD [address] [place] [address] documented as of this encounter Visit Diagnoses Not on filedocumented in this encounter Care Teams Cable Coverer Relationship Specialty Start Date End Date Dylan Kimbrough MD PCP - General Family Medicine 04/08/20 02/18/22 Delfina Aguayo FNP PCP - General Family Medicine 02/19/22 09/27/22 Maxwell Saleh AGNP PCP - General Family Medicine 09/28/22 12/04/[address] MD [address] [place] [phone] PCP - General Internal Medicine 12/05/22 documented as of this encounter
--- OUTSIDE RECORDS SUMMARY | 2025-02-01 12:18 | XMS_ITS | Encounter Summary ---
Demographics Address [address] [facility] [address] [place] [address] Mobile Phone Home Phone Preferred Language es Marital Status Unknown Hinduism Affiliation Unknown Race Other Race Ethnic Group Unknown Author Organization [employer] Address [address] [facility] 7t [place] [address] Care Team Providers Care Tunnel Elastic Operator Zigzag Name Role Phone Gila Way MD Primary Care Pro vider Encounter Details Date Type Department Care Team ([facility] st Contact Info) Description 12/21/2024 Results Follow-Up [facility] [address] [place], [place] [phone] Gila Way MD [address] [place] [address] Chlamydia/Trichomona s/Neisseria gonorrhoeae, PCR, Urine, Albumin, Random [...] Description 03/11/2025 10:15 AM EST Office Visit [facility] [address] [place] [phone] MD [address] [place] [phone] documented as of this encounter Visit Diagnoses Not on filedocumented in this encounter Additional Health Concerns Assessment Noted Time PHQ-9 Depression Total Score: 0 10/27/19 25 2:24 PM EDT documented as of this encounter Care Teams Tunnel Elastic Operator Zigzag Relationship Specialty Start Date End Date Gila Way MD [address] [place] [phone] PCP - General Internal Medicine 12/05/22 documented as of this encounter
== END 2025-02-01 11:25 | disposition home or self-care (01) ==
LOC: HO.HSM 10:30
PROVIDERS: PCP Student in an Organized Health Care Education/Training Program; Referring Provider Internal Medicine; Visit Provider Registered Nurse
DX: G43.909 Migraine, unspecified, not intractable, without status migrainosus (principal); G93.2 Benign intracranial hypertension; G47.33 Obstructive sleep apnea (adult) (pediatric)
CPT/HCPCS: 99214

== ENCOUNTER → 2025-02-01 10:29 | Outpatient (BNVA) | payer MEDICAID, SELFPAY | PROVIDERS: PCP Student in an Organized Health Care Education/Training Program; Referring Provider Internal Medicine; Visit Provider Registered Nurse | DX: G43.909 Migraine, unspecified, not intractable, without status migrainosus (principal); G93.2 Benign intracranial hypertension; G47.33 Obstructive sleep apnea (adult) (pediatric); E66.9 Obesity, unspecified | CPT/HCPCS: 99212 ==

== ENCOUNTER 2025-03-05 09:25 | Outpatient (REF) | payer MEDICAID, SELFPAY ==
[2025-03-05 11:39] LABS: MANUAL DIFF FLAG SCAN
[2025-03-05 11:45] LABS: Alanine Aminotransferase 18 U/L (0-31); Albumin Level 4.5 g/dL (3.5-5.0); Alkaline Phosphatase 80 U/L (39-117); Anion Gap 15 (12-20); Aspartate Amino Transferase 25 U/L (5-31); Blood Urea Nitrogen 15 mg/dL (9-16); Calcium 9.7 mg/dL (8.4-10.2); Carbon Dioxide 28 mmol/L (22-29); Chloride 101 mmol/L (96-108); Cholesterol 223 mg/dL (<200); Estimated Glomerular Filt Rate > 60; HDL Cholesterol 30 mg/dL (>40); Potassium 3.2 mmol/L (3.3-5.1); Sodium 141 mmol/L (135-145); Total Protein 8.4 g/dL (6.5-8.0); Triglycerides 143 mg/dL (<150)
[2025-03-05 11:58] LABS: Hematocrit 45.0 % (37.0-47.0); Hemoglobin 14.8 g/dl (12.0-16.0); Imm Gran Abs Auto 0.04 X10*3/uL (0.00-0.03); Imm Gran Pct Auto 0.4 % (0.0-0.4); Lymphocytes Absolute Auto 4.0 X10*3/uL (1.2-4.9); Mean Corpuscular HGB Conc 32.9 g/dl (31.0-35.0); Mean Corpuscular Hemoglobin 28.2 pg (27.0-33.0); Mean Corpuscular Volume 85.9 fL (80.0-98.0); NRBC Abs Auto 0.000 X10*3/uL (0.0-0.012); NRBC Pct Auto 0.0 /100WBC (0.0-0.2); PLT CLUMP 1; Red Blood Count 5.24 X10*6/uL (4.20-5.50); SCAN SMEAR FLAG 1
[2025-03-05 12:08] LABS: Free T4 (Free Thyroxine) 1.23 ng/dL (0.71-1.85); Thyroid Stimulating Hormone 3.83 uIU/mL (0.32-4.0)
[2025-03-05 12:09] LABS: Platelet Count 272 X10*3/uL (160-400); White Blood Count 10.8 X10*3/uL (4.8-10.8)
== END 2025-03-05 09:26 | disposition home or self-care (01) ==
LOC: HO.HHCL 09:25
PROVIDERS: PCP Student in an Organized Health Care Education/Training Program; Visit Provider Student in an Organized Health Care Education/Training Program
DX: E78.5 Hyperlipidemia, unspecified (principal)
CPT/HCPCS: 36415; 80053; 80061; 84439; 84443; 85025

== ENCOUNTER 2025-03-10 10:46 | Outpatient (REF) | payer MEDICAID, SELFPAY ==
--- OUTSIDE RECORDS SUMMARY | 2025-03-10 13:52 | XMS_ITS | Encounter Summary ---
Author Organization [employer] Address [address] [facility] [address] [place] [address] Care Team Providers Care Hot Wort Settler Name Role Phone Gila Way MD Primary Care Pro vider Reason for Referral * Consultation (Routine) - Closed Specialty Diagnoses / Procedures Referred By Cassia blanco Referred To Contact Physical Therapy Diagnoses Chronic low back pain without sciatica, unspecified back pain laterality yMa Kendrick MD [address] [place] [address] Phone: tel: fax: AT [facility] [place] [address] [facility] [address] Phone: tel: fax: Referral ID Status Reason Start Date Expiration Date V isits Requested Visits Authorized [id number] Closed Specialty Services Required 03/04/2024 03/04/2025 20 20 Encounter Details Date Type Department Care Team (Late st Contact Info) Description 03/03/2024 Orders Only [facility] MEDICINE [address] [place], [place] [phone] Mya Kendrick MD [address] [place], [place] [phone] Chronic low back pain without sciatica, unspecified [...] Description 03/11/2025 10:15 AM EST Office Visit [facility] MEDICINE [address] [place] [phone] MD [address] [place] [address] Scheduled Referrals Name Type Priority Associated Diagnoses [...] documented as of this encounter Care Teams Hot Wort Settler Relationship Specialty Start Date End Date Gila Way MD [address] [place] [phone] PCP - General Internal Medicine 12/05/22 documented as of this encounter
--- OUTSIDE RECORDS SUMMARY | 2025-03-10 13:52 | XMS_ITS | Encounter Summary ---
Demographics Address [address] [facility] [address] [place] [address] Mobile Phone Home Phone Preferred Language es Marital Status Unknown Quaker Affiliation Unknown Race Other Race Ethnic Group Unknown Author Organization [employer] Address [address] [facility] [address] [place] [address] Care Team Providers Care Validation Engineer Name Role Phone Dylan Kimbrough MD Primary Care Provider Delfina New Primary Care Provider Maxwell Navarrete Primary Care Provider Unavail able Gila Way MD Primary Care Pro vider Encounter Details Date Type Department Care Team (Latest Contact Info) Description 05/20/2018 Abstract [facility] CONVERSIONS Dental, Provider, DDS Social [...] Description 03/11/2025 10:15 AM EST Office Visit [facility] MEDICINE [address] [place] [address] MD [address] [place] [address] documented as of this encounter Visit Diagnoses Not on filedocumented in this encounter Care Teams Validation Engineer Relationship Specialty Start Date End Date Dylan Kimbrough MD PCP - General Family Medicine 04/08/20 02/18/22 Delfina Aguayo FNP PCP - General Family Medicine 02/19/22 09/27/22 Maxwell Saleh AGNP PCP - General Family Medicine 09/28/22 12/04/[address] MD [address] [place] [phone] PCP - General Internal Medicine 12/05/22 documented as of this encounter
--- OUTSIDE RECORDS SUMMARY | 2025-03-10 13:52 | XMS_ITS | Encounter Summary ---
Demographics Address [address] [facility] [address] [place] [address] Mobile Phone Home Phone Preferred Language es Marital Status Unknown Yazidi Affiliation Unknown Race Other Race Ethnic Group Unknown Author Organization [employer] Address [address] [facility] [address] [place] [address] Care Team Providers Care Electric Welder Helper Name Role Phone Gila Way MD Primary Care Pro vider Reason for Visit * Reason Comments Med Refill Encounter Details Date Type Department Care Team ([facility] st Contact Info) Description 11/27/2024 Refill [facility] MEDICINE [address] [place], [place] [phone] Gila Way MD [address] [place] [address] Social History Tobacco Use Types Packs/Day Years [...] Description 03/11/2025 10:15 AM EST Office Visit [facility] [address] [place] [address] [phone] MD [address] [place] [phone] documented as of this encounter Visit Diagnoses Not on filedocumented in this encounter Additional Health Concerns Assessment Noted Time PHQ-9 Depression Total Score: 0 10/27/19 25 2:24 PM EDT documented as of this encounter Care Teams Electric Welder Helper Relationship Specialty Start Date End Date Gila Way MD [address] [place] [phone] PCP - General Internal Medicine 12/05/22 documented as of this encounter
--- OUTSIDE RECORDS SUMMARY | 2025-03-10 13:52 | XMS_ITS | Encounter Summary ---
Demographics Address [address] [facility] [address] [place] [address] Mobile Phone Home Phone Preferred Language es Marital Status Unknown Temple Affiliation Unknown Race Other Race Ethnic Group Unknown Author Organization [employer] Address [address] [facility] 7t [place] [address] Care Team Providers Care Press Bucker Name Role Phone Gila Way MD Primary Care Pro vider Encounter Details Date Type Department Care Team ([facility] st Contact Info) Description 03/05/2025 Orders Only [facility] MEDICINE [address] [place], [place] [phone] Gila Wya MD [address] [place], [place] [phone] Social History Tobacco Use Types Packs/Day Years [...] Upcoming Encounters Date Type Department Care Team ([facility] st Contact Info) Description 03/11/2025 10:15 AM EST Office Visit [facility]ICINE [address] [place] [address] MD [address] [place], [place] [phone] documented as of this encounter Procedures Procedure Name Priority Date/Time Associated Diagnosis Comments SLIDE REVIEW Routine 03/05/2025 9:29 AM EST documented in this encounter Results * Slide Review (03/05/2025 9:29 AM EST) Slide Review VERIFIED [facility] 03/05/2025 9:29 AM EST 03/05/2025 10:54 AM EST us Gila Montoya MD LAB BLOOD ORDERAB LES Final Result [facility] [address] [place] [phone] documented in this encounter Visit Diagnoses Not on filedocumented in this encounter Additional Health Concerns Assessment Noted Time PHQ-9 Depression Total Score: 0 10/27/19 25 2:24 PM EDT documented as of this encounter Care Teams Press Bucker Relationship Specialty Start Date End Date Gila Way MD [address] [place] [phone] PCP - General Internal Medicine 12/05/22 documented as of this encounter
--- OUTSIDE RECORDS SUMMARY | 2025-03-10 13:52 | XMS_ITS | Clinical Summary ---
Author Organization [facility] Address [address] [place] [phone] Phone Care Team Providers Care Bark Press Operator Name Role Phone Physician, No Pcp [...] on file Sexual Orientation Not on file Last Filed Vital Signs Vital Sign Reading [...] mmol/L LAB CHEMISTRY METHOD 02/27/2024 10:37 PM [facility] Potassium 4.3 3.5 - 5.5 mmol/L LAB CHEMISTRY METHOD 02/27/2024 10:37 PM [facility] Chloride 110 96 - 110 mmol/L LAB CHEMISTRY METHOD 02/27/2024 10:37 PM [facility] CO2 26 21 - 32 mmol/L LAB CHEMISTRY METHOD 02/27/2024 10:37 PM [facility] Anion Gap 5 3 - 11 LAB CHEMISTRY METHOD 02/27/2024 10:37 PM [facility] Glucose 87 70 - 100 mg/dL LAB CHEMISTRY METHOD 02/27/2024 10:37 PM [facility] BUN 20 5 - 25 mg/dL LAB CHEMISTRY METHOD 02/27/2024 10:37 PM [facility] Creatinine 0.87 0.50 - 1.10 mg/dL LAB CHEMISTRY METHOD 02/27/2024 10:37 PM [facility] eGFR 79 >=60 mL/min/1. 73m2 LAB CHEMISTRY METHOD 02/27/2024 10:37 PM [facility] Comment:Calculation based on the Chronic Kidney Disease Epidemiology Collaboration (CKD-EPI) equation refit without adjustment for race. BUN/Creatinine Ratio 23.0 LAB CHEMISTRY METHOD 02/27/2024 10:37 PM [facility] Calcium 9.1 8.5 - 10.5 mg/dL LAB CHEMISTRY METHOD 02/27/2024 10:37 PM [facility] AST (SGOT) 20 10 - 42 unit/L LAB CHEMISTRY METHOD 02/27/2024 10:37 PM [facility] ALT (SGPT) 29 10 - 60 unit/L LAB CHEMISTRY METHOD 02/27/2024 10:37 PM [facility] Alkaline Phosphatase 109 42 - 121 unit/L LAB CHEMISTRY METHOD 02/27/2024 10:37 PM EST [facility] Total Protein 7.7 6.0 - 8.0 g/dL LAB CHEMISTRY METHOD 02/27/2024 10:37 PM EST [facility] Albumin 3.6 3.2 - 5.0 g/dL LAB CHEMISTRY METHOD 02/27/2024 10:37 PM EST [facility] Total Bilirubin 0.3 0.0 - 1.4 mg/dL LAB CHEMISTRY METHOD 02/27/2024 10:37 PM EST [facility] Blood Venous blood specimen / Unknown Venipuncture / Unknown 02/27/2024 10:03 PM EST 02/27/2024 10:12 PM EST us Dougie Dillard MD LAB BLOOD ORDERABLES Final Resu lt [facility] [address] [place] [address], from Last 3 Months or Most Recently Relevant to Health Maintenance Insurance MEDICAID - [place] Care Teams Bark Press Operator Relationship Specialty Start Date End Date Physician, No Pcp PCP - General 02/28/24
--- OUTSIDE RECORDS SUMMARY | 2025-03-10 13:52 | XMS_ITS | Encounter Summary ---
Demographics Address [address] [facility] [address] [place] [address] Mobile Phone Home Phone Preferred Language es Marital Status Unknown Muslim Affiliation Unknown Race Other Race Ethnic Group Unknown Author Organization [employer] Address [address] [facility] 7t [place] [address] Care Team Providers Care Faculty Head Name Role Phone Gila Way MD Primary Care Pro vider Encounter Details Date Type Department Care Team ([facility] st Contact Info) Description 03/05/2025 Orders Only [facility] [address] [place], [place] [phone] Gila Way MD [address] [place], [place] [phone] Hypokalemia (Primary Dx) Social History Tobacco Use Types [...] Description 03/11/2025 10:15 AM EST Office Visit [facility] [address] [place] [address] [phone] MD [address] [place] [phone] Scheduled Orders Name Type Priority Associated Diagnoses Orde r Schedule Potassium Lab Routine Hypokalemia Expected: 03/05/2025 (Approximate), Expires: 03/05/2026 Magnesium Lab Routine Hypokalemia Expected: 03/05/2025, Expires: 03/05/2026 documented as of this encounter Visit Diagnoses Diagnosis Hypokalemia- Primary Hypopotassemia documented in this encounter Additional Health Concerns Assessment Noted Time PHQ-9 Depression Total Score: 0 10/27/19 25 2:24 PM EDT documented as of this encounter Care Teams Faculty Head Relationship Specialty Start Date End Date Gila Way MD [address] [place] [phone] PCP - General Internal Medicine 12/05/22 documented as of this encounter
--- OUTSIDE RECORDS SUMMARY | 2025-03-10 13:53 | XMS_ITS | Clinical Summary ---
Demographics Address [address] [facility] [address] [place] [address] Mobile Phone Home Phone Preferred Language es Marital Status Unknown Cheondoism Affiliation Unknown Race Other Race Ethnic Group Unknown Author Organization [employer] Address [address] [facility] [address] [place] [address] Care Team Providers Care Tariff Expert Name Role Phone Gila Way MD [...] 12/26/19 25 Active Tirzepatide-Weigh t Management (Zepbound) 7.5 MG/0.5ML solution auto-injectorIndi cations:Class 2 obesity due to excess calories without serious comorbidity with body mass index (BMI) of 36.0 to 36.9 in adult Inject 0.5 mL (7.5 mg) under the skin every 7 (seven) days. 2 mL 5 2:57 PM EST 03/02/20 25 Active Tirzepatide-Weigh t Management (Zepbound) 5 MG/0.5ML solution auto-injectorIndi cations:Class 2 obesity due to excess calories without serious comorbidity with body mass index (BMI) of 36.0 to 36.9 in adult Inject 0.5 mL (5 mg) under the skin every 7 (seven) days. 2 mL 5 3:51 PM EST 01/27/20 25 025 Discontinued Active Problems Problem Noted [...] and also in the community. Her strong roman catholic belief is helping Jaylyn to deal with [...] and also in the community. Her strong roman catholic belief is helping Jaylyn to deal with [...] gradually return to regular daily routine and quaker activities. PLAN: (check all that apply) Further services needed, but declined Behavioral Health Integration Plan Internal Follow up with [facility] Patient Self Plan Patient to utilize skills provided in intervention , [facility], and Patient to [...] Encounters Date Type Department Care Team Description 03/05/2025 Orders Only [facility] [place] [address] MD Hypokalemia (Primary Dx) 03/05/2025 Results Follow-Up [facility] [place] [address] MD T4, Free, TSH, CBC auto differential, Additional followed-up results: 2 03/05/2025 Orders Only [facility] [place] [address] MD 03/02/2025 Refill [facility] [place], [place] [address] Mu Sanchez MD Class 2 obesity due to excess calories without serious comorbidity with body mass index (BMI) of 36.0 to 36.9 in adult 01/26/2025 Refill [facility] [place] [facility] [place] [address] MD Class 2 obesity due to excess calories without serious comorbidity with body mass index (BMI) of 36.0 to 36.9 in adult 12/25/2024 11:15 AM EDT Office Visit [facility] [place], [place] [address] MD Dyslipidemia (Primary Dx); Hyperlipidemia, unspecified hyperlipidemia type; Vitamin D deficiency; Posterior pain of right hip; Essential hypertension; Health care maintenance; Chronic low back pain without sciatica, unspecified back pain laterality 12/25/2024 Telephone [facility] [place] [facility] [place] [address] MD Prior Authorization 12/25/2024 Travel 12/24/2024 Telephone [facility] [place] [facility] [place] [address] MD chart prep 12/21/2024 Results Follow-Up [facility] [place] [facility] [place] [address] MD Chlamydia/Trichomonas/ Neisseria gonorrhoeae, PCR, Urine, Albumin, Random Urine W/Creatinine, CBC, Additional followed-up results: 9 12/21/2024 Orders Only [facility] [address] [place] [address] MD from Last 3 Months Immunizations Immunization [...] 10:15 AM EST Office Visit [facility] [address] [place] [address] MD [address] [place] [address] Health Maintenance Due Date Last Done Comments CT Colonography 1969 Colonoscopy 1969 Colorectal Cancer Screening 1970 FIT DNA/Cologuard 1969 FIT 1970 FOBT 1970 Sigmoidoscopy 1969 Hepatitis B Vaccines (1 of 3 - 19+ 3-dose series) 1988 Pneumococcal Vaccine: 50+ Years (1 of 1 - PCV) 2019 COVID-19 Vaccine (3 - 2025-26 season) 2024 03/27/2021, 08/30/2020 Influenza Vaccine (#1) 2024 , 05/01/2023, 12/17/2018, Additional history exists Mammogram 06/08/2025 06/08/2024, 05/23, 05/25/2021, Additional history exists Alcohol/Substance Use Screening 07/27/2025 07/27/2024 Disability Screening 07/27/2025 07/27/2024 Depression Screening 10/26/2025 10/26/2024, 10/27/19 SDOH Screening 10/26/2025 10/26/2024 Diabetes: Hemoglobin A1C 12/21/2025 025, 11/15/2023, 06/19/2021, Additional history exists Tobacco Screening 12/25/2025 12/25/2024 DTaP/Tdap/Td Vaccines (2 - Td or Tdap) 04/30/2026 04/30/2016 Cervical Cancer Screening 10/09/2026 HPV/Cotest 10/09/2026 10/09/2021, 07/25/2016 Pap Smear 10/09/2026 10/09/2021 Lipid Panel 03/05/2030 03/05/2025, 11/24, 03/27/2024, Additional history exists RSV Patients and Patients [...] SLIDE REVIEW Routine 03/05/2025 9:29 AM EST LIPID PANEL, STANDARD Routine 03/05/2025 9:29 AM EST Hyperlipidemia, unspecified hyperlipidemia type COMPREHENSIVE METABOLIC PANEL Routine 03/05/2025 9:29 AM EST Hyperlipidemia, unspecified hyperlipidemia type CBC WITH AUTO DIFFERENTIAL Routine 03/05/2025 9:29 AM EST Hyperlipidemia, unspecified hyperlipidemia type TSH Routine 03/05/2025 9:29 AM EST Hyperlipidemia, unspecified hyperlipidemia type T4, FREE Routine 03/05/2025 9:29 AM EST Hyperlipidemia, unspecified hyperlipidemia type FL GUIDANCE IN OR Routine 01/01/2025 7:2 [...] 12/21/2024 8:53 AM EDT Annual physical exam CHLAMYDIA/TRICHOMONAS /NEISSERIA GONORRHOEAE, PCR, URINE Routine 12/21/2024 8:53 AM EDT Annual physical exam BI MAMMOGRAM SCREENING TOMOSYNTHESIS BILATERAL Routine 06/08/2024 1:50 PM EDT HPV MRNA E6/E7 Routine 10/09/2021 2:38 PM EDT THINPREP PAP Routine 10/09/2021 2:38 PM EDT from Last 3 Months or Most Recently Relevant to Health Maintenance Results * Slide Review (03/05/2025 9:29 AM EST) Slide Review VERIFIED [facility] 03/05/2025 9:29 AM EST 03/05/2025 10:54 AM EST us Gila Montoya MD LAB BLOOD ORDERAB LES Final Result [facility] [address] [place] [phone] * (ABNORMAL) CBC auto differential (03/05/2025 9:29 AM EST) White Blood Count 10.8 4.8 - 10.8 X10*3/uL [facility] Red Blood Count 5.24 4.20 - 5.50 X10*6/uL [facility] Hemoglobin 14.8 12.0 - 16.0 g/dl [facility] Hematocrit 45.0 37.0 - 47.0 % [facility] Mean Corpuscular Volume 85.9 80.0 - 98.0 fL [facility] Mean Corpuscular Hemoglobin 28.2 27.0 - 33.0 pg [facility] Mean Corpuscular HGB Conc 32.9 31.0 - 35.0 g/dl [facility] Red Cell Distribution Width 14.3 11.0 - 16.0 % [facility] Platelet Count 272 160 - 400 X10*3/uL [facility] Mean Platelet Volume 13.7(H) 9.4 - 12.3 fL [facility] Neutrophils Percent Auto 54.1 45 - 73 % [facility] Imm Gran Pct Auto 0.4 0.0 - 0.4 % [facility] Lymphocytes Percent Auto 36.9 20 - 40 % [facility] Monocytes Percent Auto 7.1 2 - 11 % [facility] Eosinophils Percent Auto 1.0 0 - 4 % [facility] Basophils Percent Auto 0.5 0 - 2 % [facility] NRBC Pct Auto 0.0 0.0 - 0.2 /100WBC [facility] Neutrophils Absolute Auto 5.8 2.0 - 8.3 x10*3/uL [facility] Imm Gran Abs Auto 0.04(H) 0.00 - 0.03 X10*3/uL [facility] Lymphocytes Absolute Auto 4.0 1.2 - 4.9 X10*3/uL [facility] Monocytes Absolute Auto 0.8 0.1 - 1.2 X10*3/uL [facility] Eosinophils Absolute Auto 0.1 0.0 - 0.4 X10*3/uL [facility] Basophils Absolute Auto 0.1 0.0 - 0.2 X10*3/uL [facility] NRBC Abs Auto 0.000 0.0 - 0.012 X10*3/uL [facility] Blood Venous blood specimen / Unknown 03/05/2025 9:29 AM EST 03/05/2025 10:54 AM EST Gila Montoya MD LAB BLOOD ORDERAB LES Edited Result - Final Performing Organization Address [facility]/ZIP Co de Phone Number [facility] [address] [place] [phone] * TSH (03/05/2025 9:29 AM EST) Thyroid Stimulating Hormone 3.83 0.32 - 4.0 uIU/mL [facility] Comment:Note: A sustained TS H level above 2.5 uIU/mL may warrant further investigation. TSH 3rd Generation ([employer]) Blood Venous blood specimen / Unknown 03/05/2025 9:29 AM EST 03/05/2025 11:00 AM EST Gila Montoya MD LAB BLOOD ORDERAB LES Final Result Performing Organization Address [facility] Co de Phone Number [facility] [address] [place] [phone] * T4, Free (03/05/2025 9:29 AM EST) Only the most recent of2 resultswithin the time period is included. Free T4 (Free Thyroxine) 1.23 0.71 - 1.85 ng/dL [facility] Blood Venous blood specimen / Unknown 03/05/2025 9:29 AM EST 03/05/2025 11:00 AM EST Gila Montoya MD LAB BLOOD ORDERAB LES Final Result Performing Organization Address [facility] Co de Phone Number [facility] [address] [place] [phone] * (ABNORMAL) Lipid Panel, Standard (03/05/2025 9:29 AM EST) Only the most recent of2 resultswithin the time period is included. Triglycerides 143 <150 mg/dL [facility] Comment:Desirable Triglyceri de: less than 150 mg/dLBorderline High Triglyceride 150-199 mg/dLHigh Triglyceride: 200-499 mg/dLVery High Triglyceride: greater than or equal to 5OO mg/dL Cholesterol 223(H) <200 mg/dL [facility] Comment:Desirable Cholestero l: less than 200 mg/dLBorderline High Cholesterol: 200-239 mg/dLHigh Cholesterol: greater than 239 mg/dL LDL Cholesterol Calculated 165(H) <100 mg/dL [facility] Comment:Desirable LDL: less than 100 mg/dLNear Optimal/Above Optimal LDL: 110- 129 mg/dLBorderline High LDL: 130-159 mg/dLHigh LDL: 160-189 mg/dLVery High LDL: greater than or equal to 190 mg/dL HDL Cholesterol 30(L) >40 mg/dL [facility] Comment:Desirable HDL: great er than 40 mg/dL Note: This HDL assay may give artificially low results in patients with liver disease. Blood Venous blood specimen / Unknown 03/05/2025 9:29 AM EST 03/05/2025 11:00 AM EST us Gila Montoya MD LAB BLOOD ORDERAB LES Final Result [facility] [address] [place] [phone] * (ABNORMAL) Comprehensive Metabolic Panel (03/05/2025 9:29 AM EST) Only the most recent of2 resultswithin the time period is included. Sodium 141 135 - 145 mmol/L [facility] Potassium 3.2(L) 3.3 - 5.1 mmol/L [facility] Chloride 101 96 - 108 mmol/L [facility] Carbon Dioxide 28 22 - 29 mmol/L [facility] Anion Gap 15 12 - 20 [facility] Urea Nitrogen (BUN) 15 9 - 16 mg/dL [facility] Creatinine, Serum 0.93 0.5 - 1.4 mg/dL [facility] Estimated Glomerular Filt Rate >60 [facility] Comment:Chronic Kidney Disea se: Estimated GFR < 60 mL/min/1.93f3Volcex Kidney Disease: Estimated GFR < 15 mL/min/1.73m2 Glucose 85 60 - 115 mg/dL [facility] Calcium 9.7 8.4 - 10.2 mg/dL [facility] Bilirubin, Total 0.7 0.0 - 1.0 mg/dL [facility] Aspartate Amino Transferase 25 5 - 31 U/L [facility] Alanine Aminotransferase 18 0 - 31 U/L [facility] Total Protein 8.4(H) 6.5 - 8.0 g/dL [facility] Albumin Level 4.5 3.5 - 5.0 g/dL [facility] Alkaline Phosphatase 80 39 - 117 U/L [facility] Blood Venous blood specimen / Unknown 03/05/2025 9:29 AM EST 03/05/2025 11:00 AM EST us Gila Montoya MD LAB BLOOD ORDERAB LES Final Result [facility] [address] [place] [phone] * FL Guidance in OR (01/01/2025 7:20 AM EDT) Anatomical Region Laterality Modality X-Ray Angiograph y 01/01/2025 7:20 AM EDT Narrative 01/01/2025 8:42 AM EDT [address] [address] Fluoroscopy Report Signed Patient: Jaylyn Hou MR#: [id number] : 1970 Acct:[id number] Age/Sex: 54 / F ADM Date: 01/01/25 Loc: HO.SSS Attending Dr: Galo Perez MD Ordering Physician: Galo Perez MD Date of Service: 01/01/25 Procedure(s): FL guidance in OR Accession Number(s): [id number] cc: Galo Perez MD; Gila Way MD [...] Lam MD in OV> 01/01/25 0839 DD/ TD/TT: 01/01/25 0836 Fire Support Man: Procedure Note Donswapnainterpreter, Image - 01/01/2025 [place] [address] Fluoroscopy Report Signed Patient: Jaylyn Hou#: [id number] : 1970Acct:[id number] Age/Sex: 54 / FADM Date: 01/01/25 Loc: BARBARA Attending Dr: Galo Perez MD Ordering Physician: Galo Perez MD Date of Service: 01/01/25 Procedure(s): FL guidance in OR Accession Number(s): [id number] cc: Galo Perez MD; Gila Way MD [...] OV> 01/01/25 0839 DD/ 9 TD/TT: 01/01/2536 Fire Support Man: [facility] External Provider IMG IR PROCEDURES Final Result * Chlamydia/Trichomonas/Neisseria gonorrhoeae, PCR, Urine (12/21/2024 8:53 AM EDT) CT PCR, Urine NOT DETECTED Not Detect. [facility] Comment:A not detected test result [...] NG PCR, Urine NOT DETECTED Not Detect. [facility] Comment:A not detected test result [...] ORDERAB LES Final Result Performing Organization Address [facility]/ZIP Co de Phone Number [facility] [address] [place] [phone] * Syphilis Screen (12/21/2024 8:53 AM EDT) Syphilis Screen Nonreactive Nonreactive [facility] Blood 12/21/2024 8:53 AM EDT 12/21/2024 11:25 AM EDT Gila Montoya MD LAB BLOOD ORDERAB LES Final Result Performing Organization Address [facility] Co de Phone Number [facility] [address] [place] [address] [phone] * Vitamin D, 25-Hydroxy, Total, Immunoassay (12/21/2024 8:53 AM EDT) Vitamin D 25-OH Total 34.9 >30 ng/mL [facility] Comment: Health Based Reference Values*< 20 ng/mL [id number] ng/mL Insufficient> 30 ng/mL Sufficient*Ying FAIR. N [...] ORDERAB LES Final Result Performing Organization Address [facility]/ZIP Co de Phone Number [facility] [address] [place] [address] [phone] * (ABNORMAL) TSH with Reflex to Free T4 (12/21/2024 8:53 AM EDT) TSH reflex Free T4 4.41(H) 0.32 - 4.0 uIU/mL [facility] Blood 12/21/2024 8:53 AM EDT 12/21/2024 11:25 AM EDT us Gila Montoya MD LAB BLOOD ORDERAB LES Final Result Performing Organization Address [facility]/ZIP Co de Phone Number [facility] [address] [place] [address] [phone] * Albumin, Random Urine W/Creatinine (12/21/2024 8:53 AM EDT) Creatinine, Urine 140.77 mg/dL [facility] Microalbumin Urine 14.0 mg/L [facility] Microalbum Creatinine Ratio Ur 9.9 <30 ug/mg cr [facility] Comment:Albumin/Creatinine R atio Reference Ranges: Normal: < 30 ug/mg creatinine Microalbuminuria: 30 - 300 ug/mg creatinineClinical Albuminuria: > 300 ug/mg creatinine Urine (Urine, Random) 12/21/2024 8:53 AM EDT 12/21/2024 11:02 AM EDT us Gila Montoya MD LAB URINE ORDERAB LES Final Result Performing Organization Address [facility]/ZIP Co de Phone Number [facility] [address] [place] [address] [phone] * Hepatitis C Antibody with Reflex to HCV, RNA, Quantitative, Real-Time PCR (12/21/2024 8:53 AM EDT) Hepatitis C Antibody Nonreactive Nonreactive [facility] Comment:Antibodies to HCV no t detected; does not exclude early acuteHCV infection. Blood Venous blood specimen / Unknown 12/21/2024 8:53 AM EDT 12/21/2024 11:25 AM EDT us Gila Montoya MD LAB BLOOD ORDERAB LES Final Result Performing Organization Address [facility]/ZIP Co de Phone Number [facility] [address] [place] [address] [phone] * Hepatitis B surface antigen, EIA (12/21/2024 8:53 AM EDT) Hepatitis B Surface Ag Negative Negative [facility] Blood Venous blood specimen / Unknown 12/21/2024 8:53 AM EDT 12/21/2024 11:25 AM EDT us Gila Montoya MD LAB BLOOD ORDERAB LES Final Result Performing Organization Address [facility]/ZIP Co de Phone Number [facility] [address] [place] [phone] * HIV-1/2 Antigen and Antibodies, Fourth Generation, with Reflexes (12/21/2024 8:53 AM EDT) HIV AB/AG Nonreactive Nonreactive [facility] Comment:HIV-1 p24 Ag and/or HIV-1/HIV-2 Ab not detected.A test result that is nonreactive does not exclude thepossibility of exposure to or infection with HIV-1 and/orHIV-2. Nonreactive results in this assay for individualswith prior exposure to HIV-1 and/or HIV-2 may be due toantigen and antibody levels that are below the limit ofdetection of this assay.The [employer]ision HIV Ag/Ab Combo assay result andsupplemental assay results should be interpreted inconjunction with the patient's clinical presentation,history and other laboratory results. If the results areinconsistent with clinical evidence, additional testing issuggested to confirm the result. Blood Venous blood specimen / Unknown 12/21/2024 8:53 AM EDT 12/21/2024 11:25 AM EDT Gila Montoya MD LAB BLOOD ORDERAB LES Final Result [facility] [address] [place] [phone] * (ABNORMAL) CBC (12/21/2024 8:53 AM EDT) White Blood Count 11.3(H) 4.8 - 10.8 X10*3/uL [facility] Red Blood Count 5.75(H) 4.20 - 5.50 X10*6/uL [facility] Hemoglobin 16.3(H) 12.0 - 16.0 g/dl [facility] Hematocrit 49.5(H) 37.0 - 47.0 % [facility] Mean Corpuscular Volume 86.1 80.0 - 98.0 fL [facility] Mean Corpuscular Hemoglobin 28.3 27.0 - 33.0 pg [facility] Mean Corpuscular HGB Conc 32.9 31.0 - 35.0 g/dl [facility] Red Cell Distribution Width 14.2 11.0 - 16.0 % [facility] Platelet Count 223 160 - 400 X10*3/uL [facility] Mean Platelet Volume 13.5(H) 9.4 - 12.3 fL [facility] NRBC Pct Auto 0.0 0.0 - 0.2 /100WBC [facility] NRBC Abs Auto 0.000 0.0 - 0.012 X10*3/uL [facility] Blood Venous blood specimen / Unknown 12/21/2024 8:53 AM EDT 12/21/2024 11:25 AM EDT Gila Montoya MD LAB BLOOD ORDERAB LES Final Result Performing Organization Address [facility] Co de Phone Number [facility] [address] [place] [phone] * Hemoglobin A1c (12/21/2024 8:53 AM EDT) Hemoglobin A1c 5.6 <6.0 % [facility] Comment:Hemoglobin A1C Refer ence Range Adults: 4.8 - 6.0 % Non diabetic: < 6.0 % Goal: < 7.0 %Additional Action Suggested: > 8.0 %Note: Hemoglobin A1c results are invalid for patients with abnormal amounts of HbF. Blood transfusions may impact the HbA1c concentration in the patient sample. Estimated Average Glucose 114 mg/dL [facility] Comment:eAG = Estimated ave rage glucose which is %A1C expressed asaverage glucose, using the formula of the D7J-QbepgnwBvjzcxh Glucose study (ADAG), Diabetes Care, Vol.31,#8,Oct. 2007 Blood Venous blood specimen / Unknown 12/21/2024 8:53 AM EDT 12/21/2024 11:25 AM EDT us Gila Montoya MD LAB BLOOD ORDERAB LES Final Result Performing Organization Address [facility]/ZIP Co de Phone Number [facility] [address] [place] [phone] * BI Mammogram Screening Tomosynthesis Bilateral (06/08/2024 1:50 PM EDT) Anatomical Region Laterality Modality Breast Bilateral Mammography 06/08/2024 1:50 PM EDT Narrative 06/14/2024 8:03 PM EDT [facility] [address] [place], [place] [address] Mammography Report Signed Patient: Jaylyn Hou MR#: [id number] : 1970 Acct:[id number] Age/Sex: 54 / F ADM Date: 06/08/24 Loc: HO.MAMMO Attending Dr: Gila Montoya MD Ordering Physician: Gila Way MD Re sults: 1Negative Date of Service: 06/08/24 Follow Up: 1 Year From Orig ina Mammogram Procedure(s): MM tomosynthesis screening BI Accession Number(s): [id number] cc: Gila Way MD EXAMINATION: MM SCREENING [...] OV> 06/14/241999 DD/ 1350 TD/TT: 06/08/24 1400 Fire Support Man: Procedure Note Donotuseinterpreter, Image - 06/14/2024 [facility] [address] [place], [place] [address] Mammography Report Signed Patient: Jaylyn HouMR#: [id number] : 1970Acct:[id number] Age/Sex: 54 / FADM Date: 06/08/24 Loc: HO.MAMMO Attending Dr: Gila Montoya MD Ordering Physician: Gila Way sults: 1Negative Date of Service: 06/08/24Follow Up: 1 Year From Orig inal Mammogram Procedure(s): MM tomosynthesis screening BI Accession Number(s): [id number] cc: Gila Way MD EXAMINATION: MM SCREENING [...] OV> 06/14/241999 DD/ 1350 TD/TT: 06/08/24 1400 Fire Support Man: Gila Montoya MD IMG BI PROCEDURES Edited [...] along with historic and current clinical information. Data Analytics Architect : SEE COMMENT [facility] Comment: DCR, CT(ASCP) CT screening location: [place] [address] Interpretation/R esult: Negative for intraepithelial lesion or malignancy. [facility] LMP: NONE GIVEN [facility]OUNDAT[facility] N [...] MD LAB PATHOLOGY ORDERABLES Fin al Result [facility] [address] * HPV mRNA E6/E7 (10/09/2021 2:38 PM EDT) HPV nRNA E6/E7 Not Detected Not Detected [facility] Comment: Methodology: Aquatic Laborer-Mediated Amplification This assay detects E6/E7 viral messenger RNA (mRNA) from 14 high-risk HPV types (16,18,31,33,35,39,45,51,52,56,58,59,66,68). Cervical sources are required for HPV testing. If a vaginal source from a patient who has had a total hysterectomy with removal of cervix was submitted, please contact the testing laboratory for alternative testing options. For additional information, please refer to http://education.Highlighter/faq/OYP947v4 (This link if provided for information/ educational purposes only.) 10/09/2021 2:38 PM EDT Dylan Kimbrough MD LAB BLOOD ORDERABLES Final R esult [facility] [address] [place] [address], from Last 3 Months or Most Recently Relevant to Health Maintenance Insurance [employer] Teams Tariff Expert Relationship Specialty Start Date End Date Gila Way MD [address] [place] [phone] PCP - General Internal Medicine 12/05/22
--- OUTSIDE RECORDS SUMMARY | 2025-03-10 13:53 | XMS_ITS | Encounter Summary ---
Demographics Address [address] [place] [address] Mobile Phone Home Phone Preferred Language es Marital Status Unknown Advent Affiliation Unknown Race Other Race Ethnic Group Unknown Author Organization [employer] Address [address] [place] [address] Care Team Providers Care Pet Care Assistant Name Role Phone Gila Way MD Primary Care Pro vider Reason for Visit * Reason Onset Date Comments Results 03/05/2025 Encounter Details Date Type Department Care Team ([facility] Contact Info) Description 03/05/2025 Results Follow-Up [facility] [address] [place], [place] [phone] Gila [address] MD [address] [place] [address] T4, Free, TSH, CBC auto differential, Additional followed-up results: 2 Social History Tobacco Use Types Packs/Day Years [...] housing situation today? I have nathanielnelda byrne 10/26/[address] you [...] encounter Miscellaneous Notes * Telephone Encounter - Buffy Vivas RN - 03/08/2025 9:18 AM EST TC placed to the pt with S powertrain engineer #[id number] to inform of the pt blood work results indicating slightly decreased potassium. The pt was informed that this may be due to the pt increase in hydrochlorothiazide medication and to work on dietary changes to help increase levels of K such as dairy, salmon, spinach and bananas. Pt advised to have repeat labs done before next follow up with PCP on 03/11/2025. Pt stated understanding and had no further questions at this time. ----- Message from Gila Montoya MD sent at 03/05/2025 9:10 PM EST ----- Please inform pt from labs done noted slight decreased potassium Possible associated with recently increased HDCTZ Please advise pt to Improve diet rich in potassium as fruits such as bananas, avocados, and melons,as well as vegetables such as spinach, sweet potatoes, and beans, are also good sources of potassium. Dairy products such as yogurt, and some meats and fish such as salmon And to repeat chem/mag ordered today -please advise pt to get repeated lab on 03/10/2025 a day prior next apt w me Thanks ----- Message ----- From: Interface, Lab Results In Sent: 03/05/2025 11:46 AM EST To: Gila Montoya MD * Result Encounter Note - Gila Motnoya MD - 03/05/2025 9:10 PM EST Please inform pt from labs done noted slight decreased potassium Possible associated with recently increased HDCTZ Please advise pt to Improve diet rich in potassium as fruits such as bananas, avocados, and melons,as well as vegetables such as spinach, sweet potatoes, and beans, are also good sources of potassium. Dairy products such as yogurt, and some meats and fish such as salmon And to repeat chem/mag ordered today -please advise pt to get repeated lab on 03/10/2025 a day prior next apt w me Thanks documented in this encounter Plan of Treatment Upcoming Encounters Date Type Department Care Team (Late st Contact Info) Description 03/11/2025 10:15 AM EST Office Visit [facility] [address] [place] [id number] MD [address] [place] [phone] documented as of this encounter Visit Diagnoses Not on filedocumented in this encounter Additional Health Concerns Assessment Noted Time PHQ-9 Depression Total Score: 0 10/27/19 25 2:24 PM EDT documented as of this encounter Care Teams Pet Care Assistant Relationship Specialty Start Date End Date Gila Way MD [address] [place] [id number] PCP - General Internal Medicine 12/05/22 documented as of this encounter
[2025-03-10 14:55] LABS: Magnesium 2.2 mg/dL (1.6-2.6); Potassium 3.3 mmol/L (3.3-5.1)
== END 2025-03-10 10:47 | disposition home or self-care (01) ==
LOC: HO.HHCL 10:46
PROVIDERS: PCP Student in an Organized Health Care Education/Training Program; Visit Provider Student in an Organized Health Care Education/Training Program
DX: E87.6 Hypokalemia (principal)
CPT/HCPCS: 36415; 83735; 84132

== ENCOUNTER 2025-03-23 15:08 | Outpatient (REF) | payer MEDICAID, SELFPAY ==
--- NOTE | ~2025-03-23 | XR_ITS ---
EXAMINATION: XR ABDOMEN 1 VIEW (KUB) HISTORY: N20.0 - Calculus of kidney COMPARISON: Correlation is made with a CT of the abdomen with contrast dated 10/15/2024. FINDINGS: Two supine views of the abdomen are submitted. The bowel gas pattern is unremarkable, without evidence of mechanical obstruction. There is an 8 mm calcification overlying the right renal shadow, compatible with a renal calculus. There are no abnormal soft tissue masses. The bones are intact. XR/XR KUB IMPRESSION: 8 mm right renal calculus. Electronically signed by: Stuart Lam MD 03/24/2025 07:17 AM [facility]
--- OUTSIDE RECORDS SUMMARY | 2025-03-23 18:37 | XMS_ITS | Clinical Summary ---
Demographics Address [address] [place] [address] Mobile Phone Home Phone Preferred Language es Marital Status Unknown Yazdanism Affiliation Unknown Race Other Race Ethnic Group Unknown Author Organization [employer] Address [address] [facility] [address] [place] [address] Care Team Providers Care Web Content Editor Name Role Phone Gila Way MD Primary [...] per day. 1 kit 01/24/20 24 Active losartan-hydroCHL OROthiazide (Hyzaar) 100-25 MG tablet Take 1 tablet by mouth Once per day. 90 tablet 12/26/19 25 2025 Active cholecalciferol (Vitamin D-3) 125 MCG (5000 UT) tabletIndications :Vitamin D deficiency Take 1 tablet (125 mcg) by mouth Once per day. 90 tablet 12/26/19 25 Active lidocaine (Lidoderm) 5 % patchIndications: Posterior pain of right hip Apply 1 patch topically Once per day. Remove & discard patch within 12 hours or as directed by MD. 30 patch 2 12/26/19 25 Active Tirzepatide-Weigh t Management (Zepbound) 7.5 MG/0.5ML solution auto-injectorIndi cations:Class 2 obesity due to excess calories without serious comorbidity with body mass index (BMI) of 36.0 to 36.9 in adult Inject 0.5 mL (7.5 mg) under the skin every 7 (seven) days. 2 mL 5 2:57 PM EST 03/02/20 25 Active rosuvastatin (Crestor) 40 MG tablet Take 1 tablet (40 mg) by mouth Once per day. 90 tablet 1 5 3:04 PM EST 03/11/20 25 2025 Active econazole nitrate 1 % creamIndications: Intertrigo Apply topically 2 times daily. 85 g 11/28/19 25 2024 Discontinued(O ther) triamcinolone (Kenalog) 0.025 % creamIndications: Intertrigo Apply topically 2 times daily. 80 g 11/28/19 25 2024 Discontinued(O ther) rosuvastatin (Crestor) 20 MG tabletIndications :Hyperlipidemia, unspecified hyperlipidemia type Take 1 tablet (20 mg) by mouth Once per day. 90 tablet 12/26/19 25 2024 Discontinued(O ther) Tirzepatide-Weigh t Management (Zepbound) 5 MG/0.5ML solution auto-injectorIndi cations:Class 2 obesity due to excess calories without serious comorbidity with body mass index (BMI) of 36.0 to 36.9 in adult Inject 0.5 mL (5 mg) under the skin every 7 (seven) days. 2 mL 5 3:51 PM EST 01/27/20 25 2024 Discontinued Active Problems Problem Noted Date Diagnosed Date Hypokalemia 03/11/2025 Nephrolithiasis 10/27/2024 Renal cyst 10/27/2024 Depression, unspecified [...] and also in the community. Her strong samaritan belief is helping Jaylyn to deal with [...] and also in the community. 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 Resolved Problems Problem Noted Date Diagnosed Date Resolved Date Intertrigo 10/27/2024 03/11/2025 Encounters Date Type Department Care Team Description 03/11/2025 10:15 AM EST Office Visit [facility] [address] [facility] [place] [address] MD Hypokalemia (Primary Dx); Essential hypertension; Hyperlipidemia, unspecified hyperlipidemia type; Class 2 obesity due to excess calories without serious comorbidity with body mass index (BMI) of 36.0 to 36.9 in adult; Nephrolithiasis; Health care maintenance; Chronic low back pain without sciatica, unspecified back pain laterality; ANGELICA on CPAP 03/11/2025 Travel 03/10/2025 Telephone [facility] MEDICINE [address] [place], [place] [address] [address] MD chart prep 03/10/2025 Results Follow-Up [facility] [address] [facility] [place] [address] MD Potassium, Magnesium 03/05/2025 Orders Only [facility] [address] [facility] [place] [address] MD Hypokalemia (Primary Dx) 03/05/2025 Results Follow-Up [facility] [address] [facility] [place] [address] MD T4, Free, TSH, CBC auto differential, Additional followed-up results: 2 03/05/2025 Orders Only [facility] [place] [facility] [address] MD 03/02/2025 Refill [facility] [address] [facility] [address] Mu Sanchez MD Class 2 obesity due to excess calories without serious comorbidity with body mass index (BMI) of 36.0 to 36.9 in adult 01/26/[address] MD Class 2 obesity due to excess calories without serious comorbidity with body mass index (BMI) of 36.0 to 36.9 in adult 12/25/2024 11:15 AM EDT Office Visit [address] MD Dyslipidemia (Primary Dx); Hyperlipidemia, unspecified hyperlipidemia type; Vitamin D deficiency; Posterior pain of right hip; Essential hypertension; Health care maintenance; Chronic low back pain without sciatica, unspecified back pain laterality 12/25/[address] MD Prior Authorization 12/25/2024 Travel 12/24/[address] MD chart prep from Last 3 Months Immunizations Immunization Administration [...] Sign Reading Time Taken Comments Blood Pressure 124/60 03/11/2025 9:54 AM EST Pulse 100 03/11/2025 9:54 AM EST Temperature 36.1 C (97 F) 03/11/2025 9:54 AM EST Respiratory Rate 20 03/11/2025 9:54 AM EST Oxygen Saturation 98% 12/25/2024 10:52 AM EDT Inhaled Oxygen Concentration - - Weight 79.4 kg (175 lb) 03/11/2025 9:54 AM EST Height 157.5 cm (5' 2 ) 03/11/2025 9:54 AM EST Body Mass Index 32.01 03/11/2025 9:54 AM EST Plan of Treatment Upcoming Encounters Date Type Department Care Team (Late st Contact Info) Description 06/09/2025 10:00 AM EDT Office Visit [facility] MEDICINE [address] [place], [place] [phone] Gila Way MD [address] [place], [place] [phone] Health Maintenance Due Date Last Done Comments CT Colonography 1970 Colonoscopy 1969 Colorectal Cancer Screening 1970 FIT DNA/Cologuard 1969 FIT 1970 FOBT 1970 Sigmoidoscopy 1969 Hepatitis B Vaccines (1 of 3 - 19+ 3-dose series) 1988 Pneumococcal Vaccine: 50+ Years (1 of 1 - PCV) 2019 COVID-19 Vaccine ( - season) 2024 03/27/2021, 08/30/2020 Influenza Vaccine (#1) 2024 , 05/01/2023, 12/17/2018, Additional history exists Mammogram 06/08/2025 06/08/2024, 05/23, 05/25/2021, Additional history exists Alcohol/Substance Use Screening 07/27/2025 07/27/2024 Disability Screening 07/27/2025 07/27/2024 Depression Screening 10/26/2025 10/26/2024, 10/27/19 25 SDOH Screening 10/26/2025 10/26/2024 Diabetes: Hemoglobin A1C 12/21/2025 025, 11/15/2023, 06/19/2021, Additional history exists Tobacco Screening 03/11/2026 03/11/2025 DTaP/Tdap/Td Vaccines (2 - Td or Tdap) [...] Procedure Name Priority Date/Time Associated Diagnosis Comments MAGNESIUM Routine 03/10/2025 10:57 AM EST Hypokalemia POTASSIUM Routine 03/10/2025 10:57 AM EST Hypokalemia SLIDE REVIEW Routine 03/05/2025 9:29 AM EST [...] OR Routine 01/01/2025 7:2 0 AM EDT HEPATITIS C AB W/REFL TO HCV RNA, [...] Recently Relevant to Health Maintenance Results * Potassium (03/10/2025 10:57 AM EST) Potassium 3.3 3.3 - 5.1 mmol/L [facility] Blood Venous blood specimen / Unknown 03/10/2025 10:57 AM EST 03/10/2025 2:25 PM EST Gila Montoya MD LAB BLOOD ORDERAB LES Final Result [facility] [address] [place] [phone] * Magnesium (03/10/2025 10:57 AM EST) Magnesium 2.2 1.6 - 2.6 mg/dL [facility] Blood Venous blood specimen / Unknown 03/10/2025 10:57 AM EST 03/10/2025 2:25 PM EST Gila Montoya MD LAB BLOOD ORDERAB LES Final Result Performing Organization Address City/[facility]/ZIP Co de Phone Number [facility] [address] [place] [address] [phone] * Slide Review (03/05/2025 9:29 AM EST) Slide Review VERIFIED [facility] 03/05/2025 9:29 AM EST 03/05/2025 10:54 AM EST us Gila Montoya MD LAB BLOOD ORDERAB LES Final Result Performing Organization Address [facility] Co de Phone Number [facility] [address] [place] [address] [phone] * (ABNORMAL) CBC auto differential (03/05/2025 9:29 AM EST) White Blood Count 10.8 4.8 - 10.8 X10*3/uL [facility] Red Blood Count 5.24 4.20 - 5.50 X10*6/uL [facility] Hemoglobin 14.8 12.0 - 16.0 g/dl [facility] Hematocrit 45.0 37.0 - 47.0 % [facility] Mean Corpuscular Volume 85.9 80.0 - 98.0 [facility] Mean Corpuscular Hemoglobin 28.2 27.0 - 33.0 [facility] Mean Corpuscular HGB Conc 32.9 31.0 - 35.0 g/dl [facility] Red Cell Distribution Width 14.3 11.0 - 16.0 % [facility] Platelet Count 272 160 - 400 X10*3/uL [facility] Mean Platelet Volume 13.7(H) 9.4 - 12.3 [facility] Neutrophils Percent Auto 54.1 45 - 73 % [facility] Imm Gran Pct Auto 0.4 0.0 - 0.4 % [facility] Lymphocytes Percent Auto 36.9 20 - 40 % [facility] Monocytes Percent Auto 7.1 2 - 11 % [facility] Eosinophils Percent Auto 1.0 0 - 4 % [facility] Basophils Percent Auto 0.5 0 - 2 % [facility] NRBC Pct Auto 0.0 0.0 - 0.2 /100WBC [facility] Neutrophils Absolute Auto 5.8 2.0 - 8.3 x10*3/uL [facility] Imm Gran Abs Auto 0.04(H) 0.00 - 0.03 X10*3/uL [facility] Lymphocytes Absolute Auto 4.0 1.2 - 4.9 X10*3/uL [facility] Monocytes Absolute Auto 0.8 0.1 - 1.2 X10*3/uL [facility] Eosinophils Absolute Auto 0.1 0.0 - 0.4 X10*3/uL [facility] Basophils Absolute Auto 0.1 0.0 - 0.2 X10*3/uL [facility] NRBC Abs Auto 0.000 0.0 - 0.012 X10*3/uL [facility] Blood Venous blood specimen / Unknown 03/05/2025 9:29 AM EST 03/05/2025 10:54 AM EST Gila Montoya MD LAB BLOOD ORDERAB LES Edited Result - Final [facility] [address] [place] [phone] * TSH (03/05/2025 9:29 AM EST) Thyroid Stimulating Hormone 3.83 0.32 - 4.0 uIU/mL [facility] Comment:Note: A sustained TS H level above 2.5 uIU/mL may warrant further investigation. TSH 3rd Generation ([employer]) Blood Venous blood specimen / Unknown 03/05/2025 9:29 AM EST 03/05/2025 11:00 AM EST Gila Montoya MD LAB BLOOD ORDERAB LES Final Result Performing Organization Address City/[facility]/ZIP Co de Phone Number [facility] [address] [place] [phone] * T4, Free (03/05/2025 9:29 AM EST) Free T4 (Free Thyroxine) 1.23 0.71 - 1.85 ng/dL [facility] Blood Venous blood specimen / Unknown 03/05/2025 9:29 AM EST 03/05/2025 11:00 AM EST Gila Montoya MD LAB BLOOD ORDERAB LES Final Result Performing Organization Address [facility] Co de Phone Number [facility] [address] [place] [phone] * (ABNORMAL) Lipid Panel, Standard (03/05/2025 9:29 AM EST) Pathologist [facility] Triglycerides 143 <150 mg/dL [facility] Comment:Desirable Triglyceri de: less than 150 mg/dLBorderline High Triglyceride 150-199 mg/dLHigh Triglyceride: 200-499 mg/dLVery High Triglyceride: greater than or equal to 5OO mg/dL Cholesterol 223(H) <200 mg/dL [facility] Comment:Desirable Cholestero l: less than 200 mg/dLBorderline High Cholesterol: 200-239 mg/dLHigh Cholesterol: greater than 239 mg/dL LDL Cholesterol Calculated 165(H) <100 mg/dL [facility] Comment:Desirable LDL: less than 100 mg/dLNear [...] MD LAB BLOOD ORDERAB LES Final Result [facility] [address] [place] [phone] [phone] * (ABNORMAL) Comprehensive Metabolic Panel (03/05/2025 9:29 AM EST) Sodium 141 135 - 145 mmol/L [facility] Potassium 3.2(L) 3.3 - 5.1 mmol/L [facility] Chloride 101 96 - 108 mmol/L [facility] Carbon Dioxide 28 22 - 29 mmol/L [facility] Anion Gap 15 12 - 20 [facility] Urea Nitrogen (BUN) 15 9 - 16 mg/dL [facility] Creatinine, Serum 0.93 0.5 - 1.4 mg/dL [facility] Estimated Glomerular Filt Rate >60 [facility] Comment:Chronic Kidney Disea se: Estimated GFR < 60 mL/min/[id number] Kidney Disease: Estimated GFR < 15 mL/min/1.73m2 Glucose 85 60 - 115 mg/dL [facility] Calcium 9.7 8.4 - 10.2 mg/dL [facility] Bilirubin, Total 0.7 0.0 - 1.0 mg/dL [facility] Aspartate Amino Transferase 25 5 - 31 U/L [facility] Alanine Aminotransferase 18 0 - 31 U/L [facility] Total Protein 8.4(H) 6.5 - 8.0 g/dL [facility] Albumin Level 4.5 3.5 - 5.0 g/dL [facility] Alkaline Phosphatase 80 39 - 117 U/L [facility] Blood Venous blood specimen / Unknown 03/05/2025 9:29 AM EST 03/05/2025 11:00 AM EST us Gila Montoya MD LAB BLOOD ORDERAB LES Final Result [facility] [address] [place] [phone] * FL Guidance in OR (01/01/2025 7:20 AM EDT) Anatomical Region Laterality Modality X-Ray Angiograph y 01/01/2025 7:20 AM EDT Narrative 01/01/2025 8:42 AM EDT [address] [address] Fluoroscopy Report Signed Patient: Jaylyn Hou MR#: [id number] : 1970 Acct:[id number] Age/Sex: 54 / F ADM Date: 01/01/25 Loc: HO.[facility] Attending Dr: Galo Perez MD Ordering Physician: Galo Perez MD Date of Service: 01/01/25 Procedure(s): FL guidance in OR Accession Number(s): [id number] cc: Galo Perez MD; Gila Way MD [...] in OV> 01/01/25 0839 DD/ 9 TD/TT: 01/01/25835 Siene Maker: Procedure Note Donotuseinterpreter, Image - 01/01/[address] [address] Fluoroscopy Report Signed Patient: Jaylyn HouMR#: [id number] : 1970Acct:[id number] Age/Sex: 54 / FADM Date: 01/01/25 Loc: .SSS Attending Dr: Galo Perez MD Ordering Physician: Galo Perez MD Date of Service: 01/01/25 Procedure(s): FL guidance in OR Accession Number(s): [id number] cc: Galo Perez MD; Gila Way MD [...] OV> 01/01/25 0839 DD/ 9 TD/TT: 01/01/2536 Siene Maker: [facility] External Provider IMG IR PROCEDURES Final Result * Hepatitis C Antibody with Reflex to HCV, RNA, Quantitative, Real-Time PCR (12/21/2024 8:53 AM EDT) Hepatitis C Antibody Nonreactive Nonreactive [facility] Comment:Antibodies to HCV no t detected; does not exclude early acuteHCV infection. Blood Venous blood specimen / Unknown 12/21/2024 8:53 AM EDT 12/21/2024 11:25 AM EDT us Gila Montoya MD LAB BLOOD ORDERAB LES Final Result Performing Organization Address [facility] Co de Phone Number [facility] [address] [place] [phone] * HIV-1/2 Antigen and Antibodies, Fourth Generation, with Reflexes (12/21/2024 8:53 AM EDT) HIV AB/AG Nonreactive Nonreactive [facility] Comment:HIV-1 p24 Ag and/or HIV-1/HIV-2 Ab not detected.A test result that is nonreactive does not exclude thepossibility of exposure to or infection with HIV-1 and/orHIV-2. Nonreactive results in this assay for individualswith prior exposure to HIV-1 and/or HIV-2 may be due toantigen and antibody levels that are below the limit ofdetection of this assay.The [employer] HIV Ag/Ab Combo assay result andsupplemental assay results should be interpreted inconjunction with the patient's clinical presentation,history and other laboratory results. If the results areinconsistent with clinical evidence, additional testing issuggested to confirm the result. Blood Venous blood specimen / Unknown 12/21/2024 8:53 AM EDT 12/21/2024 11:25 AM EDT us Gila Montoya MD LAB BLOOD ORDERAB LES Final Result Performing Organization Address [facility] Co de Phone Number [facility] [address] [place] [phone] * Hemoglobin A1c (12/21/2024 8:53 AM EDT) Hemoglobin A1c 5.6 <6.0 % [facility] Comment:Hemoglobin A1C Refer ence Range Adults: 4.8 - 6.0 % Non diabetic: < 6.0 % Goal: < 7.0 %Additional Action Suggested: > 8.0 %Note: Hemoglobin A1c results are invalid for patients with abnormal amounts of HbF. Blood transfusions may impact the HbA1c concentration in the patient sample. Estimated Average Glucose 114 mg/dL [facility] Comment:eAG = Estimated ave rage glucose which is %A1C expressed asaverage glucose, using the formula of the X4K-GslhegnIjzaqga Glucose study (ADAG), Diabetes Care, Vol.31,#8,Oct. 2007 Blood Venous blood specimen / Unknown 12/21/2024 8:53 AM EDT 12/21/2024 11:25 AM EDT us Gila Montoya MD LAB BLOOD ORDERAB LES Final Result [facility] [address] [place] [phone] * BI Mammogram Screening Tomosynthesis Bilateral (06/08/2024 1:50 PM EDT) Anatomical Region Laterality Modality Breast Bilateral Mammography 06/08/2024 1:50 PM EDT Narrative 06/14/2024 8:03 PM EDT [facility] [address] [place] [address] Mammography Report Signed Patient: Jaylyn Hou MR#: [id number] : 1970 Acct:[id number] Age/Sex: 54 / F ADM Date: 06/08/24 Loc: HO.MAMMO Attending Dr: Gila Montoya MD Ordering Physician: Gila Way MD Re sults: 1Negative Date of Service: 06/08/24 Follow Up: 1 Year From Orig ina Mammogram Procedure(s): MM tomosynthesis screening BI Accession Number(s): [id number] cc: Gila Way MD EXAMINATION: MM SCREENING [...] OV> 06/14/241999 DD/ 1350 TD/TT: 06/08/24 1400 Siene Maker: Procedure Note Donotuseinterpreter, Image - 06/14/[facility] [address] [place] [address] Mammography Report Signed Patient: Jaylyn HouMR#: [id number] : 1970Acct:[id number] Age/Sex: 54 / FADM Date: 06/08/24 Loc: HO.MAMMO Attending Dr: Gila Montoya MD Ordering Physician: Gila Way sults: 1Negative Date of Service: 06/08/24Follow Up: 1 Year From Orig ina Mammogram Procedure(s): MM tomosynthesis screening BI Accession Number(s): [id number] cc: Gila Way MD EXAMINATION: MM SCREENING [...] OV> 06/14/241999 DD/ 1350 TD/TT: 06/08/24 1400 Siene Maker: us Gila Montoya MD IMG BI PROCEDURES [...] along with historic and current clinical information. Animal Hospital Clerk : SEE COMMENT [facility] Comment: DCR, CT(ASCP) CT screening location: [place] [address] Interpretation/R esult: Negative for intraepithelial lesion or malignancy. [facility] LMP: NONE [facility]IV[facility] Prev. BX: NONE [facility]IVEN [facility] Prev. PAP: NONE [facility]IVEN [facility] SOURCE: None given [facility] Statement Of Adequacy: SEE COMMENT [facility] Comment: Satisfactory for evaluation. Endocervical/transformation zone component present. Age and/or menstrual status not provided 10/09/2021 2:38 PM EDT us Dylan Kimbrough MD LAB PATHOLOGY ORDERABLES Fin al Result [facility] [address] * HPV mRNA E6/E7 (10/09/2021 2:38 PM EDT) HPV nRNA E6/E7 Not Detected Not Detected [facility] Comment: Methodology: Paint Stock Clerk-Mediated Amplification This assay detects E6/E7 viral messenger RNA (mRNA) from 14 high-risk HPV types (16,18,31,33,35,39,45,51,52,56,58,59,66,68). Cervical sources are required for HPV testing. If a vaginal source from a patient who has had a total hysterectomy with removal of cervix was submitted, please contact the testing laboratory for alternative testing options. For additional information, please refer to http://education.[employer]/faq/NAX019c7 (This link if provided for information/ educational purposes only.) 10/09/2021 2:38 PM EDT Dylan Kimbrough MD LAB BLOOD ORDERABLES Final R esult [facility] [address] from Last 3 Months or Most Recently Relevant to Health Maintenance [place] [address] [address] [place] [address] C3 Care Teams Web Content Editor Relationship Specialty Start Date End Date Gila Way MD [address] [place] [phone] PCP - General Internal Medicine 12/05/22
--- OUTSIDE RECORDS SUMMARY | 2025-03-23 18:37 | XMS_ITS | Encounter Summary ---
Demographics Address [address] [facility] [address] [place] [address] Mobile Phone Home Phone Preferred Language es Marital Status Unknown Zoroastrian Affiliation Unknown Race Other Race Ethnic Group Unknown Author Organization [employer] Address [address] [facility] [address] [place] [address] Care Team Providers Care Carpet Yarn Winder Operator Name Role Phone Dylan Kimbrough MD Primary Care Provider Delfina New Primary Care Provider Maxwell Navarrete Primary Care Provider Jaswant able Gila Way MD Primary Care Pro vider Encounter Details Date Type Department Care Team (Latest Contact Info) Description 05/20/2018 Abstract [facility] CONVERSIONS Dental, Provider, DDS Social History Tobacco [...] Care Team ( st Contact Info) Description 06/09/2025 10:00 AM EDT Office Visit [facility] MEDICINE [address] [place] [address] MD [address] [place] [address] documented as of this encounter Visit Diagnoses Not on filedocumented in this encounter Care Teams Carpet Yarn Winder Operator Relationship Specialty Start Date End Date Dylan Kimbrough MD PCP - General Family Medicine 04/08/20 02/18/22 Delfina Aguayo FNP PCP - General Family Medicine 02/19/22 09/27/22 Maxwell Saleh AGNP PCP - General Family Medicine 09/28/22 12/04/[address] MD [address] [place] [phone] PCP - General Internal Medicine 12/05/22 documented as of this encounter
--- OUTSIDE RECORDS SUMMARY | 2025-03-23 18:37 | XMS_ITS | Encounter Summary ---
Author Organization [employer] Address [address] [facility] [address] [place] [address] Care Team Providers Care Station Superintendent Name Role Phone Gila Way MD Primary Care Pro vider Reason for Referral * Consultation (Routine) - Closed Specialty Diagnoses / Procedures Referred By Cassia blanco Referred To Contact Physical Therapy Diagnoses Chronic low back pain without sciatica, unspecified back pain laterality Mya Kendrick MD [address] [place] [address] Phone: tel: fax: AT Physical Therapy - [place] [address] [facility] [address] Phone: tel: fax: Referral ID Status Reason Start Date Expiration Date V isits Requested Visits Authorized [id number] Closed Specialty Services Required 03/04/2024 03/04/2025 20 20 Encounter Details Date Type Department Care Team (Late st Contact Info) Description 03/03/2024 Orders Only [facility] MEDICINE [address] [place], [place] [phone] Mya Kendrick MD [address] [place], [place] [phone] Chronic low back pain without sciatica, unspecified [...] Description 06/09/2025 10:00 AM EDT Office Visit [facility] [address] [place] [phone] MD [address] [place] [address] Scheduled Referrals Name Type Priority Associated Diagnoses [...] documented as of this encounter Care Teams Station Superintendent Relationship Specialty Start Date End Date Gila Way MD [address] [place] [phone] PCP - General Internal Medicine 12/05/22 documented as of this encounter
--- OUTSIDE RECORDS SUMMARY | 2025-03-23 18:37 | XMS_ITS | Clinical Summary ---
Author Organization [facility] Address [address] [place] [phone] Phone Care Team Providers Care [employer] Professional Name Role Phone Physician, No Pcp Primary [...] mmol/L LAB CHEMISTRY METHOD 02/27/2024 10:37 PM [facility] Potassium 4.3 3.5 - 5.5 mmol/L LAB CHEMISTRY METHOD 02/27/2024 10:37 PM [facility] Chloride 110 96 - 110 mmol/L LAB CHEMISTRY METHOD 02/27/2024 10:37 PM [facility] CO2 26 21 - 32 mmol/L LAB CHEMISTRY METHOD 02/27/2024 10:37 PM [facility] Anion Gap 5 3 - 11 LAB CHEMISTRY METHOD 02/27/2024 10:37 PM [facility] Glucose 87 70 - 100 mg/dL LAB CHEMISTRY METHOD 02/27/2024 10:37 PM [facility] BUN 20 5 - 25 mg/dL LAB CHEMISTRY METHOD 02/27/2024 10:37 PM [facility] Creatinine 0.87 0.50 - 1.10 mg/dL LAB CHEMISTRY METHOD 02/27/2024 10:37 PM [facility] eGFR 79 >=60 mL/min/1. 73m2 LAB CHEMISTRY METHOD 02/27/2024 10:37 PM [facility] Comment:Calculation based on the Chronic Kidney Disease Epidemiology Collaboration (CKD-EPI) equation refit without adjustment for race. BUN/Creatinine Ratio 23.0 LAB CHEMISTRY METHOD 02/27/2024 10:37 PM [facility] Calcium 9.1 8.5 - 10.5 mg/dL LAB CHEMISTRY METHOD 02/27/2024 10:37 PM [facility] AST (SGOT) 20 10 - 42 unit/L LAB CHEMISTRY METHOD 02/27/2024 10:37 PM [facility] ALT (SGPT) 29 10 - 60 unit/L LAB CHEMISTRY METHOD 02/27/2024 10:37 PM [facility] Alkaline Phosphatase 109 42 - 121 unit/L LAB CHEMISTRY METHOD 02/27/2024 10:37 PM EST [facility] Total Protein 7.7 6.0 - 8.0 g/dL LAB CHEMISTRY METHOD 02/27/2024 10:37 PM EST [facility] Albumin 3.6 3.2 - 5.0 g/dL LAB CHEMISTRY METHOD 02/27/2024 10:37 PM EST [facility] Total Bilirubin 0.3 0.0 - 1.4 mg/dL LAB CHEMISTRY METHOD 02/27/2024 10:37 PM EST [facility] Blood Venous blood specimen / Unknown Venipuncture / Unknown 02/27/2024 10:03 PM EST 02/27/2024 10:12 PM EST us Dougie Dillard MD LAB BLOOD ORDERABLES Final Resu lt [facility] [address] [place] [address], from Last 3 Months or Most Recently Relevant to Health Maintenance Insurance MEDICAID - [place] Care Teams [employer] Professional Relationship Specialty Start Date End Date Physician, No Pcp PCP - General 02/28/24
--- OUTSIDE RECORDS SUMMARY | 2025-03-23 18:37 | XMS_ITS | Encounter Summary ---
Demographics Address [address] [place] [address] Mobile Phone Home Phone Preferred Language es Marital Status Unknown Confucianist Affiliation Unknown Race Other Race Ethnic Group Unknown Author Organization [employer] Address [address] [place] [address] Care Team Providers Care Roll Forming Machine Set Up Mechanic Name Role Phone Gila Way MD Primary Care Pro vider Reason for Visit * Reason Comments Med Refill Encounter Details Date Type Department Care Team (Late st Contact Info) Description 11/27/2024 Refill [facility] [address] [place], [place] [phone] Gila Way MD [address] [place] [phone] Social History Tobacco Use Types Packs/Day Years [...] Description 06/09/2025 10:00 AM EDT Office Visit [facility] [address] [place] [phone] MD [address] [place] [phone] documented as of this encounter Visit Diagnoses Not on filedocumented in this encounter Additional Health Concerns Assessment Noted Time PHQ-9 Depression Total Score: 0 10/27/19 25 2:24 PM EDT documented as of this encounter Care Teams Roll Forming Machine Set Up Mechanic Relationship Specialty Start Date End Date Gila Way MD [address] [place] [phone] PCP - General Internal Medicine 12/05/22 documented as of this encounter
--- OUTSIDE RECORDS SUMMARY | 2025-03-23 18:37 | XMS_ITS | Encounter Summary ---
Demographics Address [address] [place] [address] Mobile Phone Home Phone Preferred Language es Marital Status Unknown Mandaen Affiliation Unknown Race Other Race Ethnic Group Unknown Author Organization [employer] Address [address] [place] [address] Care Team Providers Care Spinning Supervisor Name Role Phone Gila Way MD Primary Care Pro vider Encounter Details Date Type Department Care Team ([facility] st Contact Info) Description 03/10/2025 Results Follow-Up [facility] [address] [place], [place] [phone] Gila Way MD [address] [place] [address] Potassium, Magnesium Social History Tobacco Use Types Packs/Day Years [...] Encounter Note - Gila Montoya MD - 03/10/2025 3:07 PM EST Please remind pt of apt tomorrow Thanks ----- Potassium wnl and mag wnl ,will inform pt normal result at her apt w me tomorrow Will repeat test in 4 weeks to check stability and will advise tomorrow pt to make sure to eat foodrich in potassium documented in this encounter Plan of Treatment Upcoming Encounters Date Type Department Care Team (Late st Contact Info) Description 06/09/2025 10:00 AM EDT Office Visit [facility] [address] [place] [phone] MD [address] [place] [address] documented as of this encounter Visit Diagnoses Not on filedocumented in this encounter Additional Health Concerns Assessment Noted Time PHQ-9 Depression Total Score: 0 10/27/19 25 2:24 PM EDT documented as of this encounter Care Teams Spinning Supervisor Relationship Specialty Start Date End Date Gila Way MD [address] [place] [phone] PCP - General Internal Medicine 12/05/22 documented as of this encounter
== END 2025-03-23 15:09 ==
LOC: HO.XRAY 15:08
PROVIDERS: PCP Student in an Organized Health Care Education/Training Program; Visit Provider Nurse Practitioner Family
DX: N20.0 Calculus of kidney (principal)
CPT/HCPCS: 74018

== ENCOUNTER → 2025-03-23 15:12 | Outpatient (BNV) | payer MEDICAID, SELFPAY | PROVIDERS: PCP Student in an Organized Health Care Education/Training Program; Visit Provider Radiology Diagnostic Radiology | DX: N20.0 Calculus of kidney (principal) | CPT/HCPCS: 74018 ==